=== PATIENT | female | born 1980 | race Caucasian/White ===

== ENCOUNTER 2020-10-24 14:37 | Outpatient (CLI) | payer MEDICARE, MEDICAID, SELFPAY ==
--- NOTE | ~2020-10-24 | CT_ITS ---
EXAMINATION: CT abdomen pelvis w con DATE: 10/24/2020 15:04 INDICATION: Left lower quadrant abdominal pain. TECHNIQUE: Computed tomography (CT) of the abdomen and pelvis was performed with 100 mL Omnipaque 350 intravenous contrast. Automated exposure control and iterative reconstruction technique were employe d. The dose-length product was 638.83 mGy-cm. COMPARISON: CT abdomen and pelvis 09/11/2015 FINDINGS: The visualized portions of the lung bases demonstrate mild atelectasis. No pleural effusion . The heart size is normal. No pericardial effusion. There is a chronic 1.7 cm mass in the liver, lik leonardo benign. The gallbladder, spleen, pancreas, adrenal glands, and kidneys are normal. There are no d ilated loops of bowel. The appendix is normal. There are no pathologically enlarged lymph nodes. Ther e is trace pelvic ascites. The ovaries are unremarkable. There is moderate lumbar spondylosis. IMPRESSION: 1. No specific etiology for the patient's symptoms. Reviewed, dictated and finalized at location A. ITURE DUSTER
== END 2020-10-24 14:38 | disposition home or self-care (01) ==
PROVIDERS: PCP Family Medicine Adolescent Medicine; Visit Provider Family Medicine Adolescent Medicine
DX: R10.32 Left lower quadrant pain (principal)
CPT/HCPCS: 74177; Q9967

== ENCOUNTER 2020-11-09 20:23 | Emergency (ER) | payer MEDICARE, MEDICAID, SELFPAY ==
--- NOTE | ~2020-11-09 | CT_ITS ---
EXAMINATION: CT abdomen pelvis w con INDICATION: Left-sided abdominal pain and diarrhea TECHNIQUE: Computed tomographic images of the abdomen and pelvis were obtained after the administrati on of 100 cc of Omnipaque 350 intravenous contrast. The dose-length product (DLP) was 782.58 mGy-cm. Automated exposure control and iterative reconstruction technique were employed. COMPARISON: 10/24/2020 FINDINGS: Minimal dependent atelectasis is present in the lung bases. The heart size is normal. Again noted is a chronic and unchanged 1.7 cm mass of the liver, likely benign given the lack of interval change. The spleen, pancreas, gallbladder, and adrenal glands are normal. Hypoattenuating lesions in the kidneys, measuring up to 6 mm on the right, are too small to characterize but likely represent cy sts. No pathologically enlarged abdominal or pelvic lymph nodes are identified. There is no free intr aperitoneal gas or evidence of bowel obstruction. Gas in the subcutaneous tissues of the right buttoc k likely reflects an injection site. The appendix is normal. There is moderate lumbar spondylosis. IMPRESSION: 1. No CT correlate for the patient's symptoms. Reviewed, dictated and finalized at location A. 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
[2020-11-09 20:26] VITALS: BP 150/102; PULSE 92; RESP 18; TEMP 36.7; O2SAT 99
--- NOTE | 2020-11-09 20:28 | ED.GENADULT ---
HPI - General Adult General Chief complaint: Unspecified Stated complaint: diarrhea Time Seen by Provider: 11/09/20 20:28 Source: patient Mode of arrival: ambulatory Limitations: no limitations History of Present Illness HPI narrative: Patient is a 39 yo female who presents for evaluation of left sided abdominal pain. Patient reports pain is sharp and intermittent in nature. She reports diarrhea over the past month as well. No blood or mucus present. Pt also reporting vaginal discharge. She is sexually active with one partner. She denies history of STI. She reports urgency, frequency without dysuria or hematuria. Pt reports with recent CT scan with possible diverticulitis diagnosis, however pt states she is on antibiotics and only has a bottle of diclofenac with her. She denies fever, chest pain, cough, right sided abdominal pain. Pt reports intermittent left sided flank pain over the past month. No severe pain currently. I reviewed patient CT scan at this facility from 10/24 and no specific etiology to explain patient symptoms. Related Data Home Medications Medication Instructions Recorded Confirmed diclofenac sodium PO 11/09/20 divalproex PO 11/09/20 levothyroxine 11/09/20 norethindrone (contraceptive) mg 11/09/20 olanzapine mg 11/09/20 vilazodone [Viibryd] mg 11/09/20 Allergies Allergy/AdvReac Type Severity Reaction Status Date / Time No Known Allergies Allergy Unknown Unverified 11/09/20 20:30 Review of Systems Review of Systems: Narrative: CONSTITUTIONAL: Denies fever, chills, or sweats. ENT: Denies rhinorrhea, congestion, sore throat, or otalgia. CARDIOVASCULAR: Denies chest pain, palpitations, or edema. RESPIRATORY: Denies cough or dyspnea. GASTROINTESTINAL: Reports left flank pain, reports diarrhea GENITOURINARY: Denies dysuria or hematuria. Reports frequency and urgency. SKIN: Denies rash or itching. MUSCULOSKELETAL: Denies back pain, joint pain, or myalgia. NEUROLOGIC: Denies headache, numbness, or weakness. [facility] Past Medical History Medical History (Updated 11/09/20 @ 23:40 by Milagro Calvillo MD) Anxiety Cerebral palsy HPV (human papilloma virus) infection Social History Social History (Updated 11/09/20 @ 21:15 by Milagro Calvillo MD) Smoking status: Never smoker Substance use: never Gender identity (if verbalized by the patient): Female Exam Narrative: Exam Narrative: GENERAL: Awake, alert, conversant HEAD: Normocephalic, atraumatic. EYES: PERRLA and EOMI. ENT: Nares clear, no rhinorrhea or epistaxis. Mucous membranes moist. NECK: Supple. CHEST: No respiratory distress, breathing even and non labored HEART: Regular rate, sinus rhythm ABDOMEN:Bilateral CVA tenderness, mild abdominal distension, non tender throughout Rectal: Labia majora and minora normal without lesions. Vagina with out blood. No cervical motion tenderness. Mild cervical erythema. No adnexal tenderness or fullness bilaterally. Mucoid discharge present. EXTREMITIES: Normal range of motion. No edema. SKIN: Warm, dry, no rash. NEURO:No focal deficits. Alert and oriented x3. Ambulatory. Course Vital Signs Vital signs: Vital Signs Temperature 36.7 C 11/09/20 20:26 Pulse Rate 92 11/09/20 20:26 Respiratory Rate 18 11/09/20 20:26 Blood Pressure 150/102 H 11/09/20 20:26 Pulse Oximetry 99 11/09/20 20:26 Temperature 36.7 C 11/09/20 20:26 Pulse Rate 92 11/09/20 20:26 Respiratory Rate 18 11/09/20 20:26 Blood Pressure 150/102 H 11/09/20 20:26 Pulse Oximetry 99 11/09/20 20:26 Medical Decision Making MDM Narrative Medical decision making narrative: Patient presented for evaluation of abdominal pain, hesitancy, frequency, vaginal discharge. At the time of assessment, ABCs are intact and vital signs are stable. Patient with mild leukocytosis. Possible UTI although catch does appear somewhat unclean given amount of squamous cells present. However, given patient's urinary sympto
[2020-11-09 20:54] LABS: Basophils Absolute Auto 0.1 K/mm3 (0.0-0.1); Basophils Percent Auto 0.4 % (0.2-1.2); Eosinophils Absolute Auto 0.1 K/mm3 (0-0.3); Hematocrit 41.4 % (37.0-47.0); Hemoglobin 13.8 g/dL (12.0-15.0); Immature Granulocyte Absolute 0.05 K/mm3 (0.00-0.031); Immature Granulocyte Percent A 0.4 % (0-0.5); Lymphocytes Absolute Auto 3.56 K/mm3 (0.9-3.2); Lymphocytes Percent Auto 29.2 % (18.3-44.2); Mean Corpuscular HGB Conc 33.3 g/dl (32-36); Mean Corpuscular Hemoglobin 30.9 pg (26-34); Mean Corpuscular Volume 92.8 fl (80-100); Mean Platelet Volume 9.3 fl (7.4-10.4); Monocytes Absolute Auto 0.9 K/mm3 (0.1-0.6); Monocytes Percent Auto 7.6 % (2.6-8.5); Neutrophils Absolute Auto 7.5 K/mm3 (1.3-6.7); Neutrophils Percent Auto 61.4 % (45.5-73.1); Platelet Count Result 372 k/mm3 (150-375); Red Blood Count 4.46 M/mm3 (4.2-5.4); Red Cell Distribution Width 12.9 % (11.5-14.5); White Blood Count 12.2 K/mm3 (4.5-10.0)
[2020-11-09 21:07] LABS: Alanine Aminotransferase 12 U/L (4-35); Albumin Level 4.3 g/dL (3.5-5.1); Alkaline Phosphatase 62 U/L (38-126); Anion Gap 8 mmol/L (8-16); Aspartate Amino Transferase 25 U/L (14-36); Bilirubin,Total 0.4 mg/dL (0.2-1.3); Blood Urea Nitrogen 15 mg/dL (7-17); Calcium 9.6 mg/dL (8.4-10.2); Carbon Dioxide 28 mmol/L (22-30); Chloride 102 mmol/L (98-107); Estimated CRCL calculation 83 ml/min; Estimated Glomerular Filt Rate > 60; Glucose 109 mg/dL (65-105); Lipase 69 U/L (23-300); Potassium 3.9 mmol/L (3.4-5.0); Sodium 138 mmol/L (137-145)
[2020-11-09] MEDS: cefTRIAXone 250 MG VIAL IM (22:04)
[2020-11-09] MEDS: AZITHROMYCIN 250 MG TABLET 1000 MG PO (22:04)
[2020-11-09 22:05] LABS: Add Urine Microscopic? YES; Appearance Urine Cloudy (Clear); Bacteria Urine Trace /hpf; Bilirubin Urine Negative (Negative); Blood Urine Negative (Negative); Color Urine Yellow (Yellow); Glucose Urine UA Negative (Negative); Ketones Urine Negative (Negative); Leukocyte Esterase Ur 3+ LEU/UL (Negative); Mucus Urine Heavy /lpf; Nitrate Urine Negative (Negative); Protein Urine Negative (Negative); Specific Grav Ur 1.016 (1.001-1.035); Squamous Epithelial Cell Urine Many /hpf (Few); Urobilinogen Urine Negative mg/dL (<2.0); WBC Urine 21-30 /hpf
[2020-11-09 23:51] VITALS: BP 134/79; PULSE 78; RESP 16; TEMP 36.4; O2SAT 100
== END 2020-11-09 23:52 | disposition home or self-care (01) ==
PROVIDERS: Emergency Provider Emergency Medicine; PCP Family Medicine Adolescent Medicine
DX: N73.9 Female pelvic inflammatory disease, unspecified (principal); N30.00 Acute cystitis without hematuria; F41.9 Anxiety disorder, unspecified; G80.9 Cerebral palsy, unspecified
CPT/HCPCS: 36415; 74177; 80053; 81001; 81025; 83690; 85025; 87070; 87086; 87088; 87491; 87591; 87808; 96372; 99284; A9270; J0696; Q9967

== ENCOUNTER 2021-05-03 05:19 | Emergency (ER) | payer MEDICARE, MEDICAID, SELFPAY ==
--- NOTE | ~2021-05-03 | CT_ITS ---
EXAMINATION: CT abdomen pelvis wo con DATE: 05/03/2021 06:25 INDICATION: Left sided flank pain TECHNIQUE: Computed tomography (CT) of the abdomen and pelvis was performed without intravenous contr ast. Automated exposure control and iterative reconstruction technique were employed. The dose-length product was 815.04 mGy-cm. COMPARISON: 11/09/2020 FINDINGS: Lung bases are clear. Heart size is normal. No pericardial or pleural effusion. Liver, gallbladder, s pleen, pancreas and bilateral adrenal glands are normal. Kidneys and ureters are normal with no uroli thiasis, hydroureteronephrosis or perinephric/ureteral stranding. The decompressed bladder, anteverte d uterus and bilateral adnexa are unremarkable. A few phleboliths in the pelvis. Bowels including the appendix are normal. No free intraperitoneal gas or fluid. No pathologically enlarged abdominal or p elvic lymphadenopathy. Large central disc extrusion at L2-L3 resulting in moderate central canal sten osis. IMPRESSION: 1. No urolithiasis or other acute intra-abdominal/pelvic process. Reviewed, dictated and finalized at location A.
[2021-05-03 05:23] VITALS: BP 134/88; PULSE 76; RESP 18; TEMP 37.3; O2SAT 97
--- NOTE | 2021-05-03 05:53 | ED.GENADULT ---
HPI - General Adult General Chief complaint: Abdominal Pain Stated complaint: side pain Time Seen by Provider: 05/03/21 05:47 History of Present Illness HPI narrative: Patient 40-year-old female who presents the emergency department chief complaint of left flank pain. Patient states that she started having pain states that it is a sharp type pain started in the last 24 hours patient reports is nonradiating reports that is not improved by anything nor is it worsened by anything. The patient reports that she had similar symptoms back in October and was diagnosed with a urinary tract infection. The patient states that this episode though is worse than the previous episode. Related Data Home Medications Medication Instructions Recorded Confirmed diclofenac sodium PO 11/09/20 divalproex PO 11/09/20 levothyroxine 11/09/20 norethindrone (contraceptive) mg 11/09/20 olanzapine mg 11/09/20 vilazodone [Viibryd] mg 11/09/20 Allergies Allergy/AdvReac Type Severity Reaction Status Date / Time No Known Allergies Allergy Unknown Verified 05/03/21 05:36 Review of Systems Review of Systems: Narrative: A 10 system review of systems was completed on the patient and is negative except for what is stated in the HPI. Nursing and ancillary documentation was reviewed. [facility] Past Medical History Medical History Anxiety Cerebral palsy HPV (human papilloma virus) infection Social History Social History Smoking status: Never smoker Substance use: never Gender identity (if verbalized by the patient): Female Exam Narrative: Exam Narrative: GENERAL: Well-appearing, well-nourished, and in no acute distress. HEAD: Normocephalic, atraumatic. EYES: PERRLA and EOMI. ENT: Nares clear, no rhinorrhea or epistaxis. Mucous membranes moist. NECK: Supple. CHEST: Clear to auscultation. No respiratory distress. HEART: Regular rate and rhythm. No murmur heard. Normal peripheral pulses. ABDOMEN: Soft, nontender, nondistended, normal active bowel sounds. EXTREMITIES: Normal range of motion. No edema. SKIN: Warm, dry, no rash. NEURO: No focal deficits. Alert and oriented x3. PSYCH: Normal mood and affect. Course Vital Signs Vital signs: Vital Signs Temperature 37.3 C 05/03/21 05:23 Pulse Rate 76 05/03/21 05:23 Respiratory Rate 18 05/03/21 05:23 Blood Pressure 134/88 05/03/21 05:23 Pulse Oximetry 97 05/03/21 05:23 Temperature 37.3 C 05/03/21 05:23 Pulse Rate 64 05/03/21 06:56 Respiratory Rate 18 05/03/21 06:56 Blood Pressure 117/59 L 05/03/21 06:56 Pulse Oximetry 100 05/03/21 06:56 Medical Decision Making Vital Signs Vital Signs: Vital Signs Temperature 37.3 C 05/03/21 05:23 Pulse Rate 76 05/03/21 05:23 Respiratory Rate 18 05/03/21 05:23 Blood Pressure 134/88 05/03/21 05:23 Pulse Oximetry 97 05/03/21 05:23 Temperature 37.3 C 05/03/21 05:23 Pulse Rate 64 05/03/21 06:56 Respiratory Rate 18 05/03/21 06:56 Blood Pressure 117/59 L 05/03/21 06:56 Pulse Oximetry 100 05/03/21 06:56 Lab Data Result diagrams: 05/03/21 06:07 05/03/21 06:07 Labs: Lab Results 05/03/21 05/03/21 05/03/21 Range/Units 06:07 06:07 06:07 WBC 10.4 H (4.5-10.0) K/mm3 RBC 4.41 (4.2-5.4) M/mm3 Hgb 13.3 (12.0-15.0) g/dL Hct 41.5 (37.0-47.0) % MCV 94.1 (80-100) fl MCH 30.2 (26-34) pg MCHC 32.0 (32-36) g/dl RDW 13.4 (11.5-14.5) % Plt Count 284 (150-375) k/mm3 MPV 10.1 (7.4-10.4) fl Immature Gran % (Auto) 0.6 H (0-0.5) % Neut % (Auto) 39.4 L (45.5-73.1) % Lymph % (Auto) 46.3 H (18.3-44.2) % [place] % (Auto) 11.1 H (2.6-8.5) % Eos % (Auto) 2.1 (0-4.4) % Baso % (Auto) 0.5 (0.2-1.2) % Lymph # (Auto) 4.82 H (0.9-3.2) K/mm3 [place] # (Auto) 1.2
[2021-05-03] MEDS: SODIUM CHLORIDE 0.9% IV 1,000 ML 999 ML IV CONT (06:09)
[2021-05-03] MEDS: ONDANSETRON INJ 4 MG/2 ML VIAL IV PUSH (06:09)
[2021-05-03 06:16] LABS: Basophils Absolute Auto 0.1 K/mm3 (0.0-0.1); Basophils Percent Auto 0.5 % (0.2-1.2); Eosinophils Absolute Auto 0.2 K/mm3 (0-0.3); Eosinophils Percent Auto 2.1 % (0-4.4); Hematocrit 41.5 % (37.0-47.0); Hemoglobin 13.3 g/dL (12.0-15.0); Immature Granulocyte Absolute 0.06 K/mm3 (0.00-0.031); Immature Granulocyte Percent A 0.6 % (0-0.5); Lymphocytes Absolute Auto 4.82 K/mm3 (0.9-3.2); Lymphocytes Percent Auto 46.3 % (18.3-44.2); Mean Corpuscular Hemoglobin 30.2 pg (26-34); Mean Corpuscular Volume 94.1 fl (80-100); Mean Platelet Volume 10.1 fl (7.4-10.4); Monocytes Absolute Auto 1.2 K/mm3 (0.1-0.6); Monocytes Percent Auto 11.1 % (2.6-8.5); Neutrophils Absolute Auto 4.1 K/mm3 (1.3-6.7); Neutrophils Percent Auto 39.4 % (45.5-73.1); Platelet Count Result 284 k/mm3 (150-375); Red Blood Count 4.41 M/mm3 (4.2-5.4); Red Cell Distribution Width 13.4 % (11.5-14.5); White Blood Count 10.4 K/mm3 (4.5-10.0)
[2021-05-03 06:35] LABS: Add Urine Microscopic? YES; Appearance Urine Cloudy (Clear); Bilirubin Urine Negative (Negative); Blood Urine 1+ (Negative); Color Urine Yellow (Yellow); Glucose Urine UA Negative (Negative); Ketones Urine Trace mg/dL (Negative); Leukocyte Esterase Ur 2+ LEU/UL (Negative); Nitrate Urine Negative (Negative); Protein Urine 1+ mg/dL (Negative)
[2021-05-03 06:39] LABS: Bacteria Urine 2+ /hpf; Squamous Epithelial Cell Urine Many /hpf (Few)
[2021-05-03 06:45] LABS: Alanine Aminotransferase 9 U/L (4-35); Albumin Level 3.8 g/dL (3.5-5.1); Alkaline Phosphatase 53 U/L (38-126); Anion Gap 11 mmol/L (8-16); Aspartate Amino Transferase 30 U/L (14-36); Bilirubin,Total 0.4 mg/dL (0.2-1.3); Blood Urea Nitrogen 14 mg/dL (7-17); Calcium 9.2 mg/dL (8.4-10.2); Carbon Dioxide 26 mmol/L (22-30); Chloride 105 mmol/L (98-107); Estimated CRCL calculation 92 ml/min; Estimated Glomerular Filt Rate > 60; Glucose 113 mg/dL (65-105); Lipase 54 U/L (23-300); Potassium 4.3 mmol/L (3.4-5.0); Sodium 142 mmol/L (137-145)
[2021-05-03 06:56] VITALS: BP 117/59; PULSE 64; RESP 18; O2SAT 100
[2021-05-03 08:05] VITALS: BP 106/58; RESP 16
== END 2021-05-03 08:07 | disposition home or self-care (01) ==
PROVIDERS: Emergency Provider Emergency Medicine; PCP Family Medicine Adolescent Medicine
DX: R10.84 Generalized abdominal pain (principal); N30.00 Acute cystitis without hematuria; F41.9 Anxiety disorder, unspecified; G80.9 Cerebral palsy, unspecified
CPT/HCPCS: 36415; 74176; 80048; 80076; 81001; 81025; 83690; 85025; 96361; 96374; 99284; J2405; J7030

== ENCOUNTER 2021-06-04 06:53 | Emergency (ER) | payer MEDICARE, MEDICAID, SELFPAY ==
[2021-06-04 06:57] VITALS: BP 160/97; PULSE 96; RESP 18; TEMP 37; O2SAT 96
[2021-06-04 07:20] LABS: Add Urine Microscopic? YES; Appearance Urine Cloudy (Clear); Bacteria Urine 1+ /hpf; Bilirubin Urine Negative (Negative); Blood Urine 1+ (Negative); Color Urine Yellow (Yellow); Glucose Urine UA Negative (Negative); Ketones Urine Negative (Negative); Leukocyte Esterase Ur 2+ LEU/UL (Negative); Mucus Urine Few /lpf; Nitrate Urine Negative (Negative); Protein Urine Negative (Negative); Specific Grav Ur 1.018 (1.001-1.035); Squamous Epithelial Cell Urine Many /hpf (Few); Urobilinogen Urine Negative mg/dL (<2.0); WBC Urine 16-20 /hpf
--- NOTE | 2021-06-04 07:25 | ED.FEMALEGU ---
HPI - Female Genitourinary General Chief complaint: Urogenital-Female Stated complaint: UTI not better Time Seen by Provider: 06/04/21 07:04 Source: patient Mode of arrival: ambulatory Limitations: no limitations History of Present Illness HPI Narrative: Patient is a 40-year-old female complaining of I have a UTI , describes his low back pain. Patient states that this is typical when she gets a urinary tract infection she has low back pain. Patient denies any abdominal pain, dysuria, increased urinary frequency, nausea, vomiting, fever or chills. Related Data Home Medications Medication Instructions Recorded Confirmed diclofenac sodium PO 11/09/20 divalproex PO 11/09/20 levothyroxine 11/09/20 norethindrone (contraceptive) mg 11/09/20 olanzapine mg 11/09/20 vilazodone [Viibryd] mg 11/09/20 Allergies Allergy/AdvReac Type Severity Reaction Status Date / Time No Known Allergies Allergy Unknown Verified 06/04/21 06:56 Review of Systems Review of Systems: All systems reviewed & are unremarkable except as noted in HPI and below Constitutional: Constitutional: Denies body ache(s), Denies chills, Denies excessive sweating, Denies fatigue, Denies fever(s), Denies headache(s), Denies lethargy, Denies malaise, Denies weakness and Denies weight loss Eyes: Eyes: Denies blurry vision, Denies change in vision and Denies loss of vision ENT: Denies dizziness, Denies ear discharge, Denies headache(s), Denies lip swelling, Denies epistaxis, Denies nasal congestion, Denies neck pain, Denies throat swelling and Denies tongue swelling Cardiovascular: Cardiovascular: Denies chest pain, Denies chest pain at rest, Denies chest pain with activity, Denies diaphoresis, Denies rapid heart rate, Denies edema, Denies irregular heart rhythm, Denies lightheadedness, Denies palpitations, Denies dyspnea and Denies dyspnea on exertion Respiratory: Respiratory: Denies chest congestion, Denies cough, Denies hemoptysis, Denies dyspnea and Denies dyspnea on exertion Gastrointestinal: Gastrointestinal: Denies abdominal pain, Denies melena, Denies hematochezia, Denies diarrhea, Denies nausea, Denies vomiting and Denies hematemesis Musculoskeletal: Musculoskeletal: Denies abnormal gait, Denies deformity, Denies joint swelling, Denies limited range of motion, Denies neck pain and Denies numbness Neurologic: Denies Abnormal speech present, Denies abnormal gait, Denies confusion, Denies dizziness, Denies headache(s), Denies focal weakness, Denies loss of vision, Denies numbness, Denies Other visual disturbances, Denies Sensory deficit (Neuro) and Denies weakness Psychiatric: Psychiatric: Denies confusion, Denies depression, Denies auditory hallucinations, Denies homicidal ideation and Denies suicidal ideation Endocrine: Endocrine: Denies cold intolerance, Denies excessive sweating, Denies fatigue, Denies heat intolerance and Denies palpitations Hematologic/Lymphatic: Hematologic/Lymphatic: Denies easy bleeding and Denies easy bruising Allergic/Immunologic: Allergic/Immunologic: Denies lip swelling, Denies throat swelling and Denies tongue swelling PMFSH Past Medical History Medical History Anxiety Cerebral palsy HPV (human papilloma virus) infection Social History Social History Smoking status: Never smoker Substance use: never Gender identity (if verbalized by the patient): Female Exam Const: General: cooperative, healthy appearing, comfortable, no acute distress, well developed, alert and awake; No confusion Orientation/consciousness: oriented to person, oriented to place, oriented to time, patient oriented x3 and No confusion Limitations: no limitations HENMT: Head: normal to inspection, normocephalic and atraumatic Ears: hearing grossly normal bilaterally, TM normal on the right and TM normal on the left General nose exam:
[2021-06-04 07:58] LABS: Basophils Absolute Auto 0.1 K/mm3 (0.0-0.1); Basophils Percent Auto 0.5 % (0.2-1.2); Eosinophils Absolute Auto 0.2 K/mm3 (0-0.3); Eosinophils Percent Auto 1.6 % (0-4.4); Hematocrit 44.1 % (37.0-47.0); Hemoglobin 14.3 g/dL (12.0-15.0); Immature Granulocyte Absolute 0.06 K/mm3 (0.00-0.031); Immature Granulocyte Percent A 0.6 % (0-0.5); Lymphocytes Absolute Auto 4.39 K/mm3 (0.9-3.2); Lymphocytes Percent Auto 42.2 % (18.3-44.2); Mean Corpuscular HGB Conc 32.4 g/dl (32-36); Mean Corpuscular Hemoglobin 30.2 pg (26-34); Mean Corpuscular Volume 93.2 fl (80-100); Mean Platelet Volume 9.5 fl (7.4-10.4); Monocytes Absolute Auto 0.9 K/mm3 (0.1-0.6); Monocytes Percent Auto 8.4 % (2.6-8.5); Neutrophils Absolute Auto 4.9 K/mm3 (1.3-6.7); Neutrophils Percent Auto 46.7 % (45.5-73.1); Platelet Count Result 307 k/mm3 (150-375); Red Blood Count 4.73 M/mm3 (4.2-5.4); Red Cell Distribution Width 13.2 % (11.5-14.5); White Blood Count 10.4 K/mm3 (4.5-10.0)
[2021-06-04 08:07] LABS: Anion Gap 12 mmol/L (8-16); Blood Urea Nitrogen 11 mg/dL (7-17); Calcium 9.7 mg/dL (8.4-10.2); Carbon Dioxide 28 mmol/L (22-30); Chloride 100 mmol/L (98-107); Estimated CRCL calculation 81 ml/min; Estimated Glomerular Filt Rate > 60; Glucose 96 mg/dL (65-105); Sodium 140 mmol/L (137-145)
== END 2021-06-04 09:25 | disposition home or self-care (01) ==
PROVIDERS: Emergency Provider Emergency Medicine; PCP Family Medicine Adolescent Medicine
DX: N30.00 Acute cystitis without hematuria (principal); F41.9 Anxiety disorder, unspecified; G80.9 Cerebral palsy, unspecified
CPT/HCPCS: 36415; 80048; 81001; 85025; 87086; 87088; 99283

== ENCOUNTER 2022-02-15 16:53 | Emergency (ER) | payer MEDICARE, MEDICAID, SELFPAY ==
--- NOTE | ~2022-02-15 | CT_ITS ---
EXAMINATION: CT abdomen pelvis w con DATE: 02/15/2022 19:37 INDICATION: Abdominal pain, rectal pain, fever. History of recurrent urinary tract infections. TECHNIQUE: Computed tomography (CT) of the abdomen and pelvis was performed with 100 CC Omnipaque 350 intravenous contrast. Automated exposure control and iterative reconstruction technique were employe d. Exam dose: 683.73 mGy-cm total exam DLP. COMPARISON: 05/03/2021 CT abdomen pelvis 08/12/2015 CT abdomen pelvis FINDINGS: Minimal discoid atelectasis or scarring in the right lower lobe. No infiltrate or consolida tion at the lung bases. Normal heart size. No pericardial or pleural effusion. Small sliding hiatal hernia. There is an approximately 1.6 cm hypoattenuating lesion of the inferomedial aspect of the lower right hepatic lobe, not significant change in size since 08/12/2015. There does appear to be some enhanceme nt of the lesion. This is likely a benign cavernous hemangioma. There is a similar approximately 1.7 cm lesion of the lateral segment of the left hepatic lobe with s uggestion of some peripheral puddling contrast enhancement, likely another benign hepatic hemangioma. The gallbladder is unremarkable. No bile duct or pancreatic duct dilatation. Normal morphology of the adrenal glands. 7 mm right renal cyst. 7 mm left renal cyst. No suspicious renal mass lesion. No renal scarring. No u rinary tract calculus or hydroureteronephrosis. The urinary bladder, uterus and adnexal areas appear normal. Normal caliber of the abdominal aorta. No intraperitoneal or retroperitoneal or pelvic mass lesion or adenopathy or ascites. Normal appendix. No bowel obstruction, bowel wall thickening, pneumatosis or intraperitoneal free air . Small fat-containing umbilical hernia. No suspicious osteolytic or osteoblastic lesions are noted. There is moderately severe degenerative d isc disease at L2-3. IMPRESSION: 2 probable hepatic hemangiomas 7 mm cyst of each kidney Small sliding hiatal hernia Reviewed, dictated and finalized at Location A. Reviewed, dictated and finalized at location A.
[2022-02-15 17:03] VITALS: BP 157/88; PULSE 92; RESP 19; TEMP 37.1; O2SAT 99
[2022-02-15 17:28] LABS: Basophils Absolute Auto 0.1 K/mm3 (0.0-0.1); Basophils Percent Auto 0.6 % (0.2-1.2); Eosinophils Absolute Auto 0.1 K/mm3 (0-0.3); Eosinophils Percent Auto 0.8 % (0-4.4); Hematocrit 41.7 % (37.0-47.0); Hemoglobin 13.6 g/dL (12.0-15.0); Immature Granulocyte Absolute 0.11 K/mm3 (0.00-0.031); Immature Granulocyte Percent A 1.1 % (0-0.5); Lymphocytes Absolute Auto 2.99 K/mm3 (0.9-3.2); Lymphocytes Percent Auto 29.3 % (18.3-44.2); Mean Corpuscular HGB Conc 32.6 g/dl (32-36); Mean Corpuscular Hemoglobin 30.6 pg (26-34); Mean Corpuscular Volume 93.9 fl (80-100); Mean Platelet Volume 8.9 fl (7.4-10.4); Monocytes Absolute Auto 1.3 K/mm3 (0.1-0.6); Monocytes Percent Auto 12.9 % (2.6-8.5); Neutrophils Absolute Auto 5.7 K/mm3 (1.3-6.7); Neutrophils Percent Auto 55.3 % (45.5-73.1); Platelet Count Result 367 k/mm3 (150-375); Red Blood Count 4.44 M/mm3 (4.2-5.4); Red Cell Distribution Width 13.5 % (11.5-14.5); White Blood Count 10.2 K/mm3 (4.5-10.0)
[2022-02-15 17:39] LABS: Alanine Aminotransferase 17 U/L (4-35); Albumin Level 4.4 g/dL (3.5-5.1); Alkaline Phosphatase 60 U/L (38-126); Anion Gap 6 mmol/L (8-16); Aspartate Amino Transferase 25 U/L (14-36); Bilirubin,Total 0.4 mg/dL (0.2-1.3); Blood Urea Nitrogen 12 mg/dL (7-17); Carbon Dioxide 32 mmol/L (22-30); Chloride 100 mmol/L (98-107); Estimated Glomerular Filt Rate > 60; Glucose 109 mg/dL (65-110); Lipase 36 U/L (23-300); Sodium 138 mmol/L (137-145)
--- NOTE | 2022-02-15 18:24 | ED.NAVMDI ---
HPI - Nausea/Vomiting/Diarrhea General Chief complaint: Nausea/Vomiting/Diarrhea Stated complaint: multiple complaints Time Seen by Provider: 02/15/22 18:01 History of Present Illness HPI Narrative: 41-year-old female presents the emergency room with complaints of dysuria, nausea, vomiting, and constipation since yesterday. Patient states she took a stool softener last night, and is now been experiencing diarrhea and rectal discomfort. Denies abdominal pain, fever, body aches. Related Data Home Medications Medication Instructions Recorded Confirmed divalproex PO 11/09/20 01/09/22 norethindrone (contraceptive) mg 11/09/20 01/09/22 olanzapine mg 11/09/20 01/09/22 Allergies Allergy/AdvReac Type Severity Reaction Status Date / Time No Known Allergies Allergy Unknown Verified 01/09/22 13:57 Review of Systems Review of Systems: CONSTITUTIONAL: Denies fever, chills, or sweats. EYES: Denies visual changes, redness, or discharge. ENT: Denies rhinorrhea, congestion, sore throat, or otalgia. CARDIOVASCULAR: Denies chest pain, palpitations, or edema. RESPIRATORY: Denies cough or dyspnea. GASTROINTESTINAL: Reports nausea, vomiting, and diarrhea. GENITOURINARY: Denies dysuria or hematuria. SKIN: Denies rash or itching. MUSCULOSKELETAL: Denies back pain, joint pain, or myalgia. NEUROLOGIC: Reports headache. Denies numbness, dizziness, or weakness. PSYCHIATRIC: Denies anxiety or depression. [facility] Past Medical History Medical History Anxiety Bipolar disorder, unspecified Cerebral palsy Generalized anxiety disorder HPV (human papilloma virus) infection Hypothyroid Mild intermittent asthma Obstructive sleep apnea mild, 08/2018 Family History Family History Other Diabetes mellitus Heart disease Social History Social History Smoking status: Never smoker Alcohol intake: never Substance use: never Substance use type: does not use Gender identity (if verbalized by the patient): Female Sexual Orientation (if Verbalized by the Patient): Straight or Heterosexual Spiritual care concerns: No Agree to blood products: Yes Exam Narrative: GENERAL: Well-appearing, well-nourished, and in no acute distress. HEAD: Normocephalic, atraumatic. EYES: PERRLA and EOMI. ENT: Nares clear, no rhinorrhea or epistaxis. Mucous membranes moist. NECK: Supple. No adenopathy or masses. No carotid bruits or JVD CHEST: Clear to auscultation. No respiratory distress. No wheezes rales or rhonchi HEART: Regular rate and rhythm. No murmur heard. Normal peripheral pulses. ABDOMEN: Soft, nontender, nondistended, normal active bowel sounds. EXTREMITIES: Normal range of motion. No edema. SKIN: Warm, dry, no rash. NEURO: No focal deficits. Alert and oriented x3. PSYCH: Normal mood and affect. Course Vital Signs Vital signs: Vital Signs Temperature 37.1 C 02/15/22 17:03 Pulse Rate 92 02/15/22 17:03 Respiratory Rate 19 02/15/22 17:03 Blood Pressure 157/88 H 02/15/22 17:03 Pulse Oximetry 99 02/15/22 17:03 Temperature 37.2 C 02/15/22 21:29 Pulse Rate 80 02/15/22 21:26 Respiratory Rate 16 02/15/22 21:26 Blood Pressure 139/87 02/15/22 21:26 Pulse Oximetry 98 02/15/22 21:26 MDM - Nausea/Vomiting/Diarrhea MDM Narrative Medical decision making narrative: 41-year-old female presented the emergency room with complaints of intermittent diarrhea and constipation, dysuria and nausea. Urinalysis was unremarkable. CBC and CMP were unremarkable. Patient did spike elevated temperature during her ER visit. Obtain CT abdomen to rule out any intra-abdominal pathology. CT was normal for acute abnormality. Patient likely experiencing a gastroenteritis, and her constipation was likely causing her dysuria. Differential Diagnosis Differential haja
[2022-02-15] MEDS: ONDANSETRON INJ 4 MG/2 ML VIAL IV PUSH (18:32)
[2022-02-15] MEDS: SODIUM CHLORIDE 0.9% IV 1,000 ML 999 ML IV CONT (18:32)
[2022-02-15 18:57] LABS: Add Urine Microscopic? YES; Appearance Urine Clear (Clear); Bacteria Urine Trace /hpf; Bilirubin Urine Negative (Negative); Blood Urine Negative (Negative); Color Urine Yellow (Yellow); Glucose Urine UA Negative (Negative); Ketones Urine Trace mg/dL (Negative); Leukocyte Esterase Ur Negative LEU/UL (Negative); Mucus Urine Rare /lpf; Nitrate Urine Negative (Negative); Protein Urine Negative (Negative); RBC Urine 0-2 /hpf (0-2); Specific Grav Ur 1.018 (1.001-1.035); Squamous Epithelial Cell Urine Occasional /hpf (Few); Urobilinogen Urine Negative mg/dL (<2.0)
[2022-02-15 19:00] VITALS: BP 139/87; PULSE 74; RESP 18; O2SAT 99
[2022-02-15 19:11] VITALS: BP 139/87; PULSE 75; RESP 12; TEMP 37.9; O2SAT 97
[2022-02-15] MEDS: METOCLOPRAMIDE HCL INJ 10 MG/2 ML VIAL IV PUSH (19:49)
[2022-02-15] MEDS: diphenhydrAMINE HCl INJ 50 MG/ML VIAL 12.5 MG IV PUSH (19:49)
--- NOTE | 2022-02-15 20:09 | PC.NURSE ---
Patient just went to the bathroom. Patient is now sitting up in bed and drinking water
[2022-02-15 21:26] VITALS: BP 139/87; PULSE 80; RESP 16; TEMP 37.2; O2SAT 98
[2022-02-15 21:29] VITALS: TEMP 37.2
== END 2022-02-15 21:30 | disposition home or self-care (01) ==
PROVIDERS: Emergency Medicine; Emergency Provider Nurse Practitioner Family; PCP Family Medicine Adolescent Medicine
DX: K52.9 Noninfective gastroenteritis and colitis, unspecified (principal); G80.9 Cerebral palsy, unspecified; E03.9 Hypothyroidism, unspecified; J45.20 Mild intermittent asthma, uncomplicated; G47.33 Obstructive sleep apnea (adult) (pediatric); K44.9 Diaphragmatic hernia without obstruction or gangrene; N28.1 Cyst of kidney, acquired
CPT/HCPCS: 36415; 51701; 74177; 80053; 81001; 81025; 83690; 85025; 96361; 96374; 96375; 99284; J0131; J1200; J2405; J2765; J7030; Q9967

== ENCOUNTER → 2022-10-17 13:03 | Outpatient (CLI) | payer MEDICARE, MEDICAID, SELFPAY ==
--- NOTE | ~2022-10-17 | MR_ITS ---
EXAMINATION: MR lumbar spine wo con DATE: 10/17/2022 13:48 INDICATION: Bilateral leg weakness. TECHNIQUE: Magnetic resonance imaging (MRI) of the lumbar spine was performed without intravenous con trast. Sequences included sagittal T2-weighted FSE, sagittal T2-weighted FS FSE, sagittal T1-weighted FSE, and axial T2-weighted FSE. COMPARISON: None FINDINGS: There is 8 degrees dextrocurvature of thoracolumbar spine. Vertebral body heights are dawna l. There is severely decreased disc height at L2-L3 with endplate remodeling. The distal spinal cord signal intensity is normal. The conus medullaris is at L1. The following disc levels are specifically discussed: L1-L2: The disc does not extend beyond the endplate margin. There is no facet joint osteoarthritis. T here is no neural foraminal stenosis. There is no central canal stenosis. L2-L3: There is a left central extrusion. There is mild right and moderate left facet joint osteoarth ritis. There is mild left neural foraminal stenosis. There is mild central canal stenosis. L3-L4: The disc is mildly bulging. There is moderate bilateral facet joint osteoarthritis. There is m ild bilateral neural foraminal stenosis. There is no central canal stenosis. L4-L5: The disc is mildly bulging. There is severe bilateral facet joint osteoarthritis. There is mil d bilateral neural foraminal stenosis. There is no central canal stenosis. L5-S1: The disc does not extend beyond the endplate margin. There is severe bilateral facet joint ost eoarthritis. There is mild bilateral neural foraminal stenosis. There is no central canal stenosis. IMPRESSION: 1. Severe spondylosis at L2-L3 and mild spondylosis at other levels. Reviewed, dictated and finalized at location A. 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
== END ==
PROVIDERS: PCP Family Medicine Adolescent Medicine; Visit Provider Physician Assistant
DX: R29.898 Other symptoms and signs involving the musculoskeletal system (principal); M47.896 Other spondylosis, lumbar region
CPT/HCPCS: 72148

== ENCOUNTER → 2022-12-20 15:51 | Outpatient (CLI) | payer MEDICARE, MEDICAID, SELFPAY ==
--- NOTE | ~2022-12-20 | MR_ITS ---
EXAMINATION: MR brain/brain stem wo con DATE: 12/20/2022 16:52 INDICATION: Unspecified abnormalities of gait and mobility. TECHNIQUE: Magnetic resonance imaging (MRI) of the brain and brainstem was performed without intraven ous contrast. COMPARISON: Brain MRI 08/19/2018 FINDINGS: There is chronic encephalomalacia in left frontal lobe with ex vacuo dilatation of anterior body of left lateral ventricle. There is no intracranial hemorrhage, acute infarction, or abnormal i ntracranial mass lesion. There is mild mucosal thickening in left maxillary sinus. The orbits are nor mal. The mastoid air cells are normal. IMPRESSION: 1. Chronic encephalomalacia in left frontal lobe. Reviewed, dictated and finalized at location A. SE COLLECTOR
--- NOTE | ~2022-12-20 | MR_ITS ---
EXAMINATION: MR thoracic spine wo con DATE: 12/20/2022 17:02 INDICATION: Gait disorder. Weakness. TECHNIQUE: Magnetic resonance imaging (MRI) of the thoracic spine was performed without intravenous c ontrast. COMPARISON: None FINDINGS: There is 3 degrees dextrocurvature of thoracic spine. Vertebral body heights are normal. Th ere is mildly decreased disc height from T2-T3 through T6-T7. The discs do not extend beyond the endp late margins. There is multilevel facet joint osteoarthritis, severe in upper thoracic spine. On the right, there is mild neural foraminal stenosis from T1-T2 through T4-T5. On the left, there is mild n eural foraminal stenosis from T1-T2 through T3-T4. No central canal stenosis. The spinal cord signal intensity is normal. The conus medullaris is at T12-L1. IMPRESSION: 1. Mild thoracic spondylosis. Reviewed, dictated and finalized at location A. T OF APPEALS JUDGE
== END ==
PROVIDERS: PCP Family Medicine Adolescent Medicine; Visit Provider Psychiatry & Neurology Neurology
DX: R26.9 Unspecified abnormalities of gait and mobility (principal); M47.894 Other spondylosis, thoracic region; R93.0 Abnormal findings on diagnostic imaging of skull and head, not elsewhere classified
CPT/HCPCS: 70551; 72146

== ENCOUNTER 2022-12-24 12:17 | Outpatient (CLI) | payer MEDICARE, MEDICAID, SELFPAY ==
--- NOTE | 2022-12-25 09:33 | WPDNEUROLOGY ---
Neurology EEG Report General Information Date of Study: 12/24/22 TEST eeg DIAGNOSIS gait disorder CONDITION OF RECORDING awake drowsy and sleep EEG NUMBER [id number] CLINICAL HISTORY patient has underlying cerebral palsy and is having trouble with walking and feeling generally weak EEG DESCRIPTION whole record consists of low-voltage 15 to 21 hertz per 2nd beta activity with multiple movement artifacts. Photic stimulation produced poor drive. Hyperventilation not done. Non paroxysmal. Nonfocal. Nonlateralizing. IMPRESSION No significant abnormalities noted
== END 2022-12-24 12:18 | disposition home or self-care (01) ==
PROVIDERS: PCP Family Medicine Adolescent Medicine; Visit Provider Psychiatry & Neurology Neurology
DX: R26.9 Unspecified abnormalities of gait and mobility (principal); G80.9 Cerebral palsy, unspecified
CPT/HCPCS: 95816

== ENCOUNTER 2023-01-06 22:12 | Emergency (ER) | payer MEDICARE, MEDICAID, SELFPAY ==
[2023-01-06 22:40] VITALS: BP 148/65; PULSE 62; RESP 17; TEMP 36.2; O2SAT 100
--- NOTE | 2023-01-06 23:25 | PC.NURSE ---
Pt approached desk to inform this RN that she is leaving d/t long wait. Pt ambulated out of department with steady gait at this time.
== END 2023-01-06 23:25 | disposition left against medical advice (07) ==
LOC: ANHED 23:31
PROVIDERS: PCP Family Medicine Adolescent Medicine
DX: R63.0 Anorexia (principal)
CPT/HCPCS: 99199

== ENCOUNTER 2023-01-27 17:25 | Outpatient (CLI) | payer MEDICARE, MEDICAID, SELFPAY ==
--- NOTE | ~2023-01-27 | XR_ITS ---
EXAMINATION: XR chest 2V Exam Date/Time: 01/27/2023 18:10 LANGUAGE INSTRUCTOR HISTORY: R06.00 - Dyspnea, unspecified Comparison: 06/20/2017. RESULT: Lines, tubes, and devices: Cholecystectomy clips. Lungs and pleura: Mild scattered reticulonodular opacities and cuffing. Calcified right midlung gran uloma. Cardiomediastinal silhouette: Stable. Other: No acute osseous or upper abdominal finding. IMPRESSION: Pulmonary opacities may represent mild bronchiolitis, as can be seen with atypical infection, asthma, aspiration, and small airways disease. Reviewed, dictated and finalized at location K. UAGE INSTRUCTOR IMPRESSION: Pulmonary opacities may represent mild bronchiolitis, as can be seen with atypi jean-claude infection, asthma, aspiration, and small airways disease.
--- NOTE | ~2023-01-27 | XR_ITS ---
EXAM: XR abdomen obstructive series DATE: 01/27/2023 18:17 HISTORY: R10.84 - RLQ PAIN. RT FLANK PAIN. 3 DAYS SINCE LAST BM . COMPARISON: 02/18/2016; CT abdomen and pelvis 02/15/2022. FINDINGS: Clear lung bases. Normal bowel gas pattern. No organomegaly. Pelvic phleboliths. Lumbar sc oliosis. IMPRESSION: No radiographic evidence of obstruction or ileus. Reviewed, dictated and finalized at location K. DRAWER
== END 2023-01-27 17:26 | disposition home or self-care (01) ==
LOC: ANHIMG 17:29
PROVIDERS: PCP Family Medicine Adolescent Medicine; Visit Provider Family Medicine Adolescent Medicine
DX: R10.84 Generalized abdominal pain (principal); R06.00 Dyspnea, unspecified; R91.8 Other nonspecific abnormal finding of lung field
CPT/HCPCS: 71046; 74019

== ENCOUNTER 2023-02-01 08:34 | Emergency (ER) | payer MEDICARE, MEDICAID, SELFPAY ==
[2023-02-01 08:35] VITALS: BP 139/94; PULSE 68; RESP 16; TEMP 37.1; O2SAT 97
--- NOTE | 2023-02-01 08:57 | ED.GENADULT ---
HPI - General Adult General Chief complaint: Arrhythmia/Palpitations Stated complaint: ? dehydration History of Present Illness HPI narrative: Patient is a 42-year-old female with history of bipolar disorder and cerebral palsy who presents ER with dehydration for which she is having a bowel movement this morning and was tracking her heart rate and it went up to 108 bpm. No chest pain or chest pressure. No loss consciousness. No fevers or chills or sweats. No exertional chest pain. Feels like she may be dry as she has been looking up a lot and is very thirsty. She has been on antibiotics recently due to a UTI. She still continues to have some burning urination Related Data Home Medications Medication Instructions Recorded Confirmed divalproex 500 mg tablet,extended 500 mg PO BID 09/10/22 10/09/22 release 24 hr cholecalciferol (vitamin D3) 50 50 mcg PO DAILY 12/06/22 mcg (2,000 unit) capsule norethindrone (contraceptive) 0.35 0.35 mg PO DAILY 12/06/22 mg tablet (Jencycla) valacyclovir 1 gram tablet 1,000 mg PO DAILY 12/06/22 vitamin E (dl, acetate) 180 mg 180 mg PO DAILY 12/06/22 (400 unit) capsule lumateperone 42 mg capsule 42 mg PO DAILY 12/30/22 (Caplyta) clonazepam 0.5 mg tablet 0.5 mg PO QHS 01/02/23 fluoxetine 20 mg capsule 20 mg PO DAILY 01/02/23 Allergies Allergy/AdvReac Type Severity Reaction Status Date / Time fluconazole [From Diflucan] AdvReac Unknown Palpitation Verified 01/23/23 09:47 s Review of Systems Review of Systems: All systems reviewed & are unremarkable except as noted in HPI and below Constitutional: Constitutional: Denies chills, Reports fatigue and Denies fever(s) Cardiovascular: Cardiovascular: Denies chest pain and Denies radiating jaw, neck or arm pain Respiratory: Respiratory: Denies cough and Denies dyspnea Gastrointestinal: Gastrointestinal: Denies abdominal pain, Denies diarrhea, Reports nausea and Denies vomiting Genitourinary: Genitourinary: Denies hematuria, Denies nocturia, Reports dysuria and Denies flank pain PMFSH Past Medical History Medical History (Updated 02/01/23 @ 11:01 by Lemuel Epps MD) Anxiety Bipolar disorder, unspecified Cerebral palsy Generalized anxiety disorder HPV (human papilloma virus) infection Hypothyroid Mild intermittent asthma Obstructive sleep apnea (08/2018) mild, 08/2018 Family History Family History Other Diabetes mellitus Heart disease Social History Social History Smoking status: Never smoker Alcohol intake: never Substance use: never Substance use type: does not use Lack of Transportation: YES Lack of Food: Never True Current Housing: I Have Housing Concerned About Future Housing: No Difficulty Paying Gas/Electric Bills: No Difficulty Paying for Meds: No Currently Unemployed: No Education: High School Diploma/GED Difficulty w/ Childcare or Family Care: No Living arrangements: alone Occupation/Education: unemployed Gender identity (if verbalized by the patient): Female Sexual Orientation (if Verbalized by the Patient): Straight or Heterosexual Spiritual care concerns: No Agree to blood products: Yes Exam Narrative: GENERAL: Well-appearing, well-nourished, and in no acute distress. HEAD: Normocephalic, atraumatic. EYES: PERRL and EOMI. ENT: Mucous membranes moist but dried spit around mouth. CHEST: Clear to auscultation. No respiratory distress. HEART: Regular rate and rhythm. Normal peripheral pulses. ABDOMEN: Soft, nontender, nondistended. EXTREMITIES: Normal range of motion. No edema. SKIN: Warm, dry, no rash. NEURO: Alert and oriented x3. PSYCH: Normal mood and affect. Course Course Emergency Course: Patient resting comfortably. Up and ambulatory without issue. Discussed lab results with patient and she verbalized understand
[2023-02-01 09:05] LABS: Basophils Percent Auto 0.6 % (0.2-1.2); Eosinophils Absolute Auto 0.1 K/mm3 (0-0.3); Eosinophils Percent Auto 0.9 % (0-4.4); Hematocrit 38.7 % (37.0-47.0); Immature Granulocyte Absolute 0.02 K/mm3 (0.00-0.031); Immature Granulocyte Percent A 0.4 % (0-0.5); Mean Corpuscular HGB Conc 33.6 g/dl (32-36); Mean Corpuscular Hemoglobin 33.2 pg (26-34); Mean Corpuscular Volume 98.7 fl (80-100); Mean Platelet Volume 9.9 fl (7.4-10.4); Monocytes Absolute Auto 0.6 K/mm3 (0.1-0.6); Neutrophils Absolute Auto 2.5 K/mm3 (1.3-6.7); Neutrophils Percent Auto 48.1 % (45.5-73.1); Platelet Count Result 269 k/mm3 (150-375); Red Blood Count 3.92 M/mm3 (4.2-5.4); White Blood Count 5.3 K/mm3 (4.5-10.0)
[2023-02-01 09:18] LABS: Alanine Aminotransferase 13 U/L (6-35); Albumin Level 3.7 g/dL (3.5-5.1); Alkaline Phosphatase 41 U/L (38-126); Anion Gap 3 mmol/L (8-16); Aspartate Amino Transferase 25 U/L (14-36); Bilirubin,Total 0.5 mg/dL (0.2-1.3); Blood Urea Nitrogen 8 mg/dL (7-17); Calcium 8.9 mg/dL (8.4-10.2); Carbon Dioxide 31 mmol/L (22-30); Chloride 103 mmol/L (98-107); Estimated CRCL calculation 79 ml/min; Estimated Glomerular Filt Rate > 60; Glucose 92 mg/dL (65-110); Potassium 4.2 mmol/L (3.4-5.0); Sodium 137 mmol/L (137-145)
[2023-02-01] MEDS: ONDANSETRON INJ 4 MG/2 ML VIAL IV PUSH (09:35)
[2023-02-01] MEDS: SODIUM CHLORIDE 0.9% IV 1,000 ML 999 ML IV CONT (09:35)
== END 2023-02-01 11:29 | disposition home or self-care (01) ==
PROVIDERS: Emergency Provider Emergency Medicine; PCP Family Medicine Adolescent Medicine
DX: R00.2 Palpitations (principal); F41.9 Anxiety disorder, unspecified; F31.9 Bipolar disorder, unspecified; G80.9 Cerebral palsy, unspecified; E03.9 Hypothyroidism, unspecified; G47.30 Sleep apnea, unspecified; J45.909 Unspecified asthma, uncomplicated
CPT/HCPCS: 36415; 80053; 85025; 96361; 96374; 99283; J2405; J7030

== ENCOUNTER 2023-04-21 05:50 | Emergency (ER) | payer MEDICARE, MEDICAID, SELFPAY ==
[2023-04-21] VITALS (15 sets, daily range): BP systolic 109–133; BP diastolic 58–88; PULSE 60–76; RESP 12–19; TEMP 36.2–36.6; O2SAT 96–100
[2023-04-21] MEDS: KETOROLAC 30 MG/ML VIAL (*BKC) IV PUSH (07:32)
[2023-04-21] MEDS: SODIUM CHLORIDE 0.9% IV 1,000 ML 999 ML IV CONT (07:33)
[2023-04-21 07:49] LABS: Basophils Percent Auto 0.4 % (0.2-1.2); Eosinophils Absolute Auto 0.1 K/mm3 (0-0.3); Eosinophils Percent Auto 1.1 % (0-4.4); Hematocrit 37.1 % (37.0-47.0); Hemoglobin 12.4 g/dL (12.0-15.0); Immature Granulocyte Absolute 0.02 K/mm3 (0.00-0.031); Immature Granulocyte Percent A 0.4 % (0-0.5); Lymphocytes Absolute Auto 2.04 K/mm3 (0.9-3.2); Mean Corpuscular HGB Conc 33.4 g/dl (32-36); Mean Corpuscular Hemoglobin 32.3 pg (26-34); Mean Corpuscular Volume 96.6 fl (80-100); Mean Platelet Volume 10.3 fl (7.4-10.4); Monocytes Absolute Auto 0.8 K/mm3 (0.1-0.6); Neutrophils Absolute Auto 2.7 K/mm3 (1.3-6.7); Neutrophils Percent Auto 48.1 % (45.5-73.1); Platelet Count Result 171 k/mm3 (150-375); Red Blood Count 3.84 M/mm3 (4.2-5.4); Red Cell Distribution Width 12.5 % (11.5-14.5); White Blood Count 5.7 K/mm3 (4.5-10.0)
[2023-04-21 07:51] LABS: Appearance Urine Clear (Clear); Bilirubin Urine Negative (Negative); Blood Urine Negative (Negative); Color Urine Yellow (Yellow); Glucose Urine UA Negative (Negative); Ketones Urine Negative (Negative); Leukocyte Esterase Ur Negative LEU/UL (Negative); Nitrate Urine Negative (Negative); Protein Urine Negative (Negative); Specific Grav Ur 1.005 (1.001-1.035); Urobilinogen Urine 0.2 mg/dL (<2.0); pH Urine 7.5 (5.0-9.0)
[2023-04-21 07:57] LABS: Add Urine Microscopic? NO
[2023-04-21 08:06] LABS: Alanine Aminotransferase 18 U/L (6-35); Albumin Level 3.2 g/dL (3.5-5.1); Alkaline Phosphatase 31 U/L (38-126); Anion Gap 3 mmol/L (8-16); Aspartate Amino Transferase 32 U/L (14-36); Bilirubin,Total 0.5 mg/dL (0.2-1.3); Blood Urea Nitrogen 8 mg/dL (7-17); Calcium 8.8 mg/dL (8.4-10.2); Carbon Dioxide 33 mmol/L (22-30); Chloride 104 mmol/L (98-107); Estimated Glomerular Filt Rate > 60; Glucose 83 mg/dL (65-110); Potassium 3.4 mmol/L (3.4-5.0); Sodium 140 mmol/L (137-145)
--- NOTE | 2023-04-21 09:56 | ED.GENADULT ---
HPI - General Adult General Chief complaint: Weakness Stated complaint: gen weak Time Seen by Provider: 04/21/23 07:04 History of Present Illness HPI narrative: Patient is a 42-year-old female who presents ER with reports of urinating out an ocean. She reports that this has been ongoing for several days. She has been trying to stay hydrated by drinking water. She also reports diffuse body aches. She denies dysuria. No fevers or chills or sweats. She is frequently urinating however. No known sick contacts. No alleviating factors. Related Data Home Medications Medication Instructions Recorded Confirmed divalproex 500 mg tablet,extended 500 mg PO BID 09/10/22 10/09/22 release 24 hr cholecalciferol (vitamin D3) 50 50 mcg PO DAILY 12/06/22 mcg (2,000 unit) capsule norethindrone (contraceptive) 0.35 0.35 mg PO DAILY 12/06/22 mg tablet (Jencycla) valacyclovir 1 gram tablet 1,000 mg PO DAILY 12/06/22 vitamin E (dl, acetate) 180 mg 180 mg PO DAILY 12/06/22 (400 unit) capsule lumateperone 42 mg capsule 42 mg PO DAILY 12/30/22 (Caplyta) clonazepam 0.5 mg tablet 0.5 mg PO QHS 01/02/23 fluoxetine 20 mg capsule 20 mg PO DAILY 01/02/23 Allergies Allergy/AdvReac Type Severity Reaction Status Date / Time fluconazole [From Diflucan] AdvReac Unknown Palpitation Verified 04/21/23 07:08 s Review of Systems Review of Systems: All systems reviewed & are unremarkable except as noted in HPI and below Constitutional: Constitutional: Denies chills, Reports fatigue and Denies fever(s) ENT: Denies nasal congestion and Denies sore throat Cardiovascular: Cardiovascular: Denies chest pain and Denies radiating jaw, neck or arm pain Respiratory: Respiratory: Denies cough and Denies dyspnea Gastrointestinal: Gastrointestinal: Denies abdominal pain, Denies diarrhea, Denies nausea and Denies vomiting Genitourinary: Genitourinary: Denies hematuria, Reports nocturia, Denies dysuria and Denies flank pain PMFSH Past Medical History Medical History (Updated 04/21/23 @ 10:16 by Lemuel Epps MD) Anxiety Bipolar disorder, unspecified Cerebral palsy Generalized anxiety disorder HPV (human papilloma virus) infection Hypothyroid Mild intermittent asthma Obstructive sleep apnea (08/2018) mild, 08/2018 Family History Family History Other Diabetes mellitus Heart disease Social History Social History Smoking status: Never smoker Alcohol intake: never Substance use: never Substance use type: does not use Lack of Transportation: YES Lack of Food: Never True Current Housing: I Have Housing Concerned About Future Housing: No Difficulty Paying Gas/Electric Bills: No Difficulty Paying for Meds: No Currently Unemployed: No Education: High School Diploma/GED Difficulty w/ Childcare or Family Care: No Living arrangements: alone Occupation/Education: unemployed Gender identity (if verbalized by the patient): Female Sexual Orientation (if Verbalized by the Patient): Straight or Heterosexual Spiritual care concerns: No Agree to blood products: Yes Exam Narrative: GENERAL: Well-appearing, well-nourished, and in no acute distress. HEAD: Normocephalic, atraumatic. ENT: Mucous membranes moist. CHEST: Clear to auscultation. No respiratory distress. HEART: Regular rate and rhythm. Normal peripheral pulses. ABDOMEN: Soft, nontender, nondistended. EXTREMITIES: Normal range of motion. Trace edema. SKIN: Warm, dry, no rash. NEURO: Alert and oriented x3. PSYCH: Normal mood and affect. Course Course Emergency Course: Labs unremarkable. Patient felt appropriate for discharge home. Patient aware of diagnosis and treatment plan Vital Signs Vital signs: Vital Signs Temperature 97.2 F L 04/21/23 05:59 Pulse Rate 70 04/21/23 05:59 Respiratory Rate 16 0
--- NOTE | 2023-04-21 10:20 | PC.NURSE ---
called pt tanmay [place], no answer left voicemail called the step parent Dalia, no answer too went straight to voicemail
== END 2023-04-21 10:40 | disposition home or self-care (01) ==
PROVIDERS: Emergency Provider Emergency Medicine; PCP Family Medicine Adolescent Medicine
DX: R35.0 Frequency of micturition (principal); M79.10 Myalgia, unspecified site; F41.9 Anxiety disorder, unspecified; F31.9 Bipolar disorder, unspecified; G80.9 Cerebral palsy, unspecified; E03.9 Hypothyroidism, unspecified; G47.30 Sleep apnea, unspecified
CPT/HCPCS: 36415; 80053; 81003; 85025; 96361; 96374; 99284; J1885; J7030

== ENCOUNTER 2024-09-20 03:33 | Emergency (ER) | payer MEDICARE, MEDICAID, SELFPAY ==
--- NOTE | ~2024-09-20 | CT_ITS ---
CT of the Abdomen and Pelvis: Indication: Abdominal pain Technique: 2.5 mm axial scans were obtained through the abdomen and pelvis following intravenous adm inistration of 100 cc of Omnipaque 350. Dose reduction technique was used on this scan by utilizing a utomated exposure control and iterative reconstruction technique. The dose-length product (DLP) was 3 49.07 mGy-cm. COMPARISON: 02/15/2022 Findings: Scans through the lung bases are unremarkable. 15 mm hypodense lesion in the inferior right hepatic lobe lobe, and 19 mm left hepatic lobe lesion, a re similar to prior exam, most compatible with hemangiomas. The spleen, pancreas, gallbladder, adrena ls and kidneys are within normal limits. No evidence of aortic aneurysm. No lymphadenopathy. No bowel obstruction or bowel wall thickening. There is no evidence to suggest acute appendicitis. Th ere is extensive haziness of retroperitoneal fat bilaterally. Images through the pelvis were performed. Urinary bladder unremarkable. No significant adnexal mass s een. Trace pelvic ascites present. Impression: Extensive hazy infiltration of retroperitoneal fat, especially in the perirenal regions. This is nons pecific, and could reflect nonspecific edematous or inflammatory change. No distinct abnormality of t he kidneys themselves. Stable probable hepatic hemangiomas, as above. Reviewed, dictated and finalized at location M. Impression: Extensive hazy infiltration of retroperitoneal fat, especially in the perirenal regions. This is nonspecific, and could reflect nonspecific edematous or infla mmatory change. No distinct abnormality of the kidneys themselves. Stable probable hepatic hemangiomas, as above.
[2024-09-20 03:31] VITALS: BP 126/67; PULSE 82; RESP 16; TEMP 36.8; O2SAT 98
[2024-09-20 04:12] LABS: Add Urine Microscopic? YES; Appearance Urine Cloudy (Clear); Bacteria Urine Rare /hpf; Bilirubin Urine Negative (Negative); Blood Urine Non-Hemolyzed Trace (Negative); Color Urine Yellow (Yellow); Glucose Urine UA Negative (Negative); Ketones Urine Trace mg/dL (Negative); Leukocyte Esterase Ur Negative LEU/UL (Negative); Need Manual Microscopic Reviewed; Nitrate Urine Negative (Negative); Non Pathogenic Casts 0-2; Protein Urine Trace mg/dL (Negative); RBC Urine 0-2 /hpf (0-2); Specific Grav Ur 1.032 (1.001-1.035); Squamous Epithelial Cell Urine Moderate /hpf (Few); WBC Urine 0-5 /hpf (0-3); pH Urine 5.5 (5.0-9.0)
[2024-09-20 04:14] LABS: Transitional Epi Cells Urine Few /hpf (None Seen)
[2024-09-20 04:21] LABS: Basophils Percent Auto 0.3 % (0.2-1.2); Eosinophils Absolute Auto 0.1 K/mm3 (0-0.3); Eosinophils Percent Auto 0.7 % (0-4.4); Hematocrit 35.5 % (37.0-47.0); Immature Granulocyte Absolute 0.02 K/mm3 (0.00-0.031); Immature Granulocyte Percent A 0.3 % (0-0.5); Lymphocytes Absolute Auto 3.41 K/mm3 (0.9-3.2); Lymphocytes Percent Auto 46.5 % (18.3-44.2); Mean Corpuscular HGB Conc 33.8 g/dl (32-36); Mean Corpuscular Hemoglobin 31.8 pg (26-34); Mean Corpuscular Volume 94.2 fl (80-100); Mean Platelet Volume 10.4 fl (7.4-10.4); Monocytes Percent Auto 13.5 % (2.6-8.5); Neutrophils Absolute Auto 2.9 K/mm3 (1.3-6.7); Neutrophils Percent Auto 38.7 % (45.5-73.1); Platelet Count Result 153 k/mm3 (150-375); Red Blood Count 3.77 M/mm3 (4.2-5.4); White Blood Count 7.3 K/mm3 (4.5-10.0)
[2024-09-20 04:35] LABS: Alanine Aminotransferase 9 U/L (6-35); Albumin Level 3.7 g/dL (3.5-5.1); Alkaline Phosphatase 54 U/L (38-126); Anion Gap 6 mmol/L (4-12); Aspartate Amino Transferase 24 U/L (14-36); Bilirubin,Total 0.5 mg/dL (0.2-1.3); Blood Urea Nitrogen 21 mg/dL (7-17); Carbon Dioxide 28 mmol/L (22-30); Chloride 102 mmol/L (98-107); Estimated CRCL calculation 90 ml/min; Estimated Glomerular Filt Rate > 60; Glucose 93 mg/dL (65-110); Lipase 50 U/L (23-300); Potassium 3.7 mmol/L (3.4-5.0); Sodium 136 mmol/L (137-145)
[2024-09-20] MEDS: SODIUM CHLORIDE 0.9% IV 1,000 ML 999 ML IV CONT (04:40)
[2024-09-20 04:58] LABS: SPREG INTERNAL CONTROL Positive; Serum Qual hCG Negative
--- NOTE | 2024-09-20 05:04 | ED.ABDPAIN ---
HPI - Abdominal Pain General Chief Complaint: Abdominal Pain Stated Complaint: left flank pain Time Seen by Provider: 09/20/24 03:41 History of Present Illness HPI narrative: Patient is a 43-year-old female with past medical history of cerebral palsy presents to the emergency department this morning complaining of left-sided flank pain. Patient states that she has had chronic back pain for many years but has noticed that the left side of her lower back has been causing her more pain lately. Patient denies taking anything for her pain at home. States that she used to do physical therapy which was helping a lot with her back pain but no longer does that. Patient did telling triage nurse that she was worried about her appendix but told me that she was worried about her kidneys. She denies any additional symptoms including any nausea, vomiting, any dysuria or hematuria, any constipation, diarrhea, melena, hematochezia, fevers or chills. No additional symptoms or concerns at this time. Related Data Home Medications Medication Instructions Recorded Confirmed divalproex 500 mg tablet,extended 500 mg PO BID 09/10/22 09/10/23 release 24 hr clonazepam 0.5 mg tablet 0.5 mg PO .PRN 06/23/23 09/10/23 paliperidone 6 mg tablet,extended 6 mg PO QAM 06/23/23 09/10/23 release 24 hr ascorbic acid (vitamin C) 500 mg 250 mg PO DAILY 09/10/23 09/10/23 tablet (Vitamin C) guaifenesin 400 mg tablet 400 mg PO Q4H PRN 09/10/23 09/10/23 Allergies Allergy/AdvReac Type Severity Reaction Status Date / Time fluconazole [From Diflucan] AdvReac Unknown Palpitation Verified 06/23/23 14:52 s Review of Systems Review of Systems: All systems are reviewed and are negative unless stated otherwise in the HPI. [facility] Past Medical History Medical History Anxiety Bipolar disorder, unspecified Cerebral palsy Generalized anxiety disorder HPV (human papilloma virus) infection Hypothyroid Mild intermittent asthma Obstructive sleep apnea (08/2018) mild, 08/2018 Family History Family History Other Diabetes mellitus Heart disease Social History Social History Smoking status: Never smoker Alcohol intake: never Substance use: never Substance use type: does not use Lack of Transportation: YES Lack of Food: Never True Current Housing: I Have Housing Concerned About Future Housing: No Difficulty Paying Gas/Electric Bills: No Difficulty Paying for Meds: No Currently Unemployed: No Education: High School Diploma/GED Difficulty w/ Childcare or Family Care: No Living arrangements: alone Occupation/Education: unemployed Gender identity (if verbalized by the patient): Female Sexual Orientation (if Verbalized by the Patient): Straight or Heterosexual Spiritual care concerns: No Agree to blood products: Yes Exam Narrative: General: Alert, awake, afebrile, in no acute distress. HEENT: PERRL, no rhinorrhea, no post nasal drip, oropharynx clear. Cardiovascular: Regular rate and rhythm, no murmurs, rubs or gallops, no peripheral edema. Respiratory: Clear to auscultation bilaterally, no tachypnea, no wheezing, no rhonchi, no rubs, no respiratory distress. Abdomen: Soft, nontender, nondistended, no rebound, no guarding, no peritoneal signs. Musculoskeletal: No joint swelling or deformity, normal muscle tone. Skin: No rashes or petechia, no signs of infection. Neurological: Alert and oriented to person, place, and time. Follows all commands. No focal deficits, speech is clear and fluent. Course Vital Signs Vital signs: Vital Signs Temperature 98.2 F 09/20/24 03:31 Pulse Rate 82 09/20/24 03:31 Respiratory Rate 16 09/20/24 03:31 Blood Pressure 126/67 09/20/24 03:31 Pulse Oximetry 98 09/20/24 03:31 Oxygen Delivery Room Air
--- NOTE | 2024-09-20 05:41 | PC.NURSE ---
Patient denied wanting to be placed in a gown.
[2024-09-20 05:42] VITALS: BP 122/58; PULSE 64; RESP 15; O2SAT 95
[2024-09-20 06:43] VITALS: BP 124/86; PULSE 66; RESP 15; O2SAT 100
== END 2024-09-20 06:44 | disposition home or self-care (01) ==
PROVIDERS: Emergency Provider Emergency Medicine; PCP Family Medicine Adolescent Medicine
DX: R10.9 Unspecified abdominal pain (principal); F41.9 Anxiety disorder, unspecified; F31.9 Bipolar disorder, unspecified; G80.9 Cerebral palsy, unspecified; E03.9 Hypothyroidism, unspecified; J45.909 Unspecified asthma, uncomplicated; G47.30 Sleep apnea, unspecified
CPT/HCPCS: 36415; 74177; 80053; 81001; 83690; 83735; 84703; 85025; 96360; 99284; J7030; Q9967

== ENCOUNTER 2024-11-27 02:56 | Emergency (ER) | payer MEDICARE, MEDICAID, SELFPAY ==
[2024-11-27 03:00] VITALS: BP 121/63; PULSE 56; RESP 16; TEMP 35.6; O2SAT 97
[2024-11-27 09:48] VITALS: BP 118/86; PULSE 92; RESP 16; TEMP 36.6; O2SAT 100
[2024-11-27 09:55] LABS: BEDSIDEPREGUCG Negative (Negative)
[2024-11-27 10:07] LABS: Add Urine Microscopic? YES; Appearance Urine Cloudy (Clear); Bacteria Urine None Seen /hpf; Bilirubin Urine Negative (Negative); Blood Urine 2+ (Negative); Color Urine Yellow (Yellow); Glucose Urine UA Negative (Negative); Ketones Urine Negative (Negative); Leukocyte Esterase Ur Negative LEU/UL (Negative); Nitrate Urine Negative (Negative); Non Pathogenic Casts 0-2; Protein Urine Negative (Negative); Specific Grav Ur 1.017 (1.001-1.035); Squamous Epithelial Cell Urine Occasional /hpf (Few); Urobilinogen Urine 0.2 mg/dL (<2.0); WBC Urine 0-5 /hpf (0-3)
--- NOTE | 2024-11-27 10:17 | ED.GENADULT ---
HPI - General Adult General Chief complaint: Anxiety Stated complaint: ANXIETY ATTACK, DIFFICULTY WALKING Time Seen by Provider: 11/27/24 09:49 History of Present Illness HPI narrative: This is a 43-year-old female with a history of anxiety, depression, schizoaffective disorder and cerebral palsy presenting for a panic attack. Patient says she developed sudden-onset chest pain difficulty breathing last night called an ambulance. Her symptoms have since resolved. she is currently asymptomatic. She does not that she sometimes has pain with urination is requested a urinalysis. Related Data Home Medications ?Medication ?Instructions ?Recorded ?Confirmed ?Last Taken ?Type divalproex 500 mg tablet,extended 500 mg PO BID 09/10/22 10/04/24 Unknown History release 24 hr clonazepam 0.5 mg tablet 0.5 mg PO .PRN 06/23/23 10/04/24 Unknown History paliperidone 6 mg tablet,extended 6 mg PO QAM 06/23/23 10/04/24 Unknown History release 24 hr ascorbic acid (vitamin C) 500 mg 250 mg PO DAILY 09/10/23 10/04/24 Unknown History tablet (Vitamin C) Allergies Allergy/AdvReac Type Severity Reaction Status Date / Time fluconazole (From Diflucan) AdvReac Unknown Palpitation Verified 11/27/24 04:30 s PMF Past Medical History Medical History Pneumonia (08/2023) Mild intermittent asthma Obstructive sleep apnea (08/2018) mild, 08/2018 Hypothyroid Generalized anxiety disorder Bipolar disorder, unspecified Anxiety HPV (human papilloma virus) infection Cerebral palsy Family History Family History Other Diabetes mellitus Heart disease Social History Social History Smoking status: Never smoker Alcohol intake: never Substance use: never Substance use type: does not use Lack of Transportation: YES Lack of Food: Never True Current Housing: I Have Housing Concerned About Future Housing: No Difficulty Paying Gas/Electric Bills: No Difficulty Paying for Meds: No Currently Unemployed: No Education: High School Diploma/GED Difficulty w/ Childcare or Family Care: No Living arrangements: alone Occupation/Education: unemployed Gender identity (if verbalized by the patient): Female Sexual Orientation (if Verbalized by the Patient): Straight or Heterosexual Spiritual care concerns: No Agree to blood products: Yes Exam Narrative: APPEARANCE: No apparent distress. Head: atraumatic. EYES: EOMI, NOSE: Atraumatic NECK: Trachea midline RESPIRATORY: No increased rate of breathing Clear to auscultation CARDIOVASCULAR: RRR, ABDOMINAL: Non-distended soft nontender no CVA tenderness MUSCULOSKELETAl: No obvious deformities NEURO: Alert. Moving 4/4 extremities SKIN:: Warm, dry. Normal color PSYCHIATRIC: Normal affect Course Vital Signs Vital signs: Vital Signs Temperature 96.1 F L 11/27/24 03:00 Pulse Rate 56 L 11/27/24 03:00 Respiratory Rate 16 11/27/24 03:00 Blood Pressure 121/63 11/27/24 03:00 Pulse Oximetry 97 11/27/24 03:00 Oxygen Delivery Room Air 11/27/24 03:00 Temperature 97.8 F 11/27/24 09:48 Pulse Rate 92 11/27/24 09:48 Respiratory Rate 16 11/27/24 09:48 Blood Pressure 118/86 11/27/24 09:48 Pulse Oximetry 100 11/27/24 09:48 Oxygen Delivery Room Air 11/27/24 03:00 Medical Decision Making MDM Narrative Medical decision making narrative: -Course: 43-year-old female presenting with acute onset chest pain and difficulty breathing which resolved without intervention.. Patient waited in our lobby overnight for 9hrs. By time she received a room and she was evaluated by myself she was asymptomatic and resting comfortably in bed. vital signs are stable. Patient states her symptoms have resolved. She did request UA which was not indicative infection. Patient discharged. -DDX includes but is not limited to: anxiety, panic attacks, UTI Vital Signs Vital Signs: Vital Signs Temperature 96.1 F L 11/27/24 03:00 Pulse Rate 56 L 11/27/24 03:00 Respiratory Rate 16 11/27/24 03:00 Blood Pressure 121/63 11/27/24 03:00 Pulse Oximetry 97 11/27/24 03:00 Oxygen Delivery Room Air 11/27/24 03:00 Temperature 97.8 F 11/27/24 09:48 Pulse Rate 92 11/27/24 09:48 Respiratory Rate 16 11/27/24 09:48 Blood Pressure 118/86 11/27/24 09:48 Pulse Oximetry 100 11/27/24 09:48 Oxygen Delivery Room Air 11/27/24 03:00 Lab Data Labs: Lab Results 11/27/24 11/27/24 Range/Units 09:52 09:54 Urine Color Yellow (Yellow) Urine Appearance Cloudy H (Clear) Urine pH 7.0 (5.0-9.0) Ur Specific [place] 1.017 (1.001-1.035) Urine Protein Negative (Negative) mg/dL Urine Glucose (UA) Negative (Negative) mg/dL Urine Ketones Negative (Negative) mg/dL Ur Blood (Man) 2+ H (Negative) Urine Nitrate Negative (Negative) Urine Bilirubin Negative (Negative) Urine Urobilinogen 0.2 (<2.0) mg/dL Leukocyte Esterase Rfl Negative (Negative) TERRA/UL Urine RBC 3-5 H (0-2) /hpf Urine WBC 0-5 (0-3) /hpf Ur Squamous Epith Cells Occasional (Few) /hpf Urine Bacteria None seen /hpf Urine Casts 0-2 POC Urine HCG, Qual Negative (Negative) Discharge Plan Discharge Clinical Impression: Anxiety Additional Instructions: Please follow-up with your primary care physician for further management. Return to ED if you develop any worsening symptoms Patient Language: Russian Prescriptions: No Action paliperidone 6 mg tablet extended release 24 hr 6 mg PO QAM clonazepam 0.5 mg tablet 0.5 mg PO .PRN Rx Instructions: administer 30 minutes before bedtime ascorbic acid (vitamin C) [Vitamin C] 500 mg tablet 250 mg PO DAILY divalproex 500 mg tablet extended release 24 hr 500 mg PO BID atorvastatin 10 mg tablet 10 mg PO DAILY Qty: 90 2RF Gemtesa 75 mg tablet 75 mg PO DAILY Qty: 90 2RF meloxicam 15 mg tablet 15 mg PO DAILY Qty: 30 3RF Follow-up/Referrals: Trever Goodwin MD [Primary Care Provider] -
[2024-11-27 10:48] VITALS: BP 129/56; PULSE 69; RESP 16; TEMP 36.6; O2SAT 98
[2024-11-27 11:18] VITALS: BP 137/82; PULSE 78; RESP 18; O2SAT 99
--- OUTSIDE RECORDS SUMMARY | 2024-12-04 02:25 | XMS_ITS ---
Author Organization [facility] Address [address] [place] [address] Care Team Providers Care Supervisor Public Health Nursing Name Role Phone Trever Goodwin MD Primary Care Provider Joanne sondrailable Dacia Reyes Unavailable [phone] Amina England Unavailable [phone] REASON FOR VISIT Anxiety, MIPS PHQ less than 5 Positive with f/u doc, Depression screening positive Medications Medication SIG (Take, Route, Frequency, Duration) Notes Start Date End Date Status Trintellix 10 MG 1 tablet Oral twice a day for 30 days 04/05/2024 Active Paliperidone ER 9 MG 1 tablet in the morning Oral Once a day for 30 days 04/05/2024 Active Divalproex Sodium ER 500 MG 1 tablet Oral twice a day for 30 days 04/05/2024 12/17/2024 Active Atorvastatin Calcium 10 MG Oral 04/05/2024 Active GEMTESA 75 MG TABLET *Reorder fr om [employer] for eRx and Interaction Alerts* 04/05/2024 Active clonazePAM 0.5 MG 1 tablet Oral Once a day As needed 10/07/2024 Active Social History Tobacco Use: Social History Observation Description Date Details (start date - stop date) Never Smoker NA - NA Sex Assigned At : Social History Observation Description Sex Assigned At Female Tobacco Control (Standard) Question Answer Notes Tobacco use: Nonsmoker AUDIT-C (Standard) Question Answer Notes Did you have a drink containing alcohol in the p ast year? No Problems Problem Type SNOMED Code ICD Code Onset Dates Problem Status W/U Status Risk Notes Problem Panic disorder (811690607) Panic disorder [episodic paroxysmal anxiety] without agoraphobia (F41.0) Active confirmed Encounters Encounter Location Date Provider Diagnosis [facility] [address] [place] [address] 11/05/2024 Amina England Generalized anxiety disorder F41.1 ; Schizoaffective disorder, bipolar type F25.0 and Panic disorder [episodic paroxysmal anxiety] without agoraphobia F41.0 Assessments Encounter Date Diagnosis (ICD Code) Assessment Notes Treatment Notes Treatment Clinical Notes Section Notes 11/05/2024 Generalized anxiety disorder (ICD-10 - F41.1) 11/05/2024 Schizoaffective disorder, bipolar type (ICD-10 - F25.0) 11/05/2024 Panic disorder [episodic paroxysmal anxiety] without agoraphobia (ICD-10 - F41.0) Plan Of Treatment Next Appt Details Follow Up: 4 Weeks, Reason: Provider Name:Amina England, 12/08/2024 01:00:00 PM, [address], [facility] [address], [place], [address], Provider Name:Dacia pruett, 02/25/2025 01:00:00 PM, [address], [facility] [address], [place], [address], Progress Notes * PETE CHAUHANDOB:[birth year] (43 yo F)Acc No.[id number]:11/05/2024 Patient:?PETE CHAUHAN Provider:?AMINA ENGLAND LCSW :1980???Age:43 Y???Sex:Female D ate:11/05/2024 [address] [facility] Pcp:Trever Goodwin MD Data: * Time Tracker: * Date Start Time End Time Duration User Type Captured By Mode Notes 11/05/2024 02:12 PM 02:58 PM 00:45:21 Therapist Amina England Bib er * Chief Complaints: * ???1. Anxiety. 2. MIPS PHQ l ess than 5 Positive with f/u doc. 3. Depression screening positive. * HPI: ???Depression Screening:?DARIEN-7 (2018 Edition)?Feeling nervous, anxious, or on edge?Nearly every day,?Not being able to stop or control worrying?Nearly every day,?Worrying too much about different things?Nearly every day,?Trouble relaxing?Nearly every day,?Being so restless that it is hard to sit still?Nearly every day,?Becoming easily annoyed or irritable?More than half the days,?Feeling afraid as if something awful might happen?Nearly every day,?Total DARIEN-7 Score?20,?Interpretation of Total?(15 and over) Severe.?[place]-Suicide Severity Rating Scale:?Suicide Risk (CSRS-screener)?in the past one month Have you wished you were or wished you could go to sleep and not wake up??Yes,?in the past one month Have you actually had any thoughts of killing yourself??Yes,?Have you started to work out or worked out the details of how to kill yourself? Do you intend to carry out this plan??No,?Have you had these thoughts and had some intention of acting on them??No,?Have you been thinking about how you might do this??No.?Depression screening:?PHQ-9?Little interest or pleasure in doing things?More than half the days,?Feeling down, depressed, or hopeless?Nearly every day,?Trouble falling or staying asleep, or sleeping too much?More than half the days,?Feeling tired or having little energy?Nearly every day,?Poor appetite or overeating?More than half the days,?Feeling bad about yourself or that you are a failure, or have let yourself or your family down?More than half the days,?Trouble concentrating on things, such as reading the newspaper or watching television?More than half the days,?Moving or speaking so slowly that other people could have noticed; or the opposite, being so fidgety or restless that you have been moving around a lot more than usual?Nearly every day,?Thoughts that you would be better off or of hurting yourself in some way?Not at all,?Total Score?19,?Interpretation?Moderately Severe Depression.?Intervention?Depression Screening Findings?Positve,?Follow-Up for Depression?Mental health treatment assessment, Patient follow-up to return when and if necessary,?Suicide Risk Assessment Performed?11/05/2024 ,?Additional Evaluation for Depression?Psychiatric interview and evaluation,?Name of the standardized tool used for adult depression screening:?Patient Health Questionnaire (PHQ-9).?Functional Status:?Date: 11/05/2024 Current symptoms:? Cl. reported worry, difficulties with self esteem Severity: Moderate Context: CL. reported stress related to interactions with ex.- Ex still asking for money and manipulating.? Still worried about [place]- I probably need to worry about myself I have to remember there are things I can't control Intervention:? During this session, clinician prompted Cl. to process thoughts and feelings associated with? interpersonl stressors? ?for the purpose of gaining insight. Clinician provided support and validation where appropriate.? Response:? Cl. participated actively in discussion and displayed good insight.? Cl. appears to be making good progress.? Plan:. * Family History:?Maternal Aun t: Bipolar Disorder.?Father: None.?Maternal Uncle: None.?Paternal Aunt: None.?Paternal Uncle: None.?Mother: Anxiety Disorder.?Paternal Grandfather: None.?Paternal Grandmother: None.?Maternal Grandfather: None.?Maternal Grandmother: None.?Brother: None.?Sister: None.?Son: None.?Daughter: None.? * Social History:?Tobacco Use:?Tobacco Control (Standard)?Tobacco use:?Nonsmoker.?Migrated Social History:?Migrated Social History: Alcohol Intake: None 11/27/2022,Tobacco Years: Never smoker 11/27/2022. ???Drug/Alcohol:?Drugs?Have you used drugs other than those for medical reasons in the past 12 months??No.?AUDIT-C (Standard)?Did you have a drink containing alcohol in the past year??No.?Miscellaneous:?Occupation: Not working. Safety issues?Are there any firearms in the house??No.?Advance Care Planning?Are you your own decision-maker?Yes,?Do you have Power of Straight Cutter Machine for Health or Medical??No.?Social History:?Household?Marital Status:?Single,?Number of Adults in household:?1,?Number of Children in Household:?0,?Level of Education:?Not Finished College.? * Medications:?Taking GEMTESA 75 MG TABLET , Notes to Pharmacist: *Reorder from [employer] for eRx and Interaction Alerts*, Taking Atorvastatin Calcium 10 MG Tablet Oral , Taking Divalproex Sodium ER 500 MG Tablet Extended Release 24 Hour 1 tablet Oral twice a day , stop date 12/17/2024, Taking Paliperidone ER 9 MG Tablet Extended Release 24 Hour 1 tablet in the morning Oral Once a day , Taking Trintellix 10 MG Tablet 1 tablet Oral twice a day , Taking clonazePAM 0.5 MG Tablet 1 tablet Oral Once a day As needed, Medication List reviewed and reconciled with the patient * Examination: ???Psychiatry: ???Appearance:? Well groomed, appropriately dressed Affect:? Congruent to mood Mood:? Appropriate to discussion content Attitude:? Cooperative Homicidal Ideation:? None Suicidal Ideation:? None Insight:? Good Orientation:? Alert, oriented x 3 Speech/language:? Appropriate pitch/modulation, clear and coherent, normal rate, volume and articulation Thought Content:? Appropriate Thought Process:? Intact. Assessment: * Assessment: 1.?Generalized anxiety disor mary - F41.1 (Primary)???2.?Schizoaffective disorder, bipolar type - F25.0???3.?Panic disorder [episodic paroxysmal anxiety] without agoraphobia - F41.0??? Plan: * Treatment: * Procedure Codes:?14882 PSYCH OTHERAPY W/PATIENT 45 MINUTES, G8431 CLIN DEPRESSION SCREEN DOC, 1036F TOBACCO NON-USER * Follow Up:?4 Weeks * Billing Information: * Visit Code:? * Procedure Codes:? 55970 PSYCHOTHERAPY W/PATIENT 45 MINUTES. G8431 CLIN DEPRESSION SCREEN DOC. 1036F TOBACCO NON-USER. 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 History and Physical Notes * HPI (History of Present Illness) Category Sub-Category Detail Notes Category Not es Depression screening PHQ-9 Little inte rest or pleasure in doing things: More than half the days Feeling down, depressed, or hopeless: Ne stephenie every day Trouble falling or staying a sleep, or sleeping too much: More than half the days Feeling tired or having little energy: N early every day Poor appetite or overeating: More than h brea the days Feeling bad about yourself o r that you are a failure, or have let yourself or your family down: More than half the days Trouble concentrating on thi ngs, such as reading the newspaper or watching television: More than half the days Moving or speaking so slowly that other people could have noticed; or the opposite, being so fidgety or restless that you have been moving around a lot more than usual: Nearly every day Thoughts that you would be b paula off or of hurting yourself in some way: Not at all Total Score: 19 Interpretation: Moderately Severe Depres monica Intervention Depression Screening Findings: P ositve Follow-Up for Depression: [facility] treatment assessment, Patient follow-up to return when and if necessary Suicide Risk Assessment Performed: 11/05 Additional Evaluation for De pression: Psychiatric interview and evaluation Name of the standardized too l used for adult depression screening:: Patient Health Questionnaire (PHQ-9) Functional Status Date: 11/05/2024 Current symptoms: Cl. reported worry, difficulties with self esteem Severity: Moderate Context: CL. reported stress related to interactions with ex.- Ex still asking for money and manipulating. Still worried about [place]- I probably need to worry about myself I have to remember there are things I can't control Intervention: During this session, clinician prompted Cl. to process thoughts and feelings associated with interpersonl stressors for the purpose of gaining insight. Clinician provided support and validation where appropriate. Response: Cl. participated actively in discussion and displayed good insight. Cl. appears to be making good progress. Plan: Depression Screening ADRIEN-7 (2018 Edition) Feeling nervous, anxious, or on edge: Nearly every day Not being able to stop or control worryi ng: Nearly every day Worrying too much about different things : Nearly every day Trouble relaxing: Nearly every day Being so restless that it is hard to sit still: Nearly every day Becoming easily annoyed or irritable: Mo re than half the days Feeling afraid as if something awful carrillo ht happen: Nearly every day Total DARIEN-7 Score: 20 Interpretation of Total: (15 and over) [facility] Suicide Risk (CSRS-screener) in the past one month Have you wished you were or wished you could go to sleep and not wake up?: Yes in the past one month Have y ou actually had any thoughts of killing yourself?: Yes ?Have you started to work ou t or worked out the details of how to kill yourself? Do you intend to carry out this plan?: No ?Have you had these thoughts and had kash e intention of acting on them?: No ?Have you been thinking about how you mi ght do this?: No Examination Category Sub-Category Detail Notes Category Not es Psychiatry Appearance: Well groomed, appropriately dressed Affect: Congruent to mood Mood: Appropriate to discussion content Attitude: Cooperative Homicidal Ideation: None Suicidal Ideation: None Insight: Good Orientation: Alert, oriented x 3 Speech/language: Appropriate pitch/modulation, clear and coherent, normal rate, volume and articulation Thought Content: Appropriate Thought Process: Intact
--- OUTSIDE RECORDS SUMMARY | 2024-12-04 02:25 | XMS_ITS | Patient Health Record ---
Author Organization [facility] [employer] Address [address] [place] [address] Care Team Providers Care Onsite Health Coach Name Role Phone Christa CLAY, [place] Primary Care Provider Joanne Dacia Gonzalez Unavailable [phone] Amina Zamudio Unavailable [phone] Nicky Patino Unavailable [phone] Migration, Provider Unavailable Unavailable Allergies Allergen (clinical drug ingredient) Drug/Non Drug Allergy documented on EMR Reaction Allergy Type Onset Date Status fluconazole Diflucan Unknown Drug Allergy 04/05/2024 Acti ve olanzapine ZyPREXA Unknown Drug Allergy 04/05/2024 Activ e diclofenac Diclofenac Unknown Drug Allergy 04/05/2024 Acti ve Results Component Value Reference Range Notes HISTORICAL LABS Reviewed date:01/02/2024 12:00:00 AM Interpretation: Performing Lab: Notes/Report: Reason For Referral No Information Medications Medication SIG (Take, Route, Frequency, Duration) Notes Start Date End Date Status GEMTESA 75 MG TABLET *Reorder fr om Medispan for eRx and Interaction Alerts* 04/05/2024 Active Divalproex Sodium ER 500 MG 1 tablet Oral twice a day for 30 days 04/05/2024 12/17/2024 Active Atorvastatin Calcium 10 MG Oral 04/05/2024 Active Paliperidone ER 9 MG 1 tablet in the morning Oral Once a day for 30 days 04/05/2024 Active Trintellix 10 MG TAKE (1) TABLET BY MOUTH TWICE DAILY. Active clonazePAM 0.5 MG 1 tablet Oral [...] Problem Status W/U Status Risk Notes Problem Schizoaffective disorder, bipolar type (77355740) Schizoaffective disorder, bipolar type (F25.0) 04/09/20 24 Active confirmed Problem Generalized anxiety disorder (03271768) Generalized anxiety disorder (F41.1) 04/09/20 Active confirmed Problem Primary insomnia (6259606) Primary insomnia (F51.01) 04/05/20 Active confirmed Problem Panic disorder (683078854) Panic disorder [episodic paroxysmal anxiety] without agoraphobia (F41.0) Active confirmed Problem Panic disorder (755299810) Panic attacks (F41.0) Active confirmed Problem Somatic symptom disorder (206516081) Somatic symptom disorder (F45.1) Active confirmed Vital Signs Heart Rate 94 /min 12/03/2024 Height-cm 157.48 cm 12/03/2024 Blood pressure diastolic 83 mm Hg 12/03/2024 Weight-kg 66.68 kg 12/03/2024 Height 62.00 in 12/03/2024 Blood pressure systolic 130 mm Hg 12/03/2024 Weight 147.0 lbs 12/03/2024 BMI 26.88 kg/m2 12/03/2024 Encounters Encounter Location Date Provider Diagnosis [facility] [address] [facility] [address] [address] 12/03/2024 Dacia Reyes Schizoaffective disorder, bipolar type F25.0 ; Generalized anxiety disorder F41.1 ; Panic disorder [episodic paroxysmal anxiety] without agoraphobia F41.0 ; Primary insomnia F51.01 and Somatic symptom disorder F45.1 [facility] [address] [facility] [address] [address] 12/18/2023 Amina Zamudio Generalized anxiety disorder F41.1 and Schizoaffective disorder, bipolar type F25.0 [facility] [place] [address] [facility] [address] [address] 12/30/2023 Nicky Patino Generalized anxiety disorder F41.1 ; Schizoaffective disorder, bipolar type F25.0 ; Primary insomnia F51.01 ; 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 and Panic disorder [episodic paroxysmal anxiety] without agoraphobia F41.0 [facility] [address] [place] [address] 01/14/2024 Amina Hemann Generalized anxiety disorder F41.1 and Schizoaffective disorder, bipolar type F25.0 [facility] [address] [place] [address] 04/05/2024 Nicky Carey Panic disorder [episodic paroxysmal anxiety] without agoraphobia F41.0 ; Other terminal gauger (current) drug therapy Z79.899 ; Generalized anxiety disorder F41.1 ; 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 ; Schizoaffective disorder, bipolar type F25.0 and Primary insomnia F51.01 [facility] [address] [place] [address] 04/09/2024 Amina Hemann Schizoaffective disorder, bipolar type F25.0 and Generalized anxiety disorder F41.1 [facility] [address] [place] [address] 05/03/2024 Amina Hemann Generalized anxiety disorder F41.1 and Schizoaffective disorder, bipolar type F25.0 [facility] [address] [place] [address] 05/24/2024 Amina Hemann Generalized anxiety disorder F41.1 ; Schizoaffective disorder, bipolar type F25.0 and Panic disorder [episodic paroxysmal anxiety] without agoraphobia F41.0 [facility] [address] [place] [address] 07/05/2024 Nicky Carey Schizoaffective disorder, bipolar type F25.0 ; Generalized anxiety disorder F41.1 ; Somatic symptom disorder F45.1 ; Panic attacks F41.0 and Primary insomnia F51.01 [facility], [facility] [address] [place] [address] 10/18/2024 Dacia Reyes Schizoaffective disorder, bipolar type F25.0 ; Generalized anxiety disorder F41.1 ; Panic attacks F41.0 ; Somatic symptom disorder F45.1 and Primary insomnia F51.01 [facility] [address] [place] [address] 11/05/2024 Amina Zamudio Generalized anxiety disorder F41.1 ; Schizoaffective disorder, bipolar type F25.0 and Panic disorder [episodic paroxysmal anxiety] without agoraphobia F41.0 [facility] [address] [place] [address] 02/16/2024 Provider Migration [facility], [facility] [address] [place] [address] 03/09/2024 Provider Migration [facility], [facility] [address] [place] [address] 03/11/2024 Provider [facility], [facility] [address] [place] [address] 04/17/2024 Provider Migration [facility], [facility] [address] [place] [address] 04/18/2024 Provider [facility], [facility] [address] [place] [address] 07/05/2024 [facility], [facility] [address] [place] [address] 07/06/2024 [facility], [facility] [address] [place] [address] 07/08/2024 [facility], [facility] [address] [place] [address] 10/06/2024 Dacia Parkeropian Anxiety, generalized F41.1 [facility] [address] [place] [address] 10/06/2024 Dacia Parkeropian Anxiety, generalized F41.1 Assessments Encounter Date Diagnosis (ICD Code) Assessment Notes Treatment Notes Treatment Clinical Notes Section Notes 07/05/2024 Schizoaffective disorder, bipolar type (ICD-10 - F25.0) cont paliperidone ER 9mg qam (decreased in past d/t s/e)cont depakote ER 500mg BID stable, cont current meds, education on meds, treatment course cont therapy lab orders from last visit: CBC, CMP, A1c, lipid, valproic acid; says just did them last week; do not see results yet. have staff call lab alejandrina isis sanchez/cinthya munson for results requesting letter/updat e for Denisa Lyon, director of epidemiology. given to pt f/u 3 months, earlier if concerns 07/05/2024 Generalized anxiety disorder (ICD-10 - F41.1) cont trintellix 10mg qhs rare clonazepam 0.5mg BID prn severe anxiety, cont to minimize use; last fill 05/14/23 #30-says still has about 14 left cont therapy 10/06/2024 Anxiety, generalized (ICD-10 - F41.1) 10/06/2024 Anxiety, generalized (ICD-10 - F41.1) 10/18/2024 Schizoaffective disorder, bipolar type (ICD-10 - F25.0) Assessment and Plan: 1. Major Depressive Disorder and Anxiety - Patient reports a worsening of mood and increased anxiety over the past month. - passive/fleeti ng SI, reports no plans and no intent. Feels self-esteem and self-worth low. Plan: - Increase Trintellix to 20 mg daily - Monitor for improvement in mood and anxiety symptoms. - discussed reaching out to support system, safety plans, and resources should thoughts worsen 2. Insomnia - Patient reports some difficulty falling asleep and staying asleep. Plan: - Provided patient with educational pamphlets on sleep hygiene. - Encourage the patient to establish a regular sleep schedule and create a conducive sleep environment. - Reassess sleep quality at the next appointment. 3. Low Self-Esteem - Patient reports a history of low self-esteem related to her disability. Plan: - Schedule an appointment with therapist Amina for additional support and coping strategies. - Encourage the patient to engage in activities that promote self-worth and self-compassio n. 4. Social Stressors - Patient reports concerns about an ex-partner being released from jail in January and potential housing issues. Plan: - Encourage the patient to establish boundaries and prioritize her well-being. - Discuss the situation with the therapist for additional support and guidance. - Schedule a follow-up appointment 4 weeks 11/05/2024 Schizoaffective disorder, bipolar type (ICD-10 - F25.0) 11/05/2024 Generalized anxiety disorder (ICD-10 - F41.1) 12/03/2024 Schizoaffective disorder, bipolar type (ICD-10 - F25.0) Assessment and Plan: Anxiety - Patient experienced an anxiety attack on October 27, leading to an ER visit - Continues to report feeling worried and down Plan: - Continue current anxiety medications as prescribed - Encourage patient to discuss concerns or changes in anxiety symptoms with Amina during therapy sessions Mood fluctuations - Patient reports times of looking at the bright side and times of struggling to get out of bed Plan: - Monitor mood fluctuations during therapy sessions with Amina - Encourage patient to engage in self-care activities, such as setting boundaries and practicing self-love Balance issues - Patient reports poor balance, affecting their ability to attend physical therapy Plan: - Encourage patient to work on balance and strength exercises at home within their limits - Suggest water exercises as a potential option for improving balance Paranoia - Patient reports ongoing paranoia but denies auditory or visual hallucinations Plan: - Continue monitoring paranoia during therapy sessions with Amina Medication management - Patient's mother does not want any changes in medications, believing the patient is doing well Plan: - Continue current medications as prescribed - Reevaluate medication regimen during the next visit or sooner if needed Follow-up appointments: - Patient has an appointment with Amina on December 08 and will follow up with Dacia Reyes in 3 months Plan: - Encourage patient to attend scheduled appointments and reschedule if necessary - Monitor progress and adjust treatment plan as needed during follow-up appointments Considering renewing membership at local [employer] for water exercises. 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) 12/30/2023 Primary insomnia (ICD-10 - F51.01) 12/30/2023 Panic disorder [episodic paroxysmal anxiety] without agoraphobia (ICD-10 - F41.0) 01/14/2024 Schizoaffective disorder, bipolar type (ICD-10 - F25.0) 01/14/2024 Generalized anxiety disorder (ICD-10 - F41.1) 04/05/2024 Schizoaffective disorder, bipolar type (ICD-10 - F25.0) 04/05/2024 Generalized anxiety disorder (ICD-10 - F41.1) 04/05/2024 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) 04/05/2024 Primary insomnia (ICD-10 - F51.01) 04/05/2024 Other senior living (current) drug therapy (ICD-10 - Z79.899) 04/05/2024 Panic disorder [episodic paroxysmal anxiety] without agoraphobia (ICD-10 - F41.0) 04/09/2024 Schizoaffective disorder, bipolar type (ICD-10 - F25.0) 04/09/2024 Generalized anxiety disorder (ICD-10 - F41.1) 05/03/2024 Schizoaffective disorder, bipolar type (ICD-10 - F25.0) 05/03/2024 Generalized anxiety disorder (ICD-10 - F41.1) 05/24/2024 Schizoaffective disorder, bipolar type (ICD-10 - F25.0) 05/24/2024 Generalized anxiety disorder (ICD-10 - F41.1) 05/24/2024 Panic disorder [episodic paroxysmal anxiety] without agoraphobia (ICD-10 - F41.0) 12/03/2024 Generalized anxiety disorder (ICD-10 - F41.1) Assessment and Plan: Anxiety - Patient experienced an anxiety attack on October 27, leading to an ER visit - Continues to report feeling worried and down Plan: - Continue current anxiety medications as prescribed - Encourage patient to discuss concerns or changes in anxiety symptoms with Amina during therapy sessions Mood fluctuations - Patient reports times of looking at the bright side and times of struggling to get out of bed Plan: - Monitor mood fluctuations during therapy sessions with Amina - Encourage patient to engage in self-care activities, such as setting boundaries and practicing self-love Balance issues - Patient reports poor balance, affecting their ability to attend physical therapy Plan: - Encourage patient to work on balance and strength exercises at home within their limits - Suggest water exercises as a potential option for improving balance Paranoia - Patient reports ongoing paranoia but denies auditory or visual hallucinations Plan: - Continue monitoring paranoia during therapy sessions with Amina Medication management - Patient's mother does not want any changes in medications, believing the patient is doing well Plan: - Continue current medications as prescribed - Reevaluate medication regimen during the next visit or sooner if needed Follow-up appointments: - Patient has an appointment with Amina on December 08 and will follow up with Dacia Reyes in 3 months Plan: - Encourage patient to attend scheduled appointments and reschedule if necessary - Monitor progress and adjust treatment plan as needed during follow-up appointments Considering renewing membership at local [employer] for water exercises. Follow up in 3 months or sooner if needed 11/05/2024 Panic disorder [episodic paroxysmal anxiety] without agoraphobia (ICD-10 - F41.0) 10/18/2024 Generalized anxiety disorder (ICD-10 - F41.1) Assessment and Plan: 1. Major Depressive Disorder and Anxiety - Patient reports a worsening of mood and increased anxiety over the past month. - passive/fleeti ng SI, reports no plans and no intent. Feels self-esteem and self-worth low. Plan: - Increase Trintellix to 20 mg daily - Monitor for improvement in mood and anxiety symptoms. - discussed reaching out to support system, safety plans, and resources should thoughts worsen 2. Insomnia - Patient reports some difficulty falling asleep and staying asleep. Plan: - Provided patient with educational pamphlets on sleep hygiene. - Encourage the patient to establish a regular sleep schedule and create a conducive sleep environment. - Reassess sleep quality at the next appointment. 3. Low Self-Esteem - Patient reports a history of low self-esteem related to her disability. Plan: - Schedule an appointment with therapist Amina for additional support and coping strategies. - Encourage the patient to engage in activities that promote self-worth and self-compassio n. 4. Social Stressors - Patient reports concerns about an ex-partner being released from jail in January and potential housing issues. Plan: - Encourage the patient to establish boundaries and prioritize her well-being. - Discuss the situation with the therapist for additional support and guidance. - Schedule a follow-up appointment 4 weeks 07/05/2024 Somatic symptom disorder (ICD-10 - F45.1) somatic symptom disorder-has been doing bettermeds as above, therapy 07/05/2024 Panic attacks (ICD-10 - F41.0) meds as above, therapy 10/18/2024 Panic attacks (ICD-10 - F41.0) Assessment and Plan: 1. Major Depressive Disorder and Anxiety - Patient reports a worsening of mood and increased anxiety over the past month. - passive/fleeti ng SI, reports no plans and no intent. Feels self-esteem and self-worth low. Plan: - Increase Trintellix to 20 mg daily - Monitor for improvement in mood and anxiety symptoms. - discussed reaching out to support system, safety plans, and resources should thoughts worsen 2. Insomnia - Patient reports some difficulty falling asleep and staying asleep. Plan: - Provided patient with educational pamphlets on sleep hygiene. - Encourage the patient to establish a regular sleep schedule and create a conducive sleep environment. - Reassess sleep quality at the next appointment. 3. Low Self-Esteem - Patient reports a history of low self-esteem related to her disability. Plan: - Schedule an appointment with therapist Amina for additional support and coping strategies. - Encourage the patient to engage in activities that promote self-worth and self-compassio n. 4. Social Stressors - Patient reports concerns about an ex-partner being released from jail in January and potential housing issues. Plan: - Encourage the patient to establish boundaries and prioritize her well-being. - Discuss the situation with the therapist for additional support and guidance. - Schedule a follow-up appointment 4 weeks 12/03/2024 Panic disorder [episodic paroxysmal anxiety] without agoraphobia (ICD-10 - F41.0) Assessment and Plan: Anxiety - Patient experienced an anxiety attack on October 27, leading to an ER visit - Continues to report feeling worried and down Plan: - Continue current anxiety medications as prescribed - Encourage patient to discuss concerns or changes in anxiety symptoms with Amina during therapy sessions Mood fluctuations - Patient reports times of looking at the bright side and times of struggling to get out of bed Plan: - Monitor mood fluctuations during therapy sessions with Amina - Encourage patient to engage in self-care activities, such as setting boundaries and practicing self-love Balance issues - Patient reports poor balance, affecting their ability to attend physical therapy Plan: - Encourage patient to work on balance and strength exercises at home within their limits - Suggest water exercises as a potential option for improving balance Paranoia - Patient reports ongoing paranoia but denies auditory or visual hallucinations Plan: - Continue monitoring paranoia during therapy sessions with Amina Medication management - Patient's mother does not want any changes in medications, believing the patient is doing well Plan: - Continue current medications as prescribed - Reevaluate medication regimen during the next visit or sooner if needed Follow-up appointments: - Patient has an appointment with Amina on December 08 and will follow up with Dacia Reyes in 3 months Plan: - Encourage patient to attend scheduled appointments and reschedule if necessary - Monitor progress and adjust treatment plan as needed during follow-up appointments Considering renewing membership at [employer] for water exercises. Follow up in 3 months or sooner if needed 12/03/2024 Primary insomnia (ICD-10 - F51.01) Assessment and Plan: Anxiety - Patient experienced an anxiety attack on October 27, leading to an ER visit - Continues to report feeling worried and down Plan: - Continue current anxiety medications as prescribed - Encourage patient to discuss concerns or changes in anxiety symptoms with Amina during therapy sessions Mood fluctuations - Patient reports times of looking at the bright side and times of struggling to get out of bed Plan: - Monitor mood fluctuations during therapy sessions with Amina - Encourage patient to engage in self-care activities, such as setting boundaries and practicing self-love Balance issues - Patient reports poor balance, affecting their ability to attend physical therapy Plan: - Encourage patient to work on balance and strength exercises at home within their limits - Suggest water exercises as a potential option for improving balance Paranoia - Patient reports ongoing paranoia but denies auditory or visual hallucinations Plan: - Continue monitoring paranoia during therapy sessions with Amina Medication management - Patient's mother does not want any changes in medications, believing the patient is doing well Plan: - Continue current medications as prescribed - Reevaluate medication regimen during the next visit or sooner if needed Follow-up appointments: - Patient has an appointment with Amina on December 08 and will follow up with Dacia Reyes in 3 months Plan: - Encourage patient to attend scheduled appointments and reschedule if necessary - Monitor progress and adjust treatment plan as needed during follow-up appointments Considering renewing membership at [employer] for water exercises. Follow up in 3 months or sooner if needed 10/18/2024 Somatic symptom disorder (ICD-10 - F45.1) Assessment and Plan: 1. Major Depressive Disorder and Anxiety - Patient reports a worsening of mood and increased anxiety over the past month. - passive/fleeti ng SI, reports no plans and no intent. Feels self-esteem and self-worth low. Plan: - Increase Trintellix to 20 mg daily - Monitor for improvement in mood and anxiety symptoms. - discussed reaching out to support system, safety plans, and resources should thoughts worsen 2. Insomnia - Patient reports some difficulty falling asleep and staying asleep. Plan: - Provided patient with educational pamphlets on sleep hygiene. - Encourage the patient to establish a regular sleep schedule and create a conducive sleep environment. - Reassess sleep quality at the next appointment. 3. Low Self-Esteem - Patient reports a history of low self-esteem related to her disability. Plan: - Schedule an appointment with therapist Amina for additional support and coping strategies. - Encourage the patient to engage in activities that promote self-worth and self-compassio n. 4. Social Stressors - Patient reports concerns about an ex-partner being released from jail in January and potential housing issues. Plan: - Encourage the patient to establish boundaries and prioritize her well-being. - Discuss the situation with the therapist for additional support and guidance. - Schedule a follow-up appointment 4 weeks 07/05/2024 Primary insomnia (ICD-10 - F51.01) practice good sleep hygiene 10/18/2024 Primary insomnia (ICD-10 - F51.01) Assessment and Plan: 1. Major Depressive Disorder and Anxiety - Patient reports a worsening of mood and increased anxiety over the past month. - passive/fleeti ng SI, reports no plans and no intent. Feels self-esteem and self-worth low. Plan: - Increase Trintellix to 20 mg daily - Monitor for improvement in mood and anxiety symptoms. - discussed reaching out to support system, safety plans, and resources should thoughts worsen 2. Insomnia - Patient reports some difficulty falling asleep and staying asleep. Plan: - Provided patient with educational pamphlets on sleep hygiene. - Encourage the patient to establish a regular sleep schedule and create a conducive sleep environment. - Reassess sleep quality at the next appointment. 3. Low Self-Esteem - Patient reports a history of low self-esteem related to her disability. Plan: - Schedule an appointment with therapist Amina for additional support and coping strategies. - Encourage the patient to engage in activities that promote self-worth and self-compassio n. 4. Social Stressors - Patient reports concerns about an ex-partner being released from jail in January and potential housing issues. Plan: - Encourage the patient to establish boundaries and prioritize her well-being. - Discuss the situation with the therapist for additional support and guidance. - Schedule a follow-up appointment 4 weeks 12/03/2024 Somatic symptom disorder (ICD-10 - F45.1) Assessment and Plan: Anxiety - Patient experienced an anxiety attack on October 27, leading to an ER visit - Continues to report feeling worried and down Plan: - Continue current anxiety medications as prescribed - Encourage patient to discuss concerns or changes in anxiety symptoms with Amina during therapy sessions Mood fluctuations - Patient reports times of looking at the bright side and times of struggling to get out of bed Plan: - Monitor mood fluctuations during therapy sessions with Amina - Encourage patient to engage in self-care activities, such as setting boundaries and practicing self-love Balance issues - Patient reports poor balance, affecting their ability to attend physical therapy Plan: - Encourage patient to work on balance and strength exercises at home within their limits - Suggest water exercises as a potential option for improving balance Paranoia - Patient reports ongoing paranoia but denies auditory or visual hallucinations Plan: - Continue monitoring paranoia during therapy sessions with Amina Medication management - Patient's mother does not want any changes in medications, believing the patient is doing well Plan: - Continue current medications as prescribed - Reevaluate medication regimen during the next visit or sooner if needed Follow-up appointments: - Patient has an appointment with Amina on December 08 and will follow up with Dacia Reyes in 3 months Plan: - Encourage patient to attend scheduled appointments and reschedule if necessary - Monitor progress and adjust treatment plan as needed during follow-up appointments Considering renewing membership at [employer] for water exercises. Follow up in 3 months or sooner if needed 12/03/2024 Other Learning About Depression Screening material was printed Assessment and Plan: Anxiety - Patient experienced an anxiety attack on October 27, leading to an ER visit - Continues to report feeling worried and down Plan: - Continue current anxiety medications as prescribed - Encourage patient to discuss concerns or changes in anxiety symptoms with Amina during therapy sessions Mood fluctuations - Patient reports times of looking at the bright side and times of struggling to get out of bed Plan: - Monitor mood fluctuations during therapy sessions with Amina - Encourage patient to engage in self-care activities, such as setting boundaries and practicing self-love Balance issues - Patient reports poor balance, affecting their ability to attend physical therapy Plan: - Encourage patient to work on balance and strength exercises at home within their limits - Suggest water exercises as a potential option for improving balance Paranoia - Patient reports ongoing paranoia but denies auditory or visual hallucinations Plan: - Continue monitoring paranoia during therapy sessions with Amina Medication management - Patient's mother does not want any changes in medications, believing the patient is doing well Plan: - Continue current medications as prescribed - Reevaluate medication regimen during the next visit or sooner if needed Follow-up appointments: - Patient has an appointment with Amina on December 08 and will follow up with Dacia Reyes in 3 months Plan: - Encourage patient to attend scheduled appointments and reschedule if necessary - Monitor progress and adjust treatment plan as needed during follow-up appointments Considering renewing membership at local [employer] for water exercises. Follow up in 3 months or sooner if needed Plan Of Treatment Pending Test Test Name Order Date UDT 12/03/2024 UDT 10/18/2024 Next Appt Details Provider Name:Amina Zamudio, 12/08/2024 01:00:00 PM, [address], [facility], [place], [address], Provider Name:Dacia pruett, 02/25/2025 01:00:00 PM, [address], [facility], [place], [address], Insurance Providers Payer Name Payer Address Payer Phone Subscriber Number Group Number Insured Name Patient Relationship to Insured Coverage Start Date Coverage End Date Medicare-I l Medicare [address] [place] [address] [id number] PETE CHAUHAN Self - patient is the insured Medicaid-I l Medicaid [address] [address] [place] [address] [id number] PETE CHAUHAN Self - patient is the insured Medical (General) History Medical History History ICD Code Problems: Generalized anxiety disorder Panic attack Primary insomnia Schizoaffective disorder, bipolar type Somatoform disorder , Past Psychiatric History: An xiety Disorder,Schizoaffective Disorder,Bipolar Disorder abdominal aortic aneurysm: No atrial fibrillation: No chronic fatigue syndrome: No essential tremor: No hyperlipidemia: No hypertension: Yes Parkinson's disease: No restless leg syndrome: No stroke: No subdural hematoma: No type 1 diabetes mellitus: No type 2 diabetes mellitus: No vitamin B12 deficiency: No vitamin D deficiency: Yes Surgical History Surgery Date(Month/Year) Extraction of wisdom tooth ([id number]) salpingectomy bilateral 03/2024 Hospitalization History Reason Date(Month/Year) dehydration 10/2024
--- OUTSIDE RECORDS SUMMARY | 2024-12-04 02:25 | XMS_ITS | Referral Summary ---
Author Organization [facility] al Address [address] [place] [address] Care Team Providers Care Food Supervisor Name Role Phone Trever Goodwin MD Primary Care Prov ider Christiano Pulido MD Unavailable [phone] Allergies Active Allergy Reactions Criticality Noted Date Comments Diclofenac Diarrhea Low 06/27/2023 Fluconazole Rash Medium 06/27/[address] (DEPAKOTE) 500 mg EC tabletIndicatio ns:Mood Changes Take 1 tablet (500 mg total) by mouth 2 (two) times a day. 60 tablet 1 06/29/2018 Active atorvastatin (LIPITOR) 10 mg tablet Take 1 tablet (10 mg total) by mouth daily 06/20/2023 Active clonazePAM (KlonoPIN) 0.5 mg tablet 2 (two) times a day as needed 05/14/2023 Active paliperidone ER (INVEGA) 9 mg 24 hr tablet 06/25/2023 Active Gemtesa 75 mg tablet daily 06/19/2023 Active Trintellix 10 mg tablet 1 tablet (10 mg total) nightly 06/19/2023 Active Active Problems Problem Noted Date Diagnosed Date Encounter for general imelda dorsey and advice on contraceptive management 12/11/2023 Assessment & Plan (12/11/2023 2:47 PM [employer]): Condom use encouraged for contraception. We discussed options for contraception today. Questions were answered regarding sterilization. I did explain that placing her back on oral contraceptives would help regulate her cycles and protect her endometrial lining. They are going to think about what they want to do an notify me with how they would like to proceed Amenorrhea 12/11/2023 Assessment & Plan (12/11/2023 2:49 PM [employer]): Discussed that ideally we would like for patient to be having a menses every 3 months for prevention of endometrial hyperplasia. We did discuss the possibility of polycystic ovaries due to her hirsutism and amenorrhea. She was given informational handout on polycystic ovaries. She is on her menses today. We discussed that if she does go more than 3 months without a menses that would be my recommendation to cycle her on Provera. If she chooses to start back on something hormonally for cycle control, she will notify my office. Dizziness 12/16/2018 Schizoaffective disorder (CMS/HCC) 12/16/2018 Other cerebral palsy 06/29/2018 Thyroid disease 06/27/2018 Assessment & Plan (06/29/2018 3:08 PM CDT): Symptoms are well controlled. H/o hypothyroidism. TSH = 4.75 (06/25/18), suggestive of medication non-adherence vs subtherapeutic dosing of synthroid. - Currently no symptoms of hypothyroidism. - Continue on Synthroid tablet 50 mcg PO. - Follow up with PCP as outpatient Assessment & Plan (06/27/2018 8:30 AM CDT): Symptoms are well controlled. H/o hypothyroidism. TSH = 4.75 (06/25/18) -c/w Synthroid tablet 50 mcg PO. Asthma 06/27/2018 Assessment & Plan (06/29/2018 3:09 PM CDT): Sx well controlled. Vital signs stable, satting well 99%, respiratory physical exam unremarkable. Completely asymptomatic during admission, with no need for albuterol use. - Follow up with outpatient PCP Assessment & Plan (06/27/2018 5:00 AM CDT): Sx well controlled. Vital signs stable, satting well 99%, respiratory physical exam unremarkable -PRN albuterol inhaler Anxiety 06/27/2018 Assessment & Plan (06/29/2018 3:10 PM CDT): Pt has been sleeping well. It is currently difficult to glean if her anxiety symptoms at this time reflect difficulty adjusting to the inpatient psych millieu amid poor stress tolerance and possible delirium from 2+ day hold in the emergency department, versus long-standing anxiety symptoms at baseline, versus potential mild Klonopin withdrawal from recent cessation after many reported years of use. No evidence of episodic panic symptoms. - Patient's klonopin discontinued. - Patient to continue on zoloft 100 mg daily for long-term management of anxiety, as well as trazodone 50 mg qhs for sleep. - Follow up with outpatient psychiatrist Assessment & Plan (06/27/2018 8:32 AM CDT): Pt has been sleeping well. It is currently difficult to glean if her anxiety symptoms at this time reflect difficulty adjusting to the inpatient psych millieu amid poor stress tolerance and possible delirium from 2+ day hold in the emergency department, versus long-standing anxiety symptoms at baseline, versus potential mild Klonopin withdrawal from recent cessation after many reported years of use. No evidence of episodic panic symptoms. -Pt states that she is not interested in taking Klonopin. We can hold for now. -C/w Trazodone 50 mg qhs for sleep -C/w Zoloft 100 mg qd for long-term management of anxiety History of unspecified seizure 06/27/2018 Assessment & Plan (06/29/2018 3:11 PM CDT): Pt's family reports possible seizure during recent hospitalization. No neurologic sequelae or past hx of szs. Subtype of seizure currently not known. Patient with no evidence of overt seizure activity during current admission. -Follow up with PCP to see if further neurological work up necessary. Assessment & Plan (06/27/2018 8:48 AM CDT): Pt's family reports possible seizure during recent hospitalization. No neurologic sequelae or past hx of szs. Subtype of seizure currently not known. -VSS, regular observation by nursing -Increase collateral base; need to consider benefits of outpatient neuro followup but suspicion not high at this time Episodic bipolar mood disorder, not currently ac tive 06/26/2018 Assessment & Plan (06/29/2018 3:08 PM CDT): For now, we will give the patient a diagnosis of unspecified psychotic d/o. While her Depakote level is presently subtherapeutic, the patient's current presentation does not meet DSM criteria for a manic or depressive episode; she is overall future-oriented and does not exhibit depressive symptoms of suicidal ideation, hopelessness, anhedonia (still enjoys her friends, looks forward to returning to her routine), anorexia, and psychomotor slowing. She also does not currently exhibit symptoms that meet DSM criteria for psychosis, although her past presentations as per collateral do appear to be clearly delineated episodes of psychosis with comorbid depression. More evident on this admission, interestingly, are poor stress tolerance in the setting of cognitive impairment, with the patient's methods of coping with her psychotic illness (i.e., positive self talk) and possible delirium in the emergency room millieu likely to be conflated with psychotic sx. Biologically, Ms. Hodgson, who has a chart diagnosis of schizoaffective d/o but is not taking any antipsychotic at the moment, carries a genetic predisposition for both mood and psychotic d/o with a significant FHx of depression, anxiety, substance use, and psychotic d/os. She also exhibits an age that is typical of initial presentation. In addition, she presents with a history of decreased cognitive reserve secondary to cerebral palsy that makes her particularly susceptible to maladaptive coping skills in the face of stress. Psychosocially, the patient is fortunate to have a strong family support network, be domiciled with relatively independent ADLs and employment, and appears to be struggling with clear work-related and interpersonal stressors of acute onset. She does, fortunately, exhibit a number of strong cognitive techniques to help her manage her chronically low self-esteem. Overall, there does not appear to be a need for antipsychotic regimen to be started at this time, but we will expand our collateral base for diagnostic clarity and elucidate the patient's recent baseline and whether any recent history of manic and psychotic symptoms have led to a substantial deviation. - Pt is on control, LFTs WNL - Continue Depakote 500 ER BID. Assessment & Plan (06/27/2018 8:48 AM CDT): For now, we will give the patient a diagnosis of unspecified psychotic d/o. While her Depakote level is presently subtherapeutic, the patient's current presentation does not meet DSM criteria for a manic or depressive episode; she is overall future-oriented and does not exhibit depressive symptoms of suicidal ideation, hopelessness, anhedonia (still enjoys her friends, looks forward to returning to her routine), anorexia, and psychomotor slowing. She also does not currently exhibit symptoms that meet DSM criteria for psychosis, although her past presentations as per collateral do appear to be clearly delineated episodes of psychosis with comorbid depression. More evident on this admission, interestingly, are poor stress tolerance in the setting of cognitive impairment, with the patient's methods of coping with her psychotic illness (i.e., positive self talk) and possible delirium in the emergency room millieu likely to be conflated with psychotic sx. Biologically, Ms. Hodgson, who has a chart diagnosis of schizoaffective d/o but is not taking any antipsychotic at the moment, carries a genetic predisposition for both mood and psychotic d/o with a significant FHx of depression, anxiety, substance use, and psychotic d/os. She also exhibits an age that is typical of initial presentation. In addition, she presents with a history of decreased cognitive reserve secondary to cerebral palsy that makes her particularly susceptible to maladaptive coping skills in the face of stress. Psychosocially, the patient is fortunate to have a strong family support network, be domiciled with relatively independent ADLs and employment, and appears to be struggling with clear work-related and interpersonal stressors of acute onset. She does, fortunately, exhibit a number of strong cognitive techniques to help her manage her chronically low self-esteem. Overall, there does not appear to be a need for antipsychotic regimen to be started at this time, but we will expand our collateral base for diagnostic clarity and elucidate the patient's recent baseline and whether any recent history of manic and psychotic symptoms have led to a substantial deviation. -C/w Depakote ER BID. Will uptitrate to 750 BID for now. Pt is on control, LFTs WNL Resolved Problems Problem Noted Date Diagnosed Date Resolved Date Sterilization 03/11/2024 04/27/2024 Sterilization consult 03/07/20242023 Assessment & Plan (03/07/2024 3:50 PM CDT): Desires sterilization. I have discussed permanency, alternative contraception, 1% failure rate or less, risks of injury and incidence of regret. Risks of bleeding, infection, anesthesia, risks of injury to surrounding structures discussed. Patient desires laparoscopic bilateral salpingectomy for possible cancer reduction benefit. Nature of procedure and recovery discussed. We will plan on proceeding. Social History Tobacco Use Types Packs/Day Years Used Date Smoking Tobacco: Never Smokeless Tobacco: Never Tobacco Cessation:Counseling Given: Not Answered Alcohol Use Standard Drinks/Week Comments Yes 0 (1 standard drink = 0.6 oz pure alcohol) Patient stated a little bit, not to excess and then would not elaborate. Humiliation, Afraid, Rape, and Kick questionnair e Answer Date Recorded Within the last year, have y ou been afraid of your partner or ex-partner? No 01/08/2024 Within the last year, have y ou been humiliated or emotionally abused in other ways by your partner or ex-partner? No Within the last year, have y ou been kicked, hit, slapped, or otherwise physically hurt by your partner or ex-partner? No 01/08/2024 Within the last year, have y ou been raped or forced to have any kind of sexual activity by your partner or ex-partner? No 01/08/2024 AUDIT-C Answer Date Recorded Q1: How often do you have a drink containing alcohol? Monthly or less 04/08/2024 Q2: How many drinks containi ng alcohol do you have on a typical day when you are drinking? Patient does not drink Q3: How often do you have si x or more drinks on one occasion? Never 04/08/2024 Personal Safety Answer Date Recorded Have you ever been in or are you currently in a harmful physical or emotional relationship or is someone making you feel afraid or unsafe? Denies 04/14/2024 Comments No Sex and Gender Information Value Date Recorded Sex Assigned at Not on file Legal Sex Female 6:04 PM [employer] Gender Identity Female 09/18/2024 11:46 PM CDT Sexual Orientation Straight 09/18/2024 11 :46 PM CDT Last Filed Vital Signs Vital Sign Reading Time Taken Comments Blood Pressure 124/76 04/27/2024 1:01 PM CDT Pulse 83 04/14/2024 4:10 PM CDT Temperature 36.2 ??C (97.1 ??F) 04/14/2024 4:10 PM CD T Respiratory Rate 16 04/14/2024 4:10 PM CDT Oxygen Saturation 94% 04/14/2024 4:10 PM CDT Inhaled Oxygen Concentration - - Weight 65.3 kg (144 lb) 04/27/2024 1:01 PM CDT Height 157.5 cm (5' 2 ) 04/27/2024 1:01 PM CDT Body Mass Index 26.34 04/27/2024 1:01 PM CDT Plan of Treatment Not on file Procedures Procedure Name Priority Date/Time Associated Diagnosis Comments SCREENING MAMMOGRAM BILATERAL W BIN Schedule Routine, Read Routine (OP Routine) 04/02/2024 2:40 PM CDT Encounter for screening mammogram for malignant neoplasm of breast PAP AND HPV, REFLEX TO HPV GENOTYPES Routine 01/08/2024 11:39 AM [employer] Well woman exam with routine gynecological exam from Last 3 Months or Most Recently Relevant to Health Maintenance Results * SCREENING MAMMOGRAM BILATERAL W BIN (04/02/2024 2:40 PM CDT) Anatomical Region Laterality Modality Breast Bilateral Mammography 04/02/2024 3:28 PM CDT Impressions 04/02/2024 3:28 PM CDT There is no mammographic evidence of malignancy. A 1 year screening mammogram is recommended. BI-RADS: 1 - Negative. The patient has been or will be contacted. The patient will be entered into a reminder system with a target due date of 1 year for her next mammogram. Electronically signed by: Susannah Mercer M.D. Narrative 04/02/2024 3:28 PM CDT EXAMINATION: SCREENING MAMMOGRAM BILATERAL W BIN ORDERING HEALTHCARE PROVIDER: ZULEYMA FINLEY HISTORY: Routine screening mammography. COMPARISON: ??08/06/2022, 06/12/2021, 01/06/2020 TECHNIQUE: CC and MLO views of the bilateral breasts were obtained with digital technique using breast tomosynthesis with C view. Computer aided detection was utilized. ??The study is limited due to patient motion artifact and the patient's inability to fully cooperate with positioning. FINDINGS: DENSITY: The tissue of the bilateral breasts is heterogeneously dense, which may obscure small masses. BREASTS: There are no suspicious masses, suspicious calcifications, or other suspicious findings in either breast. There has been no suspicious interval change. Zuleyma Finley NP IM MAMMO PROCEDURES Final Resul t * Pap and HPV, reflex to HPV Genotypes (01/08/2024 11:39 AM [employer]) CLINICAL INFORMATION: [facility] Comment:WWE LMP [facility] Comment:1980 Previous Pap [facility] Comment:NONE GIVEN Prev. Bx [facility] Comment:NONE GIVEN SOURCE: [facility] Comment:Cervix, Endocervix Pap, specimen adequacy [facility] Comment: Satisfactory for evaluation. Endocervical/transformation zone component present. HPV interp [facility] Comment: Cytology Results: Negative for intraepithelial lesion or malignancy. COMMENTS [facility] Comment: This Pap test has been evaluated with computer assisted technology. [facility] Comment: YOU, CT(ASCP) CT screening location: [place] [address] [place] [address] Comment [facility] Comment: EXPLANATORY NOTE: The Pap is a screening test for cervical cancer. It is not a diagnostic test and is subject to false negative and false positive results. It is most reliable when a satisfactory sample, regularly obtained, is submitted with relevant clinical findings and history, and when the Pap result is evaluated along with historic and current clinical information. Human papillomavirus DNA, High Risk E6/E7 Not Detected NOT DETECTED [employer] [facility] Comment: Not Detected High Risk HPV types (16,18,31,33,35,39,45,51,52, 56,58,59,66,68) were not detected. Other HPV types which cause anogenital lesions may be present. The significance of the other types of HPV in malignant processes has not been established. Methodology: Real Time PCR ? Thin prep 01/08/2024 11:3 9 AM [employer] 01/09/2024 8:31 AM [employer] us Zuleyma Finley NP LAB CYTOLOGY ORDERABLES Final Re sult [facility] [address] [place] [address] [facility] [address] [place] [address] from Last 3 Months or Most Recently Relevant to Health Maintenance Insurance MEDICARE IDPA IDPA MEDICARE IDPA IDPA MEDICARE IDPA Advance Directives For more information, please contact: [phone] * Full Code (Latest Code Status on File) Date Activated Date Inactivated Comments 06/26/2018 7:03 PM 06/29/2018 7:54 PM Care Teams Food Supervisor Relationship Specialty Start Date End Date Trever Goodwin MD [address] [place] [address] PCP - General 06/25/18 Christiano Pulido MD [address] [place] [address] [place] [id number] Licensed [employer]estic[employer] Obstetrics and Gynecology 04/14/24
--- OUTSIDE RECORDS SUMMARY | 2024-12-04 02:25 | XMS_ITS | Clinical Summary ---
Author Organization [facility] Address [address] [place] [address] Care Team Providers Care Carpenter/Labor Name Role Phone Trever Goodwin MD Primary Care Prov ider Christiano Pulido MD Unavailable [phone] Allergies Active Allergy Reactions Criticality Noted Date [...] 12/11/2023 Assessment & Plan (12/11/2023 2:47 PM MANUFACTURERS REPRESENTATIVE): Condom use encouraged for contraception. We discussed [...] 12/11/2023 Assessment & Plan (12/11/2023 2:49 PM MANUFACTURERS REPRESENTATIVE): Discussed that ideally we would like for [...] recovery discussed. We will plan on proceeding. Surgical History Surgery Date Site/Laterality Comments HERNIA REPAIR Medical History Medical History Date Comments MDD (major depressive disorder) Schizoaffective disorder (CMS/HCC) (HCC) Anxiety Cerebral palsy (HCC) Asthma Thyroid disease Motion sickness Bipolar disorder (HCC) Family History Medical History Relation Name Comments Depression Cousin Schizophrenia Cousin Alcohol abuse Father Pancreatic cancer Father Breast cancer Father's Sister Alcohol abuse Maternal Grandmother Diabetes Maternal Grandmother Anxiety disorder Mother Depression Mother Bipolar disorder Mother's Sister Alcohol abuse Other Anxiety disorder Other Heart disease Paternal Grandfather Lymphoma Paternal Grandmother Relation Name Status Comments Cousin Father Father's Sister Alive Maternal Grandmother Mother Mother's Sister Other Paternal Grand Aunt Paternal Grandfather Paternal Grandmother Social History Tobacco Use Types Packs/Day Years [...] on file Legal Sex Female 6:04 PM MANUFACTURERS REPRESENTATIVE Gender Identity Female 09/18/2024 11:46 PM CDT Sexual Orientation Straight 09/18/2024 11 :46 PM CDT Obstetrics History Para Term AB IAB SAB Ectopic Multiple Livin g Live Births 0 0 0 0 0 0 0 0 0 0 0 Last Filed Vital Signs Vital Sign Reading [...] 04/27/2024 1:01 PM CDT Plan of Treatment Health Maintenance Due Date Last Done Comments Colon Cancer Screening-Colonoscopy 1980 Hepatitis C Screening 1980 Pneumococcal vaccine <65 (1 of 2 - PCV) 1984 Hepatitis B Screening 1996 Depression Screening 06/25/2019 06/25/2018, 06/25/20 18 Influenza Vaccine (#1) 2024 Cervical Cancer Screening 01/08/2025 01/08/2024 Regular Well Visit/Exam 18-64 01/08/2025 01/08/2024 Breast Cancer Screening-Mammogram 04/02/2025 04/02/2024, 08/16/2022, 06/12/2021, Additional history exists DTaP/Tdap/Td Vaccine (2 - Td or Tdap) 12/30/2033 12/30/2023 HPV Vaccines Aged Out No longer eligi ble based on patient's age to complete this topic Procedures Procedure Name Priority Date/Time Associated Diagnosis Comments SCREENING MAMMOGRAM BILATERAL W BIN Schedule Routine, Read Routine (OP Routine) 04/02/2024 2:40 PM CDT Encounter for screening mammogram for malignant neoplasm of breast PAP AND HPV, REFLEX TO HPV GENOTYPES Routine 01/08/2024 11:39 AM MANUFACTURERS REPRESENTATIVE Well woman exam with routine gynecological exam [...] for her next mammogram. Electronically signed by: Renae Fry 04/02/2024 3:28 PM CDT EXAMINATION: SCREENING MAMMOGRAM [...] There has been no suspicious interval change. us Zuleyma Finley TECHNICAL SUPPORT INTERNS[employer] IMG MAMMO PROCEDURES Final Resul t * Pap and HPV, reflex to HPV Genotypes (01/08/2024 11:39 AM MANUFACTURERS REPRESENTATIVE) CLINICAL INFORMATION: [facility] Comment:WWE LMP [facility] Comment:1980 Previous Pap [facility] Comment:NONE GIVEN Prev. Bx [facility] Comment:NONE GIVEN SOURCE: [facility] Comment:Cervix, Endocervix Pap, specimen adequacy [facility] Comment: Satisfactory for evaluation. Endocervical/transformation zone component present. HPV interp [facility] Comment: Cytology Results: Negative for intraepithelial lesion or malignancy. COMMENTS [facility] Comment: This Pap test has been evaluated with computer assisted technology. Computer System Specialist [facility] Comment: YOU, CT(ASCP) CT screening location: [place] [address] [place] [id number] Comment [facility] Comment: EXPLANATORY NOTE: The Pap is a [...] High Risk E6/E7 Not Detected NOT DETECTED [facility]Francesca aviles [place] Comment: Not Detected High Risk HPV types (16,18,31,33,35,39,45,51,52, 56,58,59,66,68) were not detected. Other HPV types which cause anogenital lesions may be present. The significance of the other types of HPV in malignant processes has not been established. Methodology: Real Time PCR ? Thin prep 01/08/2024 11:3 9 AM MANUFACTURERS REPRESENTATIVE 01/09/2024 8:31 AM MANUFACTURERS REPRESENTATIVE Zuleyma Finley [employer] [facility] CYTOLOGY ORDERABLES Final Re sult [place] [address] [address] [place] [phone] [facility]/[place] [address] [facility] [place] [address] from Last 3 Months or Most Recently Relevant to Health Maintenance Insurance MEDICARE IDPA IDPA MEDICARE [facility] Address: [address] [address] [place] [address] IDPA IDPA MEDICARE IDPA Advance Directives For more information, please contact: [phone] * Full Code (Latest Code Status on File) Date Activated Date Inactivated Comments 06/26/2018 7:03 PM 06/29/2018 7:54 PM Care Teams Carpenter/Labor Relationship Specialty Start Date End Date Trever Goodwin MD [address] [place] [address] PCP - General 06/25/18 Christiano Pulido MD [address] [facility] [address] [place] [id number] Psychiatric Social Worker Obstetrics and Gynecology 04/14/24
--- OUTSIDE RECORDS SUMMARY | 2024-12-04 02:25 | XMS_ITS | Encounter Summary ---
Author Organization [facility] Address [address] [place] [address] Care Team Providers Care Car Tester Name Role Phone Trever Goodwin MD Primary Care Prov ider Christiano Pulido MD Unavailable [phone] Reason for Visit * Reason Comments Post-op Salpingectomy Encounter Details Date Type Department Care Team (Latest Contact Info) Description 04/27/2024 1:00 PM CDT Clinical Support [facility] [address] [place] [address] Christiano Pulido MD [address] [place] [address] [address] [place] [address] Follow-up examination after gynecological surgery (Primary Dx) Social History Tobacco Use Types Packs/Day Years Used Date Smoking Tobacco: Never Smokeless Tobacco: Never Alcohol Use Standard Drinks/Week Comments Yes 0 [...] on file Legal Sex Female 6:04 PM 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 Gender Identity Female 09/18/2024 11:46 PM CDT Sexual Orientation Straight 09/18/2024 11 :46 PM CDT documented as of this encounter Last Filed Vital Signs Vital Sign Reading Time Taken Comments Blood Pressure 124/76 04/27/2024 1:01 PM CDT Pulse - - Temperature - - Respiratory Rate - - Oxygen Saturation - - Inhaled Oxygen Concentration - - Weight 65.3 kg (144 lb) 04/27/2024 1:01 PM CDT Height 157.5 cm (5' 2 ) 04/27/2024 1:01 PM CDT Body Mass Index 26.34 04/27/2024 1:01 PM CDT documented in this encounter Progress Notes * Christiano Pulido MD - 04/27/2024 1:00 PM CDT Postop Note Subjective: Amna Hodgson is a 43 y.o. year old female who presents 2 weeks s/p laparoscopic bilateral salpingectomy. Pathology was benign. She denies complaints. Patient's last menstrual period was 03/31/2024 (approximate). Current Outpatient Medications: atorvastatin (LIPITOR) 10 mg tablet, Take 1 tablet (10 mg total) by mouth daily, Disp: , Rfl: clonazePAM (KlonoPIN) 0.5 mg tablet, 2 (two) times a day as needed, Disp: , Rfl: divalproex DR (DEPAKOTE) 500 mg EC tablet, Take 1 tablet (500 mg total) by mouth 2 (two) times a day., Disp: 60 tablet, Rfl: 1 Gemtesa 75 mg tablet, daily, Disp: , Rfl: paliperidone ER (INVEGA) 9 mg 24 hr tablet, , Disp: , Rfl: Trintellix 10 mg tablet, 1 tablet (10 mg total) nightly, Disp: , Rfl: Allergies Allergen Reactions Diflucan [Fluconazole] Rash Diclofenac Diarrhea Review of Systems Objective: BP 124/76 (BP Location: Right arm, Patient Position: Sitting) Ht 157.5 cm (5' 2 ) Wt 144 lb (65.3 kg) LMP 03/31/2024 (Approximate) BMI 26.34 kg/m?? Physical Exam: General: Pleasant female in no acute distress. HEENT: WNL Abdomen: soft, nontender. Incisions are healing well. Pelvic Exam: deferred. Assessment and Plan: Diagnoses and all orders for this visit: Follow-up examination after gynecological surgery (Primary) Comments: Doing well. Pictures reviewed. Return for annual exam. Christiano Pulido MD 04/27/2024 JMT documented in this encounter Plan of Treatment Not on file documented as of this encounter Visit Diagnoses Diagnosis Follow-up examination after gynecological surgery- Primary documented in this encounter Care Teams Car Tester Relationship Specialty Start Date End Date Trever Goodwin MD [address] [place] [address] PCP - General 06/25/18 Christiano Pulido MD [address] [place] [address] [address] Helmet Hat Sweatband Puncher Obstetrics and Gynecology 04/14/24 documented as of this encounter
--- OUTSIDE RECORDS SUMMARY | 2024-12-04 02:25 | XMS_ITS ---
Author Organization [facility] Address [address] [place] [address] Care Team Providers Care Muffler Hand Name Role Phone Trever Goodwin MD Primary Care Provider Joanne vailaDacia Braswell Unavailable [phone] REASON FOR VISIT Other Medications Medication SIG (Take, Route, Fr equency, Duration) Notes Start Date End Date Status clonazePAM 0.5 MG 1 tablet Oral Once a day for 14 days As needed 10/07/2024 Active Social History Sex Assigned At : Social History Observation Description Sex Assigned At Female Encounters Encounter Location Date Provider Diagnosis [facility] [address] [place] [address] 10/06/2024 Dacia Reyes Anxiety, generalized F41.1 Assessments Encounter Date Diagnosis (ICD Code) Assessment Notes Treatment Notes Treatment Clinical Notes Section Notes 10/06/2024 Anxiety, generalized (ICD-10 - F41.1) Plan Of Treatment Medication Medication Name Sig Start Date Stop Date Notes clonazePAM 0.5 MG 1 tablet Oral Once a day for 14 days 05/2024 Next Appt Details Provider Name:Amina Zamudio, 12/08/2024 01:00:00 PM, [address], [facility] [address], [address], Provider Name:Dacia pruett, 02/25/2025 01:00:00 PM, [address], [address], [place], [address], Progress Notes * PETE CHAUHANDOB:[birth year] (43 yo F)Acc No.[id number]:10/06/2024 Patient:?PETE CHAUHAN :1980???Age:43 Y???Sex:Female Address:[address] [place] [address] [place], [address] * Refills? Refill clonazePAM Tablet, 0.5 MG, Oral, 14 Tablet, 1 tablet, Once a day, 14 days, Refills=0 Subjective: * Chief Complaints: * ???Other * Medical History:? * Surgical History:? * Hospitalization/Major Diagno stic Procedure:? * Medications:? Objective: * Vitals:? * Physical Examination:? Assessment: * Assessment: 1.?Anxiety, generalized - F4 1.1??? Plan: * Treatment: * Procedure Codes:?ERX CONTROL LED SUBSTANCE ERX * true * Date:? Generated for Kendall ochoa/Justin/eTransmitting on:?12/04/2024 02:24 AM PLATE ROLLER
--- OUTSIDE RECORDS SUMMARY | 2024-12-04 02:25 | XMS_ITS | Encounter Summary ---
Author Organization [facility] Healthcare Address [address] [place] [address] Care Team Providers Care Service Director Name Role Phone Trever Goodwin MD Primary Care Prov ider Christiano Pulido MD Unavailable [phone] Reason for Visit * Reason Onset Date Comments Post Op Phone Call 04/15/2024 Encounter Details Date Type Department Care Team (Late st Contact Info) Description 04/15/2024 Telephone [facility] [address] [place] [address] Madeleine Ayala, MORIAH Post Op Phone Call Social History Tobacco Use Types Packs/Day Years [...] on file Legal Sex Female 6:04 PM DEVOPS Gender Identity Female 09/18/2024 11:46 PM CDT Sexual Orientation Straight 09/18/2024 11 :46 PM CDT documented as of this encounter Miscellaneous Notes * Telephone Encounter - Madeleine Ayala RN - 04/15/2024 10:53 AM CDT Spoke to pt for post op phone call. Pt doing well. Enc to call with any concerns. documented in this encounter Plan of Treatment Not on file documented as of this encounter Visit Diagnoses Not on filedocumented in this encounter Care Teams Service Director Relationship Specialty Start Date End Date Trever Goodwin MD [address] [place] [address] PCP - General 06/25/18 Christiano Pulido MD [address] [facility] [address] [place] [address] Vocational Nurse Obstetrics and Gynecology 04/14/24 documented as of this encounter
--- OUTSIDE RECORDS SUMMARY | 2024-12-04 02:26 | XMS_ITS | Encounter Summary ---
Author Organization [facility] Healthcare Address [address] [place] [address] Care Team Providers Care Kiln Stacker Name Role Phone Trever Goodwin MD Primary Care Prov ider Reason for Referral * Diagnostic Imaging (Routine) - Closed Specialty Diagnoses / Procedures Referred By Leeann wallace Referred To Contact Diagnoses Encounter for screening mammogram for malignant neoplasm of breast Procedures SCREENING MAMMOGRAM BILATERAL W Zuleyma Chamberlain NP [address] [place] [address] DR LAMAR [address] [place] [id number] Phone: tel: fax: [address] [phone] Referral ID Status Reason Start Date Expiration Date Visits Re quested Visits Authorized [id number] Closed 01/08/2024 02/06/2025 1 1 TERSINKER Reason for Visit * Reason Comments well woman Encounter Details Date Type Department Care Team (Late st Contact Info) Description 01/08/2024 11:00 AM COUNTERSINKER Office Visit [facility] at [address] [phone] Zuleyma Finley NP [address] [place] [address] DR LAMAR [address] [place] [phone] Well woman exam with routine gynecological exam (Primary Dx); Dysuria; Encounter for screening mammogram for malignant neoplasm of breast; Oligomenorrhea, unspecified type; Encounter for other general counseling or advice on contraception Social History Tobacco Use Types Packs/Day Years [...] often do you have a drink containing alc ohol? Monthly or less 01/08/2024 Q2: How many drinks containi ng alcohol do you have on a typical day when you are drinking? 1 or 2 01/08/2024 Q3: How often do you have si x or more drinks on one occasion? Never 01/08/2024 Personal Safety Answer Date Recorded Getting School Help Needed Not on file 12/08 Comments No Sex and Gender Information Value Date Recorded Sex Assigned at Not on file Legal Sex Female 6:04 PM COUNTERSINKER Gender Identity Female 09/18/2024 11:46 PM CDT Sexual Orientation Straight 09/18/2024 11 :46 PM CDT documented as of this encounter Last Filed Vital Signs Vital Sign Reading Time Taken Comments Blood Pressure 114/72 01/08/2024 10:39 AM COUNTERSINKER Pulse - - Temperature - - Respiratory Rate - - Oxygen Saturation - - Inhaled Oxygen Concentration - - Weight 65.2 kg (143 lb 12.8 oz) 024 10:39 AM COUNTERSINKER Height 157.5 cm (5' 2 ) 01/08/2024 10:3 9 AM COUNTERSINKER Body Mass Index 26.3 01/08/2024 10:39 AM COUNTERSINKER documented in this encounter Progress Notes * Zuleyma Finley, DIRECTOR OF MATERIALS - 01/08/2024 11:00 AM CST Images from the original note were not included. Well Woman Exam Subjective: mAna Hodgson is a 43 y.o. year old female who presents for a well woman exam. The patient does have cerebral palsy and has a bit of a communication deficit. She is accompanied in the office by her mother. The patient was seen back in December for complaints of vulvar burning and irritation . She was diagnosed with bacterial vaginosis and treated with Flagyl. She states she still notices an occasional odor. She denies any itching or irritation. The patient has a history polycystic ovarian syndrome. She did go 1 year without a menses, however she did start her menses in December and January. She is interested in permanent sterilization. She is sexually currently and does use condoms.Her mother is also interested in sterilization for the patient. We did discuss this at her last visit. She tells me she has a distant history of an abnormal Pap smear with normal follow-up. The patient also tells me that she has a history of HSV, she states that she has not had an outbreak in over a year. She is due for a mammogram. She denies any history of abnormal mammograms. She has yet to have a colonoscopy and states that she is not ready to go forward with that at this time. The patient is complaining of some dysuria today. She does consume multiple edit beverages daily. She denies anyfrequency, she does notice slight urgency. She denies fever or chills or pelvic pain. The patient is very hesitant with oil deliverer exams. She is agreeable to an exam today. Menstrual history: Patient's last menstrual period was 2023. Contraception:Condoms. OB History Para Term AB Living 0 0 0 0 0 0 SAB IAB Ectopic Multiple Live Births 0 0 0 0 0 Current Outpatient Medications: atorvastatin (LIPITOR) 10 mg tablet, Take 1 tablet (10 mg total) by mouth daily, Disp: , Rfl: divalproex DR (DEPAKOTE) 500 mg EC tablet, Take 1 tablet (500 mg total) by mouth 2 (two) times a day., Disp: 60 tablet, Rfl: 1 Gemtesa 75 mg tablet, , Disp: , Rfl: levoFLOXacin (LEVAQUIN) 500 mg tablet, , Disp: , Rfl: Trintellix 10 mg tablet, , Disp: , Rfl: clonazePAM (KlonoPIN) 0.5 mg tablet, , Disp: , Rfl: levothyroxine (SYNTHROID, LEVOTHROID) 50 mcg tablet, Take 1 tablet (50 mcg total) by mouth tallow pumper before breakfast., Disp: 30 tablet, Rfl: 0 melatonin tablet, Take by mouth. (Patient not taking: Reported on 06/27/2023), Disp: , Rfl: OLANZapine (ZyPREXA) 5 mg tablet, Take 5 mg by mouth nightly. (Patient not taking: Reported on 06/27/2023), Disp: , Rfl: paliperidone ER (INVEGA) 6 mg 24 hr tablet, , Disp: , Rfl: paliperidone ER (INVEGA) 9 mg 24 hr tablet, , Disp: , Rfl: traZODone (DESYREL) 50 mg tablet, Take 1 tablet (50 mg total) by mouth nightly as needed for sleep.(Patient not taking: Reported on 06/27/2023), Disp: 30 tablet, Rfl: 0 Trintellix 5 mg tablet, , Disp: , Rfl: vitamin E 400 unit capsule, Take 400 Units by mouth daily. (Patient not taking: Reported on 06/27/2023), Disp: , Rfl: ROS Review of Systems Gastrointestinal: Negative for abdominal pain. Endocrine: Negative for cold intolerance and heat intolerance. Genitourinary: Positive for dysuria and menstrual problem. Negative for dyspareunia, genital sores,hematuria, pelvic pain, urgency, vaginal bleeding, vaginal discharge and vaginal pain. Neurological: Negative for headaches. Breast: Negative for tenderness, breast redness, breast discharge and lump(s). Objective: BP 114/72 Ht 157.5 cm (5' 2 ) Wt 143 lb 12.8 oz (65.2 kg) LMP 2023 BMI 26.30 kg/m?? Physical Exam Constitutional: Appearance: Normal appearance. She is normal weight. HENT: Head: Normocephalic and atraumatic. Cardiovascular: Rate and Rhythm: Normal rate and regular rhythm. Pulmonary: Effort: Pulmonary effort is normal. Breath sounds: Normal breath sounds. Chest: Chest wall: No mass. Breasts: Right: No swelling, bleeding, inverted nipple, mass, nipple discharge, skin change or tenderness. Left: Normal. No swelling, bleeding, inverted nipple, mass, nipple discharge, skin change or tenderness. Abdominal: General: There is no distension. Palpations: Abdomen is soft. There is no mass. Tenderness: There is no abdominal tenderness. Hernia: No hernia is present. Genitourinary: Pelvic exam was performed with patient supine. Uterus normal and normal vulva. There is no rash, tenderness, lesion or injury on the right labia. Right labia: normal. There is no rash, tenderness, lesion or injury on the left labia. Left Labia: normal. No lesions in the vagina. Right adnexa: normal. Right adnexa does not display mass and does not display tenderness. Left adnexa: normal. Left adnexa does not display mass and does not display tenderness. Cervix does not display motion tenderness. Uterus is not enlarged, tender or mobile. Genitourinary Comments: Pap smear was obtained. Right inguinal canal: normal. Left inguinal canal: normal. Musculoskeletal: General: No swelling or tenderness. Normal range of motion. Right lower leg: No edema. Left lower leg: No edema. Lymphadenopathy: Cervical: No cervical adenopathy. Upper Body: Right upper body: No supraclavicular, axillary or pectoral adenopathy. Left upper body: No supraclavicular, axillary or pectoral adenopathy. Lower Body: No right inguinal adenopathy. No left inguinal adenopathy. Skin: General: Skin is warm and dry. Findings: No bruising. Neurological: Mental Status: She is alert and oriented to person, place, and time. Psychiatric: Mood and Affect: Mood normal. Behavior: Behavior normal. Assessment and Plan: Diagnoses and all orders for this visit: Well woman exam with routine gynecological exam (Primary) Comments: We will follow up on Pap smear. Exercise and healthy eating habits encouraged. She will call with oil deliverer complaints. Orders: - Pap and HPV, reflex to HPV Genotypes; Future Dysuria Comments: We will follow up on urinalysis and culture. Patient was encouraged to cut back on her caffeine. She will push fluids. Orders: - Urine culture Urine, clean voided; Future - POCT UA, AUTO W/O SCOPE Encounter for screening mammogram for malignant neoplasm of breast - SCREENING MAMMOGRAM BILATERAL W BIN; Future Oligomenorrhea, unspecified type Comments: Patient will call if she goes more than 3 months without a menses. We will prescribe Provera to induce a menses if needed. Encounter for other general counseling or advice on contraception Comments: Patient is seeking sterilization. We will arrange consult with Dr. Pulido for sterilization discussion. Recommended screenings and preventive care discussed: Breast cancer: Breast Self Exam encouraged. Pap and HR HPV done. Contraceptive options discussed. Calcium and vitamin D BID recommended and cholesterol followed by PCP. Return in about 1 year (around 01/08/2025) for Annual WWE. Zuleyma Finley NP 01/08/2024 TERSINKER documented in this encounter Plan of Treatment Not on file documented as of this encounter Procedures Procedure Name Priority Date/Time Associated Diagnosis Comments PAP AND HPV, REFLEX TO HPV GENOTYPES Routine 01/08/2024 11:39 AM COUNTERSINKER Well woman exam with routine gynecological exam URINE CULTURE Routine 01/08/2024 11:39 AM COUNTERSINKER Dysuria POCT URINALYSIS, AUTO W/O SCOPE Routine 01/08/2024 11:34 AM COUNTERSINKER Dysuria documented in this encounter Results * SCREENING MAMMOGRAM BILATERAL W BIN [...] been no suspicious interval change. Zuleyma Finley DIRECTOR OF MATERIALS IMG MAMMO PROCEDURES Final Resul t * Urine culture Urine, clean voided (01/08/2024 11:39 AM COUNTERSINKER) Urine culture [facility] Comment: ??CULTURE, URINE, ROUTINE ?Micro Number: ?[id number] ??Test Status: ? Final ??Specimen Source: ?? Urine, clean catch ??Specimen Quality: ??Adequate ??Result: ?Mixed genital arelis isolated. These superficial ? bacteria are not indicative of a urinary tract ? infection. No further organism identification is ? warranted on this specimen. If clinically ? indicated, recollect clean-catch, mid-stream ? urine and transfer immediately to Urine Culture ? Transport Tube. Urine, clean voided 01/08/2024 11:39 AM COUNTERSINKER 01/09/2024 2:28 AM COUNTERSINKER Zuleyma Kuldip DIRECTOR OF MATERIALS LAB MICROBIOLOGY - GENERAL ORDER SCOT Final Result [facility] [address] [phone] * Pap and HPV, reflex to HPV Genotypes (01/08/2024 11:39 AM COUNTERSINKER) CLINICAL INFORMATION: [facility] Comment:WWE LMP [facility] Comment:1980 Previous Pap [facility] Comment:NONE GIVEN Prev. Bx [facility] Comment:NONE GIVEN SOURCE: [facility] Comment:Cervix, Endocervix Pap, specimen adequacy [facility] Comment: Satisfactory for evaluation. Endocervical/transformation zone component present. HPV interp [facility] Comment: Cytology Results: Negative for intraepithelial lesion or malignancy. COMMENTS [facility] Comment: This Pap test has been evaluated with computer assisted technology. Production Engineer [facility] Comment: YOU, CT(ASCP) CT screening location: [place] [address] [address] [place] [place] [address] Comment [facility] Comment: EXPLANATORY NOTE: The Pap is [...] High Risk E6/E7 Not Detected NOT DETECTED [facility] Comment: Not Detected High Risk HPV types (16,18,31,33,35,39,45,51,52, 56,58,59,66,68) were not detected. Other HPV types which cause anogenital lesions may be present. The significance of the other types of HPV in malignant processes has not been established. Methodology: Real Time PCR ? Thin prep 01/08/2024 11:3 9 AM COUNTERSINKER 01/09/2024 8:31 AM COUNTERSINKER Zuleyma Finley DIRECTOR OF MATERIALS LAB CYTOLOGY ORDERABLES Final Re sult [facility] [address] [place] [address] [facility] [address] [place] [address] * POCT UA, AUTO W/O SCOPE (01/08/2024 11:34 AM COUNTERSINKER) Color, Urine, POC Yellow Clarity, ur, POC Clear Clear Glucose, ur, POC Negative Negative MG/DL Bilirubin, ur, POC Negative Negative, Small, Moderate, Large Ketones, ur, POC Negative Negative Specific [place], POC 1.030 1.003 - 1.030 Blood, ur, POC Negative Negative pH, ur, POC 7.0 5.0 - 8.0 Protein, ur, POC Negative Negative Urobilinogen, Urine, POC 0.2 mg/dL Leukocytes, ur, POC Negative Negative Nitrite, ur, POC Negative Negative Urine, clean voided 01/08/2024 11:34 AM COUNTERSINKER Zuleyma Finley DIRECTOR OF MATERIALS POINT OF CARE TEST ORDERABLES Fi nal Result documented in this encounter Visit Diagnoses Diagnosis Encounter for other general counseling or advice on contraception Dysuria Encounter for screening mammogram for malignant neoplasm of breast Oligomenorrhea, unspecified type Encounter for screening mammogram for malignant neoplasm of breast documented in this encounter Discontinued Medications Medication Sig Discontinue Reason Start Date End Da te sertraline (ZOLOFT) 100 mg tabletIndications:depres monica,Dysphoric Mood Take 1 tablet (100 mg total) by mouth daily. Therapy completed 06/30/2018 01/08/2024 documented as of this encounter Care Teams Kiln Stacker Relationship Specialty Start Date End Date Trever Goodwin MD [address] [place] [address] PCP - General 06/25/18 documented as of this encounter
--- OUTSIDE RECORDS SUMMARY | 2024-12-04 02:26 | XMS_ITS | Encounter Summary ---
Author Organization [facility] Healthcare Address [address] [place] [address] Care Team Providers Care Self Propelled Hot Mix Roller Operator Name Role Phone Trever Goodwin MD Primary Care Prov ider Reason for Visit * Reason Onset Date Comments US Result 03/10/2024 Encounter Details Date Type Department Care Team (Late st Contact Info) Description 03/10/2024 Telephone [facility] [address] [place] [address] Madeleine Ayala RN US Result Social History Tobacco Use Types Packs/Day Years [...] on file Legal Sex Female 6:04 PM MAINSTREAMING FACILITATOR Gender Identity Female 09/18/2024 11:46 PM CDT Sexual Orientation Straight 09/18/2024 11 :46 PM CDT documented as of this encounter Miscellaneous Notes * Telephone Encounter - Madeleine Ayala RN - 03/15/2024 11:43 AM CDT Surgery scheduled for 04-14-24. * Telephone Encounter - Madeleine Ayala RN - 03/11/2024 8:22 AM CDT Pt offered 04-14-24. Will await her response. She will need to sign the consent for her secondary IDPA. * Telephone Encounter - Christiano Pulido MD - 03/10/2024 5:42 PM CDT Unsure if she needed to fill out a 30 day consent. * Telephone Encounter - Christiano Pulido MD - 03/10/2024 5:41 PM CDT I discussed normal labs and normal ultrasound with patient. Okay to schedule laparoscopic bilateralsalpingectomy. Patient has cerebral palsy and presented with her mother. Certainly we could consider an ablation at the same time because she has developed some irregular bleeding but her bleeding isnew so it is okay to follow at this time and just do the sterilization unless she feels strongly. * Telephone Encounter - Madeleine Ayala RN - 03/10/2024 8:51 AM CDT Will you please let me know what the results are for the ultrasound and when we should get it the surgery done I have my period today documented in this encounter Plan of Treatment Not on file documented as of this encounter Visit Diagnoses Not on filedocumented in this encounter Care Teams Self Propelled Hot Mix Roller Operator Relationship Specialty Start Date End Date Trever Goodwin MD [address] [place] [address] PCP - General 06/25/18 documented as of this encounter
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
--- OUTSIDE RECORDS SUMMARY | 2024-12-04 02:26 | XMS_ITS | Encounter Summary ---
Author Organization [facility] Address [address] [facility] [facility] [address] [place] [address] Care Team Providers Care Gambling Broker Name Role Phone Trever Goodwin MD Primary Care Prov ider Reason for Referral * Diagnostic Imaging (Routine) - Closed Specialty Diagnoses / Procedures Referred By Leeann wallace Referred To Contact Diagnoses Encounter for screening mammogram for malignant neoplasm of breast Procedures SCREENING MAMMOGRAM BILATERAL W Zuleyma Chamberlain NP [address] [facility] [address] [place] [address] [place] [address] Phone: tel: fax: [address] [phone] Referral ID Status Reason Start Date Expiration Date Visits Re quested Visits Authorized [id number] Closed 01/08/2024 02/06/2025 1 1 Reason for Visit * Diagnostic Imaging (Routine) - Closed Specialty Diagnoses / Procedures Referred By Leeann wallace Referred To Contact Diagnoses Encounter for screening mammogram for malignant neoplasm of breast Procedures SCREENING MAMMOGRAM BILATERAL W Zuleyma Chamberlain NP [address] [facility] [address] [place] [address] [place] [address] Phone: tel: fax: [address] [address] Referral ID Status Reason Start Date Expiration Date Visits Re quested Visits Authorized [id number] Closed 01/08/2024 02/06/2025 1 1 Encounter Details Date Type Department Care Team (Latest Contact Info) Description 04/02/2024 1:53 PM CDT - 04/02/2024 11:59 PM CDT Hospital Encounter [facility] [address] [place] [id number] Encounter for screening mammogram for malignant neoplasm of breast Discharge Disposition: Discharge to home or self care Social History Tobacco Use Types Packs/Day Years [...] on file 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 60 tablet 1 06/29/2018 Gemtesa 75 mg tablet daily 06/19/2023 paliperidone ER (INVEGA) 9 mg 24 hr tablet 06/25/2023 Trintellix 10 mg tablet 1 tablet (10 mg total) nightly 06/19/2023 OLANZapine (ZyPREXA) 5 mg tablet Take 5 mg by mouth nightly. 04/08/2024 paliperidone ER (INVEGA) 6 mg 24 hr tablet 06/25/2023 04/08/2024 progesterone (PROMETRIUM) 200 mg capsule Take one capsule at bedtime on nights 16- of each cycle. Start this Friday. 12 capsule 3 02/09/2024 04/08/2024 traZODone (DESYREL) 50 mg tabletIndications :insomnia associated with depression Take 1 tablet (50 mg total) by mouth nightly as needed for sleep. 30 tablet 06/29/2018 04/08/2024 Trintellix 5 mg tablet 05/14/2023 04/08/2024 vitamin E 400 unit capsule Take 1 capsule (400 Units total) by mouth daily 04/08/2024 documented as of this encounter Discharge Disposition Disposition Code Departure Means Destination Discharge to home or self care documented in this encounter Plan of Treatment Not on file documented as of this encounter Procedures Procedure Name Priority Date/Time Associated Diagnosis Comments SCREENING MAMMOGRAM BILATERAL W BIN Schedule Routine, Read Routine (OP Routine) 04/02/2024 2:40 PM CDT Encounter for screening mammogram for malignant neoplasm of breast documented in this encounter Results * SCREENING [...] been no suspicious interval change. Zuleyma Finley [employer] IMG MAMMO PROCEDURES Final Resul t documented in this encounter Visit Diagnoses Diagnosis Encounter for screening mammogram for malignant neoplasm of breast documented in this encounter Care Teams Gambling Broker Relationship Specialty Start Date End Date Trever Goodwni MD [address] [place] [address] PCP - General 06/25/18 documented as of this encounter
--- OUTSIDE RECORDS SUMMARY | 2024-12-04 02:26 | XMS_ITS | Encounter Summary ---
Author Organization [facility] Address [address] [place] [address] Care Team Providers Care Air Cargo Agent Name Role Phone Trever Goodwin MD Primary Care Prov ider Reason for Referral * Diagnostic Imaging (Routine) - Closed Specialty Diagnoses / Procedures Referred By Contac madison Referred To Contact Diagnoses Irregular periods/menstrual cycles Procedures US Pelvis W Endovaginal Christiano Pulido MD [address] [place] [address] [address] [place] [address] Phone: tel: fax: [facility] Referral ID Status Reason Start Date Expiration Date Visits Re quested Visits Authorized [id number] Closed 02/09/2024 03/10/2025 1 1 Reason for Visit * Reason Comments Consult Sterilization Encounter Details Date Type Department Care Team (Late st Contact Info) Description 02/09/2024 9:45 AM CDT Office Visit [facility] [address] [facility] [address] [place] [id number] Christiano Pulido MD [address] [place] [address] [address] [place] [address] Irregular periods/menstrual cycles (Primary Dx); Sterilization consult Social History Tobacco Use Types Packs/Day Years [...] on file 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 Gender Identity Female 09/18/2024 11:46 PM CDT Sexual Orientation Straight 09/18/2024 11 :46 PM CDT documented as of this encounter Last Filed Vital Signs Vital Sign Reading Time Taken Comments Blood Pressure 124/76 02/09/2024 9:58 AM CDT Pulse - - Temperature - - Respiratory Rate - - Oxygen Saturation - - Inhaled Oxygen Concentration - - Weight 63.5 kg (140 lb) 02/09/2024 9:58 AM CDT Height 157.5 cm (5' 2 ) 02/09/2024 9:58 AM CDT Body Mass Index 25.61 02/09/2024 9:58 AM CDT documented in this encounter Ordered Prescriptions Prescription Sig Dispense Quantity Refills Last Filled Start Date End Date progesterone (PROMETRIUM) 200 mg capsule Take one capsule at bedtime on nights 16- of each cycle. Start this Friday. 12 capsule 3 02/09/2024 documented in this encounter Progress Notes * Christiano Pulido MD - 02/09/2024 9:45 AM CDT Shank Boner Visit Subjective: Amna Hodgson is a 43 y.o. year old female who presents to discuss sterilization and irregular cycles. Amna is sexually active using condoms. She was on Ocs in the past without a cycle.She bled for two weeks from and previously 7 days in December. Last year, she only had one cycle. She has cerebral palsy and presents with her mother. She reports increased hair growth. Contraception:Condoms Patient's last menstrual period was 01/14/2024. Current Outpatient Medications: Gemtesa 75 mg tablet, , Disp: , Rfl: paliperidone ER (INVEGA) 9 mg 24 hr tablet, , Disp: , Rfl: Trintellix 10 mg tablet, , Disp: , Rfl: vitamin E 400 unit capsule, Take 1 capsule (400 Units total) by mouth daily, Disp: , Rfl: atorvastatin (LIPITOR) 10 mg tablet, Take 1 tablet (10 mg total) by mouth daily (Patient not taking: Reported on 02/09/2024), Disp: , Rfl: clonazePAM (KlonoPIN) 0.5 mg tablet, , Disp: , Rfl: divalproex DR (DEPAKOTE) 500 mg EC tablet, Take 1 tablet (500 mg total) by mouth 2 (two) times a day., Disp: 60 tablet, Rfl: 1 OLANZapine (ZyPREXA) 5 mg tablet, Take 5 mg by mouth nightly. (Patient not taking: Reported on 06/27/2023), Disp: , Rfl: paliperidone ER (INVEGA) 6 mg 24 hr tablet, , Disp: , Rfl: progesterone (PROMETRIUM) 200 mg capsule, Take one capsule at bedtime on nights 16-27 of each cycle. Start this Friday., Disp: 12 capsule, Rfl: 3 traZODone (DESYREL) 50 mg tablet, Take 1 tablet (50 mg total) by mouth nightly as needed for sleep.(Patient not taking: Reported on 06/27/2023), Disp: 30 tablet, Rfl: 0 Trintellix 5 mg tablet, , Disp: , Rfl: Allergies Allergen Reactions Diflucan [Fluconazole] Rash Diclofenac Diarrhea Review of Systems Objective: BP 124/76 (BP Location: Right arm, Patient Position: Sitting) Ht 157.5 cm (5' 2 ) Wt 140 lb (63.5 kg) LMP 01/14/2024 BMI 25.61 kg/m?? Physical Exam: General: Pleasant female in no acute distress. Pelvic Exam: deferred Assessment and Plan: Diagnoses and all orders for this visit: Irregular periods/menstrual cycles (Primary) Comments: Recommend progesterone 200 mg nightly for 12 nights. Will check pelvic ultrasound to visualize the EMC after her next cycle. Check PCOS labs. Orders: - US Pelvis W Endovaginal; Future - Testosterone, Total and Free, Serum; Future - DHEA-sulfate; Future - LH; Future - Follicle stimulating hormone; Future Sterilization consult Assessment & Plan: Desires sterilization. I have discussed permanency, alternative contraception, 1% failure rate or less, risks of injury and incidence of regret. Risks of bleeding, infection, anesthesia, risks of injury to surrounding structures discussed. Patient desires laparoscopic bilateral salpingectomy for possible cancer reduction benefit. Nature of procedure and recovery discussed. We will plan on proceeding. Other orders - progesterone (PROMETRIUM) 200 mg capsule; Take one capsule at bedtime on nights 16- of each cycle. Start this Friday. Return for Will call with results. Christiano Pulido MD 02/09/2024 documented in this encounter Miscellaneous Notes * Assessment & Plan Note - Christiano Pulido MD - 03/07/2024 3:49 PM CDT Associated Problem(s): Sterilization consult (Resolved 04/27/2024) Desires sterilization. I have discussed permanency, alternative contraception, 1% failure rate or less, risks of injury and incidence of regret. Risks of bleeding, infection, anesthesia, risks of injury to surrounding structures discussed. Patient desires laparoscopic bilateral salpingectomy for possible cancer reduction benefit. Nature of procedure and recovery discussed. We will plan on proceeding. documented in this encounter Plan of Treatment Not on file documented as of this encounter Results * US Pelvis W Endovaginal (03/04/2024 2:32 PM CDT) Cul de Sac Free fluid visualized [facility] Endometrial Thickness 4.3 mm&millim eters [facility] Anatomical Region Laterality Modality Pelvis N/A Ultrasound 03/04/2024 2:17 PM CDT Impressions 03/07/2024 6:51 PM CDT 1. Normal appearing uterus with probable small posterior fibroid. ??EMC is 4.3 mm which is reassuring. 2. Normal appearing ovaries bilaterally. ?? 3. Small free fluid. ?? Narrative Procedure Note Christiano Pulido MD - 03/07/2024 IMPRESSION: 1. Normal appearing uterus with probable small posterior fibroid. EMC is4.3 mm which is reassuring. 2. Normal appearing ovaries bilaterally. 3.Small free fluid. Christiano Pulido MD IM US PROCEDURES Final Re sult * Follicle stimulating hormone (02/09/2024 10:39 AM CDT) FSH 5.3 IUnits/L Comment: Interpretive Data Male: Adults: ?1.5 - 12.4 IUnits/L Female: ?? Follicular: ?3.5 - 12.5 IUnits/L Ovulation: ? 4.7 - 21.5 IUnits/L Luteal: ?1.7 - 7.7 IUnits/L Postmenopausal: 25.8 - 134.8 IUnits/L Current interpretive data was last revised 2015. Testing performed by: [facility], [address] [place]., [address] Blood 02/09/2024 10:3 9 AM CDT 02/09/2024 4:48 PM CDT Christiano Pulido MD LAB BLOOD ORDERABLES Final Result Performing Organization Address City/[facility]/ZIP Co de Phone Number TIFFANIE SWEET ([place]) [address] [facility] [place] [address] * LH (02/09/2024 10:39 AM CDT) LH 8.8 IUnits/L Comment: Interpretive Data Males: ??Adults: ? 1.7 - 8.6 ?? IUnits/L Females: ?Follicular: ? 2.4 - 12.6 ??IUnits/L ??Ovulation: ? 14.0 - 95.6 ??IUnits/L ?Luteal: ? 1.0 - 11.4 ??IUnits/L ??Postmenopausal: 7.7 - 58.5 ??IUnits/L Current interpretive data was last revised on 2019. Testing performed by: [facility], [address] [place] [address]., [id number] Blood 02/09/2024 10:3 9 AM CDT 02/09/2024 4:48 PM CDT Christiano Pulido MD LAB BLOOD ORDERABLES Final Result Performing Organization Address City/[facility]/ZIP Co de Phone Number TIFFANIE [facility] ([place]) [address] [facility] [place] [address] * DHEA-sulfate (02/09/2024 10:39 AM CDT) DHEA-S 125.0 35.4 - 256.0 mcg/dL Comment:Testing performed by : [facility], [address] [place] [address]., [id number] Blood 02/09/2024 10:3 9 AM CDT 02/09/2024 4:48 PM CDT Christiano Pulido MD LAB BLOOD ORDERABLES Final Result TIFFANIE SWEET ([place]) [address] [facility] [place] [address] * Testosterone, Total and Free, Serum (02/09/2024 10:39 AM CDT) Pathologist [facility] Testosterone 33 8 - 60 ng/dL [facility] Comment: ADDITIONAL INFORMATION Testing performed by Liquid Chromatography-Tandem Mass Spectrometry (LC-MS/MS). This test was developed and its performance characteristics determined by [facility] in a manner consistent with CLIA requirements. This test has not been cleared or approved by the U.S. Food and Drug Administration. Test Performed by: [facility] [address] [place] [address] Cupola Tapper: Don Carrera M.D. Ph.D.; CLIA# [id number] Testosterone, free 0.53 <0.13 - 0.95 ng/dL TIFFANIE SWEET ([place]) Comment: ADDITIONAL INFORMATION This test was developed and its performance characteristics determined by [facility] in a manner consistent with CLIA requirements. This test has not been cleared or approved by the U.S. Food and Drug Administration. Blood 02/09/2024 10:3 9 AM CDT 02/09/2024 1:45 PM CDT Christiano Pulido MD LAB BLOOD ORDERABLES Final Result TIFFANIE SWEET ([place]) [address] [facility] [place] [address] [facility] ref Lab documented in this encounter Visit Diagnoses Diagnosis Irregular periods/menstrual cycles- Primary Sterilization consult Other general counseling and advice for contraceptive management Irregular periods/menstrual cycles documented in this encounter Discontinued Medications Medication Sig Discontinue Reason Start Date End Da te levoFLOXacin (LEVAQUIN) 500 mg tablet Therapy completed 09/11/2023 02/09/2024 levothyroxine (SYNTHROID, LEVOTHROID) 50 mcg tabletIndications:hypoth yroidism Take 1 tablet (50 mcg total) by mouth compressor repairer before breakfast. Therapy completed 06/30/2018 02/09/2024 melatonin tablet Take by mouth. Therapy completed 02/09/2024 documented as of this encounter Care Teams Air Cargo Agent Relationship Specialty Start Date End Date Trever Goodwin MD [address] [place] [address] PCP - General 06/25/18 documented as of this encounter
--- OUTSIDE RECORDS SUMMARY | 2024-12-04 02:26 | XMS_ITS | Encounter Summary ---
Author Organization [facility] Healthcare Address [address] [place] [address] Care Team Providers Care Fingerer Name Role Phone Trever Goodwin MD Primary Care Prov ider Reason for Visit * Reason Comments Mental Health Problem Encounter Details Date Type Department Care Team (Latest Contact Info) Description 06/25/2018 9:36 PM CDT - 06/29/2018 5:15 PM CDT Hospital Encounter [facility] [address] [place] [address] Alfred Whitney MD [address] [place] [address] Jaguar Ruff MD [address] [place] [address] Dong Coreas MD [address] [facility] [address] [address] [place] [address] Anxiety (Primary Dx); Hallucinations; Disorganized behavior; Cerebral palsy, unspecified type (CMS/HCC) Discharge Disposition: Discharge to home or self [...] on file 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 Gender Identity Female 09/18/2024 11:46 PM CDT Sexual Orientation Straight 09/18/2024 11 :46 PM CDT documented as of this encounter Last Filed Vital Signs Vital Sign Reading Time Taken Comments Blood Pressure 114/73 06/29/2018 8:17 AM CDT Pulse 66 06/29/2018 8:17 AM CDT Temperature 37 ??C (98.6 ??F) 06/29/2018 8:14 AM CDT Respiratory Rate 16 06/29/2018 8:14 AM CDT Oxygen Saturation 100% 06/29/2018 8:17 AM CDT Inhaled Oxygen Concentration - - Weight 61 kg (134 lb 8 oz) 06/27/2018 6:25 PM CD T Height 157.5 cm (5' 2 ) 06/27/2018 6:25 PM CDT Body Mass Index 24.6 06/27/2018 6:25 PM CDT documented in this encounter Discharge Summaries * Girma Winters MD - 06/29/2018 1:00 PM CDT Inpatient Psychiatry Discharge Summary BRIEF OVERVIEW Admitting Provider: Dong Coreas MD Discharge Provider: Dong Coreas MD Primary Care Physician at Discharge: Trever Goodwin MD [phone] Admission Date: 06/25/2018 Discharge Date: 06/29/2018 Primary Discharge Diagnosis: Schizoaffective disorder, unspecified (CMS/HCC) Secondary Discharge Diagnosis: Schizoaffective disorder, unspecified (CMS/HCC) Anxiety History of unspecified seizure Thyroid disease Asthma * No resolved hospital problems. * DETAILS OF HOSPITAL STAY Presenting Problem/History of Present Illness: Schizoaffective disorder, unspecified (CMS/HCC) Ms. Hodgson is a poor historian, and the majority of history was taken from interview with patient'sparents. This is Ms. Hodgson's first hospitalization in the [facility] system, and thus current electronic medical records of her past psychiatric history is quite limited. ?? Ms. Hodgson's childhood in [place], [place] was significant for a diagnosis of cerebral palsy, leadingto chronic gait problems and intellectual disability (IQ 75) culminating in IEP and special education in high school. At the age of 13, she received a chart diagnosis of an unspecified psychotic disorder after developing auditory hallucinations, delusions of reference (i.e., news outlets talking about her, kneeling at electronic outlets because there were hidden tape recorders ), and symptoms of catatonia (i.e., lying rigidly in bed, decline in speech, possible echolalia) in the absence of affective symptoms. As per her parents, she was successfully treated with Haldol (dose and duration of trial unknown but no history of HANNON), achieving remission of her symptoms without any residual psychotic sequelae. ?? In the ensuing years, Ms. Hodgson has received at least seven more hospitalizations in [place] and later [facility] after her familiy moved to [place] (exactly dates unknown pending more collateral). Ms. Hodgson has struggled chronically with maladaptive coping skills and low self-esteem in the setting of social stressors (i.e., starting new jobs, intensified feelings of low self worth amid failed romantic pursuits), as interview with the patient's parents noted that her cognitive impairment has led her to enjoy predictability in her routines and have relatively poor stress tolerance otherwise. In these hospitalizations, Ms. Hodgson typically exhibited what her providers have called psychotic and depressive symptoms , culminating in a schizoaffective disorder and bipolar diagnoses in the charts by her parents' report, although this needs to be corroborated with the chart. Her psychotic symptoms have reportedly included command auditory hallucinations (and sometimes unfamiliar voices chanting in her head), persecutory delusions (i.e., involving police coming after the patient, that the house was on fire), and response to internal stimuli through pursed lips. Her depressed symptoms have reportedly entailed months of poor sleep, hopelessness and guilt related to her cerebral palsy diagnosis, low energy, poor appetite leading to weight loss, and fleeting passivethoughts that life was not worth living. Although Ms. Hodgson's parents have endorsed weeks of irritability, pressured speech, hypersexuality (i.e., having sex with strangers which has led to her being taken advantage of financially), increased gambling activity that has caused her to use up all of her money , and decreased perceived need for sleep that appear to alternate with her periods of depressed mood, her psychotic symptoms have generally overlapped with her depression as opposed to elevated mood. There is no reported hx of catatonia other than during her initial hospitalization at age13. ?? As per her parents, Ms. Hodgson's aforementioned symptoms have shown good response to medication trials of Haldol, Ponshewaing, Abilify, Depakote, Wellbutrin, Clonazepam, and Zoloft (the exact combinations of these medications is not known, pending chart review), with her most recent regimen entailing Depakote 500 mg BID, Sertraline 100 mg qdaily, and Clonazepam 0.5 mg qdaily without any antipsychoticmedication; this regimen was prescribed by the patient's outpatient CELLOPHANE WRAPPING EXAMINER Amna Bradley in [place], who recent has indicated to the patient and her parents that she did not believe the patient exhibited s/s of a psychotic disorder. Of note, her symptoms have been relatively stable in the community, e clara during times when Ms. Hodgson was not taking any antipsychotics. 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 Hodgson has been driving independently, living in her own apartment [facility] community near her best friend Edgar , and working at [employer] and a [employer], where she has won employee of the month before. ?? Ms. Hodgson has been experiencing an intensification of multiple stressors that appear to be overwhelming her coping skills. This includes recent increases in her workplace duties at [employer] and [employer], upcoming apartment inspections, and relationship stressors. She subsequently endorses feeling anxious, culminating in several months of poor sleep, depressed mood, low energy/ feelings of exhaustion, concentration deficits, and increased mood lability with the patient vacillating betweeninappropriate nervous laughter to tears within minutes. In the last month, for unclear reasons, has also stopped her Klonopin. Although Ms. Hodgson's parents have endorsed increased hypertalkativeness and cirumstantial thought ( she just talks in big circles when stressful topics are raised), there is no evidence of grandiosity, hyperreligiosity, flight of ideas, or any psychotic sequelae. The patient states that she might have had an increase in CAH during the last month that states that she struggled to differentiate it from ruminative thoughts that are sometimes triggered in stressful locations (i.e., crowds, loud noisy situations). Although Ms. Hodgson will sometimes ruminate on her unmarried/ childless status as well as her desire for acceptance without the stigma of being intellectually disabled, her parents deny any current delusions. ?? Last week, Ms. Hodgson reportedly called the police and notified her family at 4:30am that she was experiencing exhaustion, dehydration, and poor PO intake, leading to her subsequent admission to [facility] in [place]. Although we have not been able to obtain collateral from [facility] at this time, Ms. Hodgson's parents indicated that for unknown reasons, the patient's Depakote was decreased from 500 BID to 250 BID at [facility], with her Sertraline decreased from 100 mg to 75 mg. Her hosiptal course was also complicated by a questionable seizure that Ms. Hodgson reportedly experienced while at the [facility] psychiatry unit; the exact circumstances and characteristics of the event are unclear at this time, other than Ms. Hodgson required 7-8 bekah to her scalp subsequently. Her psych medication regimen was not changed and her sx persisted after discharge; the family subsequently brought the patient in to [facility] for further evaluation because her parents believed she was not safe yet. ?? While at the [facility] ED, Ms. Hodgson reportedly experienced some transient anxiety that she attributed to noise, so many people down there ... Just a stressful place, refusing to answer questions from medical staff, crying, communicating with pressured speech, and endorsing possible auditory hallucinations. Upon arriving on [facility], Ms. Hodgson exhibited good behavioral control with no s/s of wilfredo or psychosis, although her parents acknowledge that her tendency to interrupt her sentences with positive self talk (i.e., good job, Kerry, you can do this Kerry, take a deep breath, answer his question Kerry, nice work sweetie while answering [employer] questions) have been misconstrued for responding to internal stimuli. Other than some mood lability, feelings of anxiety related to her existing social stressors (though she also acknowledges stopping Klonopin in the last month, which she had been taking for some years ), and difficulty understanding and answering questions on interview that her parents (who were also present) stated was consistent with her baseline , Ms. Hodgson was calm, well-related, and future-oriented towards improving her stress tolerance and returning home to visit her best friend Edgar, who also has CP. She denied current suicidal or assaultive ideation and denied current auditory hallucinations, although she described her strategies for blocking them out when intermittent CAH of strangers occurred in the last few weeks, mostly in the setting of loud noises, crowds, and stress-inducing ruminations. No delusions or obsessions. Mental Status Exam on Admission: General Appearance and Behavior: female appearing stated age sitting in common area in hospital scrubs, a few finger nails with dirt under them but otherwise adequately groomed with hair in 1-2 mayank, calm and cooperative during interview, well-related but with some inappropriate nervous laughter, thank you for talking to me sir, can I shake your hand? I feel like you are listening to me Speech: fluent, spontaneous, non-pressured, long sentences but normal prosody, volume, rate otherwise ; vocabulary notable for high frequency of I'm sorry sorry, sorry, I know this makes no sense sorry, this sounds weird, I know Flow of Thought: very tangential and circumferential; no loosening of associations or flight of ideas observed though; patient has tendency to (at her baseline, as per parents, and completely unintentionally) produce long-winded irrelevant answers to questions (i.e., in the long-term, they let ussign in and out, but they gave us time to shower when asked if she lived in a long-term) that areinterspersed with positive self-esteem statements (i.e., good job, Kerry you're answering them right, Kerry sweetie, take a deep a breath ) Content of Thought: some depressive rumination (but no obsessions or perseveration; no delusions; no response to internal stimuli other than frequent positive self esteem statements, no auditory hallucinations, no suicidal or assaultive ideation, Mood: I'm so sorry, I know that a lot of what I say doesn't make any sense Affect: child-like, anxious with some marked mood lability, vacillating between smiling when perusing the unit's food menu ( wow, this cereal is cool, this sounds amazing ... What if I get hungry? Maybe I should order more ) to intense, expansive, loud crying ( I have too much stress that's not good in my life, I don't know how to say no, take a deep breath Kerry ); Insight: fair, I know I am holding onto the past , people have been taking advantage of me Judgment: fair, recognizes need to see psychiatrist and take her medications Sensorium: recognizes she is at [facility] Calculations: struggles to subtract 7 from 100, even once Abstraction: understands clock and watch both tell time Language: able to name 11-12 animals in 60 seconds, can also name three animals on [employer] Attention: able to spell WORLD forward and backwards Memory: five word recall 100% after 5 minutes Fund of Knowledge: below average but still adequate, vitamin C is in oranges, right? while perusing meal menu when arriving on unit Hospital Course: A) Primary Diagnosis: Episodic bipolar mood disorder, not currently active 1) Justification of Dx: Per the patient's family, the patient has a history of episodes of decreased need for sleep, hypertalkativity, racing thoughts, illogical statements, expansive affect, poor self care (hygiene and oral intake), and paranoia that have lasted for a period of weeks that are consistent with manic episodes. She was most recently hospitalized due to one of these episodes from 06/19-06/24/18. ?? 2) Treatment Course: Patient was admitted voluntarily to [id number]. In the ED there was concern that patient was exhibiting wilfredo with psychosis due to apparent elevated mood, hypertalkativity, decreasedneed for sleep, distractibility, psychomotor agitation, auditory hallucinations,and responding to internal stimuli. However, upon arrival to the floor the patient was anxious but cooperative, and although answers were at times tangential and circumstantial per family that is the patient's baseline.During admission, patient was also found to be sensitive to auditory stimuli with exaggerated startle response, however whenever patient would comment on noise it was able to be confirmed to be a real auditory stimulus. Patient was also seen to be talking to herself, but each instance appeared to be positive self-talk, e.g. good job, Amna, take a deep breath, answer his question. Althoughpatient appeared anxious, she did not exhibit symptoms of wilfredo. Although patient did endorse low mood, she was sleeping well, eating well, did not appear to have difficulty concentrating increased from baseline, and there was no evidence of guilt/worthlessness, anhedonia or suicidal ideation. Thuspatient was determined to have episodic bipolar mood disorder, which is currently not active. She was continued on depakote 500mg BID. Bupropion was discontinued due to concerns of recent seizures; patient was counseled on discussing need for bupropion with outpatient psychiatrist during follow up.Patient was discharged to home on depakote 500mg twice daily. ?? B) Secondary Diagnosis: Head laceration 1) Justification of Dx: While hospitalized at [facility], from 06/19-06/24, patient suffered a fall. Per the records obtained from [facility] patient got dizzy and fell. No clear etiology to her syncopal episode was established, but during admission she was subsequently found to have hyponatremia to 128. Scalp laceration was closed with bekah, and serum sodium was corrected prior to discharge. ?? 2) Treatment Course: Patient suffered no complications from wound during admission. Follow up appointment was arranged with PCP, Dr. Emery, for 07/06/2018 at 9 am for staple removal and follow-up appointment. C) Secondary Diagnosis: Hypothyroidism 1) Justification of Dx: Patient has a history of hypothyroidism. On admission the patient's TSH wasslightly elevated at 4.75, which could be secondary to medication non-adherence or sub-therapeutic dosing. ?? 2) Treatment Course: As patient's medication compliance not clearly established, will continue on home regimen of levothyroxine 50 mcg, with close follow up with PCP on r 07/06/2018 to reassess need for changing current dosage. D) Secondary Diagnosis: Anxiety 1) Justification of Dx: Patient with a history of generalized anxiety disorder. At time of admission, it was difficult to assess if anxiety symptoms reflect difficulty adjusting to inpatient environment amid poor stress tolerance and possible delirium from two+ day hold in the emergency department vs long- standing anxiety symptoms at baseline vs potential mild clonazepam withdrawal from recent cessation after many reported years of use. No evidence of episodic panic symptoms 2) Treatment Course: Patient's clonazepam was discontinued. Patient continued on zoloft 100 mg daily for long-term management of anxiety, as well as trazodone 50 mg qhs for sleep. Patient to follow up with outpatient psychiatrist. E) Secondary Diagnosis: Asthma 1) Justification of Dx: Patient with a history of anxiety. ?? 2) Treatment Course: Patient's symptoms well-controlled, vital signs stable, with O2 Sat of 99%, and respiratory exam unremarkable. Patient has been completely asymptomatic during admission, with no need for PRN albuterol. Follow up with outpatient PCP. F) Secondary Diagnosis: Cerebral Palsy 1) Justification of Dx: Patient with reported history of cerebral palsy, with reported intellectualdisability and functional motor impairment, which likely contribute to patient's primary diagnosis. 2) Treatment Course: Patient continued on psychotropic pharmacotherapies as per above. Patient to follow up with PT/OT for further management of CP symptoms, as well as outpatient psychiatrist. G) Justification for Discharge: At discharge patient was exhibiting no signs of psychosis or mood disorder, there was no evidence of suicidal or homicidal ideation, and patient appeared stable and capable of caring for herself. She was looking forward to going home to her apartment, and getting back into physical therapy. ?? Risk Assessment: The patient is at low acute risk of harm to self or others, and moderate chronic risk of harm to self based on history of psychiatric illness and history of episodic poor self care. ?? Risk factors: psychiatric illness, single, intellectual disability, poor coping skills ?? Assets: female, strong family support, positive therapeutic alliance, access to community social support in the form of a flame burner, employed, domiciled Active Issues Requiring Follow-up: Follow up with outpatient psychiatrist within the week Follow up with PCP Follow up with outpatient PT/OT Test Results Pending at Discharge: None Operative Procedures Performed: None Other Procedures: None Pertinent Test Results: None Discharge Details Mental Status Exam at Discharge: Discharge Condition: fair Pulse: 66 Resp: 16 BP: 114/73 Temp: 37 ??C (98.6 ??F) Weight: 61 kg (134 lb 8 oz) General Appearance and Behavior: ?? Appears stated age ?? No apparent distress and Well-dressed ?? Normal psychomotor activity ?? Good eye contact ?? Cooperative Speech: ?? Decreased rate ?? Halting ?? Normal volume ?? Normal amount ?? Normal tone ?? Spontaneous ?? Mildly increased latency (3-5 seconds) Flow of Thought: logical, sequential and goal-directed Content of Thought: ?? Negative for suicidal ideation, homicidal ideation, delusions, hallucinations, thought insertion, thought withdrawal, thought broadcasting, thought blocking, referential thinking, obsessions, ruminations, phobias, grandiosity, hyperreligiosity and poverty of content Mood: anxious Affect: dysthymic, full range, normal amount, appropriate to conversation/situation, labile and mood-congruent Insight: fair Judgment: fair Sensorium: alert and oriented x 3 Discharge Disposition: Code Status at Discharge: Full Discharge Instructions: Activity Instructions Discharge activity: Resume normal activity Diet Instructions Adult Discharge Diet Diet Type: Return to previous diet Other Instructions Call provider for: For worsening depressive symptoms Call provider for: Temperature -Temperature greater than 101 degrees F Discharge Medications: Your medication list START taking these medications senna-docusate 8.6-50 mg Commonly known as: PERICOLACE Take 1 tablet by mouth nightly. traZODone 50 mg tablet Commonly known as: DESYREL Take 1 tablet (50 mg total) by mouth nightly as needed for sleep. 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 What changed: medication strength when to take this CONTINUE taking these medications divalproex DR 500 mg EC tablet Commonly known as: DEPAKOTE Take 1 tablet (500 mg total) by mouth 2 (two) times a day. sertraline 100 mg tablet Commonly known as: ZOLOFT Take 1 tablet (100 mg total) by mouth daily. STOP taking these medications BUPROPION HCL ORAL Outpatient Follow-Up: No future appointments. Referrals and Follow-ups to Schedule Ambulatory referral order to Occupational Therapy - As directed Reason for Referral: OT Evaluate and Treat Therapy options discussed with patient?: Yes Location provided for therapy services is: Patient requested/Patient preferred Outgoing referrals to locations not associated with [facility] will automatically print. A copy should be given to the patient for direct scheduling and faxed to the external location/place of service PTRFR: OT Evaluate and Treat Therapy options discussed with patient?: Yes Location provided for therapy services is: Patient requested/Patient preferred Ambulatory referral order to Physical Therapy - As directed Reason for Referral: PT Evaluate and Treat Therapy options discussed with patient?: Yes Location provided for therapy services is: Patient requested/Patient preferred Outgoing referrals to locations not associated with [facility] will automatically print. A copy should be given to the patient for direct scheduling and faxed to the external location/place of service PTRFR: PT Evaluate and Treat Therapy options discussed with patient?: Yes Location provided for therapy services is: Patient requested/Patient preferred Cosigned by Liu Miller MD at 06/30/2018 3:03 PM CDT documented in this encounter Discharge Instructions * Appointments* Steffi Turcios LCSW - 06/29/2018 2:[address] Emery- PCP 8-05-18 at 9:00 Psychiatry appt: 9-11-17 at 2:15pm Therapist Josi 8-3-18 at 3:30pm [facility] [address] [place] [address] Deangelo Joyce at [facility] [phone] documented in this encounter Medications at Time of Discharge divalproex DR (DEPAKOTE) 500 mg EC tabletIndications :Mood Changes Take 1 tablet (500 mg total) by mouth 2 (two) times a day. 60 tablet 1 06/29/2018 senna-docusate (PERICOLACE) 8.6-50 mgIndications:con stipation Take 1 tablet by mouth nightly. 30 tablet 06/29/2018 07/29/2018 levothyroxine (SYNTHROID, LEVOTHROID) 50 mcg tabletIndications :hypothyroidism Take 1 tablet (50 mcg total) by mouth night warehouse manager before breakfast. 30 tablet 06/30/2018 02/09/2024 sertraline (ZOLOFT) 100 mg tabletIndications :depression,Dysph oric Mood Take 1 tablet (100 mg total) by mouth daily. 30 tablet 1 06/30/2018 01/08/2024 traZODone (DESYREL) 50 mg tabletIndications :insomnia associated with depression Take 1 tablet (50 mg total) by mouth nightly as needed for sleep. 30 tablet 06/29/2018 04/08/2024 documented as of this encounter Ordered Prescriptions Prescription Sig Dispense Quantity Refills Last Filled Start Date End Date divalproex DR (DEPAKOTE) 500 mg EC tabletIndications: Mood Changes Take 1 tablet (500 mg total) by mouth 2 (two) times a day. 60 tablet 1 06/29/2018 sertraline (ZOLOFT) 100 mg tabletIndications: depression,Dysphor ic Mood Take 1 tablet (100 mg total) by mouth daily. 30 tablet 1 06/30/2018 4 senna-docusate (PERICOLACE) 8.6-50 mgIndications:cons tipation Take 1 tablet by mouth nightly. 30 tablet 06/29/2018 8 traZODone (DESYREL) 50 mg tabletIndications: insomnia associated with depression Take 1 tablet (50 mg total) by mouth nightly as needed for sleep. 30 tablet 06/29/2018 4 sertraline (ZOLOFT) 100 mg tabletIndications: depression,Dysphor ic Mood Take 1 tablet (100 mg total) by mouth daily. 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 30 tablet 06/30/[address] (DEPAKOTE) 500 mg EC tabletIndications: Mood Changes Take 1 tablet (500 mg total) by mouth 2 (two) times a day. 60 tablet 06/29/2018 8 documented in this encounter Discharge Disposition Disposition Code Departure Means Destination Discharge to home or self care documented in this encounter Progress Notes * Rochelle Arias - 06/29/2018 5:15 PM CDT Spiritual Care Note Chaplain Rochelle Arias [phone] 06/29/18 @ 18:42 06/29/18 1430 Time Spent Start Time 1430 Stop Time 1515 Time Calculation (min) 45 min Patient Spiritual Assessment Spirituality Assessed Yes Confucianist Affiliation Orthodoxy Active in Voodoo Yes Clinical Encounter Type Visited With Patient Response Type Routine visit Routine Visit Introduction Reason for visit Support Referral From Patient Referral To (None) Outcomes and Interventions Outcomes Demonstrating care and respect;Lessen anxiety;Acceptance of condition or situation Interventions Active listening;Offer emotional support;Offer spiritual/yazdanism support * Steffi Turcios LCSW - 06/29/2018 3:11 PM CDT Pt was voluntarily admitted on 06-26-18 due to anxiety. Pt's diagnosis is Schizoaffective disorder. SW interventions for this pt included conducting a psychosocial assessment of pt and developing 2 SWgoals. These goals were for the pt to attend unit programming and agree to a safe discharge plan. SW offered groups and pt attended. Pt agreed to a safe discharge plan. Pt denied any suicidal or homicidal ideations. Pt was discharged on 06-29-18 to her home with transportation provided by her mother. Pt's insurance covered her medications. Pt will follow up with her psychiatrist, therapist and PCPto have her bekah removed. Pt will also continue to follow up with her case assistant Maria Del Carmen . Pt and pt's mom were in agreement with discharge. Sw services are terminated at this time. * Girma Winters MD - 06/29/2018 3:05 PM CDT Behavioral Health Transition of Care Patient Name: Amna Hodgson Date of : 1980 Sex: Female Admission Date: 06/25/2018 Discharge Date: 06/29/2018 Admission Diagnosis: BIZZARE BEHAVIOR Discharge Diagnosis: Episodic bipolar mood disorder, not currently active Reason for inpatient psychiatric hospitalization (documentation of the symptoms/events the patient experienced prior to this hospitalization): Ms. Hodgson is a poor historian, and the majority of history was taken from interview with patient'sparents. This is Ms. Hodgson's first hospitalization in the [facility] system, and thus current electronic medical records of her past psychiatric history is quite limited. ?? Ms. Hodgson's childhood in [place], [place] was significant for a diagnosis of cerebral palsy, leadingto chronic gait problems and intellectual disability (IQ 75) culminating in IEP and special education in high school. At the age of 13, she received a chart diagnosis of an unspecified psychotic disorder after developing auditory hallucinations, delusions of reference (i.e., news outlets talking about her, kneeling at electronic outlets because there were hidden tape recorders ), and symptoms of catatonia (i.e., lying rigidly in bed, decline in speech, possible echolalia) in the absence of affective symptoms. As per her parents, she was successfully treated with Haldol (dose and duration of trial unknown but no history of HANNON), achieving remission of her symptoms without any residual psychotic sequelae. ?? In the ensuing years, Ms. Hodgson has received at least seven more hospitalizations in [place] and later [facility] after her familiy moved to [place] (exactly dates unknown pending more collateral). Ms. Hodgson has struggled chronically with maladaptive coping skills and low self-esteem in the setting of social stressors (i.e., starting new jobs, intensified feelings of low self worth amid failed romantic pursuits), as interview with the patient's parents noted that her cognitive impairment has led her to enjoy predictability in her routines and have relatively poor stress tolerance otherwise. In these hospitalizations, Ms. Hodgson typically exhibited what her providers have called psychotic and depressive symptoms , culminating in a schizoaffective disorder and bipolar diagnoses in the charts by her parents' report, although this needs to be corroborated with the chart. Her psychotic symptoms have reportedly included command auditory hallucinations (and sometimes unfamiliar voices chanting in her head), persecutory delusions (i.e., involving police coming after the patient, that the house was on fire), and response to internal stimuli through pursed lips. Her depressed symptoms have reportedly entailed months of poor sleep, hopelessness and guilt related to her cerebral palsy diagnosis, low energy, poor appetite leading to weight loss, and fleeting passivethoughts that life was not worth living. Although Ms. Hodgson's parents have endorsed weeks of irritability, pressured speech, hypersexuality (i.e., having sex with strangers which has led to her being taken advantage of financially), increased gambling activity that has caused her to use up all of her money , and decreased perceived need for sleep that appear to alternate with her periods of depressed mood, her psychotic symptoms have generally overlapped with her depression as opposed to elevated mood. There is no reported hx of catatonia other than during her initial hospitalization at age13. ?? As per her parents, Ms. Hodgson's aforementioned symptoms have shown good response to medication trials of Haldol, Ponshewaing, Abilify, Depakote, Wellbutrin, Clonazepam, and Zoloft (the exact combinations of these medications is not known, pending chart review), with her most recent regimen entailing Depakote 500 mg BID, Sertraline 100 mg qdaily, and Clonazepam 0.5 mg qdaily without any antipsychoticmedication; this regimen was prescribed by the patient's outpatient CELLOPH[employer] WRAPPING EXAMINER Amna Bradley in [place], who recent has indicated to the patient and her parents that she did not believe the patient exhibited s/s of a psychotic disorder. Of note, her symptoms have been relatively stable in the community, e clara during times when Ms. Hodgson was not taking any antipsychotics. 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 Hodgson has been driving independently, living in her own apartment inan assisted living community near her best friend Edgar , and working at [employer] and a [employer], where she has won employee of the month before. ?? Ms. Hodgson has been experiencing an intensification of multiple stressors that appear to be overwhelming her coping skills. This includes recent increases in her workplace duties at [employer] and [employer], upcoming apartment inspections, and relationship stressors. She subsequently endorses feeling anxious, culminating in several months of poor sleep, depressed mood, low energy/ feelings of exhaustion, concentration deficits, and increased mood lability with the patient vacillating betweeninappropriate nervous laughter to tears within minutes. In the last month, for unclear reasons, has also stopped her Klonopin. Although Ms. Hodgson's parents have endorsed increased hypertalkativeness and cirumstantial thought ( she just talks in big circles when stressful topics are raised), there is no evidence of grandiosity, hyperreligiosity, flight of ideas, or any psychotic sequelae. The patient states that she might have had an increase in CAH during the last month that states that she struggled to differentiate it from ruminative thoughts that are sometimes triggered in stressful locations (i.e., crowds, loud noisy situations). Although Ms. Hodgson will sometimes ruminate on her unmarried/ childless status as well as her desire for acceptance without the stigma of being intellectually disabled, her parents deny any current delusions. ?? Last week, Ms. Hodgson reportedly called the police and notified her family at 4:30am that she was experiencing exhaustion, dehydration, and poor PO intake, leading to her subsequent admission to [facility] in [place]. Although we have not been able to obtain collateral from [facility] at this time, Ms. Hodgson's parents indicated that for unknown reasons, the patient's Depakote was decreased from 500 BID to 250 BID at [facility], with her Sertraline decreased from 100 mg to 75 mg. Her hosiptal course was also complicated by a questionable seizure that Ms. Hodgson reportedly experienced while at the [facility] psychiatry unit; the exact circumstances and characteristics of the event are unclear at this time, other than Ms. Hodgson required 7-8 bekah to her scalp subsequently. Her psych medication regimen was not changed and her sx persisted after discharge; the family subsequently brought the patient in to [facility] for further evaluation because her parents believed she was not safe yet. ?? While at the [facility] ED, Ms. Hodgson reportedly experienced some transient anxiety that she attributed to noise, so many people down there ... Just a stressful place, refusing to answer questions from medical staff, crying, communicating with pressured speech, and endorsing possible auditory hallucinations. Upon arriving [place] [facility], Ms. Hodgson exhibited good behavioral control with no s/s of wilfredo or psychosis, although her parents acknowledge that her tendency to interrupt her sentences with positive self talk (i.e., good job, Kerry, you can do this Kerry, take a deep breath, answer his question Kerry, nice work sweetie while answering [facility] questions) have been misconstrued for responding to internal stimuli. Other than some mood lability, feelings of anxiety related to her existing social stressors (though she also acknowledges stopping Klonopin in the last month, which she had been taking for some years ), and difficulty understanding and answering questions on interview that her parents (who were also present) stated was consistent with her baseline , Ms. Hodgson was calm, well-related, and future-oriented towards improving her stress tolerance and returning home to visit her best friend Edgar, who also has CP. She denied current suicidal or assaultive ideation and denied current auditory hallucinations, although she described her strategies for blocking them out when intermittent CAH of strangers occurred in the last few weeks, mostly in the setting of loud noises, crowds, and stress-inducing ruminations. No delusions or obsessions. Metabolic Lab Results: Body mass index is 24.6 kg/m??. Glucose: No results found for: GLUCOSE HbA1C: No components found for: HGH1C No results found for: CHOL, CHLPL, HDL, LDLCALC, TRIG Major Procedures and Tests: Major Procedures and Tests Performed During Inpatient Stay: None Studies Pending at Discharge (Includes Lab and Radiology) None Test Results Pending at Discharge: None Advance Directive: Advance Directive: Patient refused information Information Provided on Healthcare Directives: No Patient Requests Assistance: No Emergency contact for information related to this stay 23/06 emergency contact information related to inpatient stay: [facility]: [phone] (ask for Charge Nurse) Primary Physician, other healthcare professional, or site for follow up care ([facility] has specific follow up appointments): PCP: Trever Goodwin MD These instructions have been provided to and reviewed with the patient/care nurse rn prior to discharge: Yes * Girma Winters MD - 06/29/2018 6:50 AM CDT Psychiatry Progress Note Interval History: Patientt reported having anxiety and difficulty sleeping for which she received trazodone. Medications: divalproex DR 500 mg oral BID levothyroxine 50 mcg oral Daily - 0600 senna-docusate 1 tablet oral Nightly sertraline 100 mg oral Daily PRN Medications Medication Dose Route Frequency Last Dose ??? acetaminophen (TYLENOL) tablet 650 mg 650 mg oral Q6H PRN 650 mg at 06/29/18 1059 ??? albuterol HFA (PROVENTIL HFA,VENTOLIN HFA,PROAIR HFA) 90 mcg/actuation inhaler 2 puff 2 puff inhalation Q6H PRN (RT) ??? traZODone (DESYREL) tablet 50 mg 50 mg oral Nightly PRN 50 mg at 06/28/181 Medication Compliance: Compliant Physical Exam: Vitals: 06/29/18 0817 BP: 114/73 Pulse: 66 Resp: Temp: SpO2: 100% Total Hours of Sleep: 7.5 General: Patient in NAD Mental Status Exam: General Appearance and Behavior: ?? Appears stated age ?? No apparent distress and Well-dressed ?? Normal psychomotor activity ?? Good eye contact ?? Cooperative Speech: ?? Decreased rate ?? Halting ?? Normal volume ?? Normal amount ?? Normal tone ?? Spontaneous ?? Mildly increased latency (3-5 seconds) Flow of Thought: logical, sequential and goal-directed Content of Thought: ?? Negative for suicidal ideation, homicidal ideation, delusions, hallucinations, thought insertion, thought withdrawal, thought broadcasting, thought blocking, referential thinking, obsessions, ruminations, phobias, grandiosity, hyperreligiosity and poverty of content Mood: anxious Affect: dysthymic, full range, normal amount, appropriate to conversation/situation, labile and mood-congruent Insight: fair Judgment: fair Sensorium: alert and oriented x 3 Lab/Radiology/Diagnostic Review: Laboratory review: Lab results in the last 24 hours: No results found for this or any previous visit (from the past 24 hour(s)). Imaging review: I have reviewed Radiology Impressions last 48 hours: No results found. PRIMARY DIAGNOSIS: Episodic bipolar mood disorder, not currently active * Episodic bipolar mood disorder, not currently active Assessment & Plan For now, we will give the patient [...] presentations as per collateral do appear to beclearly delineated episodes of psychosis with comorbid depression. More evident on this admission, i nterestingly, are poor stress tolerance in the setting of cognitive impairment, with the patient's methods of coping with her psychotic illness (i.e., positive self talk) and [facility] likely to be conflated with [...] to be started at this time, but wewill expand our collateral base for diagnostic clarity and elucidate the patient's recent baseline and whether any recent history of manic and psychotic symptoms have led to a substantial deviation. - Pt is on control, LFTs WNL - Continue Depakote 500 ER BID. Anxiety Assessment & Plan Pt has been sleeping well. It is [...] sleep. - Follow up with outpatient psychiatrist History of unspecified seizure Assessment & Plan Pt's family reports possible seizure during recent hospitalization. No neurologic sequelae or past hx of szs. Subtype of seizure currently not known. Patient with no evidence of overt seizure activity during current admission. -Follow up with PCP to see if further neurological work up necessary. Asthma Assessment & Plan Sx well controlled. Vital signs stable, satting well 99%, respiratory physical exam unremarkable. Completely asymptomatic during admission, with no need for albuterol use. - Follow up with outpatient PCP Thyroid disease Assessment & Plan Symptoms are well controlled. H/o hypothyroidism. TSH = 4.75 (06/25/18), suggestive of medication non-adherence vs subtherapeutic dosing of synthroid. - Currently no symptoms of hypothyroidism. - Continue on Synthroid tablet 50 mcg PO. - Follow up with PCP as outpatient Girma Henley MD Cosigned by Liu Miller MD at 06/30/2018 7:17 AM CDT Associated attestation - Liu Miller MD - 06/30/2018 7:17 AM CDT I have seen and examined the patient on 06/29/2018. I agree with the findings and plan of care as documented in the resident's/fellow's note and as discussed with the resident/fellow.. * Duc Christianson MD - 06/28/2018 8:48 PM CDT Patient endorses some constipation consistent with her baseline, for which I ordered Senna/Docusate. She also requests spiritual care visit for prayer, for which order was also placed. Due to some anxiety that she has been feeling regularly in the evenings (we have taken her off her Klonopin), I switched her PRN Atarax to nightly; she has a hard time keeping track of tasks such as requesting PRN medications from nurses, possibly secondary to her cognitive impairment. Patient otherwise doing well and was looking forward to family visitors tonight. * Garfield Lewis MD - 06/28/2018 7:58 AM CDT Psychiatry Attending Progress Note Interval History: Cooperative and interactive , has no complainants had a good visit with her family. Reviewed with nursing staff. Medications: divalproex DR 500 mg oral BID levothyroxine 50 mcg oral Daily - 0600 sertraline 100 mg oral Daily PRN Medications Medication Dose Route Frequency Last Dose ??? albuterol HFA (PROVENTIL HFA,VENTOLIN HFA,PROAIR HFA) 90 mcg/actuation inhaler 2 puff 2 puff inhalation Q6H PRN (RT) ??? hydrOXYzine (ATARAX) tablet 10 mg 10 mg oral BID PRN 10 mg at 06/27/18 1551 ??? traZODone (DESYREL) tablet 50 mg 50 mg oral Nightly PRN 50 mg at 06/27/182026 Medication Compliance: Compliant Physical Exam: Vitals: 06/27/18 1605 BP: 130/66 Pulse: 64 Resp: 20 Temp: SpO2: 95% Total Hours of Sleep: 7 Mental Status Exam: 1. General appearance and behavior: poor eye contact and self tallk, soemwhat preoccupied but not hostil or agitated 2. Speech: slow, decreased and decreased 3. Flow of thought: concrete 4. Content of thought: no auditory hallucinations 5. Mood: ok 6. Affect: euthymic 7. Insight: fair 8. Judgement: fair 9. Sensorium: alert and oriented x unit Lab/Radiology/Diagnostic Review: Laboratory review: No labs available at this time. PRIMARY DIAGNOSIS: Schizoaffective disorder, unspecified (CMS/HCC) Assessment: stable Plan:continue to observe and I reviewed medication changes I reviewed with nursing staff. * Amna Capps LCSW - 06/27/2018 10:25 AM CDT Psychiatry Social Work Assessment Social Work Assessment Default Flowsheet Data (most recent) Social Work Psych Assessment - 06/27/18 9842 Patient Information Marital Status Never Previous Psychiatric admission at a [facility] facility? No Employment StatusPart time employment;Disabled Admission Type Voluntary Race Ethnicity Service None, per patient Source of Information Patient;Current Chart Chief Complaint It can be stressful at times, having two jobs. I'm not feeling okay, I lost my appetite at times. I lash out when I'm hungry. Patient denied suicidal and homicidal ideation. Patient admitted to auditoryand visual hallucinations, stating normally I can block it out . Patient stated it is mostly auditory hallucinations. Current Situation Housing/Living Enviornment Apartment Per chart, in assisted living. 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 Education Level College Courses Patient stated she has some college . Insurance Medicare, [place] Medicaid Medication Patient stated she is able to obtain medications. Pharmacy Information Patient stated she uses [facility] in [place], [place]. General Functioning Patient stated she was able to meet ADLs prior to admission, stating she is not the best cook on earth . Transportation Per chart, patient drives a car. Patient stated she is able to drive, but don't want to . Use of time Patient stated she enjoys bowling and shopping and that she plans to watch more movies. Peers Patient stated she has friends. She referenced her two sisters a lot; chart indicates afriend near where she lives as well. Legal History Legal Information No legal issues Support Systems and Spirituality Support System Contact Patient declined for SW to contact any family members, stating she does not want to overwhelm them. Per chart, mother: Valencia, , stepfather: Dalia, . Family Perspecitve Patient declined for SW to contact any collateral sources. Current Support System Gianna patel described her younger sister, Stacey, and her twin sister, Pamela, as being supportive. Chart indicates a friendship with a neighbor, Edgar. Spouse/Significant other Patient stated she is single. Parents Patient indicated she did not want to talk about her father. Patient did not talk about her mother or stepfather and only mentioned her stepmother, Ginny, to explain that she has 3 stepsiblings. Children Patient stated she does not havechildren. Other Family Supports Patient stated her sister, Stacey, has visited her at the hospital and that her twin sister, Pamela, lives in [place]. Other Support System Patient stated she receives services through [facility], including having a Payee (Maria Del Carmen Davis) there. Confucianist/Cultural Factors I do believe in God and want to go back to mormonism. I feel Orthodoxy and selam Christians make mistakes. Referral to Independent Living Specialist Yes Family History of Mental Illness Per chart, family history significant fordepression and anxiety in patient's mother, alcohol abuse in patient's father and maternal grandmother, and schizophrenia in a cousin. Childhood History Patient stated she was born and raised in [place] and that she is a country person . She stated the beach is where we would go. Sometimes it was fine. She did not elaborate. Patient has a twin sister and a younger sister, as well as 3 stepsiblings. Patient stated we don't have to talk about my dad . History of physical abuse? No History of physically abusing others? No History of sexual abuse? No History of sexually abusing others? No Relationship Style Patient described her sisters as being very supportive of her. 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 Current Stressors Non-compliance Getting anxious. Risk to Self and Others Violence risk to self in past 6 months? No Self Harm/Suicidal Ideation Plan No Previous Self Harm/Suicidal Attempts No Violence risk to others in past 6 months? No Any lifetime risk of violence to others? No Current Plans to Harm Another No Affect/Mood Affect Anxious/Worried;Labile Mood Happy;Hopeful;Anxious/Worried;Labile Thought Content Hallucinations Auditory (Comment);Visual (Comment) Patient stated normally I can block it out . Behavior Eye Contact Fair Exhibited Behaviors/Symptoms Friendly;Motivated for treatment Goals Patient Stated Goals Have a therapist that I can call. Patient elaborated she would like to be able to call her therapist 24 hours a day, but acknowledged that the therapist would need to sleep. Short term goals To be healthy. Discharge Planning Type of Residence Apartment Living Arrangements Alone Support Systems Family members Social History and Substance Use Social History Tobacco History Smoking Status Never Smoker Smokeless Tobacco Use Never Used Alcohol History Alcohol Use Status Yes Comment Patient stated a little bit, not to excess and then would not elaborate. Drug Use Drug Use Status No Sexual Activity Sexually Active Not Asked Activities of Daily Living Not Asked Age: 37 Gender: female Advanced Directive Status: Patient indicated she does not have Advanced Directive at this time. Siblings: Patient indicated that she has a twin sister, Pamela, who lives in [place], as well as a younger sister, Stacey. Patient described a close relationship with them. Patient indicated she has 3 stepsiblings (Alda, Cristian, and Cholo), but did not indicate the type of relationship she has with them. EAP: Patient was unaware if she has access to EAP services at either of her jobs. She stated she works limited hours, so as not to jeopardize her SSDI. Confucianist Practice: Patient stated she does not follow yazdanism practices. She was offered and accepted a referral to the Independent Living Specialist. Referral placed in [facility]. How does the patient get hope and strength in difficult times: There's always hope. It might seem tiny at times and that's okay, but you have to keep going. There's always a plan in God's eyes because he knows. Substance Abuse Details: Family History of Substance Abuse: Per chart, patient's father and maternal grandmother have alcohol abuse. Substance Abuse Treatment Details Result of Treatment: Patient stated she has not sought substance abuse treatment. Results of treatment: N/A. Chemical Dependency Insight: Patient has good insight into substance use. She denies using tobacco or illicit drugs. She admits to using alcohol a little bit, not to excess , although she would not elaborate. Past Psychiatric History: Per chart, patient's psychiatric history goes back to the age of 13, withthe onset of psychotic symptoms including auditory hallucinations, delusions of reference, and catatonia, resulting in her first psychiatric admission. Per chart, since then, patient has had approximately 8 other hospitalizations, including in [place] and [place] (at [facility]). Per chart, patient's family indicates that she has been admitted for manic, psychotic and depressive symptoms, including manic symptoms of inappropriate laughter, psychomotor agitation, emotional lability, euphoria, hypertalkativity, DNFS w/ preserved energy and grandiose delusions. Per chart, her depressive symptoms have included low mood, decreased sleep and decreased appetite. Per chart, patient follows with Dr Maqruez at [facility] in [place]. Reason for Current Hospitalization: Precipitating Event: Per chart, patient's parents indicated 3-4 weeks ago patient began experiencing labile affect, euphoria, inappropriate laughter, hypertalkativity, and decreased sleep with supposed preserved energy during this time. Per chart, patient contact her parents about a week or two later at 4:30 am after calling the police, reporting that she could not take care of herself, was dehydrated, and had poor PO intake. Per chart, family also noted that patient appeared distractible and had reported hearing auditory hallucinations. Per chart, it seemed patient had also stopped taking her prescribed klonopin during this time, as family noted there were extra pills in the bottle. Per jw rt, patient's family took her to [facility], where she was admitted. Per chart, patient's Depakote wasdecreased and her sertraline was decreased, and patient was discharged, despite family's belief that patient had not improved. Per chart, patient's symptoms persisted and patient's family brought [facility] for further evaluation. Chief Complaint: It can be stressful at times, having two jobs. I'm not feeling okay. I lost my appetite at times. Sometimes it's hard to know what to eat. I lash out when I'm hungry. Patient denied suicidal and homicidal ideation. Patient admitted to primarily auditory hallucinations, which she stated normally I can block it out . Patient appears to be responding to internal stimuli, as evidenced by looking away from interviewer, smiling out of context for conversation, repeatedly asking interviewer if interviewer heard specific noises from the hallway. Impressions: Patient is a 37 year old single female who appears her stated age. She is dressed in hospital attire and is wearing eye glasses. Patient's hair is matted in the back, which patient attributes to not being able to wash due to an injury (chart indicates bekah received at previous facility). Patient is willing to talk with this interviewer. She sometimes pauses for several seconds beforeanswering questions. She declines to discuss some questions. Patient maintains occasional eye contact, frequently looking away and to her right. Patient smiles inappropriately at times. Patient appears to be responding to internal stimuli, frequently asking this interviewer if this interviewer also heard a noise that patient heard; all noises patient inquired about were also heard by this interviewer. Patient is somewhat tangential in her answers. Patient denied suicidal and homicidal ideation.Patient admitted to primarily auditory hallucinations, although she stated normally I can block itout . At this time, patient is appropriate for this level of care for further assessment and intervention. Recommendations: 1. Patient will attend Social Work groups to improve coping and socialization. 2. Patient will agree to follow up with aftercare services, including psychiatric care. Plan: 1. Social Work will identify services and resources needed for aftercare and coordinate discharge planning. 2. Social Work will lead groups, encourage patient to participate, and chart patient's progress. Obstacles: Patient, per chart, was medication non-compliant prior to admission. Patient would not sign a Release of Information for this freelance writer to contact any collateral, making coordinating care difficult at this time. Intermediate Goal: Patient indicated her senior living goal is to find a therapist and to go home. Follow up: Follow up to be determined by treatment team. documented in this encounter H&P Notes * Duc Christianson MD - 06/27/2018 8:48 AM CDT Inpatient Psychiatric Intake Assessment This was staffed with an attending physician at [facility] (Dr. Lewis). CURRENT DIAGNOSES: Principal Problem: Schizoaffective disorder, unspecified (CMS/[facility]) Active Problems: Thyroid disease Asthma Anxiety History of unspecified seizure REASON FOR INPATIENT ADMISSION: IDENTIFYING INFORMATION: This is the at least ninth psychiatric admission for this 37 y.o. year old, single, White ,employedfull-time, Domiciled female with a history of cerebral palsy (IQ 75) and unspecified psychotic disorder who was brought to the hospital by relatives for disorganized behavior, auditory hallucinations, and decreased need for sleep. 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 I guess you could say that. HISTORY OF PRESENT ILLNESS: Ms. Hodgson is a poor historian, and the majority of history was taken from interview with patient'sparents. This is Ms. Hodgson's first hospitalization in the [facility] system, and thus current electronic medical records of her past psychiatric history is quite limited. Ms. Hodgson's childhood in [place], [place] was significant for a diagnosis of cerebral palsy, leadingto chronic gait problems and intellectual disability (IQ 75) culminating in IEP and special education in high school. At the age of 13, she received a chart diagnosis of an unspecified psychotic disorder after developing auditory hallucinations, delusions of reference (i.e., news outlets talking about her, kneeling at electronic outlets because there were hidden tape recorders ), and symptoms of catatonia (i.e., lying rigidly in bed, decline in speech, possible echolalia) in the absence of affective symptoms. As per her parents, she was successfully treated with Haldol (dose and duration of trial unknown but no history of HANNON), achieving remission of her symptoms without any residual psychotic sequelae. In the ensuing years, Ms. Hodgson has received at least seven more hospitalizations in [place] and later [facility] after her familiy moved to [place] (exactly dates unknown pending more collateral). Ms. Hodgson has struggled chronically with maladaptive coping skills and low self-esteem in the setting of social stressors (i.e., starting new jobs, intensified feelings of low self worth amid failed romantic pursuits), as interview with the patient's parents noted that her cognitive impairment has led her to enjoy predictability in her routines and have relatively poor stress tolerance otherwise. In these hospitalizations, Ms. Hodgson typically exhibited what her providers have called psychotic and depressive symptoms , culminating in a schizoaffective disorder and bipolar diagnoses in the charts by her parents' report, although this needs to be corroborated with the chart. Her psychotic symptoms have reportedly included command auditory hallucinations (and sometimes unfamiliar voices chanting in her head), persecutory delusions (i.e., involving police coming after the patient, that the house was on fire), and response to internal stimuli through pursed lips. Her depressed symptoms have reportedly entailed months of poor sleep, hopelessness and guilt related to her cerebral palsy diagnosis, low energy, poor appetite leading to weight loss, and fleeting passivethoughts that life was not worth living. Although Ms. Hodgson's parents have endorsed weeks of irritability, pressured speech, hypersexuality (i.e., having sex with strangers which has led to her being taken advantage of financially), increased gambling activity that has caused her to use up all of her money , and decreased perceived need for sleep that appear to alternate with her periods of depressed mood, her psychotic symptoms have generally overlapped with her depression as opposed to elevated mood. There is no reported hx of catatonia other than during her initial hospitalization at age13. As per her parents, Ms. Hodgson's aforementioned symptoms have shown good response to medication trials of Haldol, Ponshewaing, Abilify, Depakote, Wellbutrin, Clonazepam, and Zoloft (the exact combinations of these medications is not known, pending chart review), with her most recent regimen entailing Depakote 500 mg BID, Sertraline 100 mg qdaily, and Clonazepam 0.5 mg qdaily without any antipsychoticmedication; this regimen was prescribed by the patient's outpatient CELLOPHANE WRAPPING EXAMINER Amna Bradley in [place], who recent has indicated to the patient and her parents that she did not believe the patient exhibited s/s of a psychotic disorder. Of note, her symptoms have been relatively stable in the community, e clara during times when Ms. Hodgson was not taking any antipsychotics. 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 Ms. Hodgson has been experiencing an intensification of multiple stressors that appear to be overwhelming her coping skills. This includes recent increases in her workplace duties at [employer] and [employer], upcoming apartment inspections, and relationship stressors. She subsequently endorses feeling anxious, culminating in several months of poor sleep, depressed mood, low energy/ feelings of exhaustion, concentration deficits, and increased mood lability with the patient vacillating betweeninappropriate nervous laughter to tears within minutes. In the last month, for unclear reasons, has also stopped her Klonopin. Although Ms. Hodgson's parents have endorsed increased hypertalkativeness and cirumstantial thought ( she just talks in big circles when stressful topics are raised), there is no evidence of grandiosity, hyperreligiosity, flight of ideas, or any psychotic sequelae. The patient states that she might have had an increase in CAH during the last month that states that she struggled to differentiate it from ruminative thoughts that are sometimes triggered in stressful locations (i.e., crowds, loud noisy situations). Although Ms. Hodgson will sometimes ruminate on her unmarried/ childless status as well as her desire for acceptance without the stigma of being intellectually disabled, her parents deny any current delusions. Last week, Ms. Hodgson reportedly called the police and notified her family at 4:30am that she was experiencing exhaustion, dehydration, and poor PO intake, leading to her subsequent admission to [facility] in [place]. Although we have not been able to obtain collateral from [facility] at this time, Ms. Hodgson's parents indicated that for unknown reasons, the patient's Depakote was decreased from 500 BID to 250 BID at [facility], with her Sertraline decreased from 100 mg to 75 mg. Her hosiptal course was also complicated by a questionable seizure that Ms. Hodgson reportedly experienced while at the [facility] psychiatry unit; the exact circumstances and characteristics of the event are unclear at this time, other than Ms. Hodgson required 7-8 bekah to her scalp subsequently. Her psych medication regimen was not changed and her sx persisted after discharge; the family subsequently brought the patient in to [facility] for further evaluation because her parents believed she was not safe yet. While at the [facility] ED, Ms. Hodgson reportedly experienced some transient anxiety that she attributed to noise, so many people down there ... Just a stressful place, refusing to answer questions from medical staff, crying, communicating with pressured speech, and endorsing possible auditory hallucinations. Upon arriving on [facility], Ms. Hodgson exhibited good behavioral control with no s/s of wilfredo or psychosis, although her parents acknowledge that her tendency to interrupt her sentences with positive self talk (i.e., good job, Kerry, you can do this Kerry, take a deep breath, answer his question Kerry, nice work sweetie while answering [employer] questions) have been misconstrued for responding to internal stimuli. Other than some mood lability, feelings of anxiety related to her existing social stressors (though she also acknowledges stopping Klonopin in the last month, which she had been taking for some years ), and difficulty understanding and answering questions on interview that her parents (who were also present) stated was consistent with her baseline , Ms. Hodgson was calm, well-related, and future-oriented towards improving her stress tolerance and returning home to visit her best friend Edgar, who also has CP. She denied current suicidal or assaultive ideation and denied current auditory hallucinations, although she described her strategies for blocking them out when intermittent CAH of strangers occurred in the last few weeks, mostly in the setting of loud noises, crowds, and stress-inducing ruminations. No delusions or obsessions. Past Medical History: Diagnosis Date ??? Anxiety ??? Asthma ??? Cerebral palsy (CMS/HCC) ??? MDD (major depressive disorder) ??? Schizoaffective disorder (CMS/HCC) ??? Thyroid disease History reviewed. No pertinent surgical history. ALLERGIES: No Known Allergies MEDICATIONS: Prescriptions Prior to Admission Medication Sig Dispense Refill Last Dose ??? BUPROPION HCL ORAL Take 300 mg by mouth daily. ??? divalproex DR (DEPAKOTE) 500 mg EC tablet Take 500 mg by mouth 2 (two) times a day. ??? levothyroxine (SYNTHROID, LEVOTHROID) 100 mcg tablet Take 50 mcg by mouth daily. ??? sertraline (ZOLOFT) 100 mg tablet Take 100 mg by mouth daily. No current facility-administered medications for this encounter. Not Compliant with the following meds: Klonopin Family History Problem Relation Age of Onset ??? Depression Mother ??? Anxiety disorder Mother ??? Alcohol abuse Father ??? Alcohol abuse Other ??? Bipolar disorder Mother's Sister ??? Depression Cousin ??? Schizophrenia Cousin ??? Alcohol abuse Maternal Grandmother Social History Substance Use Topics ??? Smoking status: Never Smoker ??? Smokeless tobacco: Never Used ??? Alcohol use No Social History Social History Narrative Born and raised: Born in [place], [place]. Comfortable upper middle SES upbringing in [facility]. Family now lives in suburban [place] ([facility] in [place]). Education: Attended high school and was in IEP/ special education. Took classes in 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 Excels in jobs that requires routine, unskilledwork and is a dependable worker as per family. She has even won employee of the month at some of her workplaces. Received social security benefits for her mental health disability (psychosis). 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 Marital Status: Single, has few friends outside her twin sister's social curyung and is still searching for a romantic [...] Legal History: none Access to firearms: none REVIEW OF SYSTEMS: Review of systems per HPI and otherwise all systems are negative No headache, no recent loss of consciousness since arriving at [facility], no pain at site of her scalp bekah Some mild vague abdominal pain but no nausea or vomiting, no fever PHYSICAL EXAMINATION: Vitals: 06/26/18 1802 BP: 113/75 Pulse: 85 Resp: 14 Temp: SpO2: 99% No intake/output data recorded. No intake/output data recorded. BP 120/67 (BP Location: Left arm, Patient Position: Standing) Pulse 87 Temp 37.2 ??C (99 ??F) (Oral) Resp 17 Ht 154.9 cm (5' 0.98 ) Wt 132.6 kg (292 lb 5.3 oz) LMP 05/31/2008 (Approximate) SpO2 97% BMI 55.26 kg/m?? 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, well nourished, in hospital scrubs Skin: Site of scalp bekah clean and dry w/o erythema, skin color, texture, turgor normal, no rashes, lesions or bruising Head: Normocephalic, without obvious abnormality, approximately 7 bekah in occipital area from recent fall Eyes: PERRL, conjunctiva/corneas clear, EOMI, anicteric Ears: Not Done Nose: Not Done Throat: Lips, mucosa, and tongue without any bite oseguera or lesions; teeth and gums normal, MMM Lymph nodes: Not Done Neck: Supple, symmetrical; Thyroid: No enlargement No carotid bruit or JVD Back: Symmetric, ROM normal, no CVA tenderness Lungs: Clear to auscultation bilaterally, respirations unlabored Chest wall: No tenderness or deformity Cardiovascular: RRR, S1 and S2 normal, rub or gallop, no edema, pulses 2+ and symmetric to all extremities Abdomen: Soft, non-tender, bowel sounds active all four quadrants, no masses, no organomegaly, non-distended Extremities: Extremities normal, atraumatic, no cyanosis or edema NEUROLOGICAL EXAMINATION: Cranial Nerves Optic (II): visual acuity/jaramillo intact in all 4 quadrants Oculomotor, Trochlear, Abducens (III, IV, ): PERRL and EOMI bilatterally Trigeminal (V): Facial sensation intact to light touch in all three divisions Facial (VII): Face symmetric Vestibulocochlear (VIII):Hearing intact to voice Glossopharyngeal, Vagus (IX, X):Palate rises symmetrically Accessory (XI):Shoulder shrug equal and adequate strength Hypoglossal (XII):Tongue midline and normal mass Sensory: Intact to light touch in all 4 extremities Motor/Tone:Motor tone normal Reflexes: DTRs 3+ on R UEs, 2-3+ on L UEs, 2+ for LEs Station/Gait:gait abnormal with some spastic hemiplegia Coordination: Finger to nose intact MENTAL STATUS EXAMINATION: General Appearance and Behavior: female appearing stated age sitting in common area in hospital scrubs, a few finger nails with dirt under them but otherwise adequately groomed with hair in 1-2 mayank, calm and cooperative during interview, well-related but with some inappropriate nervous laughter, thank you for talking to me sir, can I shake your hand? I feel like you are listening to me Speech: fluent, spontaneous, non-pressured, long sentences but normal prosody, volume, rate otherwise ; vocabulary notable for high frequency of I'm sorry sorry, sorry, I know this makes no sense sorry, this sounds weird, I know Flow of Thought: very tangential and circumferential; no loosening of associations or flight of ideas observed though; patient has tendency to (at her baseline, as per parents, and completely unintentionally) produce long-winded irrelevant answers to questions (i.e., in the long-term, they let ussign in and out, but they gave us time to shower when asked if she lived in a long-term) that areinterspersed with positive self-esteem statements (i.e., good job, Kerry you're answering them right, Kerry sweetie, take a deep a breath ) Content of Thought: some depressive rumination (but no obsessions or perseveration; no delusions; no response to internal stimuli other than frequent positive self esteem statements, no auditory hallucinations, no suicidal or assaultive ideation, Mood: I'm so sorry, I know that a lot of what I say doesn't make any sense Affect: child-like, anxious with some marked mood lability, vacillating between smiling when perusing the unit's food menu ( wow, this cereal is cool, this sounds amazing ... What if I get hungry? Maybe I should order more ) to intense, expansive, loud crying ( I have too much stress that's not good in my life, I don't know how to say no, take a deep breath Kerry ); Insight: fair, I know I am holding onto the past , people have been taking advantage of me Judgment: fair, recognizes need to see psychiatrist and take her medications Sensorium: recognizes she is at [facility] Calculations: struggles to subtract 7 from 100, even once Abstraction: understands clock and watch both tell time Language: able to name 11-12 animals in 60 seconds, can also name three animals on [employer] Attention: able to spell WORLD forward and backwards Memory: five word recall 100% after 5 minutes Fund of Knowledge: below average but still adequate, vitamin C is in oranges, right? while perusing meal menu when arriving on unit LABORATORY/DIAGNOSTIC DATA REVIEW: Laboratory review: Lab results in the last 24 hours: Recent Results (from the past 24 hour(s)) Basic metabolic panel Collection Time: 06/25/18 11:05 PM Result Value Ref Range Sodium 137 135 - 145 mmol/L Potassium, pl 3.9 3.3 - 4.9 mmol/L Chloride 103 97 - 110 mmol/L CO2 26 22 - 32 mmol/L Anion Gap 8 2 - 15 mmol/L BUN 8 8 - 25 mg/dL Creatinine 0.77 0.60 - 1.10 mg/dL Glucose 86 70 - 199 mg/dL Calcium 8.9 8.5 - 10.3 mg/dL Valproic acid level, total Collection Time: 06/25/18 11:05 PM Result Value Ref Range Valproic Acid 39.0 (L) 50.0 - 100.0 mcg/mL CBC with auto differential Collection Time: 06/25/18 11:05 PM Result Value Ref Range WBC 11.8 (H) 3.8 - 9.9 K/cumm Hgb 11.7 (L) 11.9 - 15.5 g/dL Hct 34.1 (L) 35.6 - 45.5 % Plt 311 150 - 400 K/cumm MPV 9.6 9.1 - 12.3 fL RBC 3.85 (L) 3.90 - 5.20 M/cumm MCV 88.6 81.3 - 96.4 fL MCH 30.4 27.1 - 33.3 pg MCHC 34.3 32.3 - 35.7 g/dL RDW CV 12.5 11.1 - 14.9 % RDW SD 40.4 35.7 - 48.1 fL NRBC Abs 0.00 0.00 - 0.01 K/cumm Ethanol Collection Time: 06/25/18 11:05 PM Result Value Ref Range Ethanol <10.0 <=10.0 mg/dL TSH Collection Time: 06/25/18 11:05 PM Result Value Ref Range Thyroid Stimulating Hormone 4.75 (H) 0.30 - 4.20 mcIUnit/mL Hepatic function panel Collection Time: 06/25/18 11:05 PM Result Value Ref Range Bilirubin, total 0.3 0.1 - 1.2 mg/dL Bilirubin, direct <0.2 0.1 - 0.3 mg/dL Protein, pl 7.0 6.5 - 8.5 g/dL Albumin 3.6 3.5 - 5.0 g/dL Alk phos 43 40 - 130 Units/L ALT 25 7 - 45 Units/L AST 42 10 - 45 Units/L Differential, auto Collection Time: 06/25/18 11:05 PM Result Value Ref Range Neutrophil absolute 6.9 (H) 1.7 - 6.5 K/cumm Immature granulocyte absolute 0.0 0.0 - 0.1 K/cumm Lymphocytes absolute 3.5 (H) 0.8 - 3.3 K/cumm Monocyte absolute 1.2 (H) 0.2 - 0.8 K/cumm Eosinophils absolute 0.1 0.0 - 0.5 K/cumm Basophils, abs 0.0 0.0 - 0.1 K/cumm Neutrophils 58.3 % Immature granulocytes 0.4 % Lymphocytes 29.7 % Monocytes 10.5 % Eosinophils 0.7 % Basophils 0.4 % Urinalysis reflex to microscopic and culture Urine Collection Time: 06/26/18 12:09 AM Result Value Ref Range Color, ur Yellow Yellow Clarity, ur Cloudy (A) Clear Specific gravity, ur 1.010 1.010 - 1.025 pH, urine 7.0 Protein, ur ql Negative Negative Glucose, ur ql Negative Negative Ketones, ur Negative Negative Bilirubin, ur Negative Negative Blood, ur Negative Negative Urobilinogen, ur <2.0 <2.0 mg/dL Nitrite, ur Negative Negative Leukocyte esterase, ur Negative Negative hCG, urine, qualitative Collection Time: 06/26/18 12:09 AM Result Value Ref Range HCG, ur Negative Drug screen, urine Collection Time: 06/26/18 12:09 AM Result Value Ref Range Amphetamines, Class None detected Barbiturates, Class None detected Benzodiazepines None detected Cannabinoids, Screen None detected Cocaine metabolite None detected Methadone None detected Opiates, Class None detected Oxycodone, ur None detected Phencyclidine, ur None detected PRIMARY DIAGNOSIS/ REASON FOR INPATIENT ADMISSION: Schizoaffective disorder, unspecified ([facility]) Assessment/Plan * Schizoaffective disorder, unspecified ([facility]) Assessment & Plan For now, we will give the patient [...] presentations as per collateral do appear to beclearly delineated episodes of psychosis with comorbid depression. More evident on this admission, i nterestingly, are poor stress tolerance in the setting of cognitive impairment, with the patient's methods of coping with her psychotic illness (i.e., positive self talk) and [facility] likely to be conflated with psychotic sx. [...] to be started at this time, but wewill expand our collateral base for diagnostic clarity and elucidate the patient's recent baseline and whether any recent history of manic and psychotic symptoms have led to a substantial deviation. -C/w Depakote ER BID. Will uptitrate to 750 BID for now. Pt is on control, LFTs WNL Anxiety Assessment & Plan Pt has been sleeping well. It is currently difficult to glean if her anxiety symptoms at this time reflect difficulty adjusting to the inpatient psych [facility] amid poor stress tolerance and possible delirium [...] mg qd for long-term management of anxiety Asthma Assessment & Plan Sx well controlled. Vital signs stable, satting well 99%, respiratory physical exam unremarkable -PRN albuterol inhaler Thyroid disease Assessment & Plan Symptoms are well controlled. H/o hypothyroidism. TSH = 4.75 (06/25/18) -c/w Synthroid tablet 50 mcg PO. History of unspecified seizure Assessment & Plan Pt's family reports possible seizure during recent hospitalization. No neurologic sequelae or past hx of szs. Subtype of seizure currently not known. -VSS, regular observation by nursing -Increase collateral base; need to consider benefits of outpatient neuro followup but suspicion nothigh at this time Cosigned by Garfield Lewis MD at 06/27/2018 10:50 AM CDT Associated attestation - Garfield Lewis MD - 06/27/2018 10:50 AM CDT Psychiatry OPPE Statement I have personally examined this patient and have discussed the assessment and plan of care with theresident on 06.27.2018. I substantially agree with the resident's evaluation with the following modifications she is not psychotic nor expressing much in the way of a mood disorder. She self reference and comments on her actions. The patient primary diagnosis is historically schizoaffective but I am currently unimpressed. Will need more history. The initial and individualized treatment plan is to eliminate medications least likely to be of benefit. This includes the sporadically taken clonopin and the Wellbutrin. Will make Depakote therapeutic since that may be helpful in suppression of depressive episodes along with Zoloft Discussed control and the damage that may result with Depakote to the baby. She may be on IUD Garfield Lewis MD documented in this encounter Consult Notes * Audrey Saavedra MD - 06/26/2018 1:04 AM CDT ED Psychiatric Assessment CURRENT PROBLEMS: Principal Problem: Schizoaffective disorder, bipolar type (CMS/HCC) INDENTIFYING INFORMATION: This is a 37 y.o., single, White ,employed full-time female with a history of Schizoaffective Disorder, anxiety, hypothyroidism, cerebral palsy who was brought to the hospital by relatives for disorganized behavior, auditory hallucinations and decreased need for sleep. GUARDIANSHIP: no SOURCE OF INFORMATION: Patient, who is somewhat reliable Step-father Dalia Gonzalez [phone] Mother Valencia Gonzalez [phone] CHIEF COMPLAINT: I don't like it here HISTORY OF PRESENT ILLNESS: Ms. Hodgson's psychiatric history goes back to the age of 13, with the onset of psychotic symptoms including auditory hallucinations, delusions of reference, and catatonia, resulting in her first psychiatric admission. It is unclear whether Ms. Hodgson had mood symptoms at the time. Since then, she has had approximately 8 other hospitalizations including in [place], where thefamily previously lived and [facility]. Per family, Ms. Hodgson has been admitted for manic, psychotic and depressive symptoms. She has had several manic episode with symptoms including inappropriate laughter, psychomotor agitation, emotional lability, euphoria, hypertalkativity, DNFS w/ preserved energy and grandiose delusions. Her depressive symptoms primarily include low mood, decreased sleep and decreased appetite, and perfamily she has had several depressive and manic episodes with concurrent psychotic symptoms. Ms. Hodgson follows with Dr. Marquez at [facility] in [place] and is currently on Depakote, Wellbutrin, Zoloft and Clonazepam. Per parents, about 3-4 weeks ago Ms. Hodgson began experiencing labile affect, euphoria, inappropriate laughter, hypertalkativity and decreased sleep with supposed preserved energy during this time. About a week or two ago, Ms. Hodgson called her family at 4:30 am after calling the police reporting that she could not take care of herself and was dehydrated and had poor PO intake. Family also noted that she appeared very distractible and had reported hearing auditory hallucinations. It seemed she had also stopped taking her prescribed klonipin during this time, as family noted there were extra pills in her bottle. Family decided to take Ms. Hodgson to [facility], where she was admitted. During this time, her Depakote was decreased from 500 BID to 250BID and her sertraline was decreased from 100mg to 75mg for unknown reasons. She was discharged on this regimen along with her Klonipin and Wellbutrin, despite family stating that she had not improved at all. Since discharge, her symptoms persisted and family decided to bring her here for further evaluation. Past Medical History: Diagnosis Date ??? Anxiety ??? Cerebral palsy (CMS/HCC) ??? MDD (major depressive disorder) ??? Schizoaffective disorder (CMS/HCC) History reviewed. No pertinent surgical history. ALLERGIES: No Known Allergies MEDICATIONS: (Not in a hospital admission) Current Facility-Administered Medications Medication Dose Route Frequency Provider Last Rate Last Dose ??? clonazePAM (KlonoPIN) tablet 0.5 mg 0.5 mg oral Once Christiano Carrera MD ??? valproate (DEPACON,DEPAKENE) capsule 500 mg 500 mg oral Once Christiano Carrera MD Current Outpatient Prescriptions Medication Sig Dispense Refill ??? BUPROPION HCL ORAL Take 300 mg by mouth daily. ??? clonazePAM (KlonoPIN) 0.5 mg tablet Take 0.5 mg by mouth 2 (two) times a day. ??? divalproex DR (DEPAKOTE) 500 mg EC tablet Take 500 mg by mouth 2 (two) times a day. ??? levothyroxine (SYNTHROID, LEVOTHROID) 100 mcg tablet Take 50 mcg by mouth daily. ??? sertraline (ZOLOFT) 100 mg tablet Take 100 mg by mouth daily. History reviewed. No pertinent family history. Social History Substance Use Topics ??? Smoking status: Never Smoker ??? Smokeless tobacco: Never Used ??? Alcohol use No Born and raised: [facility] Education: High School Occupation: [employer] Marital Status: Single Housing: Lives in own apt in assisted living Substance Use: None Alcohol: none Withdrawal/DT Hx: No Alcohol Withdrawal History Other Substances: Abuse History: none Behavioral Issues: none Violence History: none Legal History: none Access to firearms: none REVIEW OF SYSTEMS: Review of systems per HPI and otherwise all other systems are negative PHYSICAL EXAMINATION: Vitals: 06/25/18 2215 BP: 130/92 Pulse: 70 Resp: 18 Temp: 36.8 ??C (98.3 ??F) SpO2: 100% No intake/output data recorded. No intake/output data recorded. I have reviewed the ER physician's physical exam as documented in his/her note MENTAL STATUS EXAMINATION: General Appearance and Behavior: ?? Appears stated age ?? No apparent distress and Well-dressed ?? Psychomotor agitation ?? Good eye contact ?? Cooperative Speech: ?? Increased rate ?? Normal rhythm ?? Normal volume ?? Increased amount ?? Normal tone ?? Spontaneous ?? Mildly increased latency (3-5 seconds) Flow of Thought: tangential Content of Thought: ?? Negative for suicidal ideation, homicidal ideation, delusions ?? Auditory hallucinations: I may be hearing whispers Appeared to be RTIS Mood: not so good Affect: euphoric with appropriate laughter, full range, normal amount, appropriate to conversation/situation, stable and mood-congruent Insight: fair Judgment: fair Sensorium: alert, awake and oriented x 3 Calculations: not done/clinically indicated Abstraction: when asked for similarities between apple an orange, she replies Apples are green. Sometime red. What was the other thing you asked? Language: average vocabulary Attention: normal based on conversation/exam, performed WORLD forwards and backwards correctly and performed WORLD forwards correctly; backwards: incorrectly Memory: normal based on conversation/exam and able to remember 3/3 words at 0 minutes and 5 minutes Fund of Knowledge: unable to name 3 large cities as she forgot question LABORATORY/DIAGNOSTIC DATA REVIEW: Laboratory review: Lab results in the last 24 hours: Recent Results (from the past 24 hour(s)) Basic metabolic panel Collection Time: 06/25/18 11:05 PM Result Value Ref Range Sodium 137 135 - 145 mmol/L Potassium, pl 3.9 3.3 - 4.9 mmol/L Chloride 103 97 - 110 mmol/L CO2 26 22 - 32 mmol/L Anion Gap 8 2 - 15 mmol/L BUN 8 8 - 25 mg/dL Creatinine 0.77 0.60 - 1.10 mg/dL Glucose 86 70 - 199 mg/dL Calcium 8.9 8.5 - 10.3 mg/dL Valproic acid level, total Collection Time: 06/25/18 11:05 PM Result Value Ref Range Valproic Acid 39.0 (L) 50.0 - 100.0 mcg/mL CBC with auto differential Collection Time: 06/25/18 11:05 PM Result Value Ref Range WBC 11.8 (H) 3.8 - 9.9 K/cumm Hgb 11.7 (L) 11.9 - 15.5 g/dL Hct 34.1 (L) 35.6 - 45.5 % Plt 311 150 - 400 K/cumm MPV 9.6 9.1 - 12.3 fL RBC 3.85 (L) 3.90 - 5.20 M/cumm MCV 88.6 81.3 - 96.4 fL MCH 30.4 27.1 - 33.3 pg MCHC 34.3 32.3 - 35.7 g/dL RDW CV 12.5 11.1 - 14.9 % RDW SD 40.4 35.7 - 48.1 fL NRBC Abs 0.00 0.00 - 0.01 K/cumm Ethanol Collection Time: 06/25/18 11:05 PM Result Value Ref Range Ethanol <10.0 <=10.0 mg/dL TSH Collection Time: 06/25/18 11:05 PM Result Value Ref Range Thyroid Stimulating Hormone 4.75 (H) 0.30 - 4.20 mcIUnit/mL Hepatic function panel Collection Time: 06/25/18 11:05 PM Result Value Ref Range Bilirubin, total 0.3 0.1 - 1.2 mg/dL Bilirubin, direct <0.2 0.1 - 0.3 mg/dL Protein, pl 7.0 6.5 - 8.5 g/dL Albumin 3.6 3.5 - 5.0 g/dL Alk phos 43 40 - 130 Units/L ALT 25 7 - 45 Units/L AST 42 10 - 45 Units/L Differential, auto Collection Time: 06/25/18 11:05 PM Result Value Ref Range Neutrophil absolute 6.9 (H) 1.7 - 6.5 K/cumm Immature granulocyte absolute 0.0 0.0 - 0.1 K/cumm Lymphocytes absolute 3.5 (H) 0.8 - 3.3 K/cumm Monocyte absolute 1.2 (H) 0.2 - 0.8 K/cumm Eosinophils absolute 0.1 0.0 - 0.5 K/cumm Basophils, abs 0.0 0.0 - 0.1 K/cumm Neutrophils 58.3 % Immature granulocytes 0.4 % Lymphocytes 29.7 % Monocytes 10.5 % Eosinophils 0.7 % Basophils 0.4 % Urinalysis reflex to microscopic and culture Urine Collection Time: 06/26/18 12:09 AM Result Value Ref Range Color, ur Yellow Yellow Clarity, ur Cloudy (A) Clear Specific gravity, ur 1.010 1.010 - 1.025 pH, urine 7.0 Protein, ur ql Negative Negative Glucose, ur ql Negative Negative Ketones, ur Negative Negative Bilirubin, ur Negative Negative Blood, ur Negative Negative Urobilinogen, ur <2.0 <2.0 mg/dL Nitrite, ur Negative Negative Leukocyte esterase, ur Negative Negative hCG, urine, qualitative Collection Time: 06/26/18 12:09 AM Result Value Ref Range HCG, ur Negative Principal Problem: Schizoaffective disorder, bipolar type ([facility]) PRIMARY DIAGNOSIS/ REASON FOR INPATIENT ADMISSION: Schizoaffective disorder, bipolar type ([facility]) Assessment: This is a 37 y.o. year old, single, White ,employed full-time female with a history of Schizoaffective Disorder, anxiety, hypothyroidism, cerebral palsy who was brought to the hospital byrelatives for disorganized behavior, auditory hallucinations and decreased need for sleep. Ms. Hodgson has has ~8 admission in the past for depressive, psychotic and manic symptoms, sometimes concurrently and carried a diagnosis of Schizoaffective disorder, bipolar type. At this time, she presents with euphoria, psychomotor agitation, DNFS w/ preserved energy, distractibility, hyperactivity and auditory hallucinations likely due to medication noncompliance (klonopin) and inadequate medication dos ing with a subtherapeutic depakote level. Risk Assessment: Ms. Hodgson is currently at moderate risk of self harm due to: active psychosis, active mood disorder Protective Factors: female, age, good support system, established psychiatrist, no history of suicidality/self harm, no active substance use, no access to gun, access to healthcare Plan: 1. Please start Depakote 500mg BID, Klonopin 0.5mg BID, Wellbutrin 300mg qd, Sertraline 100mg qd 2. Admit VOL to psych, main or [facility] 3. Please put on elopement precautions documented in this encounter Nursing Notes * Earnest Denson RN - 06/29/2018 2:56 PM CDT Patient discharged to home with _mother___, given aftercare instruction, follow up appointment arranged and prescriptions were filled by mobile pharmacy. Signed necessary documents, currently denies any SI/HI/AH/VH, anxiety, depression or pain. Education provided on importance of going to follow upappointment and medication compliance. Instructed patient to call 911 or go to nearest emergency room if crisis arises such as thoughts of harming self or others. patient verbalized understanding. Given all personal belongings. * Eileen Paris RN - 06/29/2018 9:27 AM CDT NURSE CONSULTATION: Shelf Stocker of note spent 1:1 time with patient reviewing tx plan, discharge plan, diagnosis, meds, avoiding relapse, and possible challenges to post-d/c success. Patient voiced understanding of topics covered. * Stacey Levy RN - 06/28/2018 9:04 AM CDT 1:1 Sitter was discontinued prior to arrival to [id number]. * Marcella Cotton RN - 06/26/2018 6:58 PM CDT Patient arrived from ED at 1843 as a voluntary pt. Per report from ED patient admitted by family for not taking to medications. Patient began experiencing AH while off medications. Patient was pleasant and cooperative, oriented to unit. Belongings received and secured. Currently in dining room eating dinner and observed responding to internal stimuli. documented in this encounter ED Notes * Mayco Gonzalez RN - 06/26/2018 1:18 AM CDT Patient moved from hallway to 9 for her comfort. Pt was ambulatory with steady gait to room. MD in room with patient. Both patient and family updated on plan of care. Pt remains no elopement precautions per hospital policy and procedure. Mayco Gonzalez RN 06/26/18 0119 * Christiano Carrera MD - 06/26/2018 12:27 AM CDT HPI Chief Complaint Patient presents with ??? Mental Health Problem Amna Hodgson is a 37 yo female with hx schizoaffective disorder, MDD, anxiety, and cerebral palsy who presents with anxiety and disorganized behavior. Per parents, patient had been living independently until fairly recently, when she started having more anxiety, disorganized thinking, auditory hallucinations, and noncompliance with her clonopin (her parents noticed her pill bottles were still full). [facility] was [facility], where she was admitted for further psychiatric evaluation and treatment. While at [facility] on 06/24/18, she was given an unknown medication for nausea and had aseizure shortly thereafter, causing a scalp lac which was repaired with bekah. Per documentation from OSH, head and C-spine CT were obtained but results are not clear from the available documentation. Per parents, she was then discharged home from [facility]. Her parents feel that her symptoms are still uncontrolled and she is not safe for return to her home living situation. Patient reports anxiety, ongoing auditory hallucinations, and racing thoughts. She states I do not trust you and is hesi tant to give further history. Parents report that patient had Depakote dosage decreased from 500 BID to 500 q day for unknown reasons at [facility]. Patient History Patient Active Problem List Diagnosis Date Noted ??? Schizoaffective disorder, bipolar type (CMS/HCC) 06/26/2018 Past Medical History: Diagnosis Date ??? Anxiety ??? Cerebral palsy (CMS/HCC) ??? MDD (major depressive disorder) ??? Schizoaffective disorder (CMS/HCC) History reviewed. No pertinent surgical history. History reviewed. No pertinent family history. Social History Substance Use Topics ??? Smoking status: Never Smoker ??? Smokeless tobacco: Never Used ??? Alcohol use No Social History Social History Narrative Born and raised: [facility] Education: High School Occupation: [employer] Marital Status: Single Housing: Lives in own apt in assisted living Substance Use: None Alcohol: none Withdrawal/DT Hx: No Alcohol Withdrawal History Other Substances: Abuse History: none Behavioral Issues: none Violence History: none Legal History: none Access to firearms: none Review of Systems Review of Systems Constitutional: Negative for chills and fever. Eyes: Negative for visual disturbance. Respiratory: Negative for cough and shortness of breath. Cardiovascular: Negative for chest pain and palpitations. Gastrointestinal: Negative for abdominal pain and vomiting. Genitourinary: Negative for dysuria. Musculoskeletal: Negative for arthralgias and back pain. Skin: Healing laceration with bekah to posterior scalp Neurological: Negative for seizures and syncope. Psychiatric/Behavioral: Positive for behavioral problems and hallucinations. Negative for self-injury and suicidal ideas. The patient is nervous/anxious. All other systems reviewed and are negative. Physical Exam ED Triage Vitals [06/25/18 2215] Temp Pulse Resp BP SpO2 36.8 ??C (98.3 ??F) 70 18 130/92 100 % Temp src Heart Rate Source Patient Position BP Location FiO2 (%) Oral -- -- -- -- Physical Exam Constitutional: She appears well-developed and well-nourished. No distress. HENT: Head: Normocephalic. Healing laceration with bekah to posterior scalp Eyes: Conjunctivae are normal. Neck: Neck supple. Cardiovascular: Normal rate and regular rhythm. No murmur heard. Pulmonary/Chest: Effort normal and breath sounds normal. No respiratory distress. Abdominal: Soft. There is no tenderness. Musculoskeletal: She exhibits no edema. Neurological: She is alert. Skin: Skin is warm and dry. Psychiatric: Psych: Mental Status: awake, alert, communicative General Appearance/Behavior: well-groomed, dressed in hospital isolation scrubs Speech: Normal volume/amount/tone Flow of Thought: Hesitant flow of thought Content of Thought: no suicidal or homicidal ideation; would not express hallucinations upon examination Mood: I want someone I can trust Affect: euthymic Insight and Judgement: Lacks appropriate insight and judgment Nursing note and vitals reviewed. MDM MDM Number of Diagnoses or Management Options Anxiety: Disorganized behavior: Hallucinations: Diagnosis management comments: Amna Hodgson is a 37 yo female with hx schizoaffective disorder, MDD, anxiety, and cerebral palsy who presents with anxiety and disorganized behavior. Pt recently admitted for psych eval at [facility] and discharged without appropriate evaluation per parents. Pt reportedly experienced a seizure at [facility] which was evaluated with head CT and required bekah for a laceration repair to the occiput. Parents report recent Depakote dosage change from 500 BID to 500 q day. Hx difficult to obtain from patient due to disorganized thoughts and lack of trust for doctors in current ED setting. VSS upon presentation to ED and exam unremarkable for physical deficits. Will obtain Depakote levels in addition to CBC, cmp, etoh, TSH, UA. Will obtain consult to psychiatry and appreciate their recommendations. Attending Summary of Care @@@@@@@Attending Documentation@@@@@@@ 37-year-old female past medical history of schizoaffective disorder, DD, anxiety and her pulse use PE imaging for bizarre behavior. Patient was recently seen and [facility], she is admitted forpsychiatric evaluation, however she was discharged. Family is unhappy with the care, brought her [facility] for psychiatric evaluation. Patient is otherwise calm, denies any acute symptoms at this time. Per history, patient does have disorganized behavior, disorganized thinking, as well as auditory hallucinations. Physical Exam BP 130/92 Pulse 70 Temp 36.8 ??C (98.3 ??F) (Oral) Resp 18 Ht 154.9 cm (5' 1 ) Wt 71.7 kg(158 lb) LMP 05/31/2008 (Approximate) SpO2 100% BMI 29.85 kg/m?? General: Well-appearing, alert, oriented HEENT: Normocephalic, atraumatic Cardiac: Regular rate and rhythm, no gallops or rubs Pulmonary: Lungs clear to auscultation bilaterally in no respiratory distress GI: Abdomen is soft, nontender nondistended Neuro: A and O x4, calm, cooperative MSK: Warm extremities Psych: Calm, cooperative Assessment and Plan: This 37-year-old with psychiatric complaint, otherwise calm at this time. Given her history of hallucinations, as well as her paranoid anxiety, will plan for psychiatric evaluation, likely admission voluntarily date of [facility] or main. Patient's Depakote level is low, she has recently taken from 500 b.i.d. to 250 once a day. Will give 500 b.i.d. per recommendations psychiatry service, will give her her home dose of Klonopin. I, Alfred Whitney MD, have seen and examined the patient. I agree with the findings and plan of care as documented by the resident except as noted. @@@@@End of Attending Documentation@@@@@@ ED Course as of Jun 26 227 Time: 06/26 108 Comment: Discussed pt with psychiatry and pt will be admitted to [facility] vs. [facility] psychiatry. Will start pt on scheduled medications while awaiting admission. By: Christiano Carrera MD Anxiety Hallucinations Disorganized behavior Christiano Carrera MD Resident 06/26/[id number] Cosigned by Alfred Whitney MD at 06/26/2018 7:27 AM CDT Associated attestation - Alfred Whitney MD - 06/26/2018 7:27 AM CDT I have seen and examined the patient on 06/25/2018. I reviewed the resident's note and agree with the findings and plan of care as documented in the resident's note with modifications as documented inmy note. * Nataly Reed MD - 06/25/2018 11:02 PM CDT HPI Chief Complaint Patient presents with ??? Mental Health Problem HPI Amna Hodgson is a 37 yo female with hx schizoaffective disorder, MDD, anxiety, and cerebral palsy who presents with anxiety and disorganized behavior. Per parents, patient had been living independently until fairly recently, when she started having more anxiety, disorganized thinking, auditory hallucinations, and noncompliance with her clonopin (her parents noticed her pill bottles were still full). She was taken to [facility], where she was admitted for further psychiatric evaluation and treatment. While at [facility] on 06/24/18, she was given an unknown medication for nausea and had aseizure shortly thereafter, causing a scalp lac which was repaired with bekah. Per documentation from OSH, head and C-spine CT were obtained but results are not clear from the available documentation. Per parents, she was then discharged home from [facility]. Her parents feel that her symptoms are still uncontrolled and she is not safe for return to her home living situation. Patient reports anxiety, ongoing auditory hallucinations, and racing thoughts. She states I do not trust you and is hesi tant to give further history. Patient History There are no active problems to display for this patient. Past Medical History: Diagnosis Date ??? Anxiety ??? Cerebral palsy (CMS/HCC) ??? MDD (major depressive disorder) ??? Schizoaffective disorder (CMS/HCC) History reviewed. No pertinent surgical history. History reviewed. No pertinent family history. Social History Substance Use Topics ??? Smoking status: Never Smoker ??? Smokeless tobacco: Never Used ??? Alcohol use No Social History Social History Narrative ??? No narrative on file Review of Systems Review of Systems Constitutional: Negative for chills and fever. HENT: Negative for sore throat. Eyes: Negative for photophobia and visual disturbance. Respiratory: Negative for cough and shortness of breath. Cardiovascular: Negative for chest pain and palpitations. Gastrointestinal: Negative for abdominal pain and vomiting. Musculoskeletal: Negative for arthralgias and back pain. Skin: Negative for color change and rash. Neurological: Negative for seizures and syncope. Psychiatric/Behavioral: Positive for hallucinations. Negative for self-injury and suicidal ideas. The patient is nervous/anxious. All other systems reviewed and are negative. Physical Exam ED Triage Vitals [06/25/18 2215] Temp Pulse Resp BP SpO2 36.8 ??C (98.3 ??F) 70 18 130/92 100 % Temp src Heart Rate Source Patient Position BP Location FiO2 (%) Oral -- -- -- -- Physical Exam Constitutional: She appears well-developed and well-nourished. No distress. HENT: Head: Normocephalic and atraumatic. Bekah to posterior scalp lac. Wound appears clean, dry. No active bleeding, no significant swelling. Eyes: Pupils are equal, round, and reactive to light. Conjunctivae are normal. Neck: Normal range of motion. Neck supple. Cardiovascular: Normal rate, regular rhythm and normal heart sounds. No murmur heard. Pulmonary/Chest: Effort normal and breath sounds normal. No respiratory distress. Abdominal: Soft. She exhibits no distension. There is no tenderness. Musculoskeletal: She exhibits no edema. Neurological: She is alert. Skin: Skin is warm and dry. Capillary refill takes less than 2 seconds. Psychiatric: Her mood appears anxious. Her speech is delayed. Thought content is paranoid. Patient reports active auditory hallucinations, although she states she is not paying attention tothem Nursing note and vitals reviewed. MDM MDM Number of Diagnoses or Management Options Diagnosis management comments: 37 yo female with hx schizoaffective disorder, anxiety, MDD presenting with anxiety and hallucinations. Family feels she is not safe at home and is noncompliant with meds. Plan to obtain basic labs, likely psych consult. Anticipate possible psych admission. Attending Summary of Care Anxiety Hallucinations Disorganized behavior Nataly Reed MD Resident 06/25/18 9523 Cosigned by Alfred Whitney MD at 08/12/2018 7:15 PM CDT * Mayco Gonzalez, MORIAH - 06/25/2018 10:54 PM CDT Patient presents to the ED with parents with complaints of anxiety and hallucinations. Parents report that patient is suppose to be taking clonopin but has not been taking it as prescribed for anxiety. She lives at a long-term and takes care of her own medications. Pt has a history of schizoaffective disoarder, severe anxiety, MDD, and auditory hallucinations. Pt reports she has been having auditory hallucinations but when asked what they have been telling her, patient stated, dont trust you guys yet to tell you . Pt did tell family that they are telling her not to give up and not to harm herself. Pt was recently discharged from [facility] today and went in for disorganized thinking, severe anxiety, and hallucinations. Family is concerned about her returning to the long-term by herself. While at [facility], family reports patient was given some medication for nausea and she suffered a seizure after taking it resulting in head injury. Family denies history of seizures. Pt has bekah inher head from head injury. Family unsure of the medication. Pt is calm and cooperative. She is very anxious, takes deep breaths when talking, and wrings her hands. Pt remains calm with family present. documented in this encounter Miscellaneous Notes * Plan of Care - Earnest Denson RN - 06/29/2018 1:12 PM CDT Goals: Clinical Goals for the Shift: Perform ADLs, decrease anxiety regarding mobility Summary: * Plan of Care - Eileen Paris RN - 06/29/2018 9:22 AM CDT Verbalize understanding and acceptance of diagnosis Progressing Understanding of discharge needs will improve Progressing Identify healthy coping skills Progressing Will remain free from falls and injury in home environment Progressing Ability to state ways to decrease the risk of falls will improve Progressing Identify the name, purpose, and side effects to medication(s) prescribed Progressing Verbalize importance of compliance with medication(s) prescribed Progressing Goals: Clinical Goals for the Shift: Perform ADLs, decrease anxiety regarding mobility Summary: Patient calm and cooperative during morning assessment. Patient appeared anxious and fidgety. Patient stated she tries very hard to not have AVH and I need to get my vision checked, it's been 2 years. Patient seen RTIS during breakfast. Patient made several comments regarding fear of falling, RNs informed and assured her she is safe and provided education on safe mobility. Patient rated anxiety 9/10 and depression 6/10. FROILAN to assess overall mood d/t patient inability to concentrate. Will continue to monitor. * Psy Treatment Planning - Steffi Turcios LCSW - 06/29/2018 9:16 AM CDT Inpatient Psychiatric Initial Treatment Planning Note Date: 06/29/2018 Time: 9:16 AM Patient Name: Amna Hodgson Date of : 1980 Sex: Female Room/Bed: [id number] Payor Info: Medicare Admit Date/Time: 06/25/2018 9:36 PM Problem List: Patient Active Problem List Diagnosis Date Noted ??? Thyroid disease 06/27/2018 ??? Asthma 06/27/2018 ??? Anxiety 06/27/2018 ??? History of unspecified seizure 06/27/2018 ??? Schizoaffective disorder, unspecified ([facility]) 06/26/2018 Team Members Present: Physician Fingerer: Other (comment) (Dr. 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 Support System Contact and Participation: Support System Contact: Patient declined for SW to contact any family members, stating she does notwant to overwhelm them. Per chart, mother: Valencia, , stepfather: Dalia, . Goals: Patient Stated Goals: Have a therapist that I can call. Patient elaborated she would like to be able to call her therapist 24 hours a day, but acknowledged that the therapist would need to sleep. Short term goals : To be healthy. Care Plans: Multi-Disciplinary Problems Active Problems Problem: Health Behavior: Start Date: 06/26/18 Goal Start Date End Date Understanding of discharge needs will improve 06/26/18 -- Goal Intervention Frequency Start Date End Date Discuss information regarding discharge instructions -- 06/26/18 -- Goal Intervention Frequency Start Date End Date Identify discharge learning needs (meds, wound care, etc) -- 06/26/18 -- Goal Intervention Frequency Start Date End Date Collaborate with case management -- 06/26/18 -- Intervention Details: (Coordinate discharge planning if the patient needs post- hospital services onphysician order or complex needs related to functional status, cognitive ability, or social supportsystem) Goal Intervention Frequency Start Date End Date Arrange for needed discharge resources and transportation as appropriate -- 06/26/18 -- Goal Intervention Frequency Start Date End Date Identify discharge barriers -- 06/26/18 -- Goal Intervention Frequency Start Date End Date Collaborate with language assistant -- 06/26/18 -- Problem: Lack of Knowledge: Start Date: 06/26/18 Goal Start Date End Date Ability to state ways to decrease the risk of falls will improve 06/26/18 -- Goal Intervention Frequency Start Date End Date Teach fall prevention measures -- 06/26/18 -- Goal Intervention Frequency Start Date End Date Teach information regarding appropriate environmental changes -- 06/26/18 -- Problem: Safety: Start Date: 06/26/18 Goal Start Date End Date Will remain free from falls 06/26/18 -- Goal Intervention Frequency Start Date End Date Assess risk factors for falls -- 06/26/18 -- Intervention Details: (including medications) Goal Intervention Frequency Start Date End Date Implement fall prevention measures -- 06/26/18 -- Goal Intervention Frequency Start Date End Date Collaborate with other disciplines -- 06/26/18 -- Intervention Details: (PT, OT, Pharmacy, MD, etc.) Goal Start Date End Date Will remain free from injury from falls 06/26/18 -- Goal Intervention Frequency Start Date End Date Provide safe environment for conduction of activities of daily living -- 06/26/18 -- Goal Start Date End Date Will remain free from falls and injury in home environment 06/26/18 -- Goal Intervention Frequency Start Date End Date Assess environmental risk factors -- 06/26/18 -- Problem: Treatment compliance Start Date: -- Goal Start End Date Verbalize importance of compliance with medication(s) prescribed -- -- Goal Intervention Frequency Start End Date Physician will provide education related to the benefits and risks of medication -- -- -- Goal Intervention Frequency Start End Date Provide education on the benefits and risks of medication -- -- -- Goal Intervention Frequency Start End Date Discuss medication compliance -- -- -- Goal Intervention Frequency Start End Date Discuss the response to medication -- -- -- Goal Start End Date Take prescribed medication(s) -- -- Goal Intervention Frequency Start End Date Physician will provide education related to the benefits and risks of medication -- -- -- Goal Intervention Frequency Start End Date Provide education on the benefits and risks of medication -- -- -- Goal Intervention Frequency Start End Date Discuss medication compliance -- -- -- Goal Intervention Frequency Start End Date Discuss the response to medication -- -- -- Problem: Lack of knowledge Start Date: -- Goal Start End Date Identify the name, purpose, and side effects to medication(s) prescribed -- -- Goal Intervention Frequency Start End Date Physician will provide education related to the benefits and risks of medication -- -- -- Goal Intervention Frequency Start End Date Provide education on the benefits and risks of medication -- -- -- Goal Start Date End Date Identify pros and cons of compliance to medication(s) prescribed -- -- Goal Details: Identify 3 pros and 3 cons of taking the medication(s) as prescribed by the physician Goal Intervention Frequency Start End Date Physician will provide education related to the benefits and risks of medication -- -- -- Goal Intervention Frequency Start Date End Date Provide education on the benefits and risks of medication -- -- -- Goal Intervention Frequency Start End Date Discuss medication compliance -- -- -- Goal Intervention Frequency Start Date End Date Discuss the response to medication -- -- -- Goal Start Date End Date Verbalize understanding of treatment process -- -- Goal Intervention Frequency Start Date End Date Provide information regarding the benefits of therapy -- -- -- Problem: Lack of insight Start Date: -- Goal Start End Date Verbalize understanding of how behaviors/decisions affect symptoms -- -- Goal Intervention Frequency Start Date End Date Provide examples of unhealthy behavior patterns -- -- -- Goal Start Date End Date Accept personal responsibility for behaviors/decisions -- -- Goal Intervention Frequency Start Date End Date Discuss personal experiences and how behaviors/decisions affected the outcome -- -- -- Goal Intervention Frequency Start Date End Date Provide education on personal responsibility -- -- -- Problem: Healthy functioning Start Date: -- Goal Start Date End Date Identify healthy coping skills -- -- Goal Details: Identify 3 healthy coping skills Goal Intervention Frequency Start Date End Date Discuss alternate coping mechanisms -- -- -- Goal Intervention Frequency Start Date End Date Discuss healthy activities to channel energy -- -- -- Goal Intervention Frequency Start Date End Date Provide appropriate educational/group therapy sessions to identify healthy coping skills -- -- -- Goal Intervention Frequency Start Date End Date Provide information regarding spiritual support -- -- -- Problem: Alteration in thought Start Date: -- Goal Start Date End Date Verbalize understanding and acceptance of diagnosis -- -- Goal Intervention Frequency Start Date End Date Physician will provide education about diagnosis and treatment -- -- -- Goal Intervention Frequency Start Date End Date Provide assignments to increase knowledge and insight related to diagnosis, and review with patient-- -- -- Goal Intervention Frequency Start Date End Date Provide education on diagnosis -- -- -- Patient's Response to Treatment Plan: Patient accepting of plan Care Plan Partner's Response to Treatment Plan: Care Plan Partner unable to participate Primary Diagnosis: Schizoaffective disorder, unspecified ([facility]) Physician Documentation: Projected Discharge Date: 06/29/2018 MD Plan: discharge home on depakote 500 mg BID, zoloft 100 mg dailty and trazodone 50 mg PRN nightly Intermediate Goals: Follow up with outpatient psychiatrist, follow up with PCP, follow up with PT/OT as outpatient Signatures: MORIAH Alamo, PA- RISHABH Joe/MEGHAN * Medical Student - Lise Zamora - 06/29/2018 7:17 AM CDT Psychiatry Progress Note Interval History: 100% of lunch eaten, slept 7.5 hours, med compliant, good visit with family yesterday, nursing and overnight MD reports anxiety Medications: divalproex DR 500 mg oral BID levothyroxine 50 mcg oral Daily - 0600 senna-docusate 1 tablet oral Nightly sertraline 100 mg oral Daily PRN Medications Medication Dose Route Frequency Last Dose ??? albuterol HFA (PROVENTIL HFA,VENTOLIN HFA,PROAIR HFA) 90 mcg/actuation inhaler 2 puff 2 puff inhalation Q6H PRN (RT) ??? traZODone (DESYREL) tablet 50 mg 50 mg oral Nightly PRN 50 mg at 06/28/18 2121 Medication Compliance: Compliant Physical Exam: Vitals: 06/28/18 0801 BP: 119/68 Pulse: 68 Resp: Temp: SpO2: 97% Total Hours of Sleep: 7.5 General: Patient in NAD Mental Status Exam: General Appearance and Behavior: ?? Appears stated age ?? No apparent distress ?? Normal psychomotor activity ?? Good eye contact ?? Cooperative Speech: ?? Regular rate ?? Halting ?? Decreased volume ?? Normal amount ?? Normal tone ?? Spontaneous ?? Normal latency (<3 seconds) Flow of Thought: primarily logical, sequential and goal-directed, some tangentiality and trailing off from statements Content of Thought: No evidence of SI/HI/AH/VH. Mood: anxious Affect: anxious, full range, normal amount, appropriate to conversation/situation, labile (at timestearful) and mood-congruent Insight: good Judgment: good Sensorium: alert, awake and oriented x 3 Lab/Radiology/Diagnostic Review: Laboratory review: Lab results in the last 24 hours: No results found for this or any previous visit (from the past 24 hour(s)). PRIMARY DIAGNOSIS: Bipolar I Disorder, currently remitted Patient has a history of schizoaffective disorder. Patient is currently not exhibiting any symptomsof psychosis. Patient does appear easily distracted by external auditory stimuli. Although she talks to herself, this appears to be self talk, not RTIS. Does sometimes pause as if distracted with no audible external stimuli, but unclear if this represents thought blocking. Answers to questions are primarily logical, direct, and goal oriented, but sometimes tangential, however answers must be considerd in the context of the patient's baseline cognitive function. No strong evidence for ongoing psychosis. Patient reports feeling anxious. Not currently exhibiting other sxs of benzo withdrawal (tachycardia, HTN, anxiety, tremors, nausea) -Continue Depakote 500mg BID -Continue Zoloft 100mg ?? #Hypothyroidism Patient has history of hypothyroidism. Not clear if patient was still on levothyroxine supplementation before admission. TSH elevated at 4.75 -Continue levo 50mcg -Patient will follow up with PCP next week ?? #Head Laceration While hospitalized at [facility], patient reportedly had a fall after becoming dizzy in the context of receiving an anti-emetic and Na 128, resulting in a fall and head laceration. The head lacerationwas closed with bekah. Per their records Head CT was negative, but we don't have images. -Patient will follow up with PCP for staple removal #Cerebral Palsy Patient has a slow, shuffling gait with small steps. Per the patient she sometimes trips, but doesn't usually fall. Often cautions herself out loud to go slowly and make sure she is balanced. 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 Cosigned by Girma Winters MD at 06/29/2018 3:47 PM CDT * Plan of Care - Sylvester Amaya RN - 06/29/2018 1:38 AM CDT Alteration in thought ??? Verbalize understanding and acceptance of diagnosis Progressing Health Behavior: ??? Understanding of discharge needs will improve Progressing Healthy functioning ??? Identify healthy coping skills Progressing Lack of insight ??? Verbalize understanding of how behaviors/decisions affect symptoms Progressing ??? Accept personal responsibility for behaviors/decisions Progressing Lack of knowledge ??? Identify the name, purpose, and side effects to medication(s) prescribed Progressing ??? Identify pros and cons of compliance to medication(s) prescribed Progressing ??? Verbalize understanding of treatment process Progressing Lack of Knowledge: ??? Ability to state ways to decrease the risk of falls will improve Progressing Safety: ??? Will remain free from falls Progressing ??? Will remain free from injury from falls Progressing ??? Will remain free from falls and injury in home environment Progressing Treatment compliance ??? Verbalize importance of compliance with medication(s) prescribed Progressing ??? Take prescribed medication(s) Progressing Goals: Clinical Goals for the Shift: perform ADLs Summary: Pt anxious, medication compliant. Aloof to room for much of shift with exception of visit by sisters. Pt reported having anxiety and difficulty sleeping. Pt speech is disorganized and assessment is difficult as pt cannot maintain topics. * Plan of Care - Sylvester Amaya RN - 06/27/2018 10:20 PM CDT Alteration in thought ??? Verbalize understanding and acceptance of diagnosis Progressing Health Behavior: ??? Understanding of discharge needs will improve Progressing Healthy functioning ??? Identify healthy coping skills Progressing Lack of insight ??? Verbalize understanding of how behaviors/decisions affect symptoms Progressing ??? Accept personal responsibility for behaviors/decisions Progressing Lack of knowledge ??? Identify the name, purpose, and side effects to medication(s) prescribed Progressing ??? Identify pros and cons of compliance to medication(s) prescribed Progressing ??? Verbalize understanding of treatment process Progressing Lack of Knowledge: ??? Ability to state ways to decrease the risk of falls will improve Progressing Safety: ??? Will remain free from falls Progressing ??? Will remain free from injury from falls Progressing ??? Will remain free from falls and injury in home environment Progressing Treatment compliance ??? Verbalize importance of compliance with medication(s) prescribed Progressing ??? Take prescribed medication(s) Progressing Goals: Clinical Goals for the Shift: remain calm Summary: Pt anxious, at times tearful. Support offered. PRN anxiety medication given. Pt pleasant and redirectable. Encouraged to relax and focus on reduction of anxiety. Pt medication compliant and no behavioral issue. * Hospital Course - Lise Zamora - 06/27/2018 4:08 PM CDT A) Primary Diagnosis: Bipolar I Disorder, remission 1) Justification of Dx: Per the patient's family, the patient has a history of episodes of decreased need for sleep, hypertalkativity, racing thoughts, illogical statements, expansive affect, poor self care (hygiene and oral intake), and paranoia that have lasted for a period of weeks that are consistent with manic episodes. She was most recently hospitalized due to one of these episodes from 06/19-06/24/18. ?? 2) Treatment Course: Patient was admitted voluntarily to [id number]. In the ED there was concern that patient was exhibiting wilfredo with psychosis due to apparent elevated mood, hypertalkativity, decreasedneed for sleep, distractibility, psychomotor agitation, auditory hallucinations,and responding to internal stimuli. However, upon arrival to the floor the patient was anxious but cooperative, and although answers were at times tangential and circumstantial per family that is the patient's baseline.During admission, patient was also found to be sensitive to auditory stimuli with exaggerated startle response, however whenever patient would comment on noise it was able to be confirmed to be a real auditory stimulus. Patient was also seen to be talking to herself, but each instance appeared to be positive self-talk, e.g. good job, Amna, take a deep breath, answer his question. Althoughpatient appeared anxious, she did not exhibit symptoms of wilfredo. Although patient did endorse low mood, she was sleeping well, eating well, did not appear to have difficulty concentrating increased from baseline, and there was no evidence of guilt/worthlessness, anhedonia or suicidal ideation. Thuspatient was determined to crrently be in remission from her bipolar I disorder. She was continued on depakote 500mg BID and zoloft 100mg daily. Clonazepam 2mg BID was discontinued on admission, patien t was not tapered off because it appeared she had not been taking the medication recently based on the chart. Wellbutrin 300mg daily was also discontinued on admission due to family report of recent possible seizure, although by discharge it was determined that the event in question was not a seizure. Patient was recommended to discuss whether to restart bupropion at follow- up appointment with outside psychiatrist. Patient was discharged to home on zoloft 100mg daily and depakote 500mg twice daily. ?? B) Secondary Diagnosis: 1) Justification of Dx: ?? 2) Treatment Course: #Head Laceration While hospitalized at [facility] from 06/19-06/24, patient suffered a fall. [facility] patient got dizzy and fell. She was subsequently found to have aserum sodium of 128. Scalp laceration was closed with bekah and serum sodium was corrected beforedischarge. Patient suffered no complications from this wound during this admission. Follow up appointment was arranged with PCP, Dr. Emery, for 07/06/18 at 9am for staple removal and follow-up appointment. ?? #Hypothyroidism The patient has a history of hypothyroidism. On admission the patient's TSH was 4.75. Patient's recent compliance with medication is unclear. Patient was continued on home regimen of levothyroxine 50mcg. Patient will follow up with PCP on 07/06/18. ?? #Cerebral Palsy Patient has a history of cerebral palsy. Her gait is sometimes slow, with small shuffling steps. During admission, patient expressed interest in outpatient physical therapy. She was provided with a referral at discharge. C) Justification for Discharge: At discharge patient was exhibiting no signs of psychosis or mood disorder, there was no evidence of suicidal or homicidal ideation, and patient appeared stable and capable of caring for herself. She was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 firearms: none REVIEW OF SYSTEMS: Review of systems per HPI and otherwise all systems are negative No headache, no recent loss of consciousness since arriving at [facility], no pain at site of her scalp bekah Some mild vague abdominal pain but no nausea or vomiting, no fever PHYSICAL EXAMINATION: Vitals: 06/26/18 1802 BP: 113/75 Pulse: 85 Resp: 14 Temp: SpO2: 99% No intake/output data recorded. No intake/output data recorded. BP 120/67 (BP Location: Left arm, Patient Position: Standing) Pulse 87 Temp 37.2 ??C (99 ??F) (Oral) Resp 17 Ht 154.9 cm (5' 0.98 ) Wt 132.6 kg (292 lb 5.3 oz) LMP 05/31/2008 (Approximate) SpO2 97% BMI 55.26 kg/m?? 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, well nourished, in hospital scrubs Skin: Site of scalp bekah clean and dry w/o erythema, skin color, texture, turgor normal, no rashes, lesions or bruising Head: Normocephalic, without obvious abnormality, approximately 7 bekah in occipital area from recent fall Eyes: PERRL, conjunctiva/corneas clear, EOMI, anicteric Ears: Not Done Nose: Not Done Throat: Lips, mucosa, and tongue without any bite oseguera or lesions; teeth and gums normal, MMM Lymph nodes: Not Done Neck: Supple, symmetrical; Thyroid: No enlargement No carotid bruit or JVD Back: Symmetric, ROM normal, no CVA tenderness Lungs: Clear to auscultation bilaterally, respirations unlabored Chest wall: No tenderness or deformity Cardiovascular: RRR, S1 and S2 normal, rub or gallop, no edema, pulses 2+ and symmetric to all extremities Abdomen: Soft, non-tender, bowel sounds active all four quadrants, no masses, no organomegaly, non-distended Extremities: Extremities normal, atraumatic, no cyanosis or edema NEUROLOGICAL EXAMINATION: Cranial Nerves Optic (II): visual acuity/jaramillo intact in all 4 quadrants Oculomotor, Trochlear, Abducens (III, IV, ): PERRL and EOMI bilatterally Trigeminal (V): Facial sensation intact to light touch in all three divisions Facial (VII): Face symmetric Vestibulocochlear (VIII):Hearing intact to voice Glossopharyngeal, Vagus (IX, X):Palate rises symmetrically Accessory (XI):Shoulder shrug equal and adequate strength Hypoglossal (XII):Tongue midline and normal mass Sensory: Intact to light touch in all 4 extremities Motor/Tone:Motor tone normal Reflexes: DTRs 3+ on R UEs, 2-3+ on L UEs, 2+ for LEs Station/Gait:gait abnormal with some spastic hemiplegia Coordination: Finger to nose intact MENTAL STATUS EXAMINATION: General Appearance and Behavior: female appearing stated age sitting in common area in hospital scrubs, a few finger nails with dirt under them but otherwise adequately groomed with hair in 1-2 mayank, calm and cooperative during interview, well-related but with some inappropriate nervous laughter, thank you for talking to me sir, can I shake your hand? I feel like you are listening to me Speech: fluent, spontaneous, non-pressured, long sentences but normal prosody, volume, rate otherwise ; vocabulary notable for high frequency of I'm sorry sorry, sorry, I know this makes no sense sorry, this sounds weird, I know Flow of Thought: very tangential and circumferential; no loosening of associations or flight of ideas observed though; patient has tendency to (at her baseline, as per parents, and completely unintentionally) produce long-winded irrelevant answers to questions (i.e., in the long-term, they let ussign in and out, but they gave us time to shower when asked if she lived in a long-term) that areinterspersed with positive self-esteem statements (i.e., good job, Kerry you're answering them right, Kerry sweetie, take a deep a breath ) Content of Thought: some depressive rumination (but no obsessions or perseveration; no delusions; no response to internal stimuli other than frequent positive self esteem statements, no auditory hallucinations, no suicidal or assaultive ideation, Mood: I'm so sorry, I know that a lot of what I say doesn't make any sense Affect: child-like, anxious with some marked mood lability, vacillating between smiling when perusing the unit's food menu ( wow, this cereal is cool, this sounds amazing ... What if I get hungry? Maybe I should order more ) to intense, expansive, loud crying ( I have too much stress that's not good in my life, I don't know how to say no, take a deep breath Kerry ); Insight: fair, I know I am holding onto the past , people have been taking advantage of me Judgment: fair, recognizes need to see psychiatrist and take her medications Sensorium: recognizes she is at [facility] Calculations: struggles to subtract 7 from 100, even once Abstraction: understands clock and watch both tell time Language: able to name 11-12 animals in 60 seconds, can also name three animals on [employer] Attention: able to spell WORLD forward and backwards Memory: five word recall 100% after 5 minutes Fund of Knowledge: below average but still adequate, vitamin C is in oranges, right? while perusing meal menu when arriving on unit LABORATORY/DIAGNOSTIC DATA REVIEW: Laboratory review: Lab results in the last 24 hours: Recent Results (from the past 24 hour(s)) Basic metabolic panel Collection Time: 06/25/18 11:05 PM Result Value Ref Range Sodium 137 135 - 145 mmol/L Potassium, pl 3.9 3.3 - 4.9 mmol/L Chloride 103 97 - 110 mmol/L CO2 26 22 - 32 mmol/L Anion Gap 8 2 - 15 mmol/L BUN 8 8 - 25 mg/dL Creatinine 0.77 0.60 - 1.10 mg/dL Glucose 86 70 - 199 mg/dL Calcium 8.9 8.5 - 10.3 mg/dL Valproic acid level, total Collection Time: 06/25/18 11:05 PM Result Value Ref Range Valproic Acid 39.0 (L) 50.0 - 100.0 mcg/mL CBC with auto differential Collection Time: 06/25/18 11:05 PM Result Value Ref Range WBC 11.8 (H) 3.8 - 9.9 K/cumm Hgb 11.7 (L) 11.9 - 15.5 g/dL Hct 34.1 (L) 35.6 - 45.5 % Plt 311 150 - 400 K/cumm MPV 9.6 9.1 - 12.3 fL RBC 3.85 (L) 3.90 - 5.20 M/cumm MCV 88.6 81.3 - 96.4 fL MCH 30.4 27.1 - 33.3 pg MCHC 34.3 32.3 - 35.7 g/dL RDW CV 12.5 11.1 - 14.9 % RDW SD 40.4 35.7 - 48.1 fL NRBC Abs 0.00 0.00 - 0.01 K/cumm Ethanol Collection Time: 06/25/18 11:05 PM Result Value Ref Range Ethanol <10.0 <=10.0 mg/dL TSH Collection Time: 06/25/18 11:05 PM Result Value Ref Range Thyroid Stimulating Hormone 4.75 (H) 0.30 - 4.20 mcIUnit/mL Hepatic function panel Collection Time: 06/25/18 11:05 PM Result Value Ref Range Bilirubin, total 0.3 0.1 - 1.2 mg/dL Bilirubin, direct <0.2 0.1 - 0.3 mg/dL Protein, pl 7.0 6.5 - 8.5 g/dL Albumin 3.6 3.5 - 5.0 g/dL Alk phos 43 40 - 130 Units/L ALT 25 7 - 45 Units/L AST 42 10 - 45 Units/L Differential, auto Collection Time: 06/25/18 11:05 PM Result Value Ref Range Neutrophil absolute 6.9 (H) 1.7 - 6.5 K/cumm Immature granulocyte absolute 0.0 0.0 - 0.1 K/cumm Lymphocytes absolute 3.5 (H) 0.8 - 3.3 K/cumm Monocyte absolute 1.2 (H) 0.2 - 0.8 K/cumm Eosinophils absolute 0.1 0.0 - 0.5 K/cumm Basophils, abs 0.0 0.0 - 0.1 K/cumm Neutrophils 58.3 % Immature granulocytes 0.4 % Lymphocytes 29.7 % Monocytes 10.5 % Eosinophils 0.7 % Basophils 0.4 % Urinalysis reflex to microscopic and culture Urine Collection Time: 06/26/18 12:09 AM Result Value Ref Range Color, ur Yellow Yellow Clarity, ur Cloudy (A) Clear Specific gravity, ur 1.010 1.010 - 1.025 pH, urine 7.0 Protein, ur ql Negative Negative Glucose, ur ql Negative Negative Ketones, ur Negative Negative Bilirubin, ur Negative Negative Blood, ur Negative Negative Urobilinogen, ur <2.0 <2.0 mg/dL Nitrite, ur Negative Negative Leukocyte esterase, ur Negative Negative hCG, urine, qualitative Collection Time: 06/26/18 12:09 AM Result Value Ref Range HCG, ur Negative Drug screen, urine Collection Time: 06/26/18 12:09 AM Result Value Ref Range Amphetamines, Class None detected Barbiturates, Class None detected Benzodiazepines None detected Cannabinoids, Screen None detected Cocaine metabolite None detected Methadone None detected Opiates, Class None detected Oxycodone, ur None detected Phencyclidine, ur None detected PRIMARY DIAGNOSIS/ REASON FOR INPATIENT ADMISSION: Schizoaffective disorder, unspecified ([facility]) * ED Re-evaluation Note - Jaguar Ruff MD - 06/26/2018 3:00 PM CDT ED Re-evaluation TRANSITION OF CARE: I, Gely Llanes MD, am taking signout from Dr. Wade (Resident) under supervision of Dr. Ruff (Attending). I have reviewed all pertinent vital signs, allergies, and history available in the chart. Summary: 37 y.o. female w/ hx of schizoaffective d/o, cerebral palsy and MDD presented to the ED w/family who reported disorganized behavior. Family reported pt was not taking her psychs meds and romero appreciated AH but no SI or HI. Recent admission to [facility] for psych evaluation but parents brought her here as they didn't believe she received appropriate care. Evaluated by [facility] psych overnight. Pending: Waiting for [facility] Pysch bed Dispo: [facility] I Jaguar Ruff MD have seen and examined this patient. I have discussed/reviewed the history, physical exam and assessment with the resident. We are in agreement with treatment plan except as I have noted. Gely Llanes MD 06/26/18 1839 Jaguar Ruff MD 06/26/18 1925 Jaguar Ruff MD 08/18/18 1607 * ED Re-evaluation Note - Jaguar Ruff MD - 06/26/2018 6:58 AM CDT ED Re-evaluation Transition of Care: 37 y/o female with Hx of schizoaffective disorder, cerebral palsy, and MDD presents to the ED with family reported disorganized behavior. Pt reportedly not taking pysch meds and has appreciated auditory hallucinations but no SI or HI. Recently admitted to [facility] for psych evaluation but parents brought her here as they did not believe she received appropriate care. Evaluated by psych at [facility] overnight. Dispo: admitted to [facility], Voluntary, waiting for bed. I Jaguar Ruff MD have seen and examined this patient. I have discussed/reviewed the history, physical exam and assessment with the resident. We are in agreement with treatment plan except as I have noted. Karen Wade MD Resident 06/26/18 0708 Jaguar Ruff MD 06/26/18 1656 Jaguar Ruff MD 08/18/18 1607 documented in this encounter Plan of Treatment Not on file documented as of this encounter Procedures Procedure Name Priority Date/Time Associated Diagnosis Comments URINALYSIS AND REFLEX TO MICROSCOPIC AND CULTURE STAT 06/26/2018 12:09 AM CDT DRUGS OF ABUSE SCREEN, URINE WITHOUT CONFIRMATION STAT 06/26/2018 12:09 AM CDT HCG, URINE, QUALITATIVE STAT 06/26/2018 12:09 AM CDT DIFFERENTIAL AUTO STAT 06/25/2018 11: 05 PM CDT CBC WITH AUTO DIFFERENTIAL STAT 06/25/2018 11:05 PM CDT TSH STAT 06/25/2018 11:05 PM CDT ETHANOL STAT 06/25/2018 11:05 PM CDT VALPROIC ACID LEVEL, TOTAL STAT 06/25/2018 11:05 PM CDT HEPATIC FUNCTION PANEL STAT 06/25/2018 11:05 PM CDT LIPID PANEL STAT 06/25/2018 11:05 PM CDT BASIC METABOLIC PANEL STAT 06/25/2018 11:05 PM CDT documented in this encounter Results * Drug screen, urine (06/26/2018 12:09 AM CDT) [facility] Amphetamines, Class None detected [facility] Comment: Interpretive Data Immunoassay Screen cutoff level 500 ng/mL. Samples containing greater than 500 ng/mL of amphetamine/methamphetamine or other cross-reacting substances are reported as presumptive and submitted for confirmatory testing. See separate confirmatory results for final interpretation.Results are to be used for medical purposes only. ? Current interpretive data was last revised 2016. Barbiturates, Class None detected [facility]FFANIE VILLAVICENCIO Comment: Interpretive Data Immunoassay Screen cutoff level 200 ng/mL. Samples containing greater than 200 ng/mL of barbiturates or other cross-reacting substances are reported as presumptive and submitted for confirmatory testing.See separate confirmatory results for final interpretation.Results are to be used for medical purposes only. Current interpretive data was last revised 2016. Benzodiazepines, ur None detected [facility]ILL[facility]ICENC[facility] Comment: Interpretive Data Immunoassay Screen cutoff level 200 ng/mL. Samples containing greater than 200 ng/mL of benzodiazepines or other cross-reacting substances are reported as screen positive, but are not routinely submitted for confirmatory testing. If confirmation is required, please contact the laboratory. Results are to be used for medical purposes only. Current interpretive data was last revised 2016. Cannabinoids, Screen None detected [facility]FF[facility]IE VILLAVICENCIO Comment: Interpretive Data Immunoassay Screen cutoff level 50 ng/mL. Samples containing greater than 50 ng/mL of cannabinoids or other cross-reacting substances are reported as presumptive and submitted for confirmatory testing on obstetrics and pediatric patients only. ??Cannabinoids screen result is reported as screen positive for all other adults;confirmation is not performed unless requested. Results are to be used for medical purposes only. ? Current interpretive data was last revised 2016. Cocaine metabolite None detected [facility]FFANIE VILLAVICENCIO Comment: Interpretive Data Immunoassay Screen cutoff level 150 ng/mL. Samples containing greater than 150 ng/mL of cocaine metabolite or other cross-reacting substances are reported as presumptive and submitted for confirmatory testing. See separate confirmatory results for final interpretation. Results are to be used for medical purposes only. Current interpretive data was last revised 2016. Methadone, ur None detected [facility] Comment: Interpretive Data Immunoassay Screen cutoff level 300 ng/mL. Samples containing greater than 300 ng/mL of methadone or other cross-reacting substances are reported as presumptive and submitted for confirmatory testing. ??See separate confirmatory results for final interpretation. ??Results are to be used for medical purposes only. ? Current interpretive data was last revised 2016. Opiates, Class None detected [facility] Comment: Interpretive Data Immunoassay Screen cutoff level 300 ng/mL. Samples containing greater than 300 ng/mL of opiates or other cross-reacting substances are reported as presumptive and submitted for confirmatory testing. ??See separate confirmatory results for final interpretation. ??Testing does not include opioids. ??Results are to be used for medical purposes only. Current interpretive data was last revised 2016. Oxycodone, ur None detected [facility] Comment: Interpretive Data Immunoassay Screen cutoff level 100 ng/mL. ??Samples containing greater than 100 ng/mL of oxycodone or other cross-reacting substances are reported as presumptive and submitted for confirmatory testing. ??See separate confirmatory results for final interpretation. ??Results are to be used for medical purposes only. Current interpretive data was last revised on 2016. Phencyclidine, ur None detected [facility] Comment: Interpretive Data Immunoassay Screen cutoff level 25 ng/mL. Samples containing greater than 25 ng/mL of phencyclidine (PCP) or other cross-reacting substances are reported as presumptive and submitted for confirmatory testing. ??See separate confirmatory results for final interpretation. Results are to be used for medical purposes only. ? Current interpretive data was last revised 2016. Urine 06/26/2018 12:0 9 AM CDT 06/26/2018 12:22 AM CDT Narrative [facility] - 06/26/2018 2:45 AM CDT THE COLLECTION LOCATION IS [facility] [id number] Nataly Reed MD LAB URINE ORDERABL ES Final Result Performing Organization Address City/[facility] [place] [address] * hCG, urine, qualitative (06/26/2018 12:09 AM CDT) HCG, ur Negative [facility] Urine 06/26/2018 12:0 9 AM CDT 06/26/2018 12:22 AM CDT Narrative [facility] - 06/26/2018 12:42 AM CDT THE [facility] COLLECTION LOCATION IS [place] [address] Nataly Reed MD LAB URINE ORDERABL ES Final Result Performing Organization Address [facility] de Phone Number [facility] [place] [address] * (ABNORMAL) Urinalysis reflex to microscopic and culture Urine (06/26/2018 12:09 AM CDT) Color, ur Yellow Yellow [facility] Clarity, ur Cloudy(A) Clear [facility] Specific gravity, ur 1.010 1.010 - 1.025 [facility] pH, urine 7.0 [facility] Protein, ur ql Negative Negative [facility] Glucose, ur ql Negative Negative [facility] Ketones, ur Negative Negative [facility] Bilirubin, ur Negative Negative [facility] Blood, ur Negative Negative [facility] Urobilinogen, ur <2.0 <2.0 mg/dL [facility] Nitrite, ur Negative Negative [facility] Leukocyte esterase, ur Negative Negative [facility] Urine 06/26/2018 12:0 9 AM CDT 06/26/2018 12:22 AM CDT Narrative [facility] - 06/26/2018 12:45 AM CDT THE [facility] COLLECTION LOCATION IS [place] [address] Urine pH is affected by diet, medications, systemic acid-base disturbances, and renal tubular function. ??pH may affect urinary stone formation. ??For example, urine pH below 6.0 may help reduce the tendency for calcium phosphate stones and pH greater than 6.0 may reduce the tendency for uric acid stone formation. Source: [facility] [place]. Last revised 12-11-2017 Nataly Reed MD LAB MICROBIOLOGY - GENERAL ORDERABLES Final Result [facility] Department [place] [address] * Lipid panel (06/25/2018 11:05 PM CDT) Cholesterol 157 30 - 200 mg/dL [facility] Comment: Interpretive Data Desirable: ?<200 mg/dL Borderline high: ??200-239 mg/dL High: ? > or = 240 mg/dL Literature Reference: National Cholesterol Education Program (NCEP) Expert Panel on Detection, Evaluation, and Treatment of High Blood Cholesterol in Adults (Adult Treatment Panel III). ??Circulation 2004; 110:227. Current interpretive data was last revised on 2015. Triglycerides 89 0 - 150 mg/dL [facility] Comment: Interpretive Data Desirable: ? < 150 mg/dL Borderline High: ? 150 - 199 mg/dL High: ?200 - 499 mg/dL Very High: ? > or = 499 mg/dL Literature Reference: See Cholesterol Current interpretive data was last revised on 2015. HDL 69 >=40 mg/dL [facility] Comment: Interpretive Data Less than 40 mg/dL - low; A major risk factor for heart disease. Greater than or equal to 60 mg/dL - High; ??considered protective of heart disease. Literature Reference: See Cholesterol Current interpretive data was last revised on 2015. LDL, calculated 70 10 - 129 mg/dL [facility] Comment: Interpretive Data Optimal: ? < 100 mg/dL Near Optimal: ?100 - 129 mg/dL Borderline High: ?? 130 - 159 mg/dL High: ?160 - 189 mg/dL Very high: ? > or = 190 mg/dL Literature Reference: See Cholesterol Current interpretive data was last revised on 2015. Non-HDL Cholesterol 88 mg/dL [facility] Comment: Interpretive Data When triglycerides are >200 mg/dL, non-HDL C is a secondary target of therapy, with a goal 30 mg/dL higher than the identified LDL-C goal. Reference: ??See Cholesterol Reference. Current interpretive data was last revised 2015. Blood specimen (specimen) 06/25/2018 11:05 PM CDT 06/25/2018 11:20 PM CDT Narrative [facility] - 06/26/2018 8:33 PM CDT Dong Coreas MD LAB BLOOD ORDERABLES Fin al Result [facility] Department [place] [address] * (ABNORMAL) Differential, auto (06/25/2018 11:05 PM CDT) Pathologist [facility] Neutrophil abs 6.9(H) 1.7 - 6.5 K/cumm [facility] Imm gran abs 0.0 0.0 - 0.1 K/cumm [facility] Lymphocyte abs 3.5(H) 0.8 - 3.3 K/cumm [facility] Monocyte abs 1.2(H) 0.2 - 0.8 K/cumm [facility] Eosinophil abs 0.1 0.0 - 0.5 K/cumm [facility] Basophil abs 0.0 0.0 - 0.1 K/cumm [facility] Neutrophil pct 58.3 % [facility] Comment: Interpretive Data Percent cell count reference ranges are not reported, since discordance with absolute values may lead to misinterpretation of CBC data. Current Interpretive Data was last revised on 2018. Imm gran pct 0.4 % [facility] Comment: Interpretive Data Percent cell count reference ranges are not reported, since discordance with absolute values may lead to misinterpretation of CBC data. Current Interpretive Data was last revised on 2018. Lymphocyte pct 29.7 % [facility] Comment: Interpretive Data Percent cell count reference ranges are not reported, since discordance with absolute values may lead to misinterpretation of CBC data. Current Interpretive Data was last revised on 2018. Monocyte pct 10.5 % [facility] Comment: Interpretive Data Percent cell count reference ranges are not reported, since discordance with absolute values may lead to misinterpretation of CBC data. Current Interpretive Data was last revised on 2018. Eosinophil pct 0.7 % [facility] Comment: Interpretive Data Percent cell count reference ranges are not reported, since discordance with absolute values may lead to misinterpretation of CBC data. Current Interpretive Data was last revised on 2018. Basophil pct 0.4 % [facility] Comment: Interpretive Data Percent cell count reference ranges are not reported, since discordance with absolute values may lead to misinterpretation of CBC data. Current Interpretive Data was last revised on 2018. Blood specimen (specimen) 06/25/2018 11:05 PM CDT 06/25/2018 11:20 PM CDT Narrative [facility] - 06/25/2018 11:29 PM CDT Nataly Reed MD LAB BLOOD ORDERABL ES Final Result [facility] [place] [address] * Hepatic function panel (06/25/2018 11:05 PM CDT) Bilirubin, total 0.3 0.1 - 1.2 mg/dL [facility] Bilirubin, direct <0.2 0.1 - 0.3 mg/dL [facility] Protein, pl 7.0 6.5 - 8.5 g/dL [facility] Albumin 3.6 3.5 - 5.0 g/dL [facility] Alk phos 43 40 - 130 Units/L [facility] ALT 25 7 - 45 Units/L [facility] AST 42 10 - 45 Units/L [facility] Blood specimen (specimen) 06/25/2018 11:05 PM CDT 06/25/2018 11:20 PM CDT Narrative [facility] - 06/26/2018 12:19 AM CDT THE COLLECTION LOCATION IS [address] Nataly Reed MD LAB BLOOD ORDERABL ES Final Result Performing Organization Address City/[facility]/ZIP Co de Phone Number [facility] [place] [address] * (ABNORMAL) TSH (06/25/2018 11:05 PM CDT) Thyroid Stimulating Hormone 4.75(H) 0.30 - 4.20 mcIUnit/mL [facility] Comment: Interpretive Data Hyperthyroid: ??<0.1 mcIUnit/mL Hypothyroid: ??>12.0 mcIUnit/mL Current interpretive data was last revised on 01. Blood specimen (specimen) (Blood, Venous) 06/25/2018 11:05 PM CDT 06/25/2018 11:20 PM CDT Narrative [facility] - 06/25/2018 11:54 PM CDT THE COLLECTION LOCATION IS [address] Nataly Reed MD LAB BLOOD ORDERABL ES Final Result [facility] [place] [address] [address] * Ethanol (06/25/2018 11:05 PM CDT) Ethanol <10.0 <=10.0 mg/dL [facility] Comment: Interpretive Data: If ethanol is the only drug taken, the blood level can be roughly correlated with the clinical findings: 0 - 100 mg/dL ?? Subclinical findings 100-200 mg/dL ?? Emotional instability 150-200 mg/dL ?? Confusion 250-400 mg/dL ?? Stupor 350-500 mg/dL ?? Coma 500-up ??mg/dL ?? Possible Current interpretive data was last revised on 2009. Blood specimen (specimen) 06/25/2018 11:05 PM CDT 06/25/2018 11:20 PM CDT Narrative [facility] - 06/25/2018 11:54 PM CDT THE COLLECTION LOCATION IS [id number] Nataly Reed MD LAB BLOOD ORDERABL ES Final Result [facility] [place] [address] * (ABNORMAL) CBC with auto differential (06/25/2018 11:05 PM CDT) WBC 11.8(H) 3.8 - 9.9 K/cumm [facility] Hgb 11.7(L) 11.9 - 15.5 g/dL [facility] Hct 34.1(L) 35.6 - 45.5 % [facility] Plt 311 150 - 400 K/cumm [facility] MPV 9.6 9.1 - 12.3 fL [facility] RBC 3.85(L) 3.90 - 5.20 M/cumm [facility] MCV 88.6 81.3 - 96.4 fL [facility] MCH 30.4 27.1 - 33.3 pg [facility] MCHC 34.3 32.3 - 35.7 g/dL [facility] RDW CV 12.5 11.1 - 14.9 % [facility] RDW SD 40.4 35.7 - 48.1 fL [facility] NRBC abs 0.00 0.00 - 0.01 K/cumm [facility] Blood specimen (specimen) 06/25/2018 11:05 PM CDT 06/25/2018 11:20 PM CDT Narrative [facility] - 06/25/2018 11:29 PM CDT THE COLLECTION LOCATION IS [address] Nataly Reed MD LAB BLOOD ORDERABL ES Final Result Performing Organization Address [facility] de Phone Number [facility] Department [place] [address] * (ABNORMAL) Valproic acid level, total (06/25/2018 11:05 PM CDT) Valproic Acid 39.0(L) 50.0 - 100.0 mcg/mL [facility] Comment: Interpretive Data Therapeutic or toxic effects of anticonvulsant drugs may occur at different concentrations in different patients and the correlation between dose and clinical effect must be evaluated individually. Current interpretative data was last revised on 14. Blood specimen (specimen) 06/25/2018 11:05 PM CDT 06/25/2018 11:20 PM CDT Narrative [facility] - 06/25/2018 11:54 PM CDT THE COLLECTION LOCATION IS [place] [address] Nataly Reed MD LAB BLOOD ORDERABL ES Final Result Performing Organization Address City/[facility] Co de Phone Number [facility] Department [place] [address] * Basic metabolic panel (06/25/2018 11:05 PM CDT) Sodium 137 135 - 145 mmol/L [facility] Potassium, pl 3.9 3.3 - 4.9 mmol/L [facility] Chloride 103 97 - 110 mmol/L [facility] CO2 26 22 - 32 mmol/L [facility] Anion gap 8 2 - 15 mmol/L [facility] BUN 8 8 - 25 mg/dL [facility] Creatinine 0.77 0.60 - 1.10 mg/dL [facility] Glucose 86 70 - 199 mg/dL [facility] Comment: Interpretive Data Fasting glucose >/= 126 mg/dl is diagnostic for diabetes. ?? Fasting is defined as no caloric intake for at least 8 hours. Fasting glucose between 100 mg/dl to 125 mg/dl is diagnostic of prediabetes. In a patient with classic symptoms of hyperglycemia or hyperglycemic crisis, a random glucose >/= 200 mg/dl is diagnostic for diabetes. In the absence of unequivocal hyperglycemia, results should be confirmed by repeat testing. The classification and Diagnosis of Diabetes Diabetes Care 2017;40 (Suppl. 1):S11. Current interpretive data was last revised 2017. Calcium 8.9 8.5 - 10.3 mg/dL [facility] Blood specimen (specimen) 06/25/2018 11:05 PM CDT 06/25/2018 11:20 PM CDT Narrative [facility] - 06/25/2018 11:54 PM CDT THE COLLECTION LOCATION IS [facility] [id number] Nataly Reed MD LAB BLOOD ORDERABL ES Final Result [facility] Department [place] [address] documented in this encounter Visit Diagnoses Diagnosis Episodic bipolar mood disorder, not currently active- Primary Unspecified episodic mood disorder Anxiety Anxiety state, unspecified Hallucinations Disorganized behavior Cerebral palsy, unspecified type (HCC) Thyroid disease Unspecified disorder of thyroid Asthma Unspecified asthma Anxiety Anxiety state, unspecified History of unspecified seizure Other cerebral palsy (HCC) documented in this encounter Administered Medications Inactive Administered Medications - up to 3 most recent administrations Medication Order MAR Action Action Date Dose Rate Site acetaminophen (TYLENOL) tablet 650 mg 650 mg, oral, Every 6 hours PRN, other, pain, Starting on 06/29/18 at 1052 Given 06/29/2018 10:59 AM CDT 650 mg albuterol HFA (PROVENTIL HFA,VENTOLIN HFA,PROAIR HFA) 90 mcg/actuation inhaler 2 puff 2 puff, inhalation, Every 6 hours PRN (registered respiratory therapist), wheezing, shortness of breath, Starting on 06/27/18 at 0456, Indications: asthmaIndications:asthma clonazePAM (KlonoPIN) tablet 0.5 mg 0.5 mg, oral, Once, On Fri06/26/18 at 0119, For 1 dose Given 06/26/2018 2:24 AM CDT 0.[address] (DEPAKOTE) delayed release tablet 500 mg 500 mg, oral, 2 times daily, First dose on Fri06/26/18 at 2145 Given 06/29/2018 8:50 AM CDT 500 mg Given 06/28/2018 9:22 PM CDT 500 mg Given 06/28/2018 8:06 AM CDT 500 mg hydrOXYzine (ATARAX) tablet 10 mg 10 mg, oral, 2 times daily PRN, anxiety, Starting on 06/27/18 at 1523, Indications: anxietyIndications:anxiety Given 06/27/2018 3:51 PM CDT 10 mg hydrOXYzine (ATARAX) tablet 10 mg 10 mg, oral, Once, On 06/27/18 at 2100, For 1 dose Given 06/27/2018 8:28 PM CDT 10 mg hydrOXYzine (ATARAX) tablet 10 mg 10 mg, oral, Nightly, First dose (after last modification) on 06/28/18 at 2130, Indications: anxietyIndications:anxiety Given 06/28/2018 9:30 PM CDT 10 m g levothyroxine (SYNTHROID, LEVOTHROID) tablet 50 mcg 50 mcg, oral, Daily (early AM), First dose (after last modification) on 06/27/18 at 0700, Administer on an empty stomach, preferably 30 minutes before breakfast. Take 4 hours apart from antacids, iron and calcium products. Given 06/29/2018 6:29 AM CDT 50 mcg Given 06/28/2018 6:21 AM CDT 50 mcg Given 06/27/2018 6:32 AM CDT 50 mcg senna-docusate (PERICOLACE) 8.6-50 mg per tablet 1 tablet 1 tablet, oral, Nightly, First dose on 06/28/18 at 2130, Indications: constipationIndications:constipation Given 06/28/2018 9:30 PM CDT 1 table t sertraline (ZOLOFT) tablet 100 mg 100 mg, oral, Daily, First dose on 06/27/18 at 1000, Indications: Anxiety with DepressionIndications:Anxiety with Depression Given 06/29/2018 8:50 AM CDT 100 mg Given 06/28/2018 8:07 AM CDT 100 mg Given 06/27/2018 11:16 AM CDT 100 mg traZODone (DESYREL) tablet 50 mg 50 mg, oral, Nightly PRN, sleep, Starting on 06/27/18 at 0010, Indications: insomnia associated with depressionIndications:insomnia associated with depression Given 06/28/2018 9:21 PM CDT 50 mg Given 06/27/2018 8:27 PM CDT 50 mg valproate (DEPACON,DEPAKENE) capsule 500 mg 500 mg, oral, Once, On Fri06/26/18 at 0119, For 1 dose Given 06/26/2018 2:27 AM CDT 500 mg documented in this encounter Discontinued Medications Medication Sig Discontinue Reason Start Date End Da te clonazePAM (KlonoPIN) 0.5 mg tablet Take 0.5 mg by mouth 2 (two) times a day. 06/26/2018 sertraline (ZOLOFT) 100 mg tabletIndications:depr ession,Dysphoric Mood Take 1 tablet (100 mg total) by mouth daily. 06/30/2018 06/29/[address] (DEPAKOTE) 500 mg EC tabletIndications:Mood Changes Take 1 tablet (500 mg total) by mouth 2 (two) times a day. 06/29/2018 06/29/[address] (DEPAKOTE) 500 mg EC tablet Take 500 mg by mouth 2 (two) times a day. Stop Taking at Discharge 06/29/2018 BUPROPION HCL ORAL Take 300 mg by mouth daily. Stop Taking at Discharge 06/29/2018 sertraline (ZOLOFT) 100 mg tablet Take 100 mg by mouth daily. Stop Taking at Discharge 06/29/2018 levothyroxine (SYNTHROID, LEVOTHROID) 100 mcg tablet Take 50 mcg by mouth daily. Stop Taking at Discharge 06/29/2018 documented as of this encounter Historical Medications * This list may reflect changes made after this encounter. levothyroxine (SYNTHROID, LEVOTHROID) 100 mcg tablet Take 50 mcg by mouth daily. 06/29/2018 sertraline (ZOLOFT) 100 mg tablet Take 100 mg by mouth daily. 06/29/2018 BUPROPION HCL ORAL Take 300 mg by mouth daily. 06/29/2018 clonazePAM (KlonoPIN) 0.5 mg tablet Take 0.5 mg by mouth 2 (two) times a day. 06/26/[address] (DEPAKOTE) 500 mg EC tablet Take 500 mg by mouth 2 (two) times a day. 06/29/2018 added in this encounter Active and Recently Administered Medications Times are shown in CDT. Scheduled Medication Order 06/27/2018 06/28/2018 06/29/[address] (DEPAKOTE) delayed release tablet 500 mg 500 mg, oral, 2 times daily, First dose on Fri06/26/18 at 2145 0836 (Given - Provider: Gene Malin RN)2027 (Given - Provider: Sylvester Amaya RN) 0806 (Given - Provider: Stacey Levy RN)212 (Given - Provider: Sylvester Amaya, MORIAH) 0850 (Given - Provider: Eileen Paris RN) hydrOXYzine (ATARAX) tablet 10 mg (COMPLETED) 10 mg, oral, Once, On 06/27/18 at 2100, For 1 dose 2027 (Given - Provider: Sylvester Amaya, MORIAH) hydrOXYzine (ATARAX) tablet 10 mg (CANCELED) 10 mg, oral, Nightly, First dose (after last modification) on Fri06/28/18 at 2130, Indications: anxiety 2129 (Given - Provider: Sylvester Amaya, MORIAH) levothyroxine (SYNTHROID, LEVOTHROID) tablet 50 mcg 50 mcg, oral, Daily (early AM), First dose (after last modification) on 06/27/18 at 0700, Administer on an empty stomach, preferably 30 minutes before breakfast. Take 4 hours apart from antacids, iron and calcium products. 0632 (Given - Provider: Sylvester Amaya RN) 0621 (Given - Provider: Sylvester Amaya, MORIAH) 0629 (Given - Provider: Sylvester Amaya, RN) senna-docusate (PERICOLACE) 8.6-50 mg per tablet 1 tablet 1 tablet, oral, Nightly, First dose on 06/28/18 at 2130, Indications: constipation 213 (Given - Provider: Sylvester Amaya, RN) sertraline (ZOLOFT) tablet 100 mg 100 mg, oral, Daily, First dose on 06/27/18 at 1000, Indications: Anxiety with Depression 1116 (Given - Provider: Gene Malin RN) 0807 (Given - Provider: Stacey Levy RN) 0850 (Given - Provider: Eileen Paris, MORIAH) PRN Medication Order 06/27/2018 06/28/2018 06/29/2018 acetaminophen (TYLENOL) tablet 650 mg 650 mg, oral, Every 6 hours PRN, other, pain, Starting on 06/29/18 at 1052 1059 (Given - Provider: Eileen Paris, MORIAH) albuterol HFA (PROVENTIL HFA,VENTOLIN HFA,PROAIR HFA) 90 mcg/actuation inhaler 2 puff 2 puff, inhalation, Every 6 hours PRN (registered respiratory therapist), wheezing, shortness of breath, Starting on 06/27/18 at 0456, Indications: asthma hydrOXYzine (ATARAX) tablet 10 mg (CANCELED) 10 mg, oral, 2 times daily PRN, anxiety, Starting on 06/27/18 at 1523, Indications: anxiety 1551 (Given - Provider: Gene Malin RN) traZODone (DESYREL) tablet 50 mg 50 mg, oral, Nightly PRN, sleep, Starting on 06/27/18 at 0010, Indications: insomnia associated with depression 0052 (Not Given - Provider: Juan Hyman RN - Reason: Other - Comment: Pt requested sleep medication, but was asleep by the time examiner reached room)2026 (Given - Provider: Sylvester Amaya, MORIAH) 2120 (Given - Provider: Sylvester Amaya, RN) documented in this encounter Orders Medications Ordered That Ken ht Not Have Been Administered Count Last Ordered Date First Ordered Date albuterol HFA (PROVENTIL HFA ,VENTOLIN HFA,PROAIR HFA) 90 mcg/actuation inhaler 2 puff 1 06/27/2018 levothyroxine (SYNTHROID, LE VOTHROID) tablet 50 mcg 1 06/26/2018 Diet Count Last Ordered Date First Orde red Date ADULT DISCHARGE DIET 1 06/29/2018 Nursing Count Last Ordered Date First Orde red Date DISCHARGE ACTIVITY 1 06/29/2018 DISCHARGE CALL PROVIDER 2 06/29/2018 Consult Count Last Ordered Date First Orde red Date IP CONSULT TO SPIRITUAL CARE 1 06/28/2018 Admission Count Last Ordered Date First Orde red Date ASSIGN PATIENT STATUS 1 06/26/2018 Transfer Count Last Ordered Date First Orde red Date TRANSFER PATIENT 1 06/26/2018 CORE MEASURES Count Last Ordered Date First Ord ered Date REASON FOR NO VTE PROPHYLAXIS AT ADMISSION 2 06/26/2018 ADT Patient Update Count Last Ordered Date Firs t Ordered Date ED IP DECISION TO ADMIT 1 06/26/2018 documented in this encounter Care Teams Fingerer Relationship Specialty Start Date End Date Trever Goodwin MD [address] [place] [address] PCP - General 06/25/18 documented as of this encounter
--- OUTSIDE RECORDS SUMMARY | 2024-12-04 02:26 | XMS_ITS | Encounter Summary ---
Author Organization [facility] Healthcare Address [address] [place] [address] Care Team Providers Care Printer Repair Technician Name Role Phone Trever Goodwin MD Primary Care Prov ider Reason for Visit * Reason Comments New Patient STD CHECK UP Encounter Details Date Type Department Care Team (Late st Contact Info) Description 12/11/2023 1:45 PM SOCIAL WORK ASSISTANT Office Visit [facility] Care at [address] [address] Zuleyma Christiansen NP [address] [place] [address] [address] Candidal vulvovaginitis; Amenorrhea; Encounter for general counseling and advice on contraceptive management; Urinary frequency; STI (sexually transmitted infection) Social History Tobacco Use Types Packs/Day Years Used Date Smoking Tobacco: Never Smokeless Tobacco: Never Alcohol Use Standard Drinks/Week Comments Yes 0 (1 standard drink = 0.6 oz pure alcohol) Patient stated a little bit, not to excess and then would not elaborate. Personal Safety Answer Date Recorded Getting School Help Needed Not on file 12/08 Comments No Sex and Gender Information Value Date Recorded Sex Assigned at Not on file Legal Sex Female 6:04 PM SOCIAL WORK ASSISTANT Gender Identity Female 09/18/2024 11:46 PM CDT Sexual Orientation Straight 09/18/2024 11 :46 PM CDT documented as of this encounter Last Filed Vital Signs Vital Sign Reading Time Taken Comments Blood Pressure 112/64 12/11/2023 1:34 PM SOCIAL WORK ASSISTANT Pulse - - Temperature - - Respiratory Rate - - Oxygen Saturation - - Inhaled Oxygen Concentration - - Weight 65.9 kg (145 lb 3.2 oz) 12/11/2023 1:34 P M SOCIAL WORK ASSISTANT Height 157.5 cm (5' 2 ) 12/11/2023 1:34 PM SOCIAL WORK ASSISTANT Body Mass Index 26.56 12/11/2023 1:34 PM SOCIAL WORK ASSISTANT documented in this encounter Patient Instructions * Attachments The following attachments cannot be sent through Care Everywhere. * Polycystic Ovarian Syndrome (General Information) (Thai) documented in this encounter Ordered Prescriptions Prescription Sig Dispense Quantity Refills Last Filled Start Date End Date nystatin-triamcino lone creamIndications:c utaneous candidiasis Apply to affected area twice a day for 7-14 days, then as needed for rash. 15 g 12/11/2023 4 documented in this encounter Progress Notes * Zuleyma Christiansen NP - 12/11/2023 1:45 PM CST Images from the original note were not included. PUBLIC HEALTH SERVICE OFFICER visit Subjective: Amna Hodgson is a 42 y.o. year old female who presents to the office today with a few concerns. She is accompanied in the office by her mother. There is a bit of a communication deficit. The patient does have a history of schizoaffective disorder and cerebral palsy. She is a bit of a poor historian. She has seen a tunneling machine operator before. She tells me that she was diagnosed with genital herpes 1-2 years ago. She had been on Valtrex for treatment. She believes that she is having another herpes outbreak as she is having pain in the vulva. She states that the vulva stings when she urinates. She denies any actual dysuria. She also notices a fishy odor and an increase in vaginal discharge. She has been sexually active and is requesting STD testing today. The patient and her mother also have questions regarding sterilization. The patient is a 0 and does not desire to be . She was previously on oral contraceptive pills but did discontinue them 1 year ago. She has been amenorrheic the last year. She has noticeable hair growth on her chin. She tells me her twin sister h as polycystic ovaries. The patient states that she did start her period on December 03. She denies any hot flashes or signs of perimenopause. She is experiencing some pelvic discomfort, she has been afebrile. She believes that she has had an abnormal Pap smear, she is unsure when her last Pap smearwas performed. The patient also sees a urologist and has been having some urinary frequency. She isrequesting a urinalysis and culture today. Patient's last menstrual period was 12/03/2023. Current Outpatient Medications: atorvastatin (LIPITOR) 10 mg [...] 500 mg tablet, , Disp: , Rfl: paliperidone ER (INVEGA) 9 mg 24 hr tablet, , Disp: , Rfl: Trintellix 10 mg tablet, , Disp: , Rfl: levothyroxine (SYNTHROID, LEVOTHROID) 50 mcg tablet, Take 1 tablet (50 mcg total) by mouth blanket washer before breakfast., Disp: 30 tablet, Rfl: 0 melatonin tablet, Take by mouth. (Patient not taking: Reported on 06/27/2023), Disp: , Rfl: nystatin-triamcinolone cream, Apply to affected area twice a day for 7-14 days, then as needed for rash., Disp: 15 g, Rfl: 0 OLANZapine (ZyPREXA) 5 mg tablet, Take 5 mg by mouth nightly. (Patient not taking: Reported on 06/27/2023), Disp: , Rfl: paliperidone ER (INVEGA) 6 mg 24 hr tablet, , Disp: , Rfl: sertraline (ZOLOFT) 100 mg tablet, Take 1 tablet (100 mg total) by mouth daily., Disp: 30 tablet, Rfl: 1 traZODone (DESYREL) 50 mg tablet, Take 1 [...] intolerance and heat intolerance. Genitourinary: Positive for vaginal bleeding and vaginal pain. Negative for dyspareunia, dysuria, genital sores, hematuria, menstrual problem, pelvic pain, urgency and vaginal discharge. Neurological: Negative for headaches. Breast: Negative for tenderness, breast redness, breast discharge and lump(s). Objective: BP 112/64 Ht 157.5 cm (5' 2 ) Wt 145 lb 3.2 oz (65.9 kg) LMP 12/03/2023 BMI 26.56 kg/m?? Physical Exam Constitutional: General: She is not in acute distress. Appearance: Normal appearance. Genitourinary: Pelvic exam was performed with patient supine. Uterus normal. Right labia: rash. There is no tenderness or lesion on the right labia. Left Labia: rash. There is no tenderness or lesion on the left labia. Vaginal discharge present. Right adnexa: normal. Right adnexa does not display mass and does not display tenderness. Left adnexa: normal. Left adnexa does not display mass and does not display tenderness. Cervix does not display motion tenderness or discharge. Uterus is mobile. Uterus is not enlarged or tender. Genitourinary Comments: Pap smear was obtained. Patient is on hermenses today. Vaginitis swab and gonorrhea and chlamydia swab obtained. Neurological: Mental Status: She is alert. Motor: Weakness present. Assessment and Plan: Diagnoses and all orders for this visit: Candidal vulvovaginitis Comments: Candidiasis noted on exam. We will treat with nystatin triamcinolone cream externally b.i.d. times 7-10 days. Amenorrhea Assessment & Plan: Discussed that ideally we would like for [...] cycle control, she will notify my office. Encounter for general counseling and advice on contraceptive management Assessment & Plan: Condom use encouraged for contraception. We discussed options for contraception today. Questions were answered regarding sterilization. I did explain that placing her back on oral contraceptives would help regulate her cycles and protect her endometrial lining. They are going to think about what they want to do an notify me with how they would like to proceed Urinary frequency Comments: UA and culture done. Patient will push fluids. Orders: - Urinalysis, microscopic only; Future - Urine culture Urine, clean voided; Future STI (sexually transmitted infection) - Sureswab(R) Advanced Vaginitis Plus, TMA Endocervical/vaginal; Future Other orders - nystatin-triamcinolone cream; Apply to affected area twice a day for 7-14 days, then as needed for rash. Return in about 1 month (around 01/11/2024) for Annual [facility]. My total encounter time on 12/11/2023 was 45 minutes which was spent in the activities documented inthe note. This includes time spent prior to the visit and after the visit in direct care of the patient. This time does not include time spent in any separately reportable services. Zuleyma Christiansen NP 12/11/2023 AL WORK ASSISTANT documented in this encounter Miscellaneous Notes * Result Encounter Note - Ngozi Cortés MA - 12/15/2023 10:10 AM CST Pt has been informed and would like to take the medication PO. The script has been pended to you for approval to go to [facility]. Thanks! AL WORK ASSISTANT * Assessment & Plan Note - Zuleyma Christiansen NP - 12/11/2023 2:49 PM SOCIAL WORK ASSISTANT Associated Problem(s): Amenorrhea Discussed that ideally we would like for [...] cycle control, she will notify my office. AL WORK ASSISTANT * Assessment & Plan Note - Zuleyma Christiansen NP - 12/11/2023 2:47 PM SOCIAL WORK ASSISTANT Associated Problem(s): Encounter for general counseling and advice on contraceptive management Condom use encouraged for contraception. We discussed options for contraception today. Questions were answered regarding sterilization. I did explain that placing her back on oral contraceptives would help regulate her cycles and protect her endometrial lining. They are going to think about what they want to do an notify me with how they would like to proceed AL WORK ASSISTANT documented in this encounter Plan of Treatment Not on file documented as of this encounter Procedures Procedure Name Priority Date/Time Associated Diagnosis Comments URINE CULTURE Routine 12/11/2023 3:01 PM SOCIAL WORK ASSISTANT Urinary frequency SURESWAB(R) ADVANCED VAGINITIS PLUS, TMA Routine 12/11/2023 3:00 PM SOCIAL WORK ASSISTANT STI (sexually transmitted infection) URINALYSIS, MICROSCOPIC ONLY Routine 12/11/2023 3:00 PM SOCIAL WORK ASSISTANT Urinary frequency documented in this encounter Results * Urine culture Urine, clean voided (12/11/2023 3:01 PM SOCIAL WORK ASSISTANT) Urine culture [facility] Comment: ??CULTURE, URINE, ROUTINE ?Micro Number: ?[id number] ??Test Status: ? Final ??Specimen Source: ?? Urine, clean catch ??Specimen Quality: ??Adequate ??Result: ?Mixed genital arelis isolated. These superficial ? bacteria are not indicative of a urinary tract ? infection. No further organism identification is ? warranted on this specimen. If clinically ? indicated, recollect clean-catch, mid-stream ? urine and transfer immediately to Urine Culture ? Transport Tube. Urine, clean voided 12/11/2023 3:01 PM SOCIAL WORK ASSISTANT 12/12/2023 4:04 AM SOCIAL WORK ASSISTANT Zuleyma Christiansen NP LAB MICROBIOLOGY - GENERAL ORDER SCOT Final Result Performing Organization Address [facility] de Phone Number [facility] [address] [place] [address] * (ABNORMAL) Urinalysis, microscopic only (12/11/2023 3:00 PM SOCIAL WORK ASSISTANT) WBC, ur NONE SEEN < OR = 5 /HPF [facility] RBC, ur 0-2 < OR = 2 /HPF [facility] Epithelial cells, squamous, ur 0-5 < OR = 5 /HPF [facility] Bacteria, ur, quant NONE SEEN NONE SEEN /HPF [facility] Calcium oxalate crystals, ur MANY(A) NONE OR FEW /HPF [facility] Hyaline cast NONE SEEN NONE SEEN /LPF [facility] Urine 12/11/2023 3:00 PM SOCIAL WORK ASSISTANT 12/12/2023 4:04 AM SOCIAL WORK ASSISTANT Zuleyma Christiansen LABEL PRINTING MACHINIST LAB URINE ORDERABLES Final Resul t Performing Organization Address [facility] de Phone Number [facility] [address] [place] [address] * (ABNORMAL) Sureswab(R) Advanced Vaginitis Plus, TMA Endocervical/vaginal (12/11/2023 3:00 PM SOCIAL WORK ASSISTANT) SureSwab(R) ADV Bacterial vaginosis (BV), TMA POSITIVE(A) NEGATIVE [facility] Sydney species NOT DETECTED NOT DETECTED [facility] Sydney glabrata NOT DETECTED NOT DETECTED [facility] Comment: Sydney species C. albicans, C. tropicalis, C. parapsilosis, and/or C. dubliniensis can be detected, but not differentiated, in the Sydney spp. result. Trichomonas vaginalis (TV), TMA NOT DETECTED NOT DETECTED [facility] C. trachomatis RNA NOT DETECTED NOT DETECTED [facility] N. gonorrhoeae RNA NOT DETECTED NOT DETECTED [facility] Comment: For additional information, please refer to https://education.StyleTread/faq/OPM429 (This link is being provided for information/ educational purposes only.) Endocervical/vag inal 12/11/2023 3:00 PM SOCIAL WORK ASSISTANT 12/12/2023 4:04 AM SOCIAL WORK ASSISTANT Zuleyma Christiansen NP LAB MICROBIOLOGY - GENERAL ORDER SCOT Final Result [facility] [address] [place] [address] documented in this encounter Visit Diagnoses Diagnosis Candidal vulvovaginitis Candidiasis of vulva and vagina Amenorrhea Absence of menstruation Encounter for general counseling and advice on contraceptive management Urinary frequency STI (sexually transmitted infection) Unspecified venereal disease documented in this encounter Discontinued Medications Medication Sig Discontinue Reason Start Date End Da te cholecalciferol (VITAMIN D3) 2,000 unit capsule 2,000 Units. 12/11/2023 divalproex ER (DEPAKOTE ER) 500 mg 24 hr tablet 06/19/2023 12/11/[address] (CYMBALTA) 20 mg capsule 04/24/2023 12/11/2023 documented as of this encounter Historical Medications * This list may reflect changes made after this encounter. Medication Sig Dispense Quantity Refills Last Filled Start D ate End Date levoFLOXacin (LEVAQUIN) 500 mg tablet 09/11/2023 02/09/2024 added in this encounter Care Teams Printer Repair Technician Relationship Specialty Start Date End Date Trever Goodwin MD [address] [place] [address] PCP - General 06/25/18 documented as of this encounter
--- OUTSIDE RECORDS SUMMARY | 2024-12-04 02:26 | XMS_ITS | Encounter Summary ---
Author Organization [facility] Healthcare Address [address] [place] [address] Care Team Providers Care Travel Rn Or Name Role Phone Unavailable Primary Care Provider Unavailabl e Encounter Details Date Type Department Care Team (Late st Contact Info) Description 03/07/2009 11:37 AM CDT - 03/07/2009 4:00 PM CDT Hospital Encounter [facility] Cristiano Vance MD [address] [facility] [address] [place] [address] Trever Goodwin MD [address] [place] [address] Other chest pain Social History Tobacco Use Types Packs/Day Years Used Date Smoking Tobacco: Never Assessed Comments Unknown Sex and Gender Information Value Date Recorded Sex Assigned at Not on file Legal Sex Female 6:04 PM MECHANIC DRIVER Gender Identity Female 09/18/2024 11:46 PM CDT Sexual Orientation Straight 09/18/2024 11 :46 PM CDT documented as of this encounter Plan of Treatment Not on file documented as of this encounter Visit Diagnoses Diagnosis Other chest pain documented in this encounter
--- OUTSIDE RECORDS SUMMARY | 2024-12-04 02:26 | XMS_ITS | Encounter Summary ---
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 documented in this encounter Plan of Treatment Not on file documented as of this encounter Procedures Procedure Name Priority Date/Time Associated Diagnosis Comments DHEA-SULFATE Routine 02/09/2024 10:39 AM CDT Irregular periods/menstrual cycles TESTOSTERONE, TOTAL AND FREE, SERUM Routine 02/09/2024 10:39 AM CDT Irregular periods/menstrual cycles LUTEINIZING HORMONE (LH) Routine 02/09/2024 10:39 AM CDT Irregular periods/menstrual cycles FOLLICLE STIMULATING HORMONE Routine 02/09/2024 10:39 AM CDT Irregular periods/menstrual cycles documented in this encounter Results * Testosterone, Total and Free, Serum (02/09/2024 10:39 AM CDT) Testosterone 33 8 - 60 ng/dL [facility] Comment: ADDITIONAL INFORMATION Testing performed by Liquid Chromatography-Tandem Mass Spectrometry (LC-MS/MS). This test was developed and its performance characteristics determined by [facility] in a manner consistent with CLIA requirements. This test has not been cleared or approved by the U.S. Food and Drug Administration. Test Performed by: [facility] [address] [place] [address] Driver Material Handler: Don Carrera M.D. Ph.D.; CLIA# [id number] Testosterone, free 0.53 <0.13 - 0.95 ng/dL [facility] ([place]) Comment: ADDITIONAL INFORMATION This test was developed and its performance characteristics determined by [facility] in a manner consistent with CLIA requirements. This test has not been cleared or approved by the U.S. Food and Drug Administration. Blood 02/09/2024 10:3 9 AM CDT 02/09/2024 1:45 PM CDT Christiano Pulido MD LAB BLOOD ORDERABLES Final Result Performing Organization Address City/[facility]/ZIP Co de Phone Number [facility] ([place]) [address] [facility] [place] [address] [facility] * DHEA-sulfate (02/09/2024 10:39 AM CDT) DHEA-S 125.0 35.4 - 256.0 mcg/dL Comment:Testing performed by : [facility], [address] [place]., [address] Blood 02/09/2024 10:3 9 AM CDT 02/09/2024 4:48 PM CDT Christiano Pulido MD LAB BLOOD ORDERABLES Final Result [facility] ([place]) [address] [place] [address] * LH (02/09/2024 10:39 AM CDT) LH 8.8 IUnits/L Comment: Interpretive Data Males: ??Adults: ? 1.7 - 8.6 ?? IUnits/L Females: ?Follicular: ? 2.4 - 12.6 ??IUnits/L ??Ovulation: ? 14.0 - 95.6 ??IUnits/L ?Luteal: ? 1.0 - 11.4 ??IUnits/L ??Postmenopausal: 7.7 - 58.5 ??IUnits/L Current interpretive data was last revised on 2019. Testing performed by: [facility], [address] [place]., [address] Blood 02/09/2024 10:3 9 AM CDT 02/09/2024 4:48 PM CDT Christiano Pulido MD LAB BLOOD ORDERABLES Final Result Performing Organization Address City/State/[facility] Co de Phone Number [facility] ([place]) [address] [facility] Department of Laboratories [place], [place] [id number] * Follicle stimulating hormone (02/09/2024 10:39 AM CDT) [facility]SH 5.3 IUnits/L Comment: Interpretive Data Male: Adults: ?1.5 - 12.4 IUnits/L Female: ?? Follicular: ?3.5 - 12.5 IUnits/L Ovulation: ? 4.7 - 21.5 IUnits/L Luteal: ?1.7 - 7.7 IUnits/L Postmenopausal: 25.8 - 134.8 IUnits/L Current interpretive data was last revised 2015. Testing performed by: [facility], [address] [place]., [address] Blood 02/09/2024 10:3 9 AM CDT 02/09/2024 4:48 PM CDT us Christiano Pulido MD LAB BLOOD ORDERABLES Final Result [facility] ([place]) [address] [facility] Department [place] [address] documented in this encounter Visit Diagnoses Diagnosis Irregular periods/menstrual cycles documented in this encounter Care Teams Construction Materials Tester Relationship Specialty Start Date End Date Trever Goodwin MD [address] [place] [address] PCP - General 06/25/18 documented as of this encounter
--- OUTSIDE RECORDS SUMMARY | 2024-12-04 02:26 | XMS_ITS | Encounter Summary ---
Author Organization [facility] Healthcare Address [address] [place] [address] Care Team Providers Care Systems Mechanic Name Role Phone Trever Goodwin MD Primary Care Prov ider Encounter Details Date Type Department Care Team (Latest Contact Info) Description 06/27/2023 4:09 PM CDT - 06/27/2023 11:59 PM CDT Hospital Encounter [facility] [id number] [place] [id number] Urinary urgency Discharge Disposition: Discharge to home or self care Social History Tobacco Use Types Packs/Day Years Used Date Smoking Tobacco: Never Smokeless Tobacco: Never Alcohol Use Standard Drinks/Week Comments Yes 0 (1 standard drink = 0.6 oz pure alcohol) Patient stated a little bit, not to excess and then would not elaborate. 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 12/11/2023 divalproex ER (DEPAKOTE ER) 500 mg 24 hr tablet 06/19/[address] (CYMBALTA) 20 mg capsule 04/24/2023 12/11/2023 levothyroxine (SYNTHROID, LEVOTHROID) 50 mcg tabletIndications :hypothyroidism Take 1 tablet (50 mcg total) by mouth phd intern before breakfast. 30 tablet 06/30/2018 02/09/2024 melatonin tablet Take by mouth. 02/09/2024 OLANZapine (ZyPREXA) 5 mg tablet Take 5 mg by mouth nightly. 04/08/2024 paliperidone ER (INVEGA) 6 mg 24 hr tablet 06/25/2023 04/08/2024 sertraline (ZOLOFT) 100 mg tabletIndications :depression,Dysph oric [...] Date/Time Associated Diagnosis Comments URINE CULTURE Routine 06/27/2023 4:09 PM CDT Urinary urgency documented in this encounter Results * Urine culture Urine, clean voided (06/27/2023 4:09 PM CDT) Report Final Report: Less than 100,000 colonies/mL (clinically insignificant growth based on current clinical standards) [facility] [place] Comment:Testing performed by : [facility], [address] [place]., [address] Organism (CLINICALLY INSIGNIFICANT GROWTH [facility] [place] Urine, clean voided 06/27/2023 4:09 PM CDT 06/28/2023 12:46 AM CDT Narrative [facility] [place] - 06/29/2023 6:53 AM CDT Please run sensitivity. Testing performed by [facility] ([phone]) us Chayito Garcia NP LAB MICROBIOLOGY - GENERAL LUIS THOMAS Final Result [facility] [place] [address] Department [place] [address] documented in this encounter Visit Diagnoses Diagnosis Urinary urgency Urgency of urination documented in this encounter Care Teams Systems Mechanic Relationship Specialty Start Date End Date Trever Goodwin MD [address] [place] [address] PCP - General 06/25/18 documented as of this encounter
--- OUTSIDE RECORDS SUMMARY | 2024-12-04 02:26 | XMS_ITS | Encounter Summary ---
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 Therefore, no [place] either of [place] [id number]. documented in this encounter Plan of Treatment Not on file documented as of this encounter Visit Diagnoses Not on filedocumented in this encounter Care Teams Fruit Thinner Machine Operator Relationship Specialty Start Date End Date Trever Goodwin MD [address] [facility] [place] [address] PCP - General 06/25/18 documented as of this encounter
--- OUTSIDE RECORDS SUMMARY | 2024-12-04 02:26 | XMS_ITS | Encounter Summary ---
Author Organization [facility] Healthcare Address [address] [place] [address] Care Team Providers Care Spent Grain Dryer Name Role Phone Trever Goodwin MD Primary Care Prov ider Reason for Visit * Reason Comments Menstrual Problem * Diagnostic Imaging (Routine) - Closed Specialty Diagnoses / Procedures Referred By Leeann wallace Referred To Contact Diagnoses Irregular periods/menstrual cycles Procedures US Pelvis W Endovaginal Christiano Pulido MD [address] [place] [address] Phone: tel: fax: [facility] Medical Group Referral ID Status Reason Start Date Expiration Date Visits Re quested Visits Authorized [id number] Closed 02/09/2024 03/10/2025 1 1 Encounter Details Date Type Department Care Team (Latest Contact Info) Description 03/04/2024 2:00 PM CDT Ancillary Procedure [facility] [address] [place] [id number] Irregular periods/menstrual cycles Social History Tobacco Use [...] on file 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 documented in this encounter Plan of Treatment Not on file documented as of this encounter Procedures Procedure Name Priority Date/Time Associated Diagnosis Comments US PELVIS W ENDOVAGINAL Routine 03/04/2024 2:32 PM CDT Irregular periods/menstrual cycles documented in this encounter Results * US Pelvis W [...] Normal appearing ovaries bilaterally. 3.Small free fluid. us Christiano Pulido MD IMG US PROCEDURES Final Re sult documented in this encounter Visit Diagnoses Diagnosis Irregular periods/menstrual cycles documented in this encounter Care Teams Spent Grain Dryer Relationship Specialty Start Date End Date Trever Goodwin MD [address] [place] [address] PCP - General 06/25/18 documented as of this encounter
--- OUTSIDE RECORDS SUMMARY | 2024-12-04 02:26 | XMS_ITS | Encounter Summary ---
Author Organization [facility] Medical Group Address [address] [address] Care Team Providers Care Watch Assembly Instructor Name Role Phone Trever Goodwin MD Primary Care Prov ider Reason for Visit * Reason Comments UTI Pt c/o the following S/x: pain when urinating, frequency, and incontinence for the past 2 weeks. 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 Gender Identity Female 09/18/2024 11:46 PM CDT Sexual Orientation Straight 09/18/2024 11 :46 PM CDT documented as of this encounter Last Filed Vital Signs Vital Sign Reading Time Taken Comments Blood Pressure 112/72 06/27/2023 3:36 PM CDT Pulse 75 06/27/2023 3:36 PM CDT Temperature 36.9 ??C (98.4 ??F) 06/27/2023 3:36 PM CD T Respiratory Rate 14 06/27/2023 3:36 PM CDT Oxygen Saturation 95% 06/27/2023 3:36 PM CDT Inhaled Oxygen Concentration - - Weight 63.2 kg (139 lb 6.4 oz) 06/27/2023 3:36 P M CDT Height 157.5 cm (5' 2 ) 06/27/2023 3:36 PM CDT Body Mass Index 25.5 06/27/2023 3:36 PM CDT documented in this encounter Patient Instructions * Patient Instructions* Chayito Garcia NP - 06/27/2023 3:15 PM CDT If symptoms persist or worsen at anytime follow up with your Primary Care Provider. -We will notify you of urine culture results -Push fluids, especially water. This also helps prevent future infections. -Urinate when you feel the urge. Do not hold your urine. Urinate as soon as you feel you have to. -Cranberry juice has been shown to promote healing, use at your discretion. -Make sure to always wipe from front to back after urinating. -If you are sexually active make sure to urinate Before AND after sex to help prevent bladder infections. -Avoid intercourse until your symptoms are resolved for one week. -Do not drink alcohol, caffeine, and citrus juices. These can irritate your bladder and increase your symptoms. Seek care (go to Urgent Care or ER) immediately if: ?? You are urinating very little or not at all. ?? You are vomiting. ?? You have a high fever with shaking chills. ?? You have side or back pain that gets worse. ??Contact your primary care doctor or PLUG WIRER if: ?? You have a fever. ?? You have white or yellow discharge from your vagina. ?? You do not feel better after 2 days of taking antibiotics. documented in this encounter Progress Notes * Chayito Garcia NP - 06/27/2023 3:15 PM CDT Images from the original note were not included. Subjective/Objective Patient ID: Amna Hodgson is a 42 y.o. female. Chief Complaint UTI (Pt c/o the following S/x: pain when urinating, frequency, and incontinence for the past 2 weeks. ) Pt presents to [facility] Care Pain in left side Incontinent Frequency UTI This is a new problem. Episode onset: 2 weeks. The problem has been unchanged. There has been no fever. She is Not sexually active. There is No history of pyelonephritis. Associated symptoms include frequency and urgency. Pertinent negatives include no chills, flank pain, hematuria, nausea or vomiting. She has tried nothing for the symptoms. Her past medical history is significant for recurrent UTIs (none in past 6 months). Review of Systems Constitutional: Negative for chills, diaphoresis, fatigue and fever. Respiratory: Negative. Cardiovascular: Negative. Gastrointestinal: Positive for abdominal pain (Left-sided, patient states she has the pain 1st thing in the morning when she is sitting up to get out of bed. Patient's caregiver believes it is the way patient sits throughout the day states she leans and sits to the left). Negative for constipation,diarrhea, nausea and vomiting. Genitourinary: Positive for frequency and urgency. Negative for difficulty urinating, dysuria (denies), flank pain, hematuria, vaginal bleeding, vaginal discharge and vaginal pain. Incontinent in the past 6 months - 2 years. Musculoskeletal: Negative for back pain. Neurological: Negative for dizziness and headaches. Physical Exam Vitals and nursing note reviewed. Constitutional: General: She is awake. She is not in acute distress. Appearance: Normal appearance. She is not ill-appearing. HENT: Head: Normocephalic and atraumatic. Cardiovascular: Rate and Rhythm: Normal rate and regular rhythm. Heart sounds: Normal heart sounds. Pulmonary: Effort: Pulmonary effort is normal. Breath sounds: Normal breath sounds. Abdominal: General: Bowel sounds are normal. Palpations: Abdomen is soft. Tenderness: There is abdominal tenderness in the left upper quadrant and left lower quadrant. Thereis no right CVA tenderness, left CVA tenderness, guarding or rebound. Comments: While talking to patient in the exam room she is leaning to her left side, caregiver reminds her to sit up straight. Neurological: Mental Status: She is alert and oriented to person, place, and time. Gait: Gait is intact. Gait normal. Psychiatric: Mood and Affect: Mood normal. Behavior: Behavior normal. Behavior is cooperative. Vitals: 06/27/23 1536 BP: 112/72 Pulse: 75 Resp: 14 Temp: 36.9 ??C (98.4 ??F) SpO2: 95% Weight: 63.2 kg (139 lb 6.4 oz) Height: 157.5 cm (5' 2 ) No results found. Past Medical History: Diagnosis Date Anxiety Asthma Cerebral palsy (HCC) MDD (major depressive disorder) Schizoaffective disorder (CMS/HCC) (HCC) Thyroid disease Current Outpatient Medications: atorvastatin (LIPITOR) 10 mg [...] 10 mg tablet, , Disp: , Rfl: cholecalciferol (VITAMIN D3) 2,000 unit capsule, 2,000 Units. (Patient not taking: Reported on 06/27/2023), Disp: , Rfl: divalproex ER (DEPAKOTE ER) 500 mg 24 hr tablet, , Disp: , Rfl: DULoxetine DR (CYMBALTA) 20 mg capsule, , Disp: , Rfl: levothyroxine (SYNTHROID, LEVOTHROID) 50 mcg tablet, Take 1 tablet (50 mcg total) by mouth auto service instructor before breakfast., Disp: 30 tablet, Rfl: 0 [...] taking: Reported on 06/27/2023), Disp: , Rfl: Allergies Allergen Reactions Diflucan [Fluconazole] Rash Diclofenac Diarrhea Social History Tobacco Use Smoking status: Never Smokeless tobacco: Never Substance and Sexual Activity Drug use: No Sexual activity: None Alcohol Use: Not on file Past Surgical History: Procedure Laterality Date HERNIA REPAIR Assessment/Plan Diagnoses and all orders for this visit: Urinary urgency (Primary) - POCT urinalysis dipstick - Urine culture Urine, clean voided; Future Left sided abdominal pain Recent Results (from the past 4 hour(s)) POCT urinalysis dipstick Collection Time: 06/27/23 3:34 PM Result Value Ref Range Color, Urine, POC Dark Yellow Clarity, ur, POC Turbid (A) Clear Glucose, ur, POC Negative Negative MG/DL Bilirubin, ur, POC Negative Negative, Small, Moderate, Large Ketones, ur, POC 15. (A) Negative Specific Dalton, POC 1.025 1.003 - 1.030 Blood, ur, POC Negative Negative pH, ur, POC 7.0 5.0 - 8.0 Protein, ur, POC 30. (A) Negative Urobilinogen, urine, POC 0.2 0.2 - 1.0 mg/dL Nitrite, ur, POC Negative Negative Leukocytes, ur, POC Trace (A) Negative Lot Number [id number] Discussed with patient and caregiver if urine culture is negative and symptoms remain present I would recommend patient follow-up with her primary care provider. If symptoms worsen at any time pleasepresent to the emergency room. Patient Education: -We will notify you of urine culture results -Push fluids, especially water. This also helps prevent future infections. -Urinate when you feel the urge. Do not hold your urine. Urinate as soon as you feel you have to. -Cranberry juice has been shown to promote healing, use at your discretion. -Make sure to always wipe from front to back after urinating. -If you are sexually active make sure to urinate Before AND after sex to help prevent bladder infections. -Avoid intercourse until your symptoms are resolved for one week. -Do not drink alcohol, caffeine, and citrus juices. These can irritate your bladder and increase your symptoms. Seek care (go to Urgent Care or ER) immediately if: ?? You are urinating very little or not at all. ?? You are vomiting. ?? You have a high fever with shaking chills. ?? You have side or back pain that gets worse. ??Contact your primary care doctor or PLUG WIRER if: ?? You have a fever. ?? You have white or yellow discharge from your vagina. ?? You do not feel better after 2 days of taking antibiotics. Disposition Treatment plan including expectations, follow up, and return precautions discussed with patient/parent, verbalizes understanding. Medication dosage, use, and potential adverse reactions discussed with patient/parent. Advised to follow up with PCP if symptoms do not resolve as expected or sooner if condition worsens. Signs/symptoms warranting ER evaluation reviewed. Patient and/or guardian was given an opportunity to ask questions, questions answered. Chayito Garcia NP This office note has been partially dictated using AppGratis software, and as a result portions of the record may have been created with this software. Occasional wrong-word or '[id number]' substitutions may have occurred due to the inherent limitations of voice recognition software. Read the chartcarefully and recognize, using context, where substitutions have occurred. Cosigned by Cristiano Rivers MD at 06/27/2023 9:08 PM CDT documented in this encounter Plan of Treatment Not on file documented as of this encounter Procedures Procedure Name Priority Date/Time Associated Diagnosis Comments POCT URINALYSIS DIPSTICK Routine 06/27/2023 3:34 PM CDT Urinary urgency documented in this encounter Results * Urine culture Urine, clean voided (06/27/2023 4:09 PM CDT) Report Final Report: Less than 100,000 colonies/mL (clinically insignificant growth based on current clinical standards) TIFFANIE Comment:Testing performed by : [facility], [address] [place]., [address] Organism (CLINICALLY INSIGNIFICANT GROWTH TIFFANIE Urine, clean voided 06/27/2023 4:09 PM CDT 06/28/2023 12:46 AM CDT Narrative TIFFANIE [place] - 06/29/2023 6:53 AM CDT Please run sensitivity. Testing performed by [facility] Microbiology Laboratory ([phone]) us Chayito Garcia NP LAB MICROBIOLOGY - GENERAL ORDE WILLIAM Final Result TIFFANIE [address] [facility] [place] [address] * (ABNORMAL) POCT urinalysis dipstick (06/27/2023 3:34 PM CDT) Color, Urine, POC Dark Yellow Clarity, ur, POC Turbid(A) Clear Glucose, ur, POC Negative Negative MG/DL Bilirubin, ur, POC Negative Negative, Small, Moderate, Large Ketones, ur, POC 15.(A) Negative Specific Dalton, POC 1.025 1.003 - 1.030 Blood, ur, POC Negative Negative pH, ur, POC 7.0 5.0 - 8.0 Protein, ur, POC 30.(A) Negative Urobilinogen, urine, POC 0.2 0.2 - 1.0 mg/dL Nitrite, ur, POC Negative Negative Leukocytes, ur, POC Trace(A) Negative Lot Number [id number] Urine 06/27/2023 3:34 PM CDT us Chayito Garcia NP POINT OF CARE TEST ORDERABLES F inal Result documented in this encounter Visit Diagnoses Diagnosis Urinary urgency- Primary Urgency of urination Left sided abdominal pain Abdominal pain, unspecified site Urinary urgency Urgency of urination documented in this encounter Historical Medications * This list may reflect changes made after this encounter. Trintellix 10 mg tablet 1 tablet (10 mg total) nightly 06/19/2023 Gemtesa 75 mg tablet daily 06/19/2023 paliperidone ER (INVEGA) 9 mg 24 hr tablet 06/25/2023 clonazePAM (KlonoPIN) 0.5 mg tablet 2 (two) times a day as needed 05/14/2023 atorvastatin (LIPITOR) 10 mg tablet Take 1 tablet (10 mg total) by mouth daily 06/20/[address] (CYMBALTA) 20 mg capsule 04/24/2023 12/11/2023 Trintellix 5 mg tablet 05/14/2023 04/08/2024 paliperidone ER (INVEGA) 6 mg 24 hr tablet 06/25/2023 04/08/2024 divalproex ER (DEPAKOTE ER) 500 mg 24 hr tablet 06/19/2023 4 added in this encounter Care Teams Watch Assembly Instructor Relationship Specialty Start Date End Date Trever Goodwin MD [address] [place] [address] PCP - General 06/25/18 documented as of this encounter
--- OUTSIDE RECORDS SUMMARY | 2024-12-04 02:26 | XMS_ITS | Encounter Summary ---
Author Organization [facility] Healthcare Address [address] [place] [address] Care Team Providers Care Senior Systems Engineer Name Role Phone Unavailable Primary Care Provider Unavailabl e Encounter Details Date Type Department Care Team (Late st Contact Info) Description 01/02/2010 3:29 PM COAL TRAMMER - 01/02/2010 11:59 PM COAL TRAMMER Hospital Encounter [facility] Screening for malignant neoplasm of cervix Social History Tobacco Use Types Packs/Day Years Used Date Smoking Tobacco: Never Assessed Comments Unknown Sex and Gender Information Value Date Recorded Sex Assigned at Not on file Legal Sex Female 6:04 PM COAL TRAMMER Gender Identity Female 09/18/2024 11:46 PM CDT Sexual Orientation Straight 09/18/2024 11 :46 PM CDT documented as of this encounter Plan of Treatment Not on file documented as of this encounter Visit Diagnoses Diagnosis Screening for malignant neoplasm of cervix Screening for malignant neoplasm of the cervix documented in this encounter
--- OUTSIDE RECORDS SUMMARY | 2024-12-04 02:26 | XMS_ITS | Encounter Summary ---
Author Organization [facility] Healthcare Address [address] [facility] [place] [place] [address] Care Team Providers Care Surgical Physician Assistant Name Role Phone Trever Goodwin MD Primary Care Prov ider Reason for Referral * Diagnostic Imaging (Routine) - Closed Specialty Diagnoses / Procedures Referred By Leeann wallace Referred To Contact Diagnoses Encounter for screening mammogram for malignant neoplasm of breast Procedures Screening Mammogram Bilateral W Ayde Siegel NP [address] [facility] [address] [place] [address] Phone: tel: fax: [address] [phone] Referral ID Status Reason Start Date Expiration Date Visits Re quested Visits Authorized [id number] Closed 05/01/2021 05/31/2022 1 1 Reason for Visit * Diagnostic Imaging (Routine) - Closed Specialty Diagnoses / Procedures Referred By Leeann wallace Referred To Contact Diagnoses Encounter for screening mammogram for malignant neoplasm of breast Procedures Screening Mammogram Bilateral W Ayde Siegel NP [address] [facility] [address] [place] [address] Phone: tel: fax: [address] [phone] Referral ID Status Reason Start Date Expiration Date Visits Re quested Visits Authorized [id number] Closed 05/01/2021 05/31/2022 1 1 Encounter Details Date Type Department Care Team (Latest Contact Info) Description 06/12/2021 2:44 PM CDT - 06/12/2021 11:59 PM CDT Hospital Encounter [facility] [address] [place] [address] Yuriy Ruelas MD [address] [facility] [address] BENJAMIN Carroll [address] [address] Ayde Hughes NP [address] [facility] [address] [place] [address] Encounter for screening mammogram for malignant neoplasm [...] on file Legal 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 60 tablet 1 06/29/2018 cholecalciferol (VITAMIN D3) 2,000 unit capsule 2,000 Units. 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 30 tablet 06/30/2018 02/09/2024 melatonin tablet Take by mouth. 02/09/2024 OLANZapine (ZyPREXA) 5 mg tablet Take 5 mg by mouth nightly. 04/08/2024 sertraline (ZOLOFT) 100 mg tabletIndications :depression,Dysph oric Mood Take 1 tablet (100 mg total) by mouth daily. 30 tablet 1 06/30/2018 01/08/2024 traZODone (DESYREL) 50 mg tabletIndications :insomnia associated with depression Take 1 tablet (50 mg total) by mouth nightly as needed for sleep. 30 tablet 06/29/2018 04/08/2024 vitamin E 400 unit capsule Take [...] BIN Schedule Routine, Read Routine (OP Routine) 06/12/2021 2:59 PM CDT Encounter for screening mammogram for malignant neoplasm of breast documented in this encounter Results * Screening Mammogram Bilateral W Bin (06/12/2021 2:59 PM CDT) Anatomical Region Laterality Modality Breast Bilateral Mammography 06/12/2021 3:47 PM CDT Impressions 06/12/2021 3:47 PM CDT There is no mammographic evidence of malignancy. Routine screening mammography is recommended in 1 year. BI-RADS: 1 - Negative. The patient will be entered into a reminder system with a target due date of 1 year for her next mammogram. Electronically signed by: Lemuel Thomas M.D. Narrative 06/12/2021 3:47 PM CDT EXAMINATION: SCREENING MAMMOGRAM BILATERAL W BIN ORDERING HEALTHCARE PROVIDER: AYDE HUGHES HISTORY: Routine screening mammography. COMPARISON: ??01/06/2020. TECHNIQUE: CC and MLO views of the bilateral breasts were obtained with digital technique using breast tomosynthesis with C view. Computer aided detection was utilized. FINDINGS: DENSITY: The tissue of the bilateral breasts is heterogeneously dense, which may obscure small masses. BREASTS: There are no suspicious masses, suspicious calcifications, or other suspicious findings in either breast. There has been no suspicious interval change. us Ayde Hughes COMMUNITY LIVING INSTRUCTOR IMG MAMMO PROCEDURES Final Re sult documented in this encounter Visit Diagnoses Diagnosis Encounter for screening mammogram for malignant neoplasm of breast documented in this encounter Care Teams Surgical Physician Assistant Relationship Specialty Start Date End Date Trever Goodwin MD [address] [place] [address] PCP - General 06/25/18 documented as of this encounter
--- OUTSIDE RECORDS SUMMARY | 2024-12-04 02:26 | XMS_ITS | Encounter Summary ---
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 Product Promoter Sales Person Name Role Phone Trever Goodwin MD Primary Care Prov ider Christiano Pulido MD Unavailable [phone] Reason for Visit * Auth/Cert (Routine) Specialty Diagnoses / Procedures Referred By Leeann wallace Referred To Contact Diagnoses Sterilization Sterilization [Z30.2] Procedures MO SALPINGECTOMY COMPLETE/PARTIAL UNI/BI SPX LAPAROSCOPIC BILATERAL SALPINGECTOMY Referral ID Status Reason Start Date Expiration Date Visits Re quested Visits Authorized [id number] 1 1 Encounter Details Date Type Department Care Team (Late st Contact Info) Description 04/14/2024 11:35 AM CDT - 04/14/2024 1:05 PM CDT Surgery [facility] Operating Room [address] [place] [address] Christiano Pulido MD [address] [place] [id number] LAPAROSCOPIC BILATERAL SALPINGECTOMY Surgery Details Date/Time Status Location OR Service Patient Class Case Class Case Type Trauma Case? 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 Gender Identity Female 09/18/2024 11:46 PM CDT Sexual Orientation Straight 09/18/2024 11 :46 PM CDT documented as of this encounter Last Filed Vital Signs Vital Sign Reading Time Taken Comments Blood Pressure 128/75 04/14/2024 9:39 AM CDT Pulse 73 04/14/2024 9:39 AM CDT Temperature 36.9 ??C (98.5 ??F) 04/14/2024 9:39 AM CD T Respiratory Rate 16 04/14/2024 9:39 AM CDT Oxygen Saturation 98% 04/14/2024 9:39 AM CDT Inhaled Oxygen Concentration - - Weight 65.4 kg (144 lb 2.9 oz) 04/14/2024 9:39 A M CDT Height 157.5 cm (5' 2 ) 04/14/2024 9:39 AM CDT Body Mass Index 26.37 04/14/2024 9:39 AM CDT documented in this encounter Discharge Instructions * Attachments The following attachments cannot be sent through Care Everywhere. * Laparoscopic Tubal Ligation (Discharge Care) ([place]i) * General Anesthesia (Discharge Care) ([place]i) * Salpingectomy (Discharge Care) ([place]) documented in this encounter Medications at Time [...] 1 tablet (10 mg total) nightly 06/19/2023 documented as of this encounter Discharge Disposition Disposition Code Departure Means Destination Comment s Discharge to home or self care documented in this encounter H&P Notes * Christiano Pulido MD - 04/14/2024 11:34 AM CDT History and Physical Subjective: Amna Chauhan is a 43 y.o. year old female who presents for sterilization. She does notdesire future fertility. Amna has cerebral palsy. Contraception:Condoms. Patient's last menstrual period was 03/31/2024 (approximate). Past Medical History: Diagnosis Date Anxiety Asthma Bipolar disorder (HCC) Cerebral palsy (HCC) MDD (major depressive disorder) Motion sickness Schizoaffective disorder (CMS/HCC) (HCC) Thyroid disease Past Surgical History: Procedure Laterality Date HERNIA REPAIR Prior to Admission medications Medication Sig Start Date End Date Taking? Authorizing Provider atorvastatin (LIPITOR) 10 mg tablet Take 1 tablet (10 mg total) by mouth daily 06/20/23 Yes Provider, MD Franny clonazePAM (KlonoPIN) 0.5 mg tablet 2 (two) times a day as needed 05/14/23 Yes Provider, MD Franny divalproex DR (DEPAKOTE) 500 mg EC tablet Take 1 tablet (500 mg total) by mouth 2 (two) times a day. 06/29/18 04/14/24 Yes Girma Winters MD PhD Gemtesa 75 mg tablet daily 06/19/23 Yes Provider, MD Franny paliperidone ER (INVEGA) 9 mg 24 hr tablet 06/25/23 Yes Provider, MD Franny Trintellix 10 mg tablet 1 tablet (10 mg total) nightly 06/19/23 Yes Provider, MD Franny Allergies Allergen Reactions Diflucan [Fluconazole] Rash Diclofenac Diarrhea Family History Problem Relation Age of Onset Heart disease Paternal Grandfather Lymphoma Paternal Grandmother Alcohol abuse Maternal Grandmother Diabetes Maternal Grandmother Alcohol abuse Father Pancreatic cancer Father Depression Mother Anxiety disorder Mother Bipolar disorder Mother's Sister Breast cancer Father's Sister Depression Cousin Schizophrenia Cousin Alcohol abuse Other Anxiety disorder Other Social History Tobacco Use Smoking status: Never Smokeless tobacco: Never Substance and Sexual Activity Drug use: No Sexual activity: Defer Alcohol Use: Not At Risk (04/08/2024) AUDIT-C Frequency of Alcohol Consumption: Monthly or less Average Number of Drinks: Patient does not drink Frequency of Binge Drinking: Never ROS: No chest pain, dyspnea, dysuria or melena. Objective: BP 128/75 Pulse 73 Temp 36.9 ??C (98.5 ??F) (Temporal) Resp 16 Ht 157.5 cm (5' 2 ) Wt 144lb 2.9 oz (65.4 kg) LMP 03/31/2024 (Approximate) SpO2 98% BMI 26.37 kg/m?? Pleasant female in NAD. Physical Exam: HEENT: WNL Neck: supple, no thyromegaly or cervical LAD Heart: RRR Lungs: clear Abdomen: soft, non-tender, no masses Pelvic: deferred to OR Extremities: non-tender Recent Results (from the past 168 hour(s)) POCT hCG, urine Collection Time: 04/14/24 9:45 AM Result Value Ref Range HCG, ur, POC Negative Negative Lot Number [id number] QC Backgroud Clear Acceptable QC Control Line Acceptable CBC with auto differential Collection Time: 04/14/24 9:56 AM Result Value Ref Range WBC 6.4 3.8 - 9.9 K/cumm Hgb 12.7 11.9 - 15.5 g/dL Hct 37.8 35.6 - 45.5 % Plt 186 150 - 400 K/cumm MPV 10.7 9.1 - 12.3 fL RBC 3.97 3.90 - 5.20 M/cumm MCV 95.2 81.3 - 96.4 fL MCH 32.0 27.1 - 33.3 pg MCHC 33.6 32.3 - 35.7 g/dL RDW CV 13.7 11.1 - 14.9 % RDW SD 48.6 (H) 35.7 - 48.1 fL NRBC abs 0.00 0.00 - 0.01 K/cumm Differential, auto Collection Time: 04/14/24 9:56 AM Result Value Ref Range Neutrophil abs 2.7 1.5 - 6.5 K/cumm Imm gran abs 0.0 0.0 - 0.1 K/cumm Lymphocyte abs 2.8 0.8 - 3.3 K/cumm Monocyte abs 0.8 0.2 - 0.8 K/cumm Eosinophil abs 0.1 0.0 - 0.5 K/cumm Basophil abs 0.0 0.0 - 0.1 K/cumm Neutrophil pct 42.2 % Imm gran pct 0.2 % Lymphocyte pct 43.9 % Monocyte pct 12.3 % Eosinophil pct 0.9 % Basophil pct 0.5 % Urinalysis reflex to microscopic and culture Urine, clean voided Collection Time: 04/14/24 10:14 AM Specimen: Urine, clean voided Result Value Ref Range Color, ur Yellow Yellow Clarity, ur Turbid (A) Clear Specific gravity, ur 1.025 1.003 - 1.030 pH, urine 7.0 Protein, ur ql Negative Negative Glucose, ur ql Negative Negative Ketones, ur Negative Negative Bilirubin, ur Negative Negative Blood, ur Negative Negative Urobilinogen, ur <2.0 <2.0 mg/dL Nitrite, ur Negative Negative Leukocyte esterase, ur 2+ (A) Negative UA reflex comment Reflex to microscopic UA will be performed. Urinalysis, microscopic only Collection Time: 04/14/24 10:14 AM Result Value Ref Range WBC, ur 0-5 0 - 5 /HPF RBC, ur 0-2 0 - 2 /HPF Epithelial cells, squamous, ur 11-20 (A) 0 - 5 /HPF Mucous, ur Present (A) Culture Reflex Comment Reflex conditions for urine culture (WBC >10) not met. Assessment and Plan: Desires sterilization. I have discussed permanency, alternative contraception, 1% failure rate or less, risks of injury and incidence of regret. Risks of bleeding, infection, anesthesia, risks of injury to surrounding structures discussed. Patient desires laparoscopic bilateral salpingectomy for possible cancer reduction benefit. Nature of procedure and recovery discussed. Patient wishes to proceed. Christiano Pulido MD 03/11/2024 documented in this encounter Miscellaneous Notes * Op Note - Christiano Pulido MD - 04/14/2024 1:55 PM CDT Operative Note Preop Dx: Sterilization Post op Dx: Same Procedure: Laparoscopic bilateral salpingectomy Anesthesia: General endotracheal EBL: Less than 25 mL Findings: 1. Normal uterus, tubes and ovaries. 2. Smooth liver edge Specimens: Bilateral tubes Abx: None Drains: None Counts: Correct Compl.: None Condition: To RR stable. Indications for Procedure: Amna Chauhan is a 43 y.o. female who presents for sterilization. Benefits and risks discussed as outlined in H&P, and informed consent obtained. Operative Technique: After the benefits and risks were discussed, and informed consent was obtained, the patient was taken to the operating room and under successful general endotracheal anesthesia was prepped and draped in the usual sterile manner for laparoscopic surgery. SCDs were placed on the patient's legs. The patient's bladder was emptied; and a time out was performed. 1-2 ml of 1% Lidocaine with epinephrine was injected subcutaneously under each incision. A one cm umbilical incision was made with a sharp knife and with countertraction on the abdomen a 5 mm trocar was inserted directly into the peritoneal cavity with the camera in place. High flow was used to fully insufflate the abdomen to maximum pressure 15 mm CO2. Inspection revealed a smooth liver edge andnormal upper abdomen. Patient was placed in Trendelenburg. Two additional 5 mm trocars were placed in the right and left lower quadrants of the abdomen by making 1 cm incisions and then inserting thetrocars under direct visualization. The above findings were noted. Ovaries both had adipose tissue o n the cortex. The tubes were removed from their mesosalpinx attachments using the 5 mm LigaSure device. The tubes were removed and sent to pathology. Inspection revealed hemostasis. Pictures were taken. All CO2 was expressed from the peritoneal cavity. The incisions were closed with subcuticular sutures of 4 0 Monocryl, Mastisol and Steri-Strips. Bandages were applied. The patient was transferredto the recovery room in good condition. She tolerated the procedure well. * Pre-Procedure Instructions - Vanessa Carolina RN - 04/08/2024 1:16 PM CDT We are pleased that you and your doctor have chosen [facility] for your surgery. We hope that the following information will help make your visit a pleasant one. Surgery Date: 04/14/2024 Surgery starts at 12:35 pm, be here at 11:00 am. Before your surgery: Notify your doctor of ANY change in your health such as a cold, sore throat, fever, any infection or a change in the problem for which you are having your surgery. Follow any instructions given to you by your doctor or surgeon. Check with your doctor if you need to STOP taking: Aspirin (ordered by your doctor) Plavix Coumadin One week before surgery STOP taking: All herbal supplements Aspirin (not ordered by your doctor) Aleve, Advil, Motrin, Ibuprofen, or other similar medications (Tylenol is okay). 24 hours before your surgery: No smoking or alcoholic drinks. Night before your surgery: Do not eat or drink anything after midnight.. Follow surgeon's instructions for anti-bacterial shower night before and morning of surgery. Day of surgery: Do not swallow any water when you brush your teeth. ONLY take these pills with a tiny sip of water. Pre-Surgery Instructions: Medication Instructions atorvastatin (LIPITOR) 10 mg tablet Take as prescribed divalproex DR (DEPAKOTE) 500 mg EC tablet Take as prescribed Gemtesa 75 mg tablet Take as prescribed Trintellix 10 mg tablet Take as prescribed clonazePAM (KlonoPIN) 0.5 mg tablet Take as prescribed paliperidone ER (INVEGA) 9 mg 24 hr tablet Take as prescribed Use no make-up, nail belgian, lotions, oils or powders on your skin. Wear comfortable clothes that will not be tight in the area of your surgery. Leave all valuables and jewelry (including all body piercing jewelry) at home. Please bring your a photo ID and insurance cards with you. Check in at the Registration Desk downstairs in the Ambulatory Surgery Department. You will come inthe main entrance and go down the dang until you see the [employer] shop, there will be elevators to the right, take those down to LL1. You will exist the elevators to the right and go down thehall and you will pass Medical Imaging on the left and we will be the next department on the right,you will see the sign above that says Ambulatory Surgery Department check-in. After your Outpatient Surgery: You must have a responsible adult to drive you home, you will not be allowed to drive or take a cabhome. We recommend you have someone stay with you for 24 hours after your surgery. What to bring if you are spending the night with us: Bring toiletry items such as: robe, slippers, toothbrush, toothpaste, brush or comb. Bring contact lens, hearing aids, glass cases and denture container if you use any of these items. The hospital will provide you with a gown. Questions or concerns: If you have any questions or concerns regarding your procedure, contact your surgeon as soon as possible. If you have questions regarding your Pre-Admission Testing, please call us. We can be reached at the number posted at the top of the page. documented in this encounter Plan of Treatment Not on file documented as of this encounter Procedures Procedure Name Priority Date/Time Associated Diagnosis Comments SURGICAL PATHOLOGY Routine 04/14/2024 2: 50 PM CDT Sterilization SALPINGECTOMY 04/14/2024 1:11 PM CDT Sterilization URINALYSIS AND REFLEX TO MICROSCOPIC AND CULTURE STAT 04/14/2024 10:14 AM CDT URINALYSIS, MICROSCOPIC ONLY STAT 04/14/2024 10:14 AM CDT DIFFERENTIAL AUTO STAT 04/14/2024 9:5 6 AM CDT CBC WITH AUTO DIFFERENTIAL STAT 04/14/2024 9:56 AM CDT POCT HCG, URINE Routine 04/14/2024 9:45 AM CDT documented in this encounter Results * Surgical pathology (04/14/2024 2:50 PM CDT) Tissue (Fallopian tube, sterilization) 04/14/2024 2:10 PM CDT Narrative PATHOLOGY [facility] ([place]) - 04/15/2024 9:07 AM CDT EPIC results best viewed via link to PDF [facility] Department of Pathology [address] [place] [address] Note to Patients: This report may contain a detailed description of human tissue sent by a health care provider to the laboratory for pathologic evaluation. The content of this report is essential for diagnosis and may provide important critical findings. This information may be unfamiliar to patients to review without a medical professional present. It is advised that the patient review this report in the presence of a health care provider who can answer questions and explain the details. Final Report Patient Name: ??AMNA CHAUHANHiginio Address: ??[address] [place] [address] , ??[place], [place] [address] Gender: ??F : ??1980 (Age: 43) Service: ??Surgery Location: ??[facility] Hospital #: ??[id number] Patient Type: ??[facility] EP OP in bed Accession # ?[id number] Taken: ??04/14/2024 Received: ??04/14/2024 Accessioned: ??04/14/2024 Reported: ??04/15/2024 Physician(s):Christiano M. Talsky, M.D. Diagnosis: Bilateral fallopian tubes, laparoscopic bilateral salpingectomy: ? - Benign paratubal cyst (shorter tube). ? - Otherwise unremarkable fallopian tubes (complete luminal cross-sections identified). Lemuel Hussein MD Report Electronically Reviewed and Signed Out By ??Lemuel Hussein MD ??04/15/2024 09:07:48 Specimen(s) Received: A: Bilateral fallopian tubes Microscopic Description: Sections show a benign paratubal cyst on the shorter fallopian tube. ??The fallopian tubes are otherwise unremarkable. Complete luminal cross-sections are identified. ?? Clinical History: Sterilization. ??Laparoscopic bilateral salpingectomy. Gross Description: The specimen is submitted in a single formalin filled container labeled AMNA CHAUHAN and bilateral fallopian tubes . ??It is two purple pink fimbriated fallopian tubes, received without designation as to laterality. ??They are 5.8 x 0.9 cm and 7.1 x 0.7 cm. ??A paratubal cysts is noted on the shorter tube. ??Sectioning shows patent lumens. ??Director Of Quality Control sections are submitted in A1-A2, respectively. Jayda Shea/Chelo Herrera M.D. REPORT IMAGES AND SCANNED DOCUMENTS, IF INCLUDED, ONLY VIEWABLE IN PDF VERSION OF REPORT The performance characteristics of some immunohistochemical stains, fluorescence in-situ hybridization tests and immunophenotyping by flow cytometry cited in this report (if any) were determined by the Surgical Pathology Department at [facility] as part of an ongoing quality tech program and in compliance with federally mandated regulations drawn from the Clinical Laboratory Improvement Act of 1988 (CLIA '88). ??Some of these tests rely on the use of analyte specific reagents and are subject to specific labeling requirements by the US Food and Drug Administration. ??Such diagnostic tests may only be performed in a facility that is certified by the Department of Health and Human Services as a high complexity laboratory under CLIA '88. The FDA has determined that such clearance or approval is not necessary. ??This test is used for clinical purposes. ??It should not be regarded as investigational or for research. ??Nevertheless, federal rules concerning the medical use of analyte specific reagents require that the following disclaimer be attached to the report: This test was developed and its performance characteristics determined by the Surgical Pathology Department [facility]. ??It has not been cleared or approved by the U. S. Food and Drug Administration. Note for decalcified specimens: This assay has not been validated on decalcified tissues. Results should be interpreted with caution given the possibility of false negativity on decalcified specimens Christiano Pulido MD LAB PATHOLOGY ORDERABLES F inal Result Performing Organization Address [facility] de Phone Number PATHOLOGY [facility] ([place]) [address] [place] [address] * (ABNORMAL) Urinalysis, microscopic only (04/14/2024 10:14 AM CDT) WBC, ur 0-5 0 - 5 /HPF RBC, ur 0-2 0 - 2 /HPF [facility] Epithelial cells, squamous, ur 11-20(A) 0 - 5 /HPF [facility] ([place]) Mucous, ur Present(A) [facility] ([place]) Culture Reflex Comment Reflex conditions for urine culture (WBC >10) not met. [facility] ([place]) Urine, clean voided 04/14/2024 10:14 AM CDT 04/14/2024 10:16 AM CDT Christiano Pulido MD LAB URINE ORDERABLES Final Result Performing Organization Address [facility] de Phone Number [facility] ([place]) [address] [facility] Department [place] [address] * (ABNORMAL) Urinalysis reflex to microscopic and culture Urine, clean voided (04/14/2024 10:14 AM CDT) Color, ur Yellow Yellow Clarity, ur Turbid(A) Clear [facility] ([place]) Specific gravity, ur 1.025 1.003 - 1.030 [facility] ([place]) pH, urine 7.0 [facility] ([place]) Comment: Interpretive Data ? Urine pH is affected by diet, medications, systemic acid-base disturbances, and renal tubular function. ??pH may affect urinary stone formation. ??For example, urine pH below 6.0 may help reduce the tendency for calcium phosphate stones and pH greater than 6.0 may reduce the tendency for uric acid stone formation. Source: [facility] Current Interpretive Data was last revised on 2017 Protein, ur ql Negative Negative [facility] ([place]) Glucose, ur ql Negative Negative [facility] ([place]) Ketones, ur Negative Negative [facility] ([place]) Bilirubin, ur Negative Negative [facility] ([place]) Blood, ur Negative Negative [facility] ([place]) Urobilinogen, ur <2.0 <2.0 mg/dL [facility] ([place]) Nitrite, ur Negative Negative [facility] ([place]) Leukocyte esterase, ur 2+(A) Negative [facility] ([place]) UA reflex comment Reflex to microscopic UA will be performed. [facility] ([place]) Urine, clean voided 04/14/2024 10:14 AM CDT 04/14/2024 10:16 AM CDT Christiano Pulido MD LAB MICROBIOLOGY - GENERAL ORDERABLES Final Result [facility] ([place]) [address] [facility] Department [place] [address] * Differential, auto (04/14/2024 9:56 AM CDT) Neutrophil abs 2.7 1.5 - 6.5 K/cumm Imm gran abs 0.0 0.0 - 0.1 K/cumm [facility] ([place]) Lymphocyte abs 2.8 0.8 - 3.3 K/cumm [facility] ([place]) Monocyte abs 0.8 0.2 - 0.8 K/cumm [facility] ([place]) Eosinophil abs 0.1 0.0 - 0.5 K/cumm [facility] ([place]) Basophil abs 0.0 0.0 - 0.1 K/cumm [facility] ([place]) Neutrophil pct 42.2 % [facility] ([place]) Comment: Interpretive Data Percent cell count reference ranges are not reported, since discordance with absolute values may lead to misinterpretation of CBC data. Current Interpretive Data was last revised on 2018. Imm gran pct 0.2 % [facility] ([place]) Comment: Interpretive Data Percent cell count reference ranges are not reported, since discordance with absolute values may lead to misinterpretation of CBC data. Current Interpretive Data was last revised on 2018. Lymphocyte pct 43.9 % [facility] ([place]) Comment: Interpretive Data Percent cell count reference ranges are not reported, since discordance with absolute values may lead to misinterpretation of CBC data. Current Interpretive Data was last revised on 2018. Monocyte pct 12.3 % [facility] ([place]) Comment: Interpretive Data Percent cell count reference ranges are not reported, since discordance with absolute values may lead to misinterpretation of CBC data. Current Interpretive Data was last revised on 2018. Eosinophil pct 0.9 % [facility] ([place]) Comment: Interpretive Data Percent cell count reference ranges are not reported, since discordance with absolute values may lead to misinterpretation of CBC data. Current Interpretive Data was last revised on 2018. Basophil pct 0.5 % [facility] ([place]) Comment: Interpretive Data Percent cell count reference ranges are not reported, since discordance with absolute values may lead to misinterpretation of CBC data. Current Interpretive Data was last revised on 2018. Blood 04/14/2024 9:56 AM CDT 04/14/2024 10:16 AM CDT Christiano Pulido MD LAB BLOOD ORDERABLES Final Result [facility] ([place]) [address] [facility] Department [place] [address] * (ABNORMAL) CBC with auto differential (04/14/2024 9:56 AM CDT) WBC 6.4 3.8 - 9.9 K/cumm Hgb 12.7 11.9 - 15.5 g/dL [facility] ([place]) Hct 37.8 35.6 - 45.5 % [facility] ([place]) Plt 186 150 - 400 K/cumm [facility] ([place]) MPV 10.7 9.1 - 12.3 fL [facility] ([place]) RBC 3.97 3.90 - 5.20 M/cumm [facility] ([place]) MCV 95.2 81.3 - 96.4 fL [facility] ([place]) MCH 32.0 27.1 - 33.3 pg [facility] ([place]) MCHC 33.6 32.3 - 35.7 g/dL [facility] ([place]) RDW CV 13.7 11.1 - 14.9 % [facility] ([place]) RDW SD 48.6(H) 35.7 - 48.1 fL [facility] ([place]) NRBC abs 0.00 0.00 - 0.01 K/cumm [facility] ([place]) Blood 04/14/2024 9:56 AM CDT 04/14/2024 10:16 AM CDT Christiano Pulido MD LAB BLOOD ORDERABLES Final Result Performing Organization Address City/State/[facility] Co de Phone Number [facility] ([place]) [address] [facility] Department [place] [address] * POCT hCG, urine (04/14/2024 9:45 AM CDT) HCG, ur, POC Negative Negative Lot Number [id number] QC Backgroud Clear Acceptable QC Control Line Acceptable Urine 04/14/2024 9:45 AM CDT Christiano Pulido MD POINT OF CARE TEST ORDERAB LES Final Result documented in this encounter Visit Diagnoses Diagnosis Sterilization- Primary Sterilization documented in this encounter Admitting Diagnoses Diagnosis Sterilization documented in this encounter Administered Medications Inactive Administered Medications - up to 3 most recent administrations Medication Order MAR Action Action Date Dose Rate Site acetaminophen (TYLENOL) tablet 1,000 mg 1,000 mg, oral, Once, On Fri04/14/24 at 1015, For 1 dose, Pre-Op, Indications: Pre-Emptive AnalgesiaIndications:Pre- Emptive Analgesia Given 04/14/2024 10:05 AM CDT 1,000 mg Lactated Ringer's (LR) infusion 30 mL/hr, intravenous, Continuous, Starting on Fri04/14/24 at 1015, Pre-Op Rate/Dose Verify 04/14/2024 1:25 PM CDT 30 mL/hr New Bag 04/14/2024 10:05 AM CDT 30 mL/hr 30 mL/hr lidocaine-EPINEPHrine (XYLOCAINE with EPI) 1 %-1:200,000 preservative free injection As needed, Starting on Fri04/14/24 at 1354, Intra-Op, Indications: Administration of Local AnesthesiaIndications:Administratio n of Local Anesthesia Given 04/14/2024 1:54 PM CDT 8 mL Surgical Site documented in this encounter Discontinued Medications Medication Sig Discontinue Reason Start Date End Da te paliperidone ER (INVEGA) 6 mg 24 hr tablet Therapy completed 06/25/2023 04/08/2024 progesterone (PROMETRIUM) 200 mg capsule Take one capsule at bedtime on nights 16- of each cycle. Start this Friday. Therapy completed 02/09/2024 04/08/2024 traZODone (DESYREL) 50 mg tabletIndications:insomn ia associated with depression Take 1 tablet (50 mg total) by mouth nightly as needed for sleep. Therapy completed 06/29/2018 04/08/2024 Trintellix 5 mg tablet Therapy completed 05/14/2023 024 vitamin E 400 unit capsule Take 1 capsule (400 Units total) by mouth daily Therapy completed 04/08/2024 OLANZapine (ZyPREXA) 5 mg tablet Take 5 mg by mouth nightly. Therapy completed 04/08/2024 documented as of this encounter Active and Recently Administered Medications Times are shown in CDT. Scheduled Medication Order 04/12/2024 04/13/2024 04/14/2024 acetaminophen (TYLENOL) tablet 1,000 mg (COMPLETED) 1,000 mg, oral, Once, On Fri04/14/24 at 1015, For 1 dose, Pre-Op, Indications: Pre-Emptive Analgesia 1005 (Given - Provid er: India Ramsay RN) Continuous Medication Order 04/12/2024 04/13/2024 04/14/2024 Lactated Ringer's (LR) infusion 30 mL/hr, intravenous, Continuous, Starting on Fri04/14/24 at 1015, Pre-Op 1005 (New Bag - Prov ider: India Ramsay RN)1325 (Rate/Dose Verify - Provider: Dick Barrios CRNA)1418 (Anesthesia Volume Adjustment - Provider: Dick Barrios CRNA)2030 (Due: Stopped) PRN Medication Order 04/12/2024 04/13/2024 04/14/2024 diphenhydrAMINE (BENADRYL) 50 mg/mL injection 12.5 mg 12.5 mg, intravenous, Administer over 2 Minutes, Every 15 min PRN, itching, Starting on Fri04/14/24 at 1456, For 2 doses, Phase I, Max cumulative dose 50 mg., Indications: Itching fentaNYL (SUBLIMAZE) preservative free injection 25 mcg 25 mcg, intravenous, Every 10 min PRN, 1st line for pain, Starting on Fri04/14/24 at 1456, Phase I, Notify Anesthesiologist if total PACU dose reaches 100 mcg and pain score 5/10 or more., Indications: Pain lidocaine-EPINEPHrine (XYLOCAINE with EPI) 1 %-1:200,000 preservative free injection (CANCELED) As needed, Starting on Fri04/14/24 at 1354, Intra-Op, Indications: Administration of Local Anesthesia 1354 (Given - Provid er: Christiano Pulido MD) meperidine (DEMEROL) preservative free injection 12.5 mg 12.5 mg, intravenous, Administer over 5 Minutes, Every 10 min PRN, shivering, Starting on Fri04/14/24 at 1456, For 2 doses, Phase I, Max cumulative dose 25 mg., Indications: Shivering naloxone (NARCAN) 0.4 mg/mL injection 0.04-0.4 mg 0.04-0.4 mg, intravenous, Once as needed, other, excessive sedation/respiratory depression, Starting on Fri04/14/24 at 1456, For 1 dose, Phase I, Dilute 0.4 mg with 9 mL NS (final concentration 0.04 mg/mL). For respiratory depression (respiratory rate less than 6), administer 0.4 mg IVP over 30 seconds. For excessive sedation administer 0.04 mg (1 mL) every 1 minute until desired level of alertness. For IV, administer over 30 seconds., Indications: Opioid Toxicity ondansetron (ZOFRAN) injection 4 mg 4 mg, intravenous, Administer over 2 Minutes, Once as needed, nausea, vomiting, Starting on 04/14/24 at 1456, For 1 dose, Phase I, Proceed to prochlorperazine if ondansetron has been given within the last 6 hours. prochlorperazine (COMPAZINE) injection 5 mg 5 mg, intravenous, Administer over 2 Minutes, Once as needed, nausea, vomiting, Starting on Fri04/14/24 at 1456, For 1 dose, Phase I, If nausea/vomiting not relieved by ondansetron within 30 minutes or if ondansetron has been given within the last 6 hours. documented in this encounter Orders Medications Ordered That Ken ht Not Have Been Administered Count Last Ordered Date First Ordered Date diphenhydrAMINE (BENADRYL) 5 0 mg/mL injection 12.5 mg 1 04/14/2024 fentaNYL (SUBLIMAZE) preserv ative free injection 25 mcg 1 04/14/2024 meperidine (DEMEROL) preserv ative free injection 12.5 mg 1 04/14/2024 naloxone (NARCAN) 0.4 mg/mL injection 0.04-0.4 mg 1 04/14/2024 ondansetron (ZOFRAN) injection 4 mg 1 04/14 prochlorperazine (COMPAZINE) injection 5 mg 1 04/14/2024 Diet Count Last Ordered Date First Orde red Date ADULT DISCHARGE DIET 2 04/14/2024 Nursing Count Last Ordered Date First Orde red Date DISCHARGE ACTIVITY 3 04/14/2024 DISCHARGE CALL PROVIDER 3 04/14/2024 DISCHARGE DRESSING 2 04/14/2024 DISCHARGE INSTRUCTIONS 1 04/14/2024 FOLLOW UP WITH ESTABLISHED PROVIDER 1 04/14 Admission Count Last Ordered Date First Orde red Date INITIATE OUTPATIENT IN A BED 1 04/14/2024 Discharge Count Last Ordered Date First Orde red Date DISCHARGE PATIENT 1 04/14/2024 documented in this encounter Care Teams Product Promoter Sales Person Relationship Specialty Start Date End Date Trever Goodwin MD [address] [place] [address] PCP - General 06/25/18 Christiano Pulido MD [address] [facility] [address] [place] [id number] Clerical Adviser Obstetrics and Gynecology 04/14/24 documented as of this encounter
--- OUTSIDE RECORDS SUMMARY | 2024-12-04 02:26 | XMS_ITS | Encounter Summary ---
Author Organization [facility] Healthcare Address [address] [place] [address] Care Team Providers Care Educational Psychologist Name Role Phone Trever Goodwin MD Primary Care Prov ider Christiano Pulido MD Unavailable [phone] Reason for Visit * Auth/Cert (Routine) Specialty Diagnoses / Procedures Referred By Leeann wallace Referred To Contact Diagnoses Sterilization Sterilization [Z30.2] Procedures NE SALPINGECTOMY COMPLETE/PARTIAL UNI/BI SPX LAPAROSCOPIC BILATERAL SALPINGECTOMY Referral ID Status Reason Start Date Expiration Date Visits Re quested Visits Authorized [id number] 1 1 Encounter Details Date Type Department Care Team (Latest Contact Info) Description 04/14/2024 9:23 AM CDT - 04/14/2024 4:16 PM CDT Hospital Encounter [facility] Operating Room [address] [place] [address] Christiano Pulido MD [address] [place] [address] [address] Sterilization Discharge Disposition: Discharge to home or self [...] on file 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 * Laparoscopic Tubal Ligation (Discharge Care) (Surinamese) * General Anesthesia (Discharge Care) (Surinamese) * Salpingectomy (Discharge Care) (Surinamese) documented in this encounter Medications at Time [...] (two) times a day. 06/29/18 04/14/24 Yes Grima Winters MD PhD Gemtesa 75 mg tablet daily 06/19/23 Yes Provider, Historical, paliperidone ER (INVEGA) 9 mg 24 hr tablet 06/25/23 Yes Provider, Historical, Trintellix 10 mg tablet 1 tablet (10 mg total) nightly 06/19/23 Yes Provider, Historical, Allergies Allergen Reactions Diflucan [Fluconazole] Rash Diclofenac [...] that you and your doctor have chosen [facility] for your surgery. We hope that the [...] Take as prescribed Use no make-up, nail american, lotions, oils or powders on your skin. [...] down the dang until you see the [employer]/coffee shop, there will be elevators to the [...] sterilization) 04/14/2024 2:10 PM CDT Narrative [facility] - 04/15/2024 9:07 AM CDT EPIC results best viewed via link to PDF [facility] Department of Pathology [address] [place] [address] Note to Patients: This report may contain [...] Final Report Patient Name: ??AMNA CHAUHANHiginio Address: ??[address] [place] [address] , ??[place], [place] [address] Gender: ??F : ??1980 (Age: 43) Service: ??Surgery Location[facility] Hospital #: ??[id number] Patient Type: ??[facility] EP OP in bed Accession # ?[id number] Taken: ??04/14/2024 Received: ??04/14/2024 Accessioned: ??04/14/2024 Reported: ??04/15/2024 Physician(s):Christiano Pulido M.D. Diagnosis: Bilateral fallopian tubes, laparoscopic bilateral [...] the shorter tube. ??Sectioning shows patent lumens. ??Brand Recorder sections are submitted in A1-A2, respectively. Jayda Shea/Chelo Herrera M.D. REPORT IMAGES AND SCANNED DOCUMENTS, IF INCLUDED, ONLY VIEWABLE IN PDF VERSION OF REPORT The performance characteristics of some immunohistochemical stains, fluorescence in-situ hybridization tests and immunophenotyping by flow cytometry cited in this report (if any) were determined by the Surgical Pathology Department at [facility] as part of an ongoing quality control operator program and in compliance with federally mandated [...] characteristics determined by the Surgical Pathology Department [facility]. ??It has not been cleared or approved by the U. S. Food and Drug Administration. Note for decalcified specimens: This assay has not been validated on decalcified tissues. Results should be interpreted with caution given the possibility of false negativity on decalcified specimens Christiano Pulido MD LAB PATHOLOGY ORDERABLES F inal Result PATHOLOGY [facility] ([facility]) [address] [place] [address] * (ABNORMAL) Urinalysis, microscopic only (04/14/2024 10:14 AM CDT) WBC, ur 0-5 0 - 5 /HPF RBC, ur 0-2 0 - 2 /HPF [facility] ([place]) Epithelial cells, squamous, ur 11-20(A) 0 - 5 /HPF [facility] ([place]) Mucous, ur Present(A) [facility] ([place]) Culture Reflex Comment Reflex conditions for urine culture (WBC >10) not met. [facility] ([place]) Urine, clean voided 04/14/2024 10:14 AM CDT 04/14/2024 10:16 AM CDT Christiano Pulido MD LAB URINE ORDERABLES Final Result Performing Organization Address City/State/[facility] Co de Phone Number [facility] ([place]) [address] [facility] Department [place] [address] * (ABNORMAL) Urinalysis reflex to microscopic and culture Urine, clean voided (04/14/2024 10:14 AM CDT) Color, ur Yellow Yellow Clarity, ur Turbid(A) Clear [facility] ([place]) Specific gravity, ur 1.025 1.003 - 1.030 [facility] ([place]) pH, urine 7.0 [facility] Comment: Interpretive Data ? Urine pH is affected by diet, medications, systemic acid-base disturbances, and renal tubular function. ??pH may affect urinary stone formation. ??For example, urine pH below 6.0 may help reduce the tendency for calcium phosphate stones and pH greater than 6.0 may reduce the tendency for uric acid stone formation. Source: [facility] Current Interpretive Data was last revised on 2017 Protein, ur ql Negative Negative [facility] ([place]) Glucose, ur ql Negative Negative [facility] ([place]) Ketones, ur Negative Negative [facility] ([place]) Bilirubin, ur Negative Negative [facility] ([place]) Blood, ur Negative Negative [facility] ([place]) Urobilinogen, ur <2.0 <2.0 mg/dL [facility] ([facility] [place]) Nitrite, ur Negative Negative [facility] ([place]) Leukocyte esterase, ur 2+(A) Negative [facility] ([place]) UA reflex comment Reflex to microscopic UA will be performed. [facility] ([place]) Urine, clean voided 04/14/2024 10:14 AM CDT 04/14/2024 10:16 AM CDT us Christiano Pulido MD LAB MICROBIOLOGY - GENERAL ORDERABLES Final Result [facility] ([facility]) [address] [facility] Department [place] [address] * Differential, auto (04/14/2024 9:56 AM CDT) [...] Eosinophil pct 0.9 % [facility] ([place]) Comment: Interpretive Data Percent cell count reference ranges are not reported, since discordance with absolute values may lead to misinterpretation of CBC data. Current Interpretive Data was last revised on 2018. Basophil pct 0.5 % [facility] ([place]) Comment: Interpretive Data Percent cell count reference ranges are not reported, since discordance with absolute values may lead to misinterpretation of CBC data. Current Interpretive Data was last revised on 2018. Blood 04/14/2024 9:56 AM CDT 04/14/2024 10:16 AM CDT Christiano Pulido MD LAB BLOOD ORDERABLES Final Result [facility] ([place]) [address] [facility] Department [place] [address] * (ABNORMAL) CBC with auto differential (04/14/2024 9:56 AM CDT) WBC 6.4 3.8 - 9.9 K/cumm Hgb 12.7 11.9 - 15.5 g/dL [facility] ([place]) Hct 37.8 35.6 - 45.5 % [facility] ([place]) Plt 186 150 - 400 K/cumm [facility] ([place]) MPV 10.7 9.1 - 12.3 fL [facility] ([place]) RBC 3.97 3.90 - 5.20 M/cumm [facility] ([place]) MCV 95.2 81.3 - 96.4 fL [facility] ([place]) MCH 32.0 27.1 - 33.3 pg [facility] ([place]) MCHC 33.6 32.3 - 35.7 g/dL [facility] ([place]) RDW CV 13.7 11.1 - 14.9 % [facility] ([place]) RDW SD 48.6(H) 35.7 - 48.1 fL [facility] ([place]) NRBC abs 0.00 0.00 - 0.01 K/cumm [facility] ([place]) Blood 04/14/2024 9:56 AM CDT 04/14/2024 10:16 AM CDT Christiano Pulido MD LAB BLOOD ORDERABLES Final Result [facility] ([facility]) [address] [facility] [place] [address] * POCT hCG, urine (04/14/2024 9:45 AM CDT) HCG, ur, POC Negative Negative Lot Number [id number] QC Backgroud Clear Acceptable QC Control Line Acceptable Urine 04/14/2024 9:45 AM CDT Christiano Pulido MD POINT OF CARE TEST ORDERAB LES Final Result documented in this encounter Visit Diagnoses Diagnosis Sterilization- Primary documented in this encounter Admitting Diagnoses Diagnosis [...] 10:05 AM CDT 30 mL/hr 30 mL/hr documented in this encounter Discontinued Medications Medication [...] ative free injection 25 mcg 1 04/14/2024 lidocaine-EPINEPHrine (XYLOC JOSIE with EPI) 1 %-1:200,000 preservative free injection 1 04/14/2024 meperidine (DEMEROL) preserv ative free [...] 04/14/2024 documented in this encounter Care Teams Educational Psychologist Relationship Specialty Start Date End Date Trever Goodwin MD [address] [place] [address] PCP - General 06/25/18 Christiano Pulido MD [address] [place] [address] DR [address] [place] [id number] Helicopter Mechanic Obstetrics and Gynecology 04/14/24 documented as of this encounter
--- OUTSIDE RECORDS SUMMARY | 2024-12-04 02:26 | XMS_ITS | Encounter Summary ---
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
--- OUTSIDE RECORDS SUMMARY | 2024-12-04 02:26 | XMS_ITS | Encounter Summary ---
Author Organization [facility] Healthcare Address [address] [place] [address] Care Team Providers Care Tank Car Mechanic Name Role Phone Trever Goodwin MD Primary Care Prov ider Christiano Pulido MD Unavailable [phone] Reason for Visit * Auth/Cert (Routine) Specialty Diagnoses / Procedures Referred By Leeann wallace Referred To Contact Diagnoses Sterilization Sterilization [Z30.2] Procedures CA SALPINGECTOMY COMPLETE/PARTIAL UNI/BI SPX LAPAROSCOPIC BILATERAL SALPINGECTOMY Referral ID Status Reason Start Date Expiration Date Visits Re quested Visits Authorized [id number] 1 1 Encounter Details Date Type Department Care Team (Late st Contact Info) Description 04/14/2024 1:25 PM CDT Anesthesia Event [facility] Operating Room [address] [place] [address] Marc Solis MD [address] [place] [address] [place] [address] [facility] [place] [address] Anesthesia Record Procedure Summary Procedure Name Responsible Anesthesiologist Anesthesia Start Time Anesthesia Stop Time LAPAROSCOPIC BILATERAL SALPINGECTOMY (Bilateral: Abdomen) Marc Solis MD 04/14/24 1325 04/14/24 1436 Events Date Time Event Comment 04/14/2024 1135 1325 An Start 1325 An Start Data 1326 In Room 1336 An Induction The patient was reevaluated immediately before moderate or deep sedation use and before anesthesia induction. 1338 An Intubation 1340 Anesthesia Ready 1355 Proc Start 1355 Incision Start 1423 An Extubation 1425 Proc Fin 1427 an stop data 1428 Out of Room 1436 Handoff to RN I completed my handoff to the receiving nurse during which we: 1. Patient identified 2. Responsible provider identified 3. Pertinent medical history reviewed 4. Procedure type and surgical course discussed 5. Intraoperative anesthetic management and any significant issues discussed 6. Expectations and concerns for postop period discussed 7. Questions solicited from receiving nurse 8. Patient disposition at the time of handoff: No value filed. 1436 An Stop Meds Name Total midazolam 2 mg fentaNYL 50 mcg propofol 120 mg lidocaine (cardiac) syringe 2 % 40 mg rocuronium 40 mg ondansetron 4 mg dexamethasone 10 mg ketorolac 30 mg sugammadex 200 mg Lactated Ringer's (LR) infusion 900 mL * Agents Name O2 N2O Air Sevoflurane Inspired Sevoflurane * Blood No blood administrations on file. Lines, Drains, and Airways Type Details Placement Removal Peripheral IV Placement Date: 04/14/24; Placement Time: 952; Catheter Size: 20 G; Orientation: Distal, Posterior, Right; Location: Forearm; Site Prep: Chlorhexidine; Technique: Anatomical landmarks; Inserted by: Keyanna MAJOR; Insertion Attempts: 1; Patient Tolerance: Tolerated well; Removal Date: 04/14/24; Removal Time: 161; Removal Reason: Discharge 04/14/24 0953 by India Ramsay RN 04/14/24 1614 by India Ramsay RN ETT Placement Date: 04/14/24; Placement Time: 1348 (created via procedure documentation); Mask Ventilation: 2; Technique: Video laryngoscopy; Type: ETT - single; Single Lumen Tube Size: 7 mm; Cuffed: Yes; Laryngoscope: Angelina; Blade Size: 3; Location: Oral; Insertion Attempts: 1; Placement Verification: Auscultation, Capnometry; Airway Comment: Atraumatic intubation; Removal Date: 04/14/24; Removal Time: 1423 04/14/24 1348 by Dick Barrios CRNA 04/14/24 1423 by Dick Barrios CRNA RETIRED Surgical Site 04/14/24; 1401; Bilateral; Abdomen; 11/02/24 (Retired LDA, Removed/Completed by Chalet Tech with LDA Utility); 1213 (Retired LDA, Removed/Completed by Chalet Tech with LDA Utility) 04/14/24 1401 by Rufina Martini RN 11/02/24 1213 by Discharge Provider, Automatic documented in this encounter Social History Tobacco [...] on file Legal Sex Female 6:04 PM HIV PREVENTION SPECIALIST Gender Identity Female 09/18/2024 11:46 PM CDT Sexual Orientation Straight 09/18/2024 11 :46 PM CDT documented as of this encounter OR Notes * Anesthesia Postprocedure Evaluation - Marc Solis MD - 04/14/2024 3:21 PM CDT Patient: Amna Hodgson Procedure Summary Date: 04/14/24 Room / Location: [facility] OR [address] [place] [address] OPERATING ROOM Anesthesia Start: 1325 Anesthesia Stop: 1436 Procedure: LAPAROSCOPIC BILATERAL SALPINGECTOMY (Bilateral: Abdomen) Diagnosis: Sterilization (Sterilization [Z30.2]) Providers: Christiano Pulido MD Responsible Provider: Marc Solis MD Anesthesia Type: general ASA Status: 2 Anesthesia Type: general Last vitals BP 103/58 Pulse 64 Temp 37 ??C (98.6 ??F) (Temporal) Resp 19 SpO2 92% Anesthesia Post Evaluation Patient location during evaluation: PACU Patient participation: complete - patient participated Level of consciousness: fully awake Pain management: adequate Airway patency: adequate Evidence of recall: no Cardiovascular status: acceptable Respiratory status: acceptable Hydration status: acceptable Pt is: normothermic Nausea/Vomiting status: none No notable events documented. * Anesthesia Procedure Notes - Dick Barrios CRNA - 04/14/2024 1:47 PM CDT Associated Order(s): Airway Airway Patient location: OR Urgency: elective Indications for airway management: anesthesia and airway protection Difficult airway: no Staff: Placed by: MANAGER GAMES: Dick Barrios CRNA Emergent airway documentation: Risks and benefits discussed: yes Consent obtained: yes Consent given by: patient Airway prep: Preoxygenated: yes Patient position: sniffing Mask difficulty assessment: 2 - vent by mask + OA or adjuvant Spontaneous ventilation during airway: absent Sedation level during airway: GA Final airway details: Final airway type: endotracheal airway Tube type: ETT ETT size: 7.0 mm Cuffed: yes Technique used for successful ETT placement: video laryngoscopy Devices/Methods used in placement: intubating stylet Insertion site: oral Blade type: Angelina Video blade type: De Anda Blade size: 3 Cormack-Lehane (video): grade I - full view of glottis Cuff volume: 5 mL Cuff inflated with: air ETT to lips: 20 cm Placement verified by: auscultation and CO2 detection Airway secured with: silk tape Number of attempts: 1 Planned trial extubation: yes Additional comments: Atraumatic intubation * Anesthesia Preprocedure Evaluation - Jerry Brown MD - 04/14/2024 10:16 AM CDT Images from the original note were not included. Anesthesia Evaluation Amna Hodgson is a 43 y.o. female LAPAROSCOPIC BILATERAL SALPINGECTOMY (Bilateral: Abdomen) Pre-Op Diagnosis Codes: * Sterilization [Z30.2] HISTORY Past Medical History Information obtained from: patient and chart. Information obtained during: In Person Neurological + Psychiatric history (schizoaffective DO, CP) - bipolar Respiratory + Asthma Endocrine / Other + Thyroid disease Functional Capacity Functional capacity: 4-6 METs Day of Surgery assessments + Possibility of assessed - HCG negative (see labs). Review of Systems Pertinent negatives: SOB and chest pain Patient Active Problem List Diagnosis Date Noted Sterilization 03/11/2024 Sterilization consult 03/07/2024 Encounter for general counseling and advice on contraceptive management 12/11/2023 Amenorrhea 12/11/2023 Dizziness 12/16/2018 Schizoaffective disorder (CMS/HCC) ([facility]) 12/16/2018 Other cerebral palsy ([facility]) 06/29/2018 Thyroid disease 06/27/2018 Asthma 06/27/2018 Anxiety 06/27/2018 History of unspecified seizure 06/27/2018 Episodic bipolar mood disorder, not currently active 06/26/2018 Past Medical History: Diagnosis Date Anxiety Asthma Bipolar disorder ([facility]) Cerebral palsy ([facility]) MDD (major depressive disorder) Motion sickness Schizoaffective disorder (CMS/HCC) ([facility]) Thyroid disease Past Surgical History: Procedure Laterality Date HERNIA REPAIR OB History 0 Para 0 Term 0 0 AB 0 Living 0 SAB 0 IAB 0 Ectopic 0 Multiple 0 Live Births 0 Allergies Allergen Reactions Diflucan [Fluconazole] Rash Diclofenac Diarrhea Med List Status: Nurse Complete Set By: Vanessa Carolina RN at 04/08/2024 1:15 PM Taking? Last Dose Start Date End Date Provider atorvastatin (LIPITOR) 10 mg tablet 04/13/2024 06/20/23 -- Provider, MD Franny clonazePAM (KlonoPIN) 0.5 mg tablet Past Month 05/14/23 -- Provider, MD Franny divalproex DR (DEPAKOTE) 500 mg EC tablet 04/13/2024 06/29/18 04/14/24 Girma Winters MD Take 1 tablet (500 mg total) by mouth 2 (two) times a day. Gemtesa 75 mg tablet 04/13/2024 06/19/23 -- ProviderFranny MD paliperidone ER (INVEGA) 9 mg 24 hr tablet 04/13/2024 06/25/23 -- Franny Wallace MD Trintellix 10 mg tablet 04/13/2024 06/19/23 -- ProviderFranny MD Current Facility-Administered Medications: Lactated Ringer's (LR) infusion, 30 mL/hr, intravenous, Continuous, Last Rate: 30 mL/hr at 005, 30 mL/hr at 04/14/24 1005 Social History Tobacco Use Smoking Status Never Smokeless Tobacco Never Alcohol Use: Not At Risk (04/08/2024) AUDIT-C Frequency of Alcohol Consumption: Monthly or less Average Number of Drinks: Patient does not drink Frequency of Binge Drinking: Never Substance and Sexual Activity Drug Use No Family History Problem Relation Age of Onset Heart disease Paternal Grandfather Lymphoma Paternal Grandmother Alcohol abuse Maternal Grandmother Diabetes Maternal Grandmother Alcohol abuse Father Pancreatic cancer Father Depression Mother Anxiety disorder Mother Bipolar disorder Mother's Sister Breast cancer Father's Sister Depression Cousin Schizophrenia Cousin Alcohol abuse Other Anxiety disorder Other Vitals: 04/14/24 0939 BP: 128/75 Pulse: 73 Resp: 16 Temp: 36.9 ??C (98.5 ??F) SpO2: 98% PT: No results found for requested labs within last 30 days. INR: No results found for requested labs within last 30 days. APTT: No results found for requested labs within last 30 days. Hgb A1C: No results found for requested labs within last 30 days. CBC RBC: No results found for requested labs within last 30 days. RDW: No results found for requested labs within last 30 days. MCHC: No results found for requested labs within last 30 days. MCH: No results found for requested labs within last 30 days. MCV: No results found for requested labs within last 30 days. Hct: No results found for requested labs within last 30 days. Hgb: No results found for requested labs within last 30 days. WBC: No results found for requested labs within last 30 days. MPV: No results found for requested labs within last 30 days. Platelets: No results found for requested labs within last 30 days. RDW CV: No results found for requested labs within last 30 days. RDW Sd: No results found for requested labs within last 30 days. BMP Glucose: No results found for requested labs within last 30 days. Calcium: No results found for requested labs within last 30 days. Sodium: No results found for requested labs within last 30 days. Potassium: No results found for requested labs within last 30 days. CO2: No results found for requested labs within last 30 days. Chloride: No results found for requested labs within last 30 days. BUN: No results found for requested labs within last 30 days. Creatinine: No results found for requested labs within last 30 days. STOP-Bang Total Score: 1 DOS Physical Exam Medical history, medications, and allergies reviewed. Attestation: I endorse the findings of the anesthesia pre-evaluation assessment dated: 04/14/2024. Airway Exam: Mallampati: II Cervical ROM: FROM Cardiovascular Exam: Rate: regular Pulmonary Exam: LCTA Dental Exam: Appears intact Current state: Patient's current state is cooperative and interactive. Anesthesia Plan ASA 2 My patient is approved for the Anesthesia Controlled Medication protocol when under care of a MANAGER GAMES Planned anesthesia: General Team communication plan: oral ET tube Induction: Induction: intravenous. Postoperative Plan: Patient's planned disposition post procedure is Outpatient. Informed Consent: Discussed plan with attending and MANAGER GAMES. Anesthesia plan and risks discussed with patient. Consent and Attending signature: I and/or my designee have discussed the anesthesia plan, benefits, possible alternatives, parental presence at time of induction (if indicated), and clinically relevant risks that may include dental injury, unintentional awareness, and/or other complications. The patient and/or parent/legal guardian understand, and agree to proceed. All questions answered. documented in this encounter Plan of Treatment Not on file documented as of this encounter Procedures Procedure Name Priority Date/Time Associated Diagnosis Comments CA AN ELECTIVE ENDOTRACHEAL AIRWAY Routine 04/14/2024 1:47 PM CDT documented in this encounter Results * CA AN ELECTIVE ENDOTRACHEAL AIRWAY (04/14/2024 1:47 PM CDT) Narrative Dick Barrios CRNA - 04/14/2024 1:47 PM CDT Dick Barrios CRNA ? 04/14/2024 ??1:48 PM Airway Patient location: OR Urgency: elective Indications for airway management: anesthesia and airway protection Difficult airway: no Staff: Placed by: MANAGER GAMES: Dick Barrios CRNA Emergent airway documentation: Risks and benefits discussed: yes Consent obtained: yes Consent given by: patient Airway prep: Preoxygenated: yes Patient position: sniffing Mask difficulty assessment: 2 - vent by mask + OA or adjuvant Spontaneous ventilation during airway: absent Sedation level during airway: GA Final airway details: Final airway type: endotracheal airway Tube type: ETT ETT size: 7.0 mm Cuffed: yes Technique used for successful ETT placement: video laryngoscopy Devices/Methods used in placement: intubating stylet Insertion site: oral Blade type: Angelina Video blade type: De Anda Blade size: 3 Cormack-Lehane (video): grade I - full view of glottis Cuff volume: 5 mL Cuff inflated with: air ETT to lips: 20 cm Placement verified by: auscultation and CO2 detection Airway secured with: silk tape Number of attempts: 1 Planned trial extubation: yes Additional comments: Atraumatic intubation Marc Solis MD ANESTHESIA ORDERABLES Final Result documented in this encounter Visit Diagnoses Not on filedocumented in this encounter Administered Medications Inactive Administered Medications - up to 3 most recent administrations Medication Order MAR Action Action Date Dose Rate Site dexAMETHasone (DECADRON) 4 mg/mL injection intravenous, Administer over 2 Minutes, As needed, Starting on Fri04/14/24 at 1342, Anesthesia Intra-op Given 04/14/2024 1:42 PM CDT 10 mg fentaNYL (SUBLIMAZE) preservative free injection intravenous, As needed, Starting on Fri04/14/24 at 1336, Anesthesia Intra-op Given 04/14/2024 1:56 PM CDT 25 mcg Given 04/14/2024 1:36 PM CDT 25 mcg ketorolac (TORADOL) 30 mg/mL injection intravenous, As needed, Starting on Fri04/14/24 at 1412, Anesthesia Intra-op Given 04/14/2024 2:12 PM CDT 30 mg Lactated Ringer's (LR) infusion 30 mL/hr, intravenous, Continuous, Starting on Fri04/14/24 at 1015, Pre-Op Rate/Dose Verify 04/14/2024 1:25 PM CDT 30 mL/hr New Bag 04/14/2024 10:05 AM CDT 30 mL/hr 30 mL/hr lidocaine (PF) (XYLOCAINE) 20 mg/mL (2 %) preservative free injection intravenous, As needed, Starting on Fri04/14/24 at 1336, Anesthesia Intra-op Given 04/14/2024 1:36 PM CDT 40 mg midazolam (VERSED) 1 mg/mL preservative free injection intravenous, Administer over 2 Minutes, As needed, Starting on Fri04/14/24 at 1323, Anesthesia Intra-op Given 04/14/2024 1:23 PM CDT 2 mg ondansetron (ZOFRAN) injection intravenous, Administer over 2 Minutes, As needed, Starting on Fri04/14/24 at 1342, Anesthesia Intra-op Given 04/14/2024 1:42 PM CDT 4 mg propofoL (DIPRIVAN) 10 mg/mL IV intravenous, As needed, Starting on Fri04/14/24 at 1336, Anesthesia Intra-op New Bag 04/14/2024 1:36 PM CDT 120 mg rocuronium (ZEMURON) injection intravenous, As needed, Starting on Fri04/14/24 at 1344, Anesthesia Intra-op Given 04/14/2024 1:44 PM CDT 10 mg Given 04/14/2024 1:36 PM CDT 30 mg sugammadex (BRIDION) 100 mg/mL intravenous solution intravenous, As needed, Starting on Fri04/14/24 at 1413, Anesthesia Intra-op Given 04/14/2024 2:13 PM CDT 200 mg documented in this encounter Care Teams Tank Car Mechanic Relationship Specialty Start Date End Date Trever Goodwin MD [address] [place] [address] PCP - General 06/25/18 Christiano Pulido MD [address] [place] [address] [place] [id number] Client Services Director Obstetrics and Gynecology 04/14/24 documented as of this encounter
--- OUTSIDE RECORDS SUMMARY | 2024-12-04 02:26 | XMS_ITS | Encounter Summary ---
Author Organization [facility] Healthcare Address [address] [place] [address] Care Team Providers Care Gas Welding Equipment Mechanic Name Role Phone Unavailable Primary Care Provider Unavailabl e Encounter Details Date Type Department Care Team (Late st Contact Info) Description 01/04/2009 2:20 PM CALIBRATION TECHNICIAN - 01/04/2009 11:59 PM CALIBRATION TECHNICIAN Hospital Encounter [facility] Other viral disease contact Social History Tobacco Use Types Packs/Day Years Used Date Smoking Tobacco: Never Assessed Comments Unknown Sex and Gender Information Value Date Recorded Sex Assigned at Not on file Legal Sex Female 6:04 PM CALIBRATION TECHNICIAN Gender Identity Female 09/18/2024 11:46 PM CDT Sexual Orientation Straight 09/18/2024 11 :46 PM CDT documented as of this encounter Plan of Treatment Not on file documented as of this encounter Visit Diagnoses Diagnosis Other viral disease contact documented in this encounter
--- OUTSIDE RECORDS SUMMARY | 2024-12-04 02:26 | XMS_ITS | Encounter Summary ---
Author Organization [facility] Healthcare Address [address] [place] [address] Care Team Providers Care Regulatory Product Manager Name Role Phone Trever Goodwin MD Primary Care Prov ider Encounter Details Date Type Department Care Team (Late st Contact Info) Description 12/16/2023 Telephone [facility] Medical [facility] at [address] [phone] Zuleyma Christiansen NP [address] [place] [address] [address] Social History Tobacco Use Types Packs/Day Years [...] on file Legal Sex Female 6:04 PM TOOLS PROGRAMMER Gender Identity Female 09/18/2024 11:46 PM CDT Sexual Orientation Straight 09/18/2024 11 :46 PM CDT documented as of this encounter Ordered Prescriptions Prescription Sig Dispense Quantity Refills Last Filled Start Date End Date metroNIDAZOLE (METROGEL) 0.75 % (37.5mg/5 gram) vaginal gelIndications:Ellie terial Vaginosis Apply vaginally every night for 5 nights. 70 g 12/16/2023 01/21/202 4 documented in this encounter Miscellaneous Notes * Telephone Encounter - Ngozi Cortés MA - 12/16/2023 4:10 PM CST Pt called back and would like to go forward with the metrogel. Please advise S PROGRAMMER * Telephone Encounter - Ngozi Cortés MA - 12/16/2023 1:24 PM CST Pt called and is having some nausea and abdominal pain with the Flagyl. I asked if she ate while taking this med and she did not. I recommended her following the BRAT diet when taking the medication and to call back if the symptoms persist. Please advise if you would like me to tell her something different. Thanks! S PROGRAMMER documented in this encounter Plan of Treatment Not on file documented as of this encounter Visit Diagnoses Not on filedocumented in this encounter Care Teams Regulatory Product Manager Relationship Specialty Start Date End Date Trever Goodwin MD [address] [place] [address] PCP - General 06/25/18 documented as of this encounter
--- OUTSIDE RECORDS SUMMARY | 2024-12-04 02:26 | XMS_ITS | Encounter Summary ---
Author Organization [facility] Healthcare Address [address] [place] [address] Care Team Providers Care Jordan Man Name Role Phone Trever Goodwin MD Primary Care Prov ider Reason for Referral * Diagnostic Imaging (Routine) - Closed Specialty Diagnoses / Procedures Referred By Leeann wallace Referred To Contact Diagnoses Encounter for screening mammogram for malignant neoplasm of breast Procedures Screening Mammogram Bilateral W Ayde Siegel NP Phone: tel: fax: [address] [address] Referral ID Status Reason Start Date Expiration Date Visits Re quested Visits Authorized [id number] Closed 08/26/2019 03/06/2021 1 1 LFISH PROCESSING MACHINE TENDER Reason for Visit * Diagnostic Imaging (Routine) - Closed Specialty Diagnoses / Procedures Referred By Leeann wallace Referred To Contact Diagnoses Encounter for screening mammogram for malignant neoplasm of breast Procedures Screening Mammogram Bilateral W Ayde Siegel NP Phone: tel: fax: [address] [address] Referral ID Status Reason Start Date Expiration Date Visits Re quested Visits Authorized [id number] Closed 08/26/2019 03/06/2021 1 1 Encounter Details Date Type Department Care Team (Latest Contact Info) Description 01/06/2020 12:28 PM SHELLFISH PROCESSING MACHINE TENDER - 01/06/2020 11:59 PM SHELLFISH PROCESSING MACHINE TENDER Hospital Encounter [facility] [address] [place] [address] Byron Mcintosh MD [address] [facility] [address] BENJAMIN Carroll [address] [address] Ayde Hughes NP 4 [facility] [address] [address] Encounter for screening mammogram for malignant neoplasm [...] on file Legal Sex Female 6:04 PM SHELLFISH PROCESSING MACHINE TENDER Gender Identity Female 09/18/2024 11:46 PM CDT Sexual Orientation Straight 09/18/2024 11 :46 PM CDT documented as of this encounter Last Filed Vital Signs Vital Sign Reading Time Taken Comments Blood Pressure - - Pulse - - Temperature - - Respiratory Rate - - Oxygen Saturation - - Inhaled Oxygen Concentration - - Weight 69.9 kg (154 lb) 01/06/2020 12:37 PM SHELLFISH PROCESSING MACHINE TENDER Height 158.8 cm (5' 2.5 ) 01/06/2020 12:37 PM CS T Body Mass Index 27.72 01/06/2020 12:37 PM SHELLFISH PROCESSING MACHINE TENDER documented in this encounter Medications at Time of Discharge divalproex DR (DEPAKOTE) 500 mg EC tabletIndications :Mood Changes Take 1 tablet (500 mg total) by mouth 2 (two) times a day. 60 tablet 1 06/29/2018 cholecalciferol (VITAMIN D3) 2,000 unit capsule 2,000 Units. 12/11/2023 levothyroxine (SYNTHROID, LEVOTHROID) 50 mcg tabletIndications :hypothyroidism Take 1 tablet (50 mcg total) by mouth child specialist before breakfast. 30 tablet 06/30/2018 02/09/2024 melatonin [...] BIN Schedule Routine, Read Routine (OP Routine) 01/06/2020 12:45 PM SHELLFISH PROCESSING MACHINE TENDER Encounter for screening mammogram for malignant neoplasm of breast documented in this encounter Results * Screening Mammogram Bilateral W Bin (01/06/2020 12:45 PM SHELLFISH PROCESSING MACHINE TENDER) Anatomical Region Laterality Modality Breast Bilateral Mammography 01/07/2020 3:27 PM SHELLFISH PROCESSING MACHINE TENDER Impressions 01/07/2020 3:31 PM SHELLFISH PROCESSING MACHINE TENDER No evidence of malignancy. Follow-up in 1 year with screening mammography is recommended. BI-RADS: 1 - Negative. The patient has been or will be contacted. The patient will be entered into a reminder system with a target due date of 1 year for her next mammogram. Electronically signed by: Juventino Oleary M.D. Narrative 01/07/2020 3:31 PM SHELLFISH PROCESSING MACHINE TENDER EXAMINATION: SCREENING MAMMOGRAM BILATERAL W BIN ORDERING HEALTHCARE PROVIDER: AYED HUGHES HISTORY: Routine screening mammography. COMPARISON: ??None. ??This is the patient's baseline examination. TECHNIQUE: CC and MLO views of the bilateral breasts were obtained with digital technique using breast tomosynthesis with C view. Computer aided detection was utilized. ??There was motion on the original MLO view of the left breast which improved on a repeat view. FINDINGS: The breast tissue is extremely dense, which lowers the sensitivity of mammography. ??The dense breast tissue is predominantly located in the middle depth of the breasts, with scattered fibroglandular tissue in the far posterior and anterior depth. There are no suspicious masses, calcifications, or architectural distortion. us Ayde Hughes CLIENT RELATIONSHIP MANAGER IMG MAMMO PROCEDURES Final Re sult documented in this encounter Visit Diagnoses Diagnosis Encounter for screening mammogram for malignant neoplasm of breast documented in this encounter Care Teams Jordan Man Relationship Specialty Start Date End Date Trever Goodwin MD [address] [place] [address] PCP - General 06/25/18 documented as of this encounter
--- OUTSIDE RECORDS SUMMARY | 2024-12-04 02:26 | XMS_ITS | Encounter Summary ---
Author Organization [facility] Healthcare Address [address] [place] [address] Care Team Providers Care Glass Blower Name Role Phone Trever Goodwin MD Primary Care Prov ider Reason for Referral * Diagnostic Imaging (Routine) - Closed Specialty Diagnoses / Procedures Referred By Leeann t Referred To Contact Diagnoses Screening mammogram, encounter for Procedures Screening Mammogram Bilateral W Richard Screening Mammogram, Self [address] [address] Referral ID Status Reason Start Date Expiration Date Visits Re quested Visits Authorized [id number] Closed 07/09/2022 08/08/2023 1 1 Reason for Visit * Diagnostic Imaging (Routine) - Closed Specialty Diagnoses / Procedures Referred By Leeann t Referred To Contact Diagnoses Screening mammogram, encounter for Procedures Screening Mammogram Bilateral W Richard Screening Mammogram, Self [address] [address] Referral ID Status Reason Start Date Expiration Date Visits Re quested Visits Authorized [id number] Closed 07/09/2022 08/08/2023 1 1 Encounter Details Date Type Department Care Team (Latest Contact Info) Description 08/16/2022 12:42 PM CDT - 08/16/2022 11:59 PM CDT Hospital Encounter [facility] [address] [place] [address] Screening Mammogram, Self Screening mammogram, encounter for Discharge Disposition: Discharge to home or self [...] on file Legal Sex Female 6:04 PM AT RISK PARAPROFESSIONAL Gender Identity Female 09/18/2024 11:46 PM CDT [...] 1 tablet (50 mcg total) by mouth line maintenance supervisor before breakfast. 30 tablet 06/30/2018 02/09/2024 melatonin [...] Associated Diagnosis Comments SCREENING MAMMOGRAM BILATERAL W RICHARD Schedule Routine, Read Routine (OP Routine) 08/16/2022 1:02 PM CDT Screening mammogram, encounter for documented in this encounter Results * Screening Mammogram Bilateral W Richard (08/16/2022 1:02 PM CDT) Anatomical Region Laterality Modality Breast Bilateral Mammography 08/16/2022 2:44 PM CDT Impressions 08/16/2022 2:44 PM CDT There is no mammographic evidence of malignancy. A 1 year screening mammogram is recommended. BI-RADS: 1 - Negative. The patient has been or will be contacted. The patient will be entered into a reminder system with a target due date of 1 year for her next mammogram. Electronically signed by: Farhat Silva M.D. Narrative 08/16/2022 2:44 PM CDT EXAMINATION: SCREENING MAMMOGRAM BILATERAL W RICHARD ORDERING HEALTHCARE PROVIDER: SELF SCREENING MAMMOGRAM HISTORY: Routine screening mammography. COMPARISON: ??06/12/2021, 01/06/2020 TECHNIQUE: CC and MLO views of [...] has been no suspicious interval change. us Self Screening Mammogram IMG MAMMO PROCEDURES Fi nal Result documented in this encounter Visit Diagnoses Diagnosis Screening mammogram, encounter for documented in this encounter Care Teams Glass Blower Relationship Specialty Start Date End Date Trever Goodwin MD [address] [place] [address] PCP - General 06/25/18 documented as of this encounter
--- OUTSIDE RECORDS SUMMARY | 2024-12-04 02:26 | XMS_ITS | Encounter Summary ---
Author Organization [facility] Address [address] [place] [address] Phone Care Team Providers Care Customer Service Clerk Name Role Phone Trever Goodwin MD Primary Care Prov ider Reason for Visit * Reason Onset Date Comments OTHER,MU 12/11/2018 Encounter Details Date Type Department Care Team (Late st Contact Info) Description 12/11/2018 Telephone [facility] Neuro Sleep [address] [facility] 6th [address] [place] [address] Isra Durán RMA OTHER,MU Social History Tobacco Use Types Packs/Day Years Used Date Smoking Tobacco: Never Smokeless Tobacco: Never Alcohol Use Standard Drinks/Week Comments Yes 0 (1 standard drink = 0.6 oz pure alcohol) Patient stated a little bit, not to excess and then would not elaborate. Comments Unknown Sex and Gender Information Value Date Recorded Sex Assigned at Not on file Legal Sex Female 6:04 PM GERIATRIC PHYSICAL THERAPIST Gender Identity Female 09/18/2024 11:46 PM CDT Sexual Orientation Straight 09/18/2024 11 :46 PM CDT documented as of this encounter Miscellaneous Notes * Telephone Encounter - Isra Durán MA - 12/11/2018 2:19 PM GERIATRIC PHYSICAL THERAPIST Spoke with patient,MU is partially done.A current medication list will be brought in at appointment. ATRIC PHYSICAL THERAPIST documented in this encounter Plan of Treatment Not on file documented as of this encounter Visit Diagnoses Not on filedocumented in this encounter Care Teams Customer Service Clerk Relationship Specialty Start Date End Date Trever Goodwin MD [address] [place] [address] PCP - General 06/25/18 documented as of this encounter
--- OUTSIDE RECORDS SUMMARY | 2024-12-04 02:26 | XMS_ITS | Encounter Summary ---
Author Organization [facility] Healthcare Address [address] [place] [address] Care Team Providers Care Water Pump Assembler Name Role Phone Trever Goodwin MD Primary Care Prov ider Reason for Visit * Reason Onset Date Comments Lab Results 02/18/2024 Cycle Update, Post Provera 02/18/2024 Encounter Details Date Type Department Care Team (Late st Contact Info) Description 02/18/2024 Telephone [employer] [address] [facility] [address] [place] [phone] Madeleine Ayala RN Lab Results; Cycle Update, Post Provera Social History Tobacco Use Types Packs/Day Years [...] on file Legal Sex Female 6:04 PM ESTERS AND EMULSIFIERS SUPERVISOR Gender Identity Female 09/18/2024 11:46 PM CDT Sexual Orientation Straight 09/18/2024 11 :46 PM CDT documented as of this encounter Miscellaneous Notes * Telephone Encounter - Madeleine Ayala RN - 02/23/2024 3:51 PM CDT Per pt: I just started my cycle today just wanted to let you know it???s been light so far * Telephone Encounter - Madeleine Ayala RN - 02/23/2024 10:04 AM CDT I don???t have much of a period flow I think I spotted some days but it was really light I didn???texactly get the medicine on the first day because it was out of stock what are the next steps thanks so much for your time * Telephone Encounter - Madeleine Ayala RN - 02/18/2024 11:57 AM CDT Pt aware that her recent labs are all normal. What are pts next steps? Thanks! documented in this encounter Plan of Treatment Not on file documented as of this encounter Visit Diagnoses Not on filedocumented in this encounter Care Teams Water Pump Assembler Relationship Specialty Start Date End Date Trever Goodwin MD [address] [place] [address] PCP - General 06/25/18 documented as of this encounter
--- OUTSIDE RECORDS SUMMARY | 2024-12-04 11:45 | XMS_ITS | Encounter Summary ---
Author Organization [facility] Healthcare Address [address] [facility] [place] [address] Care Team Providers Care Melter Supervisor Open Hearth Furnace Name Role Phone Trever Goodwin MD Primary Care Prov ider Reason for Visit * Reason Comments Menstrual Problem * Diagnostic Imaging (Routine) - Closed Specialty Diagnoses / Procedures Referred By Leeann wallace Referred To Contact Diagnoses Irregular periods/menstrual cycles Procedures US Pelvis W Endovaginal Christiano Pulido MD [address] [facility] [address] [place] [address] Phone: tel: fax: [facility] Medical Group Referral ID Status Reason Start Date Expiration Date Visits Re quested Visits Authorized [id number] Closed 02/09/2024 03/10/2025 1 1 Encounter Details Date Type Department Care Team (Latest Contact Info) Description 03/04/2024 2:00 PM CDT Ancillary Procedure [facility] [address] [facility] [address] [place] [phone] Irregular periods/menstrual cycles Social History Tobacco Use [...] on file Legal Sex Female 6:04 PM PROVIDER NETWORK MANAGER Gender Identity Female 09/18/2024 11:46 PM [...] cycles documented in this encounter Care Teams Melter Supervisor Open Hearth Furnace Relationship Specialty Start Date End Date Trever Goodwin MD [address] [place] [address] PCP - General 06/25/18 documented as of this encounter
--- OUTSIDE RECORDS SUMMARY | 2024-12-04 11:45 | XMS_ITS | Encounter Summary ---
Author Organization [facility] Healthcare Address [address] [place] [address] Care Team Providers Care Winemaker Name Role Phone Trever Goodwin MD Primary Care Prov ider Reason for Visit * Reason Onset Date Comments Lab Results 02/18/2024 Cycle Update, Post Provera 02/18/2024 Encounter Details Date Type Department Care Team (Late st Contact Info) Description 02/18/2024 Telephone [employer] [address] [facility] [address] [place] [phone] Madeleine Ayala RN Lab Results; Cycle [...] on file Legal Sex Female 6:04 PM CLIENT SERVER PROGRAMMER Gender Identity Female 09/18/2024 11:46 PM [...] on filedocumented in this encounter Care Teams Winemaker Relationship Specialty Start Date End Date Trever Goodwin MD [address] [place] [address] PCP - General 06/25/18 documented as of this encounter
--- OUTSIDE RECORDS SUMMARY | 2024-12-04 11:45 | XMS_ITS | Encounter Summary ---
Author Organization [facility] Healthcare Address [address] [place] [address] Care Team Providers Care Bottom Painter Name Role Phone Trever Goodwin MD Primary Care Prov ider Christiano Pulido MD Unavailable [phone] Reason for Visit * Reason Onset Date Comments Post Op Phone Call 04/15/2024 Encounter Details Date Type Department Care Team (Late st Contact Info) Description 04/15/2024 Telephone [employer] 4 [facility] [address] [place] [phone] Madeleine Ayala, MORIAH Post Op Phone [...] file Legal Sex Female 6:04 PM RESEARCH ELECTRICIAN Gender Identity Female 09/18/2024 11:46 PM CDT [...] on filedocumented in this encounter Care Teams Bottom Painter Relationship Specialty Start Date End Date Trever Goodwin MD [address] [place] [address] PCP - General 06/25/18 Christiano Pulido MD 4 [facility] [address] [place] [address] Safety Relief Valve Technician Obstetrics and Gynecology 04/14/24 documented as of this encounter
--- OUTSIDE RECORDS SUMMARY | 2024-12-04 11:45 | XMS_ITS | Encounter Summary ---
Author Organization [facility] Healthcare Address [address] [place] [address] Care Team Providers Care Nail Welter Name Role Phone Trever Goodwin MD Primary Care Prov ider Reason for Visit * Reason Onset Date Comments PA for Surgery 03/17/2024 Encounter Details Date Type Department Care Team (Late st Contact Info) Description 03/17/2024 Telephone [employer] [address] [facility] [address] [place] [address] Madeleine Ayala RN PA for [...] on file Legal Sex Female 6:04 PM FORENSIC MEDICAL EXAMINER Gender Identity Female 09/18/2024 11:46 PM CDT Sexual Orientation Straight 09/18/2024 11 :46 PM CDT documented as of this encounter Miscellaneous Notes * Telephone Encounter - Madeleine Ayala RN - 03/17/2024 3:02 PM CDT Pt has Medicare and [employer] for insurance. [place] [id number]. documented in this encounter Plan of Treatment Not on file documented as of this encounter Visit Diagnoses Not on filedocumented in this encounter Care Teams Nail Welter Relationship Specialty Start Date End Date Trever Goodwin MD [address] [facility] [address] PCP - General 06/25/18 documented as of this encounter
--- OUTSIDE RECORDS SUMMARY | 2024-12-04 11:45 | XMS_ITS | Encounter Summary ---
Author Organization [facility] Healthcare Address [address] [place] [address] Care Team Providers Care Shank Skinner Name Role Phone Trever Goodwin MD Primary Care Prov ider Christiano Pulido MD Unavailable [phone] Reason for Visit * Reason Comments Post-op Salpingectomy Encounter Details Date Type Department Care Team (Latest Contact Info) Description 04/27/2024 1:00 PM CDT Clinical Support [facility] [address] [place] [address] Christiano Pulido MD [address] [place] [address] [address] [place] [address] Follow-up examination after gynecological surgery [...] on file Legal Sex Female 6:04 PM 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
--- OUTSIDE RECORDS SUMMARY | 2024-12-04 11:45 | XMS_ITS | Clinical Summary ---
Author Organization [facility] Address [address] [place] [address] Care Team Providers Care Mainstreaming Facilitator Name Role Phone Trever Goodwin MD Primary Care Prov ider Christiano Pulido MD Unavailable [phone] Allergies Active Allergy Reactions Criticality Noted Date [...] 12/11/2023 Assessment & Plan (12/11/2023 2:47 PM METER/RELAY TECHNICIAN): Condom use encouraged for contraception. We discussed [...] 12/11/2023 Assessment & Plan (12/11/2023 2:49 PM METER/RELAY TECHNICIAN): Discussed that ideally we would like for [...] on file Legal Sex Female 6:04 PM METER/RELAY TECHNICIAN Gender Identity Female 09/18/2024 11:46 PM [...] TO HPV GENOTYPES Routine 01/08/2024 11:39 AM METER/RELAY TECHNICIAN Well woman exam with routine gynecological exam [...] no suspicious interval change. us Zuleyma Finley DISTRICT SALES COORDINATOR IMG MAMMO PROCEDURES Final Resul t * Pap and HPV, reflex to HPV Genotypes (01/08/2024 11:39 AM METER/RELAY TECHNICIAN) CLINICAL INFORMATION: [facility] Comment:WWE LMP [facility] Comment:1978 Previous Pap [facility] Comment:NONE GIVEN Prev. Bx [facility] Comment:NONE GIVEN SOURCE: [facility] Comment:Cervix, Endocervix Pap, specimen adequacy [facility] Comment: Satisfactory for evaluation. Endocervical/transformation zone component present. HPV interp [facility] Comment: Cytology Results: Negative for intraepithelial lesion or malignancy. COMMENTS [facility] Comment: This Pap test has been evaluated with computer assisted technology. Radiology Transcriptionist Que [facility] Comment: YOU, CT(ASCP) CT screening location: [place] [address] [place] [address] Comment [facility] Comment: EXPLANATORY NOTE: The Pap is [...] High Risk E6/E7 Not Detected NOT DETECTED [employer] [facility]Francesca aviles [place] Comment: Not Detected High Risk HPV types (16,18,31,33,35,39,45,51,52, 56,58,59,66,68) were not detected. Other HPV types which cause anogenital lesions may be present. The significance of the other types of HPV in malignant processes has not been established. Methodology: Real Time PCR ? Thin prep 01/08/2024 11:3 9 AM METER/RELAY TECHNICIAN 01/09/2024 8:31 AM METER/RELAY TECHNICIAN Zuleyma Finley DISTRICT SALES COORDINATOR LAB CYTOLOGY ORDERABLES Final Re sult [place] [address] [address] [place] [phone] [facility] [address] [facility] [place] [address] from Last 3 Months or Most Recently Relevant to Health Maintenance Insurance MEDICARE IDPA IDPA MEDICARE [facility] Address: [address] [address] [place] [address] IDPA IDPA MEDICARE IDPA Advance Directives For more information, please contact: [phone] * Full Code (Latest Code Status on File) Date Activated Date Inactivated Comments 06/26/2018 7:03 PM 06/29/2018 7:54 PM Care Teams Mainstreaming Facilitator Relationship Specialty Start Date End Date Trever Goodwin MD [address] [place] [address] PCP - General 06/25/18 Christiano Pulido MD [address] [facility] [address] [place] [address] Blender/Braze Applicator Obstetrics and Gynecology 04/14/24
--- OUTSIDE RECORDS SUMMARY | 2024-12-04 11:45 | XMS_ITS | Encounter Summary ---
Author Organization [facility] Healthcare Address [address] [place] [address] Care Team Providers Care Internet Consultant Name Role Phone Trever Goodwin MD Primary Care Prov ider Christiano Pulido MD Unavailable [phone] Reason for Visit * Auth/Cert (Routine) Specialty Diagnoses / Procedures Referred By Leeann wallace Referred To Contact Diagnoses Sterilization Sterilization [Z30.2] Procedures PA SALPINGECTOMY COMPLETE/PARTIAL UNI/BI SPX LAPAROSCOPIC BILATERAL SALPINGECTOMY Referral ID Status Reason Start Date Expiration Date Visits Re quested Visits Authorized [id number] 1 1 Encounter Details Date Type Department Care Team (Late st Contact Info) Description 04/14/2024 11:35 AM CDT - 04/14/2024 1:05 PM CDT Surgery [facility] Operating Room 1 [place] [address] Christiano Pulido MD [address] [place] [id number] LAPAROSCOPIC BILATERAL SALPINGECTOMY Surgery Details Date/Time Status [...] on file Legal Sex Female 6:04 PM UNDERLINER Gender Identity Female 09/18/2024 11:46 PM CDT [...] Everywhere. * Laparoscopic Tubal Ligation (Discharge Care) (Bruneian) * General Anesthesia (Discharge Care) (Bruneian) * Salpingectomy (Discharge Care) (Bruneian) documented in this encounter Medications at Time [...] that you and your doctor have chosen [facility] for your surgery. We hope that the [...] Take as prescribed Use no make-up, nail haitian, lotions, oils or powders on your skin. [...] down the dang until you see the [employer], there will be elevators to the [...] sterilization) 04/14/2024 2:10 PM CDT Narrative PATHOLOGY [facility] ([place]) - 04/15/2024 9:07 AM CDT EPIC results best viewed via link to PDF [facility] Department of Pathology [address] [place] [address] Note to Patients: This report may contain [...] Final Report Patient Name: ??AMNA CHAUHANHiginio Address: ??[address] [place] [address] , ??[place], [place] [address] Gender: ??F : ??1980 (Age: 43) Service: ??Surgery Location: ??[facility] Hospital #: ??[id number] Patient Type: ??[facility] EP OP in bed Accession # [id number] Taken: ??04/14/2024 Received: ??04/14/2024 Accessioned: ??04/14/2024 Reported: [...] the shorter tube. ??Sectioning shows patent lumens. ??Temporary Office Assistant sections are submitted in A1-A2, respectively. Jayda Shea/Chelo Herrera M.D. REPORT IMAGES AND SCANNED DOCUMENTS, IF INCLUDED, ONLY VIEWABLE IN PDF VERSION OF REPORT The performance characteristics of some immunohistochemical stains, fluorescence in-situ hybridization tests and immunophenotyping by flow cytometry cited in this report (if any) were determined by the Surgical Pathology Department at [facility] as part of an ongoing quality control specialist program and in compliance with federally mandated [...] characteristics determined by the Surgical Pathology Department [facility]. ??It has not been cleared or approved by the U. S. Food and Drug Administration. Note for decalcified specimens: This assay has not been validated on decalcified tissues. Results should be interpreted with caution given the possibility of false negativity on decalcified specimens Christiano Pulido MD LAB PATHOLOGY ORDERABLES F inal Result Performing Organization Address [facility] de Phone Number PATHOLOGY [facility] ([place]) 1 [place] [address] * (ABNORMAL) Urinalysis, microscopic only (04/14/2024 10:14 AM CDT) WBC, ur 0-5 0 - 5 /HPF RBC, ur 0-2 0 - 2 /HPF [facility] ([place] Epithelial cells, squamous, ur 11-20(A) 0 - 5 /HPF [facility]IE SWEET ([place]) Mucous, ur Present(A) TIFF[facility]IE Anders ([place]) Culture Reflex Comment Reflex conditions for urine culture (WBC >10) not met. [facility] ([place]) Urine, clean voided 04/14/2024 10:14 AM CDT 04/14/2024 10:16 AM CDT Christiano Pulido MD LAB URINE ORDERABLES Final Result Performing Organization Address [facility] de Phone Number [facility] ([place]) 1 [facility] [place] [address] * (ABNORMAL) Urinalysis reflex to microscopic and culture Urine, clean voided (04/14/2024 10:14 AM CDT) Color, ur Yellow Yellow Clarity, ur Turbid(A) Clear CERNER A ([place]) Specific gravity, ur 1.025 1.003 - 1.030 [facility] ([place]) pH, urine 7.0 TIFF[facility]IE [facility] ([place]) Comment: Interpretive Data ? Urine pH is affected by diet, medications, systemic acid-base disturbances, and renal tubular function. ??pH may affect urinary stone formation. ??For example, urine pH below 6.0 may help reduce the tendency for calcium phosphate stones and pH greater than 6.0 may reduce the tendency for uric acid stone formation. Source: [facility] Current Interpretive Data was last [...] Final Result [facility] ([place]) 1 [facility] Department [place] [address] * Differential, auto (04/14/2024 9:56 AM CDT) [...] LAB BLOOD ORDERABLES Final Result TIFFANIE SWEET ([place]) 1 [facility] Department [place] [address] * (ABNORMAL) CBC with auto differential (04/14/2024 [...] BLOOD ORDERABLES Final Result Performing Organization Address City/State/[facility] Co de Phone Number TIFFANIE SWEET ([place]) 1 [facility] Department [place] [address] * POCT hCG, urine (04/14/2024 9:45 AM [...] 04/14/2024 documented in this encounter Care Teams Internet Consultant Relationship Specialty Start Date End Date Trever Goodwin MD [address] [place] [address] PCP - General 06/25/18 Christiano Pulido MD [address] [place] [address] Brusher Operator Obstetrics and Gynecology 04/14/24 documented as of this encounter
--- OUTSIDE RECORDS SUMMARY | 2024-12-04 11:45 | XMS_ITS | Encounter Summary ---
Author Organization [facility] Healthcare Address [address] [place] [address] Care Team Providers Care Cigar Packing Examiner Name Role Phone Trever Goodwin MD Primary Care Prov ider Reason for Visit * Reason Onset Date Comments US Result 03/10/2024 Encounter Details Date Type Department Care Team (Late st Contact Info) Description 03/10/2024 Telephone aaTag 4 [facility] [address] [place] [address] Madeleine Ayala RN US Result [...] on file Legal Sex Female 6:04 PM GENERAL ADMINISTRATOR Gender Identity Female 09/18/2024 11:46 PM CDT [...] on filedocumented in this encounter Care Teams Cigar Packing Examiner Relationship Specialty Start Date End Date Trever Goodwin MD [address] [place] [address] PCP - General 06/25/18 documented as of this encounter
--- OUTSIDE RECORDS SUMMARY | 2024-12-04 11:45 | XMS_ITS | Encounter Summary ---
Author Organization [facility] Healthcare Address [address] [place] [address] Care Team Providers Care Coding File Clerk Name Role Phone Trever Goodwin MD Primary Care Prov ider Christiano Pulido MD Unavailable [phone] Reason for Visit * Auth/Cert (Routine) Specialty Diagnoses / Procedures Referred By Leenan wallace Referred To Contact Diagnoses Sterilization Sterilization [Z30.2] Procedures [place] SALPINGECTOMY COMPLETE/PARTIAL UNI/BI SPX LAPAROSCOPIC BILATERAL SALPINGECTOMY Referral ID Status Reason Start Date Expiration Date Visits Re quested Visits Authorized [id number] 1 1 Encounter Details Date Type Department Care Team (Latest Contact Info) Description 04/14/2024 9:23 AM CDT - 04/14/2024 4:16 PM CDT Hospital Encounter [facility] Operating Room 1 [place] [address] Christiano Pulido MD [address] [place] [address] [address] Sterilization Discharge Disposition: Discharge to home or [...] on file 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 * Laparoscopic Tubal Ligation (Discharge Care) (Rwandan) * General Anesthesia (Discharge Care) (Rwandan) * Salpingectomy (Discharge Care) (Rwandan) documented in this encounter Medications at Time [...] that you and your doctor have chosen [facility] for your surgery. We hope that the [...] Take as prescribed Use no make-up, nail cambodian, lotions, oils or powders on your skin. [...] down the dang until you see the [employer], there will be elevators to the [...] sterilization) 04/14/2024 2:10 PM CDT Narrative PATHOLOGY [facility] ([place]) - 04/15/2024 9:07 AM CDT EPIC results best viewed via link to PDF [facility] Department of Pathology [address] [place] [address] Note to Patients: This report may contain [...] Final Report Patient Name: ??AMNA CHAUHANHiginio Address: ??[address] [place] [address] , ??[place], [place] [address] Gender: ??F : ??1980 (Age: 43) Service: ??Surgery Location: ??[facility] BEDS AT [facility] Hospital #: ??[id number] Patient Type: ??[facility] EP OP in bed Accession # [id number] Taken: ??04/14/2024 Received: ??04/14/2024 Accessioned: ??04/14/2024 Reported: [...] the shorter tube. ??Sectioning shows patent lumens. ??Quality Control Engineering Technician sections are submitted in A1-A2, respectively. Jayda Shea/Chelo Herrera M.D. REPORT IMAGES AND SCANNED DOCUMENTS, IF INCLUDED, ONLY VIEWABLE IN PDF VERSION OF REPORT The performance characteristics of some immunohistochemical stains, fluorescence in-situ hybridization tests and immunophenotyping by flow cytometry cited in this report (if any) were determined by the Surgical Pathology Department at [facility] as part of an ongoing quality cloth tester program and in compliance with federally mandated [...] characteristics determined by the Surgical Pathology Department [facility]. ??It has not been cleared or approved by the U. S. Food and Drug Administration. Note for decalcified specimens: This assay has not been validated on decalcified tissues. Results should be interpreted with caution given the possibility of false negativity on decalcified specimens Christiano Pulido MD LAB PATHOLOGY ORDERABLES F inal Result PATHOLOGY [facility] ([place]) 1 [place] [address] * (ABNORMAL) Urinalysis, microscopic only (04/14/2024 10:14 AM CDT) WBC, ur 0-5 0 - 5 /HPF RBC, ur 0-2 0 - 2 /HPF [facility] ([place]) Epithelial cells, squamous, ur 11-20(A) 0 - 5 /HPF [facility] ([place]) Mucous, ur Present(A) [facility] A ([place]) Culture Reflex Comment Reflex conditions for urine culture (WBC >10) not met. [facility] ([place]) Urine, clean voided 04/14/2024 10:14 AM CDT 04/14/2024 10:16 AM CDT Christiano Pulido MD LAB URINE ORDERABLES Final Result Performing Organization Address City/State/[facility] Co de Phone Number [facility] ([place]) 1 [facility] Department [place] [address] * (ABNORMAL) Urinalysis reflex to microscopic and culture Urine, clean voided (04/14/2024 10:14 AM CDT) Color, ur Yellow Yellow Clarity, ur Turbid(A) Clear [facility] A ([place]) Specific gravity, ur 1.025 1.003 - 1.030 [facility] ([place]) pH, urine 7.0 [facility] ([place] Comment: Interpretive Data ? Urine pH is affected by diet, medications, systemic acid-base disturbances, and renal tubular function. ??pH may affect urinary stone formation. ??For example, urine pH below 6.0 may help reduce the tendency for calcium phosphate stones and pH greater than 6.0 may reduce the tendency for uric acid stone formation. Source: [facility] Current Interpretive Data was last revised on 2017 Protein, ur ql Negative Negative [facility] ([place]) Glucose, ur ql Negative Negative [facility] ([place]) Ketones, ur Negative Negative [facility] A [facility] ([place]) Bilirubin, ur Negative Negative [facility] ([place]) Blood, ur Negative Negative [facility] ([place]) Urobilinogen, ur <2.0 <2.0 mg/dL [facility] ([place]) Nitrite, ur Negative Negative [facility] A [facility] ([place]) Leukocyte esterase, ur 2+(A) Negative [facility] ([place]) UA reflex comment Reflex to microscopic UA will be performed. [facility] ([place]) Urine, clean voided 04/14/2024 10:14 AM CDT 04/14/2024 10:16 AM CDT us Christiano Pulido MD LAB MICROBIOLOGY - GENERAL ORDERABLES Final Result [facility] ([place]) 1 [facility] Department [place] [address] * Differential, auto (04/14/2024 9:56 AM CDT) [...] Pulido MD LAB BLOOD ORDERABLES Final Result [facility] ([place]) 1 [facility] [place] [address] * (ABNORMAL) CBC with auto differential (04/14/2024 [...] 32.0 27.1 - 33.3 pg [facility] ([place]) MCHC 33.6 32.3 - 35.7 g/dL [facility] ([place]) RDW CV 13.7 11.1 - 14.9 % [facility] ([place]) RDW SD 48.6(H) 35.7 - 48.1 fL [facility] ([place]) NRBC abs 0.00 0.00 - 0.01 K/cumm [facility] ([place]) Blood 04/14/2024 9:56 AM CDT 04/14/2024 10:16 AM CDT Christiano Pulido MD LAB BLOOD ORDERABLES Final Result [facility] ([place]) 1 [facility] [place] [address] * POCT hCG, urine (04/14/2024 9:45 AM [...] 04/14/2024 documented in this encounter Care Teams Coding File Clerk Relationship Specialty Start Date End Date Trever Goodwin MD [address] [place] [address] PCP - General 06/25/18 Christiano Pulido MD [address] [place] [address] [address] [place] [address] [employer] Obstetrics and Gynecology 04/14/24 documented as of this encounter
--- OUTSIDE RECORDS SUMMARY | 2024-12-04 11:45 | XMS_ITS | Referral Summary ---
Author Organization [facility] al Address 1 [place] [address] Care Team Providers Care Locksmith Helper Name Role Phone Trever Goodwin MD Primary Care Prov ider Christiano Pulido MD Unavailable [phone] Allergies Active Allergy Reactions Criticality Noted Date [...] 12/11/2023 Assessment & Plan (12/11/2023 2:47 PM DOG BEHAVIORIST): Condom use encouraged for contraception. We discussed [...] 12/11/2023 Assessment & Plan (12/11/2023 2:49 PM DOG BEHAVIORIST): Discussed that ideally we would like for [...] on file Legal Sex Female 6:04 PM DOG BEHAVIORIST Gender Identity Female 09/18/2024 11:46 PM CDT [...] TO HPV GENOTYPES Routine 01/08/2024 11:39 AM DOG BEHAVIORIST Well woman exam with routine gynecological exam [...] reflex to HPV Genotypes (01/08/2024 11:39 AM DOG BEHAVIORIST) CLINICAL INFORMATION: [facility] Comment:WWE LMP [facility] Comment:1980 Previous Pap [facility] Comment:NONE GIVEN Prev. Bx [facility] Comment:NONE GIVEN SOURCE: [facility] Comment:Cervix, Endocervix Pap, specimen adequacy [facility] Comment: Satisfactory for evaluation. Endocervical/transformation zone component present. HPV interp [facility] Comment: Cytology Results: Negative for intraepithelial lesion or malignancy. COMMENTS [facility] Comment: This Pap test has been evaluated with computer assisted technology. Rabbet Operator [facility] Comment: YOU, CT(ASCP) CT screening location: [place] [address] [place] [address] Comment [facility] Comment: EXPLANATORY NOTE: The Pap is a [...] High Risk E6/E7 Not Detected NOT DETECTED [employer] /Francesca AGUAYO Comment: Not Detected High Risk HPV types (16,18,31,33,35,39,45,51,52, 56,58,59,66,68) were not detected. Other HPV types which cause anogenital lesions may be present. The significance of the other types of HPV in malignant processes has not been established. Methodology: Real Time PCR ? Thin prep 01/08/2024 11:3 9 AM DOG BEHAVIORIST 01/09/2024 8:31 AM DOG BEHAVIORIST us Zuleyma Finley NP LAB CYTOLOGY ORDERABLES Final Re sult [facility] [address] [place] [address] [facility] [address] [place] [address] from Last 3 Months or Most Recently Relevant to Health Maintenance Insurance MEDICARE IDPA IDPA MEDICARE IDPA IDPA MEDICARE IDPA Advance Directives For more information, please contact: [phone] * Full Code (Latest Code Status on File) Date Activated Date Inactivated Comments 06/26/2018 7:03 PM 06/29/2018 7:54 PM Care Teams Locksmith Helper Relationship Specialty Start Date End Date Trever Goodwin MD [address] [place] [address] PCP - General 06/25/18 Christiano Pulido MD [address] [facility] [address] [place] [address] Medicaid Collection Specialist Obstetrics and Gynecology 04/14/24
--- OUTSIDE RECORDS SUMMARY | 2024-12-04 11:45 | XMS_ITS | Encounter Summary ---
Author Organization [facility] Healthcare Address [address] [place] [address] Care Team Providers Care Cardroom Supervisor Name Role Phone Trever Goodwin MD Primary Care Prov ider Reason for Referral * Diagnostic Imaging (Routine) - Closed Specialty Diagnoses / Procedures Referred By Contac madison Referred To Contact Diagnoses Irregular periods/menstrual cycles Procedures US Pelvis W Endovaginal Christiano Pulido MD [address] [place] [address] [address] [place] [address] Phone: tel: fax: [facility] Medical Group Referral ID Status Reason Start Date Expiration Date Visits Re quested Visits Authorized [id number] Closed 02/09/2024 03/10/2025 1 1 Reason for Visit * Reason Comments Consult Sterilization Encounter Details Date Type Department Care Team (Late st Contact Info) Description 02/09/2024 9:45 AM CDT Office Visit [facility] [address] [facility] [address] [place] [address] Christiano Pulido MD [address] [place] [address] [address] [place] [address] Irregular periods/menstrual cycles (Primary Dx); Sterilization consult [...] on file 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 Testing performed by: [facility], [address] [place]., [address] Blood 02/09/2024 10:3 9 AM CDT 02/09/2024 4:48 PM CDT Christiano Pulido MD LAB BLOOD ORDERABLES Final Result Performing Organization Address City/[facility]/ZIP Co de Phone Number TIFFANIE SWEET ([place]) 1 [facility] [place] [address] * LH (02/09/2024 10:39 AM CDT) LH 8.8 IUnits/L Comment: Interpretive Data Males: ??Adults: ? 1.7 - 8.6 ?? IUnits/L Females: ?Follicular: ? 2.4 - 12.6 ??IUnits/L ??Ovulation: ? 14.0 - 95.6 ??IUnits/L ?Luteal: ? 1.0 - 11.4 ??IUnits/L ??Postmenopausal: 7.7 - 58.5 ??IUnits/L Current interpretive data was last revised on 2019. Testing performed by: [facility], [address] [place] [address]., [id number] Blood 02/09/2024 10:3 9 AM CDT 02/09/2024 4:48 PM CDT Christiano Pulido MD LAB BLOOD ORDERABLES Final Result Performing Organization Address City/[facility]/ZIP Co de Phone Number [facility] ([place]) 1 [facility] [place] [address] * DHEA-sulfate (02/09/2024 10:39 AM CDT) DHEA-S 125.0 35.4 - 256.0 mcg/dL Comment:Testing performed by : [facility], [address] [place] [address]., [address] Blood 02/09/2024 10:3 9 AM CDT 02/09/2024 4:48 PM CDT Christiano Pulido MD LAB BLOOD ORDERABLES Final Result TIFFANIE SWEET ([place]) 1 [facility] [place] [address] * Testosterone, Total and Free, Serum (02/09/2024 10:39 AM CDT) Pathologist [facility] Testosterone 33 8 - 60 ng/dL [facility] Comment: ADDITIONAL INFORMATION Testing performed by Liquid Chromatography-Tandem Mass Spectrometry (LC-MS/MS). This test was developed and its performance characteristics determined by [facility] in a manner consistent with CLIA requirements. This test has not been cleared or approved by the U.S. Food and Drug Administration. Test Performed by: [facility] [address] [place] [address] Automobile Relocation Engineer: Don Carrera M.D. Ph.D.; CLIA# [id number] Testosterone, free 0.53 <0.13 - 0.95 ng/dL [facility]IE SWE[facility] ([place]) Comment: ADDITIONAL INFORMATION This test was developed and its performance characteristics determined by [facility] in a manner consistent with CLIA requirements. This test has not been cleared or approved by the U.S. Food and Drug Administration. Blood 02/09/2024 10:3 9 AM CDT 02/09/2024 1:45 PM CDT Christiano Pulido MD LAB BLOOD ORDERABLES Final Result [facility] SWE[facility] ([place]) 1 [facility] [place] [address] Berrios ref Lab documented in this encounter [...] 1 tablet (50 mcg total) by mouth yarn winder before breakfast. Therapy completed 06/30/2018 02/09/2024 melatonin tablet Take by mouth. Therapy completed 02/09/2024 documented as of this encounter Care Teams Cardroom Supervisor Relationship Specialty Start Date End Date Trever Goodwin MD [address] [place] [address] PCP - General 06/25/18 documented as of this encounter
--- OUTSIDE RECORDS SUMMARY | 2024-12-04 11:45 | XMS_ITS | Encounter Summary ---
Author Organization [facility] Healthcare Address [address] [facility] [place] [address] Care Team Providers Care Manager Of Applications Development Name Role Phone Trever Goodwin MD Primary Care Prov ider Reason for Referral * Diagnostic Imaging (Routine) - Closed Specialty Diagnoses / Procedures Referred By Leeann wallace Referred To Contact Diagnoses Encounter for screening mammogram for malignant neoplasm of breast Procedures SCREENING MAMMOGRAM BILATERAL W Zuleyma Chamberlain NP 4 [facility] [address] LAMAR [address] [place] [address] Phone: tel: fax: [address] [phone] Referral ID Status Reason Start Date Expiration Date Visits Re quested Visits Authorized [id number] Closed 01/08/2024 02/06/2025 1 1 Reason for Visit * Diagnostic Imaging (Routine) - Closed Specialty Diagnoses / Procedures Referred By Leeann wallace Referred To Contact Diagnoses Encounter for screening mammogram for malignant neoplasm of breast Procedures SCREENING MAMMOGRAM BILATERAL W Zuleyma Chamberlain NP 4 [facility] [address] LAMAR [address] [place] [address] Phone: tel: fax: [address] [phone] Referral ID Status Reason Start Date Expiration Date Visits Re quested Visits Authorized [id number] Closed 01/08/2024 02/06/2025 1 1 Encounter Details Date Type Department Care Team (Latest Contact Info) Description 04/02/2024 1:53 PM CDT - 04/02/2024 11:59 PM CDT Hospital Encounter [facility] [address] [place] [address] Encounter for screening mammogram for malignant neoplasm [...] on file Legal Sex Female 6: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 Zuleyma Finley SANDAL PARTS ASSEMBLER IMG MAMMO PROCEDURES Final Resul t documented in this encounter Visit Diagnoses Diagnosis Encounter for screening mammogram for malignant neoplasm of breast documented in this encounter Care Teams Manager Of Applications Development Relationship Specialty Start Date End Date Trever Goodwin MD 1 [place] [address] PCP - General 06/25/18 documented as of this encounter
--- OUTSIDE RECORDS SUMMARY | 2024-12-04 11:45 | XMS_ITS | Encounter Summary ---
Author Organization [facility] Healthcare Address [address] [place] [address] Care Team Providers Care Family Manager Name Role Phone Trever Goodwin MD Primary Care Prov ider Christiano Pulido MD Unavailable [phone] Reason for Visit * Auth/Cert (Routine) Specialty Diagnoses / Procedures Referred By Leeann wallace Referred To Contact Diagnoses Sterilization Sterilization [Z30.2] Procedures MA SALPINGECTOMY COMPLETE/PARTIAL UNI/BI SPX LAPAROSCOPIC BILATERAL SALPINGECTOMY Referral ID Status Reason Start Date Expiration Date Visits Re quested Visits Authorized [id number] 1 1 Encounter Details Date Type Department Care Team (Late st Contact Info) Description 04/14/2024 1:25 PM CDT Anesthesia Event [facility] Operating Room [address] [place] [address] Marc Solis MD 1 [place] [address] [place] [address] 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 Gender Identity Female 09/18/2024 11:46 PM CDT Sexual Orientation Straight 09/18/2024 11 :46 PM CDT documented as of this encounter OR Notes * Anesthesia Postprocedure Evaluation - Marc Solis MD - 04/14/2024 3:21 PM CDT Patient: Amna Hodgson Procedure Summary Date: 04/14/24 Room / Location: [facility] OR [address] [place] [address] OPERATING ROOM Anesthesia Start: 1325 Anesthesia Stop: [...] protection Difficult airway: no Staff: Placed by: FOOD TRUCK CATERER: Dick Barrios CRNA Emergent airway documentation: Risks [...] Amenorrhea 12/11/2023 Dizziness 12/16/2018 Schizoaffective disorder (CMS/HCC) ([facility]) 12/16/2018 Other cerebral palsy ([facility]) 06/29/2018 Thyroid disease 06/27/2018 Asthma 06/27/2018 Anxiety 06/27/2018 History of unspecified seizure 06/27/2018 Episodic bipolar mood disorder, not currently active 06/26/2018 Past Medical History: Diagnosis Date Anxiety Asthma Bipolar disorder ([facility]) Cerebral palsy ([facility]) MDD (major depressive disorder) Motion sickness Schizoaffective disorder (CMS/HCC) ([facility]) Thyroid disease Past Surgical History: Procedure Laterality [...] Medication protocol when under care of a FOOD TRUCK CATERER Planned anesthesia: General Team communication plan: oral ET tube Induction: Induction: intravenous. Postoperative Plan: Patient's planned disposition post procedure is Outpatient. Informed Consent: Discussed plan with attending and FOOD TRUCK CATERER. Anesthesia plan and risks discussed with patient. [...] Procedure Name Priority Date/Time Associated Diagnosis Comments MA AN ELECTIVE ENDOTRACHEAL AIRWAY Routine 04/14/2024 1:47 PM CDT documented in this encounter Results * MA AN ELECTIVE ENDOTRACHEAL AIRWAY (04/14/2024 1:47 PM CDT) Narrative Dick Barrios CRNA - 04/14/2024 1:47 PM CDT Dick Barrios CRNA ? 04/14/2024 ??1:48 PM Airway Patient location: OR Urgency: elective Indications for airway management: anesthesia and airway protection Difficult airway: no Staff: Placed by: FOOD TRUCK CATERER: Dick Barrios CRNA Emergent airway documentation: Risks [...] mg documented in this encounter Care Teams Family Manager Relationship Specialty Start Date End Date Trever Goodwin MD [address] [place] [address] PCP - General 06/25/18 Christiano Pulido MD [address] [facility] [address] LAMAR [address] [place] [address] Transfer Knitter Obstetrics and Gynecology 04/14/24 documented as of this encounter
--- OUTSIDE RECORDS SUMMARY | 2024-12-04 11:45 | XMS_ITS | Encounter Summary ---
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 This test was developed and its performance characteristics determined by [facility] in a manner consistent with CLIA requirements. This test has not been cleared or approved by the U.S. Food and Drug Administration. Test Performed by: [facility] Laboratories - [facility] [address] [place] [address] Church Worker: Don Carrera M.D. Ph.D.; CLIA# [id number] Testosterone, free 0.53 <0.13 - 0.95 ng/dL [facility] ([place]) Comment: ADDITIONAL INFORMATION This test was developed and its performance characteristics determined by [facility] in a manner consistent with CLIA requirements. This test has not been cleared or approved by the U.S. Food and Drug Administration. Blood 02/09/2024 10:3 9 AM CDT 02/09/2024 1:45 PM CDT Christiano Pulido MD LAB BLOOD ORDERABLES Final Result Performing Organization Address City/[facility]/ZIP Co de Phone Number [facility] ([place]) [address] [facility] [place] [address] [facility] * DHEA-sulfate (02/09/2024 10:39 AM CDT) DHEA-S 125.0 35.4 - 256.0 mcg/dL Comment:Testing performed by : [facility], 1 [place]., [address] Blood 02/09/2024 10:3 9 AM CDT 02/09/2024 4:48 PM CDT Christiano Pulido MD LAB BLOOD ORDERABLES Final Result [facility] ([place]) 1 [place] [address] * LH (02/09/2024 10:39 AM CDT) LH 8.8 IUnits/L Comment: Interpretive Data Males: ??Adults: ? 1.7 - 8.6 ?? IUnits/L Females: ?Follicular: ? 2.4 - 12.6 ??IUnits/L ??Ovulation: ? 14.0 - 95.6 ??IUnits/L ?Luteal: ? 1.0 - 11.4 ??IUnits/L ??Postmenopausal: 7.7 - 58.5 ??IUnits/L Current interpretive data was last revised on 2019. Testing performed by: [facility], [address] [place]., [address] Blood 02/09/2024 10:3 9 AM CDT 02/09/2024 4:48 PM CDT Christiano Pulido MD LAB BLOOD ORDERABLES Final Result Performing Organization Address City/State/[facility] Co de Phone Number [facility] ([place]) 1 [facility] Department of Laboratories [place], [place] [id number] * Follicle stimulating hormone (02/09/2024 10:39 AM CDT) [facility]SH 5.3 IUnits/L Comment: Interpretive Data Male: Adults: ?1.5 - 12.4 IUnits/L Female: ?? Follicular: ?3.5 - 12.5 IUnits/L Ovulation: ? 4.7 - 21.5 IUnits/L Luteal: ?1.7 - 7.7 IUnits/L Postmenopausal: 25.8 - 134.8 IUnits/L Current interpretive data was last revised 2015. Testing performed by: [facility], [address] [place]., [address] Blood 02/09/2024 10:3 9 AM CDT 02/09/2024 4:48 PM CDT us Christiano Pulido MD LAB BLOOD ORDERABLES Final Result [facility] ([place]) [address] [facility] [place] [address] documented in this encounter Visit Diagnoses Diagnosis Irregular periods/menstrual cycles documented in this encounter Care Teams Catalyst Operator Gasoline Relationship Specialty Start Date End Date Trever Goodwin MD [address] [place] [address] PCP - General 06/25/18 documented as of this encounter
--- OUTSIDE RECORDS SUMMARY | 2024-12-04 11:46 | XMS_ITS | Encounter Summary ---
Author Organization [facility] Healthcare Address [address] [place] [address] Care Team Providers Care Development Consultant Name Role Phone Trever Goodwin MD Primary Care Prov ider Reason for Visit * Reason Comments New Patient STD CHECK UP Encounter Details Date Type Department Care Team (Late st Contact Info) Description 12/11/2023 1:45 PM NEWSPAPER MANAGER Office Visit [facility] Medical Group [facility] Care at [address] [address] Zuleyma Christiansen NP [address] [place] [address] [address] Candidal vulvovaginitis; Amenorrhea; Encounter for [...] on file Legal Sex Female 6:04 PM NEWSPAPER MANAGER Gender Identity Female 09/18/2024 11:46 PM CDT Sexual Orientation Straight 09/18/2024 11 :46 PM CDT documented as of this encounter Last Filed Vital Signs Vital Sign Reading Time Taken Comments Blood Pressure 112/64 12/11/2023 1:34 PM NEWSPAPER MANAGER Pulse - - Temperature - - Respiratory Rate - - Oxygen Saturation - - Inhaled Oxygen Concentration - - Weight 65.9 kg (145 lb 3.2 oz) 12/11/2023 1:34 P M NEWSPAPER MANAGER Height 157.5 cm (5' 2 ) 12/11/2023 1:34 PM NEWSPAPER MANAGER Body Mass Index 26.56 12/11/2023 1:34 PM NEWSPAPER MANAGER documented in this encounter Patient Instructions * Attachments The following attachments cannot be sent through Care Everywhere. * Polycystic Ovarian Syndrome (General Information) (Luxembourgish) documented in this encounter Ordered Prescriptions Prescription [...] from the original note were not included. SHARK BIOLOGIST visit Subjective: Amna Hodgson is a 42 y.o. year old female who presents to the office today with a few concerns. She is accompanied in the office by her mother. There is a bit of a communication deficit. The patient does have a history of schizoaffective disorder and cerebral palsy. She is a bit of a poor historian. She has seen a test engine operator before. She tells me that she [...] 1 tablet (50 mcg total) by mouth diesel engine mechanic apprentice before breakfast., Disp: 30 tablet, Rfl: 0 [...] time spent in any separately reportable services. Zuleyam Christiansen NP 12/11/2023 PAPER MANAGER documented in this encounter Miscellaneous Notes * Result Encounter Note - Ngozi Cortés MA - 12/15/2023 10:10 AM CST Pt has been informed and would like to take the medication PO. The script has been pended to you for approval to go to [facility]. Thanks! PAPER MANAGER * Assessment & Plan Note - Zuleyma Christiansen NP - 12/11/2023 2:49 PM NEWSPAPER MANAGER Associated Problem(s): Amenorrhea Discussed that ideally we [...] cycle control, she will notify my office. PAPER MANAGER * Assessment & Plan Note - Zuleyma Christiansen NP - 12/11/2023 2:47 PM NEWSPAPER MANAGER Associated Problem(s): Encounter for general counseling and [...] with how they would like to proceed PAPER MANAGER documented in this encounter Plan of Treatment Not on file documented as of this encounter Procedures Procedure Name Priority Date/Time Associated Diagnosis Comments URINE CULTURE Routine 12/11/2023 3:01 PM NEWSPAPER MANAGER Urinary frequency SURESWAB(R) ADVANCED VAGINITIS PLUS, TMA Routine 12/11/2023 3:00 PM NEWSPAPER MANAGER STI (sexually transmitted infection) URINALYSIS, MICROSCOPIC ONLY Routine 12/11/2023 3:00 PM NEWSPAPER MANAGER Urinary frequency documented in this encounter Results * Urine culture Urine, clean voided (12/11/2023 3:01 PM NEWSPAPER MANAGER) Urine culture [facility] Comment: ??CULTURE, URINE, ROUTINE ?Micro Number: ?[id number] ??Test Status: ? Final ??Specimen Source: ?? [...] Tube. Urine, clean voided 12/11/2023 3:01 PM NEWSPAPER MANAGER 12/12/2023 4:04 AM NEWSPAPER MANAGER Zuleyma Christiansen NP LAB MICROBIOLOGY - GENERAL ORDER SCOT Final Result Performing Organization Address [facility] de Phone Number [facility] [address] [place] [address] * (ABNORMAL) Urinalysis, microscopic only (12/11/2023 3:00 PM NEWSPAPER MANAGER) WBC, ur NONE SEEN < OR = [...] [facility] Urine 12/11/2023 3:00 PM NEWSPAPER MANAGER 12/12/2023 4:04 AM NEWSPAPER MANAGER Zuleyma Christiansen BUTCHER HEAD LAB URINE ORDERABLES Final Resul t Performing Organization Address [facility] de Phone Number [facility] [address] [place] [address] * (ABNORMAL) Sureswab(R) Advanced Vaginitis Plus, TMA Endocervical/vaginal (12/11/2023 3:00 PM NEWSPAPER MANAGER) SureSwab(R) ADV Bacterial vaginosis (BV), TMA POSITIVE(A) NEGATIVE [facility] Sydney species NOT DETECTED NOT DETECTED [facility] Sydney glabrata NOT DETECTED NOT DETECTED [facility] Comment: Sydney species C. albicans, C. tropicalis, C. parapsilosis, and/or C. dubliniensis can be detected, but not differentiated, in the Sydney spp. result. Trichomonas vaginalis (TV), TMA NOT DETECTED NOT DETECTED [facility] C. trachomatis RNA NOT DETECTED NOT DETECTED [facility] N. gonorrhoeae RNA NOT DETECTED NOT DETECTED [facility] Comment: For additional information, please refer to https://education.[employer]/faq/RLA624 (This link is being provided for information/ educational purposes only.) Endocervical/vag inal 12/11/2023 3:00 PM NEWSPAPER MANAGER 12/12/2023 4:04 AM NEWSPAPER MANAGER Zuleyma Christiansen NP LAB MICROBIOLOGY - GENERAL ORDER SCOT Final Result [facility] [address] [place] [address] documented in this encounter Visit Diagnoses Diagnosis [...] 02/09/2024 added in this encounter Care Teams Development Consultant Relationship Specialty Start Date End Date Trever Goodwin MD [address] [place] [address] PCP - General 06/25/18 documented as of this encounter
--- OUTSIDE RECORDS SUMMARY | 2024-12-04 11:46 | XMS_ITS | Encounter Summary ---
Author Organization [facility] Healthcare Address [address] [facility] [place] [address] Care Team Providers Care Dancing Teacher Name Role Phone Trever Goodwin MD Primary Care Prov ider Reason for Referral * Diagnostic Imaging (Routine) - Closed Specialty Diagnoses / Procedures Referred By Leeann wallace Referred To Contact Diagnoses Encounter for screening mammogram for malignant neoplasm of breast Procedures Screening Mammogram Bilateral W Ayde Siegel NP 4 [facility] [address] LAMAR [address] [place] [address] Phone: tel: fax: [address] [phone] Referral ID Status Reason Start Date Expiration Date Visits Re quested Visits Authorized [id number] Closed 05/01/2021 05/31/2022 1 1 Reason for Visit * Diagnostic Imaging (Routine) - Closed Specialty Diagnoses / Procedures Referred By Leeann wallace Referred To Contact Diagnoses Encounter for screening mammogram for malignant neoplasm of breast Procedures Screening Mammogram Bilateral W Ayde Siegel NP [address] [facility] [address] LAMAR [address] [place] [address] Phone: tel: fax: [address] [phone] Referral ID Status Reason Start Date Expiration Date Visits Re quested Visits Authorized [id number] Closed 05/01/2021 05/31/2022 1 1 Encounter Details Date Type Department Care Team (Latest Contact Info) Description 06/12/2021 2:44 PM CDT - 06/12/2021 11:59 PM CDT Hospital Encounter [facility] 1 [place] [address] Yuriy Ruelas MD [address] [facility] [address] [address] Ayde Hughes NP [address] [facility] [address] [place] [address] Encounter for screening mammogram for malignant neoplasm [...] on file Legal Sex Female 6:04 PM SHIRT CLOSER Gender Identity Female 09/18/2024 11:46 PM CDT [...] 1 tablet (50 mcg total) by mouth director of early childhood education before breakfast. 30 tablet 06/30/2018 02/09/2024 melatonin [...] no suspicious interval change. us Ayde Hughes MACHINE CLOTH MEASURER IMG MAMMO PROCEDURES Final Re sult documented in this encounter Visit Diagnoses Diagnosis Encounter for screening mammogram for malignant neoplasm of breast documented in this encounter Care Teams Dancing Teacher Relationship Specialty Start Date End Date Trever Goodwin MD [address] [place] [address] PCP - General 06/25/18 documented as of this encounter
--- OUTSIDE RECORDS SUMMARY | 2024-12-04 11:46 | XMS_ITS | Encounter Summary ---
Author Organization [facility] Healthcare Address [address] [place] [address] Care Team Providers Care Capsule Filling Machine Operator Name Role Phone Trever Goodwin MD Primary Care Prov ider Encounter Details Date Type Department Care Team (Latest Contact Info) Description 06/27/2023 4:09 PM CDT - 06/27/2023 11:59 PM CDT Hospital Encounter [facility] [id number] [place] [address] Urinary urgency Discharge Disposition: Discharge to home [...] on file Legal Sex Female 6:04 PM MIDDLEWARE ADMINISTRATOR Gender Identity Female 09/18/2024 11:46 PM [...] 1 tablet (50 mcg total) by mouth installation coordinator before breakfast. 30 tablet 06/30/2018 02/09/2024 melatonin [...] standards) [facility] [place] Comment:Testing performed by : [facility], [address] [place]., [address] Organism (CLINICALLY INSIGNIFICANT GROWTH [facility] [place] Urine, clean voided 06/27/2023 4:09 PM CDT 06/28/2023 12:46 AM CDT Narrative [facility] [place] - 06/29/2023 6:53 AM CDT Please run sensitivity. Testing performed by [facility] Microbiology Laboratory ([phone]) us Chayito Garcia NP LAB MICROBIOLOGY - GENERAL LUIS THOMAS Final Result [facility] [place] [address] Department [place] [address] documented in this encounter Visit Diagnoses Diagnosis Urinary urgency Urgency of urination documented in this encounter Care Teams Capsule Filling Machine Operator Relationship Specialty Start Date End Date Trever Goodwin MD [address] [place] [address] PCP - General 06/25/18 documented as of this encounter
--- OUTSIDE RECORDS SUMMARY | 2024-12-04 11:46 | XMS_ITS | Encounter Summary ---
Author Organization [facility] Healthcare Address [address] [place] [address] Care Team Providers Care Vice President For Philanthropy Name Role Phone Unavailable Primary Care Provider [...] on file Legal Sex Female 6:04 PM WET END SUPERVISOR Gender Identity Female 09/18/2024 11:46 PM CDT Sexual Orientation Straight 09/18/2024 11 :46 PM CDT documented as of this encounter Plan of Treatment Not on file documented as of this encounter Visit Diagnoses Diagnosis Chest pain Unspecified chest pain documented in this encounter
--- OUTSIDE RECORDS SUMMARY | 2024-12-04 11:46 | XMS_ITS | Encounter Summary ---
Author Organization [facility] Healthcare Address [address] [place] [address] Care Team Providers Care Mens Locker Room Attendant Name Role Phone Trever Goodwin MD Primary Care Prov ider Encounter Details Date Type Department Care Team (Late st Contact Info) Description 12/16/2023 Telephone [facility] Medical Group [facility] Care at [address] [address] Zuleyma Christiansen NP [address] [place] [address] [address] Social History Tobacco Use Types [...] on file Legal Sex Female 6:04 PM THERMAL TECHNICIAN Gender Identity Female 09/18/2024 11:46 PM [...] go forward with the metrogel. Please advise MAL TECHNICIAN * Telephone Encounter - Ngozi Cortés MA [...] me to tell her something different. Thanks! MAL TECHNICIAN documented in this encounter Plan of Treatment Not on file documented as of this encounter Visit Diagnoses Not on filedocumented in this encounter Care Teams Mens Locker Room Attendant Relationship Specialty Start Date End Date Trever Goodwin MD [address] [place] [address] PCP - General 06/25/18 documented as of this encounter
--- OUTSIDE RECORDS SUMMARY | 2024-12-04 11:46 | XMS_ITS | Encounter Summary ---
Author Organization [facility] Healthcare Address [address] [place] [address] Care Team Providers Care Grease Refiner Operator Name Role Phone Unavailable Primary Care Provider Unavailabl e Encounter Details Date Type Department Care Team (Late st Contact Info) Description 01/04/2009 2:20 PM HOME CARE LIAISON - 01/04/2009 11:59 PM HOME CARE LIAISON Hospital Encounter [facility] Other viral disease contact Social History Tobacco Use Types Packs/Day Years Used Date Smoking Tobacco: Never Assessed Comments Unknown Sex and Gender Information Value Date Recorded Sex Assigned at Not on file Legal Sex Female 6:04 PM HOME CARE LIAISON Gender Identity Female 09/18/2024 11:46 PM CDT Sexual Orientation Straight 09/18/2024 11 :46 PM CDT documented as of this encounter Plan of Treatment Not on file documented as of this encounter Visit Diagnoses Diagnosis Other viral disease contact documented in this encounter
--- OUTSIDE RECORDS SUMMARY | 2024-12-04 11:46 | XMS_ITS | Encounter Summary ---
Author Organization [facility] Healthcare Address [address] [place] [address] Care Team Providers Care Strainer Tender Name Role Phone Trever Goodwin MD Primary Care Prov ider Reason for Visit * Reason Comments Mental Health Problem Encounter Details Date Type Department Care Team (Latest Contact Info) Description 06/25/2018 9:36 PM CDT - 06/29/2018 5:15 PM CDT Hospital Encounter [facility] [address] [place] [id number] Alfred Whitney MD [address] [place] [address] Jaguar Ruff MD [address] [place] [address] Dong Coreas MD [address] [facility] [address] [address] [place] [address] Anxiety (Primary Dx); Hallucinations; Disorganized behavior; Cerebral [...] on file Legal 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 Hodgson's first hospitalization in the [facility] system, and thus current electronic medical records of her past psychiatric history is quite limited. ?? Ms. Hodgson's childhood in [place], [place] was significant for a diagnosis of [...] received at least seven more hospitalizations in [place] and later [facility] after her familiy moved to [place] (exactly dates unknown pending more collateral). Ms. [...] good response to medication trials of Haldol, Piru, Abilify, Depakote, Wellbutrin, Clonazepam, and Zoloft (the exact combinations of these medications is not known, pending chart review), with her most recent regimen entailing Depakote 500 mg BID, Sertraline 100 mg qdaily, and Clonazepam 0.5 mg qdaily without any antipsychoticmedication; this regimen was prescribed by the patient's outpatient INSTRUMENTATION ENGINEERING TECHNICIAN Amna Bradley in [place], who recent has indicated to the patient and her parents that she did not believe the patient exhibited s/s of a psychotic disorder. Of note, her symptoms have been relatively stable in the community, e clara during times when Ms. Hodgson was not taking any antipsychotics. 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 Hodgson has been driving independently, living in her own apartment [facility] living community near her best friend Edgar , and working at [employer] and a [employer], where she has won employee of the month before. ?? Ms. Hodgson has been experiencing an intensification of multiple stressors that appear to be overwhelming her coping skills. This includes recent increases in her workplace duties at [employer] and [employer], upcoming apartment inspections, and relationship stressors. She [...] intake, leading to her subsequent admission to [facility] in [place]. Although we have not been able to obtain collateral from [place] at this time, Ms. Hodgson's parents indicated that for unknown reasons, the patient's Depakote was decreased from 500 BID to 250 BID at [place], with her Sertraline decreased from 100 mg to 75 mg. Her hosiptal course was also complicated by a questionable seizure that Ms. Hodgson reportedly experienced while at the [place] psychiatry unit; the exact circumstances and characteristics of the event are unclear at this time, other than Ms. Hodgson required 7-8 bekah to her scalp subsequently. Her psych medication regimen was not changed and her sx persisted after discharge; the family subsequently brought the patient in to [facility] for further evaluation because her parents believed she was not safe yet. ?? While at the [facility] ED, Ms. Hodgson reportedly experienced some transient [...] irrelevant answers to questions (i.e., in the fpc, they let ussign in and out, but they gave us time to shower when asked if she lived in a fpc) that areinterspersed with positive self-esteem statements (i.e., [...] her medications Sensorium: recognizes she is at [facility] Calculations: struggles to subtract 7 from 100, [...] Treatment Course: Patient was admitted voluntarily to [address]. In the ED there was concern that [...] 1) Justification of Dx: While hospitalized at [facility], from 06/19-06/24, patient suffered a fall. Per the records obtained from [facility] patient got dizzy and fell. No clear [...] social support in the form of a medical billing representative, employed, domiciled Active Issues Requiring Follow-up: Follow [...] 1 tablet (50 mcg total) by mouth energy administrator before breakfast. What changed: medication strength when [...] Outgoing referrals to locations not associated with [facility] will automatically print. A copy should be [...] Outgoing referrals to locations not associated with [facility] will automatically print. A copy should be [...] Josi 8-3-18 at 3:30pm [facility] [address] [place] [address] Deangelo Joyce at [employer] [phone] documented in this encounter Medications at Time [...] 1 tablet (50 mcg total) by mouth energy administrator before breakfast. 30 tablet 06/30/2018 02/09/2024 sertraline [...] 1 tablet (50 mcg total) by mouth energy administrator before breakfast. 30 tablet 06/30/2018 4 divalproex [...] CDT Spiritual Care Note Chaplain Rochelle Arias [phone] 06/29/18 @ 18:42 06/29/18 1430 Time Spent Start Time 1430 Stop Time 1515 Time Calculation (min) 45 min Patient Spiritual Assessment Spirituality Assessed Yes Scientologist Affiliation Congregation Active in Anglican Yes Clinical Encounter Type Visited With Patient Response Type Routine visit Routine Visit Introduction Reason for visit Support Referral From Patient Referral To (None) Outcomes and Interventions Outcomes Demonstrating care and respect;Lessen anxiety;Acceptance of condition or situation Interventions Active listening;Offer emotional support;Offer spiritual/orthodox support * Steffi Turcois LCSW - 06/29/2018 3:11 PM CDT Pt [...] continue to follow up with her case maker Maria Del Carmen . Pt and pt's [...] is Ms. Hodgson's first hospitalization in the [facility] system, and thus current electronic medical records of her past psychiatric history is quite limited. ?? Ms. Hodgson's childhood in [place] was significant for a diagnosis of [...] received at least seven more hospitalizations in [place] and later [facility] after her familiy moved to [place] (exactly dates unknown pending more collateral). Ms. [...] good response to medication trials of Haldol, Piru, Abilify, Depakote, Wellbutrin, Clonazepam, and Zoloft (the exact combinations of these medications is not known, pending chart review), with her most recent regimen entailing Depakote 500 mg BID, Sertraline 100 mg qdaily, and Clonazepam 0.5 mg qdaily without any antipsychoticmedication; this regimen was prescribed by the patient's outpatient INSTRUMENTATION ENGINEERING TECHNICIAN Amna Bradley in [place], who recent has indicated to the patient and her parents that she did not believe the patient exhibited s/s of a psychotic disorder. Of note, her symptoms have been relatively stable in the community, e clara during times when Ms. Hodgson was not taking any antipsychotics. 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 Hodgson has been driving independently, living in her own apartment inan assisted living community near her best friend Edgar , and working at [employer] and a [employer], where she has won employee of the month before. ?? Ms. Hodgson has been experiencing an intensification of multiple stressors that appear to be overwhelming her coping skills. This includes recent increases in her workplace duties at [employer] and [employer], upcoming apartment inspections, and relationship stressors. She [...] intake, leading to her subsequent admission to [facility] in [place]. Although we have not been able to obtain collateral from [place] at this time, Ms. Hodgson's parents indicated that for unknown reasons, the patient's Depakote was decreased from 500 BID to 250 BID at [place], with her Sertraline decreased from 100 mg to 75 mg. Her hosiptal course was also complicated by a questionable seizure that Ms. Hodgson reportedly experienced while at the [place] psychiatry unit; the exact circumstances and characteristics of the event are unclear at this time, other than Ms. Hodgson required 7-8 bekah to her scalp subsequently. Her psych medication regimen was not changed and her sx persisted after discharge; the family subsequently brought the patient in to [facility] for further evaluation because her parents believed she was not safe yet. ?? While at the [facility] ED, Ms. Hodgson reportedly experienced some transient [...] emergency contact information related to inpatient stay: [facility]: [phone] (ask for Charge Nurse) Primary Physician, other healthcare professional, or site for follow up care ([facility] has specific follow up appointments): PCP: Trever Goodwin MD These instructions have been provided to and reviewed with the patient/care consultant prior to discharge: Yes * Girma Winters [...] positive self talk) and possible delir[facility] likely to be [...] recent) Social Work Psych Assessment - 06/27/18 5743 Patient Information Marital Status Never Previous Psychiatric admission at a [facility] facility? No Employment StatusPart time employment;Disabled [...] History Patient stated she works at both [employer] and a [employer] and watches her hours to not exceed what is allowable for SSDI. Education Level College Courses Patient stated she has some college . Insurance Medicare, [place] Medicaid Medication Patient stated she is able to obtain medications. Pharmacy Information Patient stated she uses [facility] in [place], [place]. General Functioning Patient stated she was [...] that her twin sister, Pamela, lives in [place]. Other Support System Patient stated she receives services through [facility], including having a Payee (Maria Del Carmen Davis) there. Scientologist/Cultural Factors I do believe in God and want to go back to zoroastrianism. I feel Congregation and selam Christians make mistakes. Referral to College Service Officer Yes Family History of Mental Illness Per chart, family history significant fordepression and anxiety in patient's mother, alcohol abuse in patient's father and maternal grandmother, and schizophrenia in a cousin. 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 [...] so as not to jeopardize her SSDI. Scientologist Practice: Patient stated she does not follow orthodox practices. She was offered and accepted a referral to the College Service Officer. Referral placed in [facility]. How does the patient get hope and [...] had approximately 8 other hospitalizations, including in [place] and [place] (at [facility]). Per chart, patient's family indicates that she has been admitted for manic, psychotic and depressive symptoms, including manic symptoms of inappropriate laughter, psychomotor agitation, emotional lability, euphoria, hypertalkativity, DNFS w/ preserved energy and grandiose delusions. Per chart, her depressive symptoms have included low mood, decreased sleep and decreased appetite. Per chart, patient [facility] [place]. Reason for Current Hospitalization: Precipitating Event: Per [...] jw rt, patient's family took her to [place], where she was admitted. Per chart, patient's Depakote wasdecreased and her sertraline was decreased, and patient was discharged, despite family's belief that patient had not improved. Per chart, patient's symptoms persisted and patient's family brought [facility] for further evaluation. Chief Complaint: It [...] sign a Release of Information for this writer editor to contact any collateral, making coordinating care difficult at this time. Care Home Goal: Patient indicated her intermediate goal is to find a therapist and to go home. Follow up: Follow up to be determined by treatment team. documented in this encounter H&P Notes * Duc Christianson MD - 06/27/2018 8:48 AM CDT Inpatient Psychiatric Intake Assessment This was staffed with an attending physician at [facility] (Dr. Lewis). CURRENT DIAGNOSES: Principal Problem: Schizoaffective disorder, unspecified ([facility]) Active Problems: Thyroid disease Asthma Anxiety History [...] ADMISSION STATUS Voluntary GUARDIANSHIP: No POWER OF TIMBER BUYER ([place] ONLY): SOURCE OF INFORMATION: Patient, whose reliability is poor; Parents, whose reliabilities are fair to good: Step-father, Dalia [phone] Mother, Valencia [phone] CHIEF COMPLAINT: Oh, sorry, that's a good question. I guess you could say that. HISTORY OF PRESENT ILLNESS: Ms. Hodgson is a poor historian, and the majority of history was taken from interview with patient'sparents. This is Ms. Hodgson's first hospitalization in the [facility] system, and thus current electronic medical records of her past psychiatric history is quite limited. Ms. Hodgson's childhood in [place] was significant for a diagnosis of [...] received at least seven more hospitalizations in [place] and later [facility] after her familiy moved to [place] (exactly dates unknown pending more collateral). Ms. [...] good response to medication trials of Haldol, Piru, Abilify, Depakote, Wellbutrin, Clonazepam, and Zoloft (the exact combinations of these medications is not known, pending chart review), with her most recent regimen entailing Depakote 500 mg BID, Sertraline 100 mg qdaily, and Clonazepam 0.5 mg qdaily without any antipsychoticmedication; this regimen was prescribed by the patient's outpatient INSTRUMENTATION ENGINEERING TECHNICIAN Amna Bradley in [place], who recent has indicated to the patient and her parents that she did not believe the patient exhibited s/s of a psychotic disorder. Of note, her symptoms have been relatively stable in the community, e clara during times when Ms. Hodgson was not taking any antipsychotics. 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 Hodgson has been driving independently, living in her own apartment [facility] community near her best friend Edgar , and working at [employer] and a [employer], where she has won employee of the month before. Ms. Hodgson has been experiencing an intensification of multiple stressors that appear to be overwhelming her coping skills. This includes recent increases in her workplace duties at [employer] and [employer], upcoming apartment inspections, and relationship stressors. She [...] intake, leading to her subsequent admission to [facility] in [place]. Although we have not been able to obtain collateral from [place] at this time, Ms. Hodgson's parents indicated that for unknown reasons, the patient's Depakote was decreased from 500 BID to 250 BID at [place], with her Sertraline decreased from 100 mg to 75 mg. Her hosiptal course was also complicated by a questionable seizure that Ms. Hodgson reportedly experienced while at the [place] psychiatry unit; the exact circumstances and characteristics of the event are unclear at this time, other than Ms. Hodgson required 7-8 bekah to her scalp subsequently. Her psych medication regimen was not changed and her sx persisted after discharge; the family subsequently brought the patient in to [facility] for further evaluation because her parents believed she was not safe yet. While at the [facility] ED, Ms. Hodgson reportedly experienced some transient [...] History Narrative Born and raised: Born in [place], [place]. Comfortable upper middle SES upbringing in [place]. Family now lives in [place] ([facility] in [place]). Education: Attended high school and was in IEP/ special education. 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 Excels in jobs that requires routine, unskilledwork and is a dependable worker as per family. She has even won employee of the month at some of her workplaces. Received social security benefits for her mental health disability (psychosis). 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 Marital Status: Single, has few friends outside her twin sister's social [place] and is still searching for a romantic partner; endorses a best friend with a gentleman named Edgar who also has CP. Housing: Lives in own apt with some assisted living supervision, previously resided in fpc, able to drive/ work and live in [...] recent loss of consciousness since arriving at [facility], no pain at site of her [...] stated age, well developed, well groomed, wearing magazine designer glasses, well nourished, in hospital scrubs [...] irrelevant answers to questions (i.e., in the fpc, they let ussign in and out, but they gave us time to shower when asked if she lived in a fpc) that areinterspersed with positive self-esteem statements (i.e., [...] her medications Sensorium: recognizes she is at [facility] Calculations: struggles to subtract 7 from 100, [...] REASON FOR INPATIENT ADMISSION: Schizoaffective disorder, unspecified ([facility]) Assessment/Plan * Schizoaffective disorder, unspecified ([facility]) Assessment & Plan For now, we will [...] positive self talk) and [facility] likely to be conflated with [...] reflect difficulty adjusting to the inpatient [facility] amid poor stress tolerance and [...] who is somewhat reliable Step-father Dalia Gonzalez [phone] Mother Valencia Gonzalez [phone] CHIEF COMPLAINT: I don't like it here [...] had approximately 8 other hospitalizations including in [place], where thefamily previously lived and [facility]. Per family, Ms. Hodgson has been [...] Ms. Hodgson [facility] [place] and is currently on Depakote, Wellbutrin, Zoloft [...] Family decided to take Ms. Hodgson to [place], where she was admitted. During this time, [...] ??? Alcohol use No Born and raised: [place] [place] Education: High School Occupation: [employer] Marital Status: Single Housing: Lives in [...] Negative Principal Problem: Schizoaffective disorder, bipolar type ([facility]) PRIMARY DIAGNOSIS/ REASON FOR INPATIENT ADMISSION: Schizoaffective disorder, bipolar type ([facility]) Assessment: This is a 37 y.o. year [...] - 06/29/2018 9:27 AM CDT NURSE CONSULTATION: Workers Compensation Claims Examiner of note spent 1:1 time with patient reviewing tx plan, discharge plan, diagnosis, meds, avoiding relapse, and possible challenges to post-d/c success. Patient voiced understanding of topics covered. * Stacey Levy RN - 06/28/2018 9:04 AM CDT 1:1 Sitter was discontinued prior to arrival to [id number]. * Marcella Cotton RN - 06/26/2018 6:58 [...] were still full). She was taken to [facility], where she was admitted for further psychiatric evaluation and treatment. While at [place] on 06/24/18, she was given an unknown medication for nausea and had aseizure shortly thereafter, causing a scalp lac which was repaired with bekah. Per documentation from OSH, head and C-spine CT were obtained but results are not clear from the available documentation. Per parents, she was then discharged home from [place]. Her parents feel that her symptoms are [...] 500 q day for unknown reasons at [place]. Patient History Patient Active Problem List Diagnosis [...] History Social History Narrative Born and raised: [place] [place] [facility] Education: High School Occupation: [employer] Marital Status: Single Housing: Lives in [...] Pt recently admitted for psych eval at [place] and discharged without appropriate evaluation per parents. Pt reportedly experienced a seizure at [place] which was evaluated with head CT and [...] bizarre behavior. Patient was recently seen and [facility], she is admitted forpsychiatric evaluation, however she was discharged. Family is unhappy with the care, brought her [facility] for psychiatric evaluation. Patient is otherwise [...] psychiatric evaluation, likely admission voluntarily date of [facility] or main. Patient's Depakote level is low, [...] psychiatry and pt will be admitted to [facility] vs. [facility] psychiatry. Will start pt on scheduled medications [...] were still full). She was taken to [facility], where she was admitted for further psychiatric evaluation and treatment. While at [place] on 06/24/18, she was given an unknown medication for nausea and had aseizure shortly thereafter, causing a scalp lac which was repaired with bekah. Per documentation from OSH, head and C-spine CT were obtained but results are not clear from the available documentation. Per parents, she was then discharged home from [place]. Her parents feel that her symptoms are [...] Disorganized behavior Nataly Reed MD Resident 06/25/18 3210 Cosigned by Alfred Whitney MD at 08/12/2018 7:15 PM CDT * Myaco Gonzalez, MORIAH - 06/25/2018 10:54 PM CDT Patient presents to the ED with parents with complaints of anxiety and hallucinations. Parents report that patient is suppose to be taking clonopin but has not been taking it as prescribed for anxiety. She lives at a fpc and takes care of her own medications. [...] harm herself. Pt was recently discharged from [place] today and went in for disorganized thinking, severe anxiety, and hallucinations. Family is concerned about her returning to the fpc by herself. While at [facility], family reports [...] Date of : 1980 Sex: Female Room/Bed: [id number] Payor Info: Medicare Admit Date/Time: 06/25/2018 9:36 PM Problem List: Patient Active Problem List Diagnosis Date Noted ??? Thyroid disease 06/27/2018 ??? Asthma 06/27/2018 ??? Anxiety 06/27/2018 ??? History of unspecified seizure 06/27/2018 ??? Schizoaffective disorder, unspecified ([facility] [facility]) 06/26/2018 Team Members Present: Physician Strainer Tender: Other (comment) (Dr. 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, 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, Disability income, Education, Employed, Home, Insured, [...] Frequency Start Date End Date Collaborate with foreign language stenographer -- 06/26/18 -- Problem: Lack of Knowledge: [...] to participate Primary Diagnosis: Schizoaffective disorder, unspecified ([facility]) Physician Documentation: Projected Discharge Date: 06/29/2018 MD Plan: discharge home on depakote 500 mg BID, zoloft 100 mg dailty and trazodone 50 mg PRN nightly Care Home Goals: Follow up with outpatient psychiatrist, follow up with PCP, follow up with PT/OT as outpatient Signatures: MORIAH Alamo, [place]- RISHABH Joe/MEGHAN * Medical Student - Lise [...] week ?? #Head Laceration While hospitalized at [place], patient reportedly had a fall after becoming [...] she was hospitalized she was working at [employer] and lived by herself in an [...] Treatment Course: Patient was admitted voluntarily to [address]. In the ED there was concern that [...] Treatment Course: #Head Laceration While hospitalized at [facility] from 06/19-06/24, patient suffered a fall. Per [...] social support in the form of a medical billing representative, employed, domiciled * Medical Student - Lise Zamora - 06/27/2018 2:31 PM CDT [place] Medical Records reviewed: No mention of seizure [...] CDT Telephone Note Valencia Gonzalez (patient's mother): [phone] Per patient's mother in the past month patient has exhibited racing thoughts, not making any sense, anxious, not taking care of herself, not sleeping, not eating, paranoid, increased talkativity, and labile mood (taerful one minute, and laughing the next). Patient was admitted to [place] from 06/19- 06/24. Per mom, patient is currently using oral contraceptive pills. Patient has a outsole caser, Maria Del Carmen, with [employer] [phone] Cosigned by Girma Winters MD at 06/27/2018 [...] positive self talk) and [facility] likely to be conflated with [...] levo 50mcg #Head Laceration While hospitalized at [place],patient reportedly had a seizure in the context [...] she was hospitalized she was working at [employer] and lived by herself in an [...] positive self talk) and [facility] likely to be conflated [...] was staffed with an attending physician at [facility] (Dr. Lewis). CURRENT DIAGNOSES: Principal Problem: Schizoaffective [...] ADMISSION STATUS Voluntary GUARDIANSHIP: No POWER OF TIMBER BUYER ([place] ONLY): SOURCE OF INFORMATION: Patient, whose reliability is poor; Parents, whose reliabilities are fair to good: Step-father, Dalia [phone] Mother, Valencia [phone] CHIEF COMPLAINT: Oh, sorry, that's a good question. I guess you could say that. HISTORY OF PRESENT ILLNESS: Ms. Hodgson is a poor historian, and the majority of history was taken from interview with patient'sparents. This is Ms. Hodgson's first hospitalization in the [facility] system, and thus current electronic medical records of her past psychiatric history is quite limited. Ms. Hodgson's childhood in [place], [place] was significant for a diagnosis of [...] received at least seven more hospitalizations in [place] and later [facility] after her familiy moved to [place] (exactly dates unknown pending more collateral). Ms. [...] good response to medication trials of Haldol, Piru, Abilify, Depakote, Wellbutrin, Clonazepam, and Zoloft (the exact combinations of these medications is not known, pending chart review), with her most recent regimen entailing Depakote 500 mg BID, Sertraline 100 mg qdaily, and Clonazepam 0.5 mg qdaily without any antipsychoticmedication; this regimen was prescribed by the patient's outpatient INSTRUMENTATION ENGINEERING TECHNICIAN Amna Bradley in [place], who recent has indicated to the patient and her parents that she did not believe the patient exhibited s/s of a psychotic disorder. Of note, her symptoms have been relatively stable in the community, e clara during times when Ms. Hodgson was not taking any antipsychotics. 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 Hodgson has been driving independently, living in her own [place] near her best friend Edgar , and working at [employer] and a [employer], where she has won employee of the month before. Ms. Hodgson has been experiencing an intensification of multiple stressors that appear to be overwhelming her coping skills. This includes recent increases in her workplace duties at [employer] and [employer], upcoming apartment inspections, and relationship stressors. She [...] intake, leading to her subsequent admission to [facility] in [place]. Although we have not been able to obtain collateral from [place] at this time, Ms. Hodgson's parents indicated that for unknown reasons, the patient's Depakote was decreased from 500 BID to 250 BID at [place], with her Sertraline decreased from 100 mg to 75 mg. Her hosiptal course was also complicated by a questionable seizure that Ms. Hodgson reportedly experienced while at the [place] psychiatry unit; the exact circumstances and characteristics of the event are unclear at this time, other than Ms. Hodgson required 7-8 bekah to her scalp subsequently. Her psych medication regimen was not changed and her sx persisted after discharge; the family subsequently brought the patient in to [facility] for further evaluation because her parents believed she was not safe yet. While at the [facility] ED, Ms. Hodgson reportedly experienced some transient [...] History Narrative Born and raised: Born in [place], [place]. Comfortable upper middle SES upbringing in [place]. Family now lives in [place] in [place]). Education: Attended high school and was in IEP/ special education. 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 Excels in jobs that requires routine, unskilledwork and is a dependable worker as per family. She has even won employee of the month at some of her workplaces. Received social security benefits for her mental health disability (psychosis). 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 Marital Status: Single, has few friends outside her twin sister's social [place] and is still searching for a romantic partner; endorses a best friend with a gentleman named Edgar who also has CP. Housing: Lives in own apt with some assisted living supervision, previously resided in fpc, able to drive/ work and live in [...] recent loss of consciousness since arriving at [facility], no pain at site of her [...] stated age, well developed, well groomed, wearing magazine designer glasses, well nourished, in hospital scrubs [...] irrelevant answers to questions (i.e., in the fpc, they let ussign in and out, but they gave us time to shower when asked if she lived in a fpc) that areinterspersed with positive self-esteem statements (i.e., [...] her medications Sensorium: recognizes she is at [facility] Calculations: struggles to subtract 7 from 100, [...] REASON FOR INPATIENT ADMISSION: Schizoaffective disorder, unspecified ([facility]) * ED Re-evaluation Note - Jaguar Ruff [...] no SI or HI. Recent admission to [place] for psych evaluation but parents brought her here as they didn't believe she received appropriate care. Evaluated by [facility] psych overnight. Pending: Waiting for [facility] Pysch bed Dispo: Admitted to [facility] voluntary I Jaguar Ruff MD have seen and examined this patient. I have discussed/reviewed the history, physical exam and assessment with the resident. We are in agreement with treatment plan except as I have noted. Gely Llanes MD 06/26/18 1839 Jaugar Ruff MD 06/26/18 1925 Jaguar Ruff MD [...] no SI or HI. Recently admitted to [place] for psych evaluation but parents brought her here as they did not believe she received appropriate care. Evaluated by psych at [facility] overnight. Dispo: admitted to [facility], Voluntary, waiting for bed. I Jaguar Ruff [...] Drug screen, urine (06/26/2018 12:09 AM CDT) [facility] Amphetamines, Class None detected [facility] Comment: [...] last revised 2016. Methadone, ur None detected [facility] Comment: Interpretive Data Immunoassay Screen cutoff level 300 ng/mL. Samples containing greater than 300 ng/mL of methadone or other cross-reacting substances are reported as presumptive and submitted for confirmatory testing. ??See separate confirmatory results for final interpretation. ??Results are to be used for medical purposes only. ? Current interpretive data was last revised 2016. Opiates, Class None detected [facility] Comment: Interpretive Data Immunoassay Screen cutoff level 300 ng/mL. Samples containing greater than 300 ng/mL of opiates or other cross-reacting substances are reported as presumptive and submitted for confirmatory testing. ??See separate confirmatory results for final interpretation. ??Testing does not include opioids. ??Results are to be used for medical purposes only. Current interpretive data was last revised 2016. Oxycodone, ur None detected [facility] Comment: Interpretive Data Immunoassay Screen cutoff level 100 ng/mL. ??Samples containing greater than 100 ng/mL of oxycodone or other cross-reacting substances are reported as presumptive and submitted for confirmatory testing. ??See separate confirmatory results for final interpretation. ??Results are to be used for medical purposes only. Current interpretive data was last revised on 2016. Phencyclidine, ur None detected [facility] Comment: Interpretive Data Immunoassay Screen cutoff level [...] CDT 06/26/2018 12:22 AM CDT Narrative [facility] - 06/26/2018 2:45 AM CDT THE COLLECTION LOCATION IS [facility] [id number] Nataly Reed MD LAB URINE ORDERABL ES Final Result Performing Organization Address City/[facility] [place] [address] * hCG, urine, qualitative (06/26/2018 12:09 AM CDT) HCG, ur Negative [facility] Urine 06/26/2018 12:0 9 AM CDT 06/26/2018 12:22 AM CDT Narrative [facility] - 06/26/2018 12:42 AM CDT THE BJ COLLECTION LOCATION IS [place] [address] Nataly Reed MD LAB URINE ORDERABL ES Final Result Performing Organization Address [facility] de Phone Number [facility] [place] [address] * (ABNORMAL) Urinalysis reflex to microscopic and culture Urine (06/26/2018 12:09 AM CDT) Color, ur Yellow Yellow [facility] Clarity, ur Cloudy(A) Clear [facility] Specific gravity, ur 1.010 1.010 - 1.025 [facility] pH, urine 7.0 [facility] Protein, ur ql Negative Negative [facility] Glucose, ur ql Negative Negative [facility] Ketones, ur Negative Negative [facility] Bilirubin, ur Negative Negative [facility] Blood, ur Negative Negative [facility] Urobilinogen, ur <2.0 <2.0 mg/dL [facility] Nitrite, ur Negative Negative [facility] Leukocyte esterase, ur Negative Negative [facility] Urine 06/26/2018 12:0 9 AM CDT 06/26/2018 12:22 AM CDT Narrative [facility] - 06/26/2018 12:45 AM CDT THE BJ COLLECTION LOCATION IS [place] [address] Urine pH is affected by diet, medications, systemic acid-base disturbances, and renal tubular function. ??pH may affect urinary stone formation. ??For example, urine pH below 6.0 may help reduce the tendency for calcium phosphate stones and pH greater than 6.0 may reduce the tendency for uric acid stone formation. Source: [facility] [employer]. Last revised 12-11-2017 Nataly Reed MD LAB MICROBIOLOGY - GENERAL ORDERABLES Final Result [facility] Department [place] [address] * Lipid panel (06/25/2018 11:05 PM CDT) [...] revised on 2015. Non-HDL Cholesterol 88 mg/dL [facility] Comment: Interpretive Data When triglycerides are >200 mg/dL, non-HDL C is a secondary target of therapy, with a goal 30 mg/dL higher than the identified LDL-C goal. Reference: ??See Cholesterol Reference. Current interpretive data was last revised 2015. Blood specimen (specimen) 06/25/2018 11:05 PM CDT 06/25/2018 11:20 PM CDT Narrative [facility] - 06/26/2018 8:33 PM CDT Dong Coreas MD LAB BLOOD ORDERABLES Fin al Result [facility] Department [place] [address] * (ABNORMAL) Differential, auto (06/25/2018 11:05 PM CDT) Pathologist [facility] Neutrophil abs 6.9(H) 1.7 - 6.5 K/cumm [facility] Imm gran abs 0.0 0.0 - 0.1 K/cumm [facility] Lymphocyte abs 3.5(H) 0.8 - 3.3 K/cumm [facility] Monocyte abs 1.2(H) 0.2 - 0.8 K/cumm [facility] Eosinophil abs 0.1 0.0 - 0.5 K/cumm [facility] Basophil abs 0.0 0.0 - 0.1 K/cumm [facility] Neutrophil pct 58.3 % [facility] Comment: Interpretive Data Percent cell count reference ranges are not reported, since discordance with absolute values may lead to misinterpretation of CBC data. Current Interpretive Data was last revised on 2018. Imm gran pct 0.4 % [facility] Comment: Interpretive Data Percent cell count reference ranges are not reported, since discordance with absolute values may lead to misinterpretation of CBC data. Current Interpretive Data was last revised on 2018. Lymphocyte pct 29.7 % [facility] Comment: Interpretive Data Percent cell count reference ranges are not reported, since discordance with absolute values may lead to misinterpretation of CBC data. Current Interpretive Data was last revised on 2018. Monocyte pct 10.5 % [facility] Comment: Interpretive Data Percent cell count reference ranges are not reported, since discordance with absolute values may lead to misinterpretation of CBC data. Current Interpretive Data was last revised on 2018. Eosinophil pct 0.7 % [facility] Comment: Interpretive Data Percent cell count reference ranges are not reported, since discordance with absolute values may lead to misinterpretation of CBC data. Current Interpretive Data was last revised on 2018. Basophil pct 0.4 % [facility] Comment: Interpretive Data Percent cell count reference ranges are not reported, since discordance with absolute values may lead to misinterpretation of CBC data. Current Interpretive Data was last revised on 2018. Blood specimen (specimen) 06/25/2018 11:05 PM CDT 06/25/2018 11:20 PM CDT Narrative [facility] - 06/25/2018 11:29 PM CDT Nataly Reed MD LAB BLOOD ORDERABL ES Final Result [facility] Department [place] [address] * Hepatic function panel (06/25/2018 11:05 PM CDT) Bilirubin, total 0.3 0.1 - 1.2 mg/dL [facility] Bilirubin, direct <0.2 0.1 - 0.3 mg/dL [facility] Protein, pl 7.0 6.5 - 8.5 g/dL [facility] Albumin 3.6 3.5 - 5.0 g/dL [facility] Alk phos 43 40 - 130 Units/L [facility] ALT 25 7 - 45 Units/L [facility] AST 42 10 - 45 Units/L [facility] Blood specimen (specimen) 06/25/2018 11:05 PM CDT 06/25/2018 11:20 PM CDT Narrative [facility] - 06/26/2018 12:19 AM CDT THE COLLECTION LOCATION IS [address] Nataly Reed MD LAB BLOOD ORDERABL ES Final Result Performing Organization Address City/[facility]/ZIP Co de Phone Number [facility] Department [place] [address] * (ABNORMAL) TSH (06/25/2018 11:05 PM CDT) Thyroid Stimulating Hormone 4.75(H) 0.30 - 4.20 mcIUnit/mL [facility] Comment: Interpretive Data Hyperthyroid: ??<0.1 mcIUnit/mL Hypothyroid: ??>12.0 mcIUnit/mL Current interpretive data was last revised on 01. Blood specimen (specimen) (Blood, Venous) 06/25/2018 11:05 PM CDT 06/25/2018 11:20 PM CDT Narrative [facility] - 06/25/2018 11:54 PM CDT THE COLLECTION LOCATION IS [address] Nataly Reed MD LAB BLOOD ORDERABL ES Final Result [facility] [place] [address] * Ethanol (06/25/2018 11:05 PM CDT) Ethanol <10.0 <=10.0 mg/dL [facility] Comment: Interpretive Data: If ethanol is [...] CDT 06/25/2018 11:20 PM CDT Narrative [facility] - 06/25/2018 11:54 PM CDT THE COLLECTION LOCATION IS [facility] ED106 Nataly Reed MD LAB BLOOD ORDERABL ES Final Result [facility] Department [place] [address] * (ABNORMAL) CBC with auto differential (06/25/2018 11:05 PM CDT) WBC 11.8(H) 3.8 - 9.9 K/cumm [facility] Hgb 11.7(L) 11.9 - 15.5 g/dL [facility] Hct 34.1(L) 35.6 - 45.5 % [facility] Plt 311 150 - 400 K/cumm [facility] MPV 9.6 9.1 - 12.3 fL [facility] RBC 3.85(L) 3.90 - 5.20 M/cumm [facility] MCV 88.6 81.3 - 96.4 fL [facility] MCH 30.4 27.1 - 33.3 pg [facility] MCHC 34.3 32.3 - 35.7 g/dL [facility] RDW CV 12.5 11.1 - 14.9 % [facility] RDW SD 40.4 35.7 - 48.1 fL [facility] NRBC abs 0.00 0.00 - 0.01 K/cumm [facility] Blood specimen (specimen) 06/25/2018 11:05 PM CDT 06/25/2018 11:20 PM CDT Narrative [facility] - 06/25/2018 11:29 PM CDT THE COLLECTION LOCATION IS [address] Nataly Reed MD LAB BLOOD ORDERABL ES Final Result Performing Organization Address [facility] de Phone Number [facility] Department [place] [address] * (ABNORMAL) Valproic acid level, total (06/25/2018 11:05 PM CDT) Valproic Acid 39.0(L) 50.0 - 100.0 mcg/mL [facility] Comment: Interpretive Data Therapeutic or toxic effects of anticonvulsant drugs may occur at different concentrations in different patients and the correlation between dose and clinical effect must be evaluated individually. Current interpretative data was last revised on 14. Blood specimen (specimen) 06/25/2018 11:05 PM CDT 06/25/2018 11:20 PM CDT Narrative [facility] - 06/25/2018 11:54 PM CDT THE COLLECTION LOCATION IS [place] [address] Nataly Reed MD LAB BLOOD ORDERABL ES Final Result Performing Organization Address City/[facility] Co de Phone Number [facility] Department [place] [address] * Basic metabolic panel (06/25/2018 11:05 PM CDT) Sodium 137 135 - 145 mmol/L [facility] Potassium, pl 3.9 3.3 - 4.9 mmol/L [facility] Chloride 103 97 - 110 mmol/L [facility] CO2 26 22 - 32 mmol/L [facility] Anion gap 8 2 - 15 mmol/L [facility] BUN 8 8 - 25 mg/dL [facility] Creatinine 0.77 0.60 - 1.10 mg/dL [facility] Glucose 86 70 - 199 mg/dL [facility] Comment: Interpretive Data Fasting glucose >/= [...] 2017. Calcium 8.9 8.5 - 10.3 mg/dL [facility] Blood specimen (specimen) 06/25/2018 11:05 PM CDT 06/25/2018 11:20 PM CDT Narrative [facility] - 06/25/2018 11:54 PM CDT THE COLLECTION LOCATION IS [facility] [id number] Nataly Reed MD LAB BLOOD ORDERABL ES Final Result [facility] Department [place] [address] documented in this encounter Visit Diagnoses Diagnosis [...] 2 puff, inhalation, Every 6 hours PRN (tactical response group officer), wheezing, shortness of breath, Starting on 06/27/18 [...] 2 puff, inhalation, Every 6 hours PRN (tactical response group officer), wheezing, shortness of breath, Starting on 06/27/18 [...] 06/26/2018 documented in this encounter Care Teams Strainer Tender Relationship Specialty Start Date End Date Trever Goodwin MD [address] [place] [address] PCP - General 06/25/18 documented as of this encounter
--- OUTSIDE RECORDS SUMMARY | 2024-12-04 11:46 | XMS_ITS | Encounter Summary ---
Author Organization [facility] Healthcare Address [address] [place] [address] Care Team Providers Care Fuel Testing Technician Name Role Phone Trever Goodwin MD Primary Care Prov ider Reason for Referral * Diagnostic Imaging (Routine) - Closed Specialty Diagnoses / Procedures Referred By Leeann t Referred To Contact Diagnoses Screening mammogram, encounter for Procedures Screening Mammogram Bilateral W Richard Screening Mammogram, Self [address] [address] Referral ID Status Reason Start Date Expiration Date Visits Re quested Visits Authorized [id number] Closed 07/09/2022 08/08/2023 1 1 Reason for Visit * Diagnostic Imaging (Routine) - Closed Specialty Diagnoses / Procedures Referred By Leeann t Referred To Contact Diagnoses Screening mammogram, encounter for Procedures Screening Mammogram Bilateral W Richard Screening Mammogram, Self [address] [address] Referral ID Status Reason Start Date Expiration Date Visits Re quested Visits Authorized [id number] Closed 07/09/2022 08/08/2023 1 1 Encounter Details Date Type Department Care Team (Latest Contact Info) Description 08/16/2022 12:42 PM CDT - 08/16/2022 11:59 PM CDT Hospital Encounter [facility] [address] [place] [id number] Screening Mammogram, Self Screening mammogram, encounter for [...] on file Legal Sex Female 6: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 30 tablet 06/30/2018 02/09/2024 melatonin [...] for documented in this encounter Care Teams Fuel Testing Technician Relationship Specialty Start Date End Date Trever Goodwin MD [address] [place] [address] PCP - General 06/25/18 documented as of this encounter
--- OUTSIDE RECORDS SUMMARY | 2024-12-04 11:46 | XMS_ITS | Encounter Summary ---
Author Organization [facility] Healthcare Address [address] [place] [address] Care Team Providers Care Forest Economist Name Role Phone Trever Goodwin MD Primary Care Prov ider Reason for Referral * Diagnostic Imaging (Routine) - Closed Specialty Diagnoses / Procedures Referred By Leeann wallace Referred To Contact Diagnoses Encounter for screening mammogram for malignant neoplasm of breast Procedures SCREENING MAMMOGRAM BILATERAL W Zuleyma Chamberlain NP [address] [place] [address] DR LAMAR [address] [place] [address] Phone: tel: fax: [address] [address] Referral ID Status Reason Start Date Expiration Date Visits Re quested Visits Authorized [id number] Closed 01/08/2024 02/06/2025 1 1 TECHNICIAN Reason for Visit * Reason Comments well woman Encounter Details Date Type Department Care Team (Late st Contact Info) Description 01/08/2024 11:00 AM DATA TECHNICIAN Office Visit [facility] at [address] [address] Zuleyma Finley NP [address] [place] [address] DR LAMAR [address] [place] [address] Well woman exam with routine gynecological exam [...] on file Legal Sex Female 6:04 PM DATA TECHNICIAN Gender Identity Female 09/18/2024 11:46 PM CDT Sexual Orientation Straight 09/18/2024 11 :46 PM CDT documented as of this encounter Last Filed Vital Signs Vital Sign Reading Time Taken Comments Blood Pressure 114/72 01/08/2024 10:39 AM DATA TECHNICIAN Pulse - - Temperature - - Respiratory Rate - - Oxygen Saturation - - Inhaled Oxygen Concentration - - Weight 65.2 kg (143 lb 12.8 oz) 024 10:39 AM DATA TECHNICIAN Height 157.5 cm (5' 2 ) 01/08/2024 10:3 9 AM DATA TECHNICIAN Body Mass Index 26.3 01/08/2024 10:39 AM DATA TECHNICIAN documented in this encounter Progress Notes * Zuleyma Finley, SKATE MAKER - 01/08/2024 11:00 AM CST Images from the original note were not included. Well Woman Exam Subjective: Amna Hodgson is a 43 y.o. [...] pain. The patient is very hesitant with trial court judge exams. She is agreeable to an exam [...] 1 tablet (50 mcg total) by mouth it business analyst before breakfast., Disp: 30 tablet, Rfl: 0 [...] eating habits encouraged. She will call with trial court judge complaints. Orders: - Pap and HPV, reflex [...] for Annual WWE. Zuleyma Finley NP 01/08/2024 TECHNICIAN documented in this encounter Plan of Treatment Not on file documented as of this encounter Procedures Procedure Name Priority Date/Time Associated Diagnosis Comments PAP AND HPV, REFLEX TO HPV GENOTYPES Routine 01/08/2024 11:39 AM DATA TECHNICIAN Well woman exam with routine gynecological exam URINE CULTURE Routine 01/08/2024 11:39 AM DATA TECHNICIAN Dysuria POCT URINALYSIS, AUTO W/O SCOPE Routine 01/08/2024 11:34 AM DATA TECHNICIAN Dysuria documented in this encounter Results * [...] been no suspicious interval change. Zuleyma Finley SKATE MAKER IMG MAMMO PROCEDURES Final Resul t * Urine culture Urine, clean voided (01/08/2024 11:39 AM DATA TECHNICIAN) Urine culture [facility] Mattson Comment: ??CULTURE, URINE, ROUTINE ?Micro Number: ?[id number] ??Test Status: ? Final ??Specimen Source: ?? [...] Tube. Urine, clean voided 01/08/2024 11:39 AM DATA TECHNICIAN 01/09/2024 2:28 AM DATA TECHNICIAN Zuleyma Kuldip SKATE MAKER LAB MICROBIOLOGY - GENERAL ORDER SCOT Final Result [facility] [address] [phone] * Pap and HPV, reflex to HPV Genotypes (01/08/2024 11:39 AM DATA TECHNICIAN) CLINICAL INFORMATION: [facility] Comment:WWE LMP [facility] Comment:1980 Previous Pap [facility] Comment:NONE GIVEN Prev. Bx [facility] Comment:NONE GIVEN SOURCE: [facility] Comment:Cervix, Endocervix Pap, specimen adequacy [facility] Comment: Satisfactory for evaluation. Endocervical/transformation zone component present. HPV interp [facility] Comment: Cytology Results: Negative for intraepithelial lesion or malignancy. COMMENTS [facility] Comment: This Pap test has been evaluated with computer assisted technology. Sap Bi Developer [facility] Comment: YOU, CT(ASCP) CT screening location: [place] [address] [place] [id number] Comment [facility] Comment: EXPLANATORY NOTE: The Pap [...] High Risk E6/E7 Not Detected NOT DETECTED [facility] /Francesca AGUAYO Comment: Not Detected High Risk HPV types (16,18,31,33,35,39,45,51,52, 56,58,59,66,68) were not detected. Other HPV types which cause anogenital lesions may be present. The significance of the other types of HPV in malignant processes has not been established. Methodology: Real Time PCR ? Thin prep 01/08/2024 11:3 9 AM DATA TECHNICIAN 01/09/2024 8:31 AM DATA TECHNICIAN Zuleyma Finley SKATE MAKER LAB CYTOLOGY ORDERABLES Final Re sult [facility] [address] [place] [address] [facility] [address] [facility] [address] [place] [address] * POCT UA, AUTO W/O SCOPE (01/08/2024 11:34 AM DATA TECHNICIAN) Color, Urine, POC Yellow Clarity, ur, POC Clear Clear Glucose, ur, POC Negative Negative MG/DL Bilirubin, ur, POC Negative Negative, Small, Moderate, Large Ketones, ur, POC Negative Negative Specific [place], POC 1.030 1.003 - 1.030 Blood, ur, POC Negative Negative pH, ur, POC 7.0 5.0 - 8.0 Protein, ur, POC Negative Negative Urobilinogen, Urine, POC 0.2 mg/dL Leukocytes, ur, POC Negative Negative Nitrite, ur, POC Negative Negative Urine, clean voided 01/08/2024 11:34 AM DATA TECHNICIAN Zuleyma Finley SKATE MAKER POINT OF CARE TEST ORDERABLES Fi nal [...] documented as of this encounter Care Teams Forest Economist Relationship Specialty Start Date End Date Trever Goodwin MD [address] [place] [address] PCP - General 06/25/18 documented as of this encounter
--- OUTSIDE RECORDS SUMMARY | 2024-12-04 11:46 | XMS_ITS | Encounter Summary ---
Author Organization [facility] Healthcare Address [address] [place] [address] Care Team Providers Care Tugboat Mate Name Role Phone Unavailable Primary Care Provider Unavailabl e Encounter Details Date Type Department Care Team (Late st Contact Info) Description 01/02/2010 3:29 PM SUPERVISOR CURED MEATS - 01/02/2010 11:59 PM SUPERVISOR CURED MEATS Hospital Encounter [facility] Screening for malignant neoplasm of cervix Social History Tobacco Use Types Packs/Day Years Used Date Smoking Tobacco: Never Assessed Comments Unknown Sex and Gender Information Value Date Recorded Sex Assigned at Not on file Legal Sex Female 6:04 PM SUPERVISOR CURED MEATS Gender Identity Female 09/18/2024 11:46 PM CDT Sexual Orientation Straight 09/18/2024 11 :46 PM CDT documented as of this encounter Plan of Treatment Not on file documented as of this encounter Visit Diagnoses Diagnosis Screening for malignant neoplasm of cervix Screening for malignant neoplasm of the cervix documented in this encounter
--- OUTSIDE RECORDS SUMMARY | 2024-12-04 11:46 | XMS_ITS | Encounter Summary ---
Author Organization [facility] Address [address] [place] [address] Phone Care Team Providers Care Food Counter Attendant Name Role Phone Trever oGodwin MD Primary Care Prov ider Reason for Visit * Reason Comments Fall Dizziness * Consultation (Routine) - Closed Specialty Diagnoses / Procedures Referred By Contac t Referred To Contact Neurology Diagnoses Chronic vertigo Trever Goodwin MD Phone: tel: fax: Ariela Meyer PA Phone: tel: fax: Referral ID Status Reason Start Date Expiration Date V isits Requested Visits Authorized [id number] Closed Specialty Services Required 10/28/2018 05/08/2020 1 1 Encounter Details Date Type Department Care Team (Late st Contact Info) Description 12/16/2018 11:00 AM GEOMETRICIAN Office Visit [facility] [address] [facility] 6th Floor [address] [place] [address] Ariela Meyer PA [address] [place] [address] Dizziness (Primary Dx); Schizoaffective disorder, [...] on file Legal Sex Female 6:04 PM GEOMETRICIAN Gender Identity Female 09/18/2024 11:46 PM CDT Sexual Orientation Straight 09/18/2024 11 :46 PM CDT documented as of this encounter Last Filed Vital Signs Vital Sign Reading Time Taken Comments Blood Pressure 117/70 12/16/2018 10:32 AM GEOMETRICIAN Pulse 67 12/16/2018 10:32 AM GEOMETRICIAN Temperature - - Respiratory Rate - - Oxygen Saturation 98% 12/16/2018 10:32 AM GEOMETRICIAN Inhaled Oxygen Concentration - - Weight 61.7 kg (136 lb) 12/16/2018 10:32 AM GEOMETRICIAN Height 157.5 cm (5' 2 ) 12/16/2018 10:32 AM GEOMETRICIAN Body Mass Index 24.87 12/16/2018 10:32 AM GEOMETRICIAN documented in this encounter Progress Notes * Ariela Meyer PA - 12/16/2018 11:00 AM CST Patient Name: PETE CHAUHAN Medical Record Number (MRN): [id number] Date of (): 1980 Encounter Date: 12/16/2018 [...] History Narrative Born and raised: Born in [place], [place]. Comfortable upper middle SES upbringing in [place]. Family now lives in [place]). Education: Attended high school and was in IEP/ special education. 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 Excels in jobs that requires routine, unskilledwork and is a dependable worker as per family. She has even won employee of the month at some of her workplaces. Received social security benefits for her mental health disability (psychosis). 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 Marital Status: Single, has few friends outside her twin sister's social [place] and is still searching for a romantic partner; endorses a best friend with a gentleman named Edgar who also has CP. Housing: Lives in own apt with some assisted living supervision, previously resided in retirement, able to drive/ work and live in [...] nose was intact, she had difficulty with [id number] b/l. Sensation was intact to light touch, [...] to Neurology 2. Schizoaffective disorder, unspecified type ([facility]) Plan Pete Chauhan presented today for evaluation [...] free to contact me. Sincerely, HARLEY Beard ETRICIAN documented in this encounter Plan of Treatment [...] 12/16/2018 documented in this encounter Care Teams Food Counter Attendant Relationship Specialty Start Date End Date Trever Goodwin MD [address] [place] [address] PCP - General 06/25/18 documented as of this encounter
--- OUTSIDE RECORDS SUMMARY | 2024-12-04 11:46 | XMS_ITS | Encounter Summary ---
Author Organization [facility] Address [address] [place] [address] Phone Care Team Providers Care Data Storage Specialist Name Role Phone Trever Goodwin MD Primary Care Prov ider Reason for Visit * Reason Onset Date Comments OTHER,MU 12/11/2018 Encounter Details Date Type Department Care Team (Late st Contact Info) Description 12/11/2018 Telephone [facility] Neuro Sleep [address] [facility] 6th Floor [address] [place] [address] Isra Durán RMA OTHER,MU Social [...] on file Legal Sex Female 6:04 PM METAL MINER BLASTING Gender Identity Female 09/18/2024 11:46 PM CDT Sexual Orientation Straight 09/18/2024 11 :46 PM CDT documented as of this encounter Miscellaneous Notes * Telephone Encounter - Isra Durán MA - 12/11/2018 2:19 PM METAL MINER BLASTING Spoke with patient,MU is partially done.A current medication list will be brought in at appointment. L MINER BLASTING documented in this encounter Plan of Treatment Not on file documented as of this encounter Visit Diagnoses Not on filedocumented in this encounter Care Teams Data Storage Specialist Relationship Specialty Start Date End Date Trever Goodwin MD [address] [place] [address] PCP - General 06/25/18 documented as of this encounter
--- OUTSIDE RECORDS SUMMARY | 2024-12-04 11:46 | XMS_ITS | Encounter Summary ---
Author Organization [facility] Healthcare Address [address] [place] [address] Care Team Providers Care Map Editor Name Role Phone Trever Goodwin MD Primary Care Prov ider Reason for Referral * Diagnostic Imaging (Routine) - Closed Specialty Diagnoses / Procedures Referred By Leeann wallace Referred To Contact Diagnoses Encounter for screening mammogram for malignant neoplasm of breast Procedures Screening Mammogram Bilateral W Ayde Siegel NP Phone: tel: fax: [address] [address] Referral ID Status Reason Start Date Expiration Date Visits Re quested Visits Authorized [id number] Closed 08/26/2019 03/06/2021 1 1 DRIVER OPERATOR BARGE MOUNTED Reason for Visit * Diagnostic Imaging (Routine) - Closed Specialty Diagnoses / Procedures Referred By Leeann wallace Referred To Contact Diagnoses Encounter for screening mammogram for malignant neoplasm of breast Procedures Screening Mammogram Bilateral W Ayde Siegel NP Phone: tel: fax: [address] [address] Referral ID Status Reason Start Date Expiration Date Visits Re quested Visits Authorized [id number] Closed 08/26/2019 03/06/2021 1 1 Encounter Details Date Type Department Care Team (Latest Contact Info) Description 01/06/2020 12:28 PM PILE DRIVER OPERATOR BARGE MOUNTED - 01/06/2020 11:59 PM PILE DRIVER OPERATOR BARGE MOUNTED Hospital Encounter [facility] [address] [place] [address] Byron Mcintosh MD [address] [facility] [address] BENJAMIN Carroll [address] [address] Ayde Hughes NP [address] [facility] [address] [address] Encounter for screening mammogram for malignant neoplasm [...] on file Legal Sex Female 6:04 PM PILE DRIVER OPERATOR BARGE MOUNTED Gender Identity Female 09/18/2024 11:46 PM CDT Sexual Orientation Straight 09/18/2024 11 :46 PM CDT documented as of this encounter Last Filed Vital Signs Vital Sign Reading Time Taken Comments Blood Pressure - - Pulse - - Temperature - - Respiratory Rate - - Oxygen Saturation - - Inhaled Oxygen Concentration - - Weight 69.9 kg (154 lb) 01/06/2020 12:37 PM PILE DRIVER OPERATOR BARGE MOUNTED Height 158.8 cm (5' 2.5 ) 01/06/2020 12:37 PM CS T Body Mass Index 27.72 01/06/2020 12:37 PM PILE DRIVER OPERATOR BARGE MOUNTED documented in this encounter Medications at Time of Discharge divalproex DR (DEPAKOTE) 500 mg EC tabletIndications :Mood Changes Take 1 tablet (500 mg total) by mouth 2 (two) times a day. 60 tablet 1 06/29/2018 cholecalciferol (VITAMIN D3) 2,000 unit capsule 2,000 Units. 12/11/2023 levothyroxine (SYNTHROID, LEVOTHROID) 50 mcg tabletIndications :hypothyroidism Take 1 tablet (50 mcg total) by mouth technical professional before breakfast. 30 tablet 06/30/2018 02/09/2024 melatonin [...] Read Routine (OP Routine) 01/06/2020 12:45 PM PILE DRIVER OPERATOR BARGE MOUNTED Encounter for screening mammogram for malignant neoplasm of breast documented in this encounter Results * Screening Mammogram Bilateral W Bin (01/06/2020 12:45 PM PILE DRIVER OPERATOR BARGE MOUNTED) Anatomical Region Laterality Modality Breast Bilateral Mammography 01/07/2020 3:27 PM PILE DRIVER OPERATOR BARGE MOUNTED Impressions 01/07/2020 3:31 PM PILE DRIVER OPERATOR BARGE MOUNTED No evidence of malignancy. Follow-up in 1 year with screening mammography is recommended. BI-RADS: 1 - Negative. The patient has been or will be contacted. The patient will be entered into a reminder system with a target due date of 1 year for her next mammogram. Electronically signed by: Juventino Oleary M.D. Narrative 01/07/2020 3:31 PM PILE DRIVER OPERATOR BARGE MOUNTED EXAMINATION: SCREENING MAMMOGRAM BILATERAL W BIN ORDERING HEALTHCARE PROVIDER: AYDE HUGHES HISTORY: Routine screening mammography. COMPARISON: ??None. [...] calcifications, or architectural distortion. us Ayde Hughes FLATWORK FINISHER IMG MAMMO PROCEDURES Final Re sult documented in this encounter Visit Diagnoses Diagnosis Encounter for screening mammogram for malignant neoplasm of breast documented in this encounter Care Teams Map Editor Relationship Specialty Start Date End Date Trever Goodwin MD [address] [place] [address] PCP - General 06/25/18 documented as of this encounter
--- OUTSIDE RECORDS SUMMARY | 2024-12-04 11:46 | XMS_ITS | Encounter Summary ---
Author Organization [facility] Address [address] [address] Care Team Providers Care Irrigator Sprinkling System Name Role Phone Trever Goodwin MD Primary Care Prov ider Reason for Visit * Reason Comments UTI Pt c/o the following S/x: pain when urinating, frequency, and incontinence for the past 2 weeks. Encounter Details Date Type Department Care Team (Late st Contact Info) Description 06/27/2023 3:15 PM CDT Office Visit [facility] [address] [address] Chayito Garcia NP [address] [place] [address] [address] [place] [address] Urinary urgency (Primary Dx); Left [...] on file Legal Sex Female 6:04 PM CHEMICAL ANALYTICAL SAMPLER Gender Identity Female 09/18/2024 11:46 PM CDT [...] worse. ??Contact your primary care doctor or ASSEMBLING MOTOR BUILDER if: ?? You have a fever. ?? [...] 2 weeks. ) Pt [facility] to [facility] Pain in left side Incontinent Frequency [...] 1 tablet (50 mcg total) by mouth scout before breakfast., Disp: 30 tablet, Rfl: 0 [...] Ketones, ur, POC 15. (A) Negative Specific [place], POC 1.025 1.003 - 1.030 Blood, ur, POC Negative Negative pH, ur, POC 7.0 5.0 - 8.0 Protein, ur, POC 30. (A) Negative Urobilinogen, urine, POC 0.2 0.2 - 1.0 mg/dL Nitrite, ur, POC Negative Negative Leukocytes, ur, POC Trace (A) Negative Lot Number [id number] Discussed with patient and caregiver if urine [...] worse. ??Contact your primary care doctor or ASSEMBLING MOTOR BUILDER if: ?? You have a fever. ?? [...] office note has been partially dictated using SlapVid software, and as a result portions of the record may have been created with this software. Occasional wrong-word or 'ciegm-[id number]' substitutions may have occurred due to the [...] clinical standards) TIFFANIE Comment:Testing performed by : [facility], [address] [place]., [address] Organism (CLINICALLY INSIGNIFICANT GROWTH TIFFANIE Urine, clean voided 06/27/2023 4:09 PM CDT 06/28/2023 12:46 AM CDT Narrative TIFFANIE CANADA - 06/29/2023 6:53 AM CDT Please run sensitivity. Testing performed by [facility] Laboratory ([phone]) us Chayito Garcia NP LAB MICROBIOLOGY - GENERAL ORDE WILLIAM Final Result TIFFANIE [address] [place] [address] * (ABNORMAL) POCT urinalysis dipstick (06/27/2023 3:34 PM CDT) Color, Urine, POC Dark Yellow Clarity, ur, POC Turbid(A) Clear Glucose, ur, POC Negative Negative MG/DL Bilirubin, ur, POC Negative Negative, Small, Moderate, Large Ketones, ur, POC 15.(A) Negative Specific [place], POC 1.025 1.003 - 1.030 Blood, ur, POC Negative Negative pH, ur, POC 7.0 5.0 - 8.0 Protein, ur, POC 30.(A) Negative Urobilinogen, urine, POC 0.2 0.2 - 1.0 mg/dL Nitrite, ur, POC Negative Negative Leukocytes, ur, POC Trace(A) Negative Lot Number [id number] Urine 06/27/2023 3:34 PM CDT us Chayito [...] 4 added in this encounter Care Teams Irrigator Sprinkling System Relationship Specialty Start Date End Date Trever Goodwin MD [address] [place] [address] PCP - General 06/25/18 documented as of this encounter
--- OUTSIDE RECORDS SUMMARY | 2024-12-04 11:46 | XMS_ITS | Encounter Summary ---
Author Organization [facility] Healthcare Address [address] [place] [address] Care Team Providers Care Equipment Maintenance Supervisor Name Role Phone Unavailable Primary Care Provider Unavailabl e Encounter Details Date Type Department Care Team (Late st Contact Info) Description 03/07/2009 11:37 AM CDT - 03/07/2009 4:00 PM CDT Hospital Encounter [facility] Cristiano Vance MD [address] [facility] [address] [place] [address] Trever Goodwin MD [address] [place] [address] Other chest pain Social History Tobacco Use Types Packs/Day Years Used Date Smoking Tobacco: Never Assessed Comments Unknown Sex and Gender Information Value Date Recorded Sex Assigned at Not on file Legal Sex Female 6:04 PM SUBSTITUTE CROSSING GUARD Gender Identity Female 09/18/2024 11:46 PM CDT Sexual Orientation Straight 09/18/2024 11 :46 PM CDT documented as of this encounter Plan of Treatment Not on file documented as of this encounter Visit Diagnoses Diagnosis Other chest pain documented in this encounter
== END 2024-11-27 11:22 | disposition home or self-care (01) ==
PROVIDERS: Emergency Provider Emergency Medicine; PCP Family Medicine Adolescent Medicine
DX: F41.9 Anxiety disorder, unspecified (principal); G80.9 Cerebral palsy, unspecified; J45.20 Mild intermittent asthma, uncomplicated; E03.9 Hypothyroidism, unspecified; G47.33 Obstructive sleep apnea (adult) (pediatric); F31.9 Bipolar disorder, unspecified; F25.9 Schizoaffective disorder, unspecified; Z87.01 Personal history of pneumonia (recurrent)
CPT/HCPCS: 81001; 81025; 99283

== ENCOUNTER 2025-02-02 11:16 | Outpatient (CLI) | payer MEDICARE, MEDICAID, SELFPAY ==
--- NOTE | ~2025-02-02 | XR_ITS ---
3 VIEWS LUMBAR SPINE Ordering provider: Trever Goodwin MD History: . M54.50 - Low back pain, unspecified . Comparison: None. FINDINGS: VERTEBRAL BODIES: No visible fracture or subluxation. DISK SPACES: Narrowing of the disc L2-L3 and L5-S1. Facet joint disease seen at the level of L5-S1. SOFT TISSUES: Normal. IMPRESSION: No acute osseous abnormality lumbar spine. Multilevel degenerative disc disease. Reviewed, dictated and finalized at location A. CREW SUPERVISOR
== END 2025-02-02 11:17 | disposition home or self-care (01) ==
LOC: MICIMG 11:18
PROVIDERS: PCP Family Medicine Adolescent Medicine; Visit Provider Family Medicine Adolescent Medicine
DX: M51.369 Other intervertebral disc degeneration, lumbar region without mention of lumbar back pain or lower extremity pain (principal); M51.379 Other intervertebral disc degeneration, lumbosacral region without mention of lumbar back pain or lower extremity pain
CPT/HCPCS: 72100